=== PATIENT | male | born 1930 | race Hispanic/Latino ===

== ENCOUNTER 2017-02-08 13:26 | Inpatient (IN) | payer MEDICARE, MEDICAID ==
[2017-02-08] MEDS ORDERED: Sodium Chloride 0.9% 500 ML IV STA ×3 (13:41→15:34)
[2017-02-08] MEDS ORDERED: Albuterol-Ipratrop 3 mg / 0.5 (3 ml) UD INH STA (13:41)
[2017-02-08] MEDS ORDERED: Albuterol-Ipratrop 3 mg / 0.5 (3 ml) UD IH STA (13:41)
[2017-02-08] MEDS ORDERED: Albuterol-Ipratrop 3 mg / 0.5 (3 ml) UD ONE (13:47)
[2017-02-08 13:48] LABS: ABG ALLEN TEST YES; ARTERIAL BLOOD GAS HCO3 24.7 mmol/L (21-28); ARTERIAL BLOOD GAS PH 7.45 (7.35-7.45); ARTERIAL BLOOD GAS PO2 51 mm/Hg (80-100)
--- NOTE | 2017-02-08 13:50 | ED PDOC ---
HPI: SOB/CHF/COPD Time Seen by Provider: 02/08/17 13:41 Chief Complaint (Nursing): Respiratory Distress Chief Complaint (Provider): Dyspnea History Per: Patient History/Exam Limitations: no limitations Onset/Duration Of Symptoms: Days (Today) Current Symptoms Are (Timing): Still Present Additional Complaint(s): Pt. with dyspnea, cough, chills, chest pain. On going for days, getting worse. Pt. homemaker came and saw pt. uncomfortable so called ER. He did not want to come to the ER. Pt. with leg swelling and pain ongoing for weeks. Has stopped taking his meds for copd. Does not take any other meds. No numbness, tingles, weakness, headaches, weakness. EMS saw pt. and given 2 duoneb, 1 ativan IV, and solumedrol 125mg. Past Medical History Reviewed: Nursing Documentation, Vital Signs Vital Signs: Last Vital Signs Temp 102.6 F H 02/08/17 14:04 Pulse 119 H 02/08/17 15:30 Resp 26 H 02/08/17 15:30 BP 112/54 L 02/08/17 15:30 Pulse Ox 97 02/08/17 15:30 - Medical History PMH: COPD - Surgical History Surgical History: No Surg Hx - Family History Family History: States: Unknown Family Hx - Social History Current smoker - smoking cessation education provided: No Alcohol: None - Allergies Allergies/Adverse Reactions: Allergies Allergy/AdvReac Type Severity Reaction Status Date / Time Penicillins Allergy RASH Verified 02/08/17 13:28 Review of Systems ROS Statement: Except As Marked, All Systems Reviewed And Found Negative Constitutional: Positive for: Chills ENT: Positive for: Nose Congestion Cardiovascular: Positive for: Chest Pain Respiratory: Positive for: Cough, Shortness of Breath, Wheezing Musculoskeletal: Positive for: Leg Pain Physical Exam - Reviewed Nursing Documentation Reviewed: Yes Vital Signs Reviewed: Yes - Physical Exam Appears: Positive for: Uncomfortable Head Exam: Positive for: ATRAUMATIC Skin: Positive for: Normal Color, Warm, DRY Eye Exam: Positive for: EOMI, Normal appearance, PERRL ENT: Positive for: Nasal Congestion. Negative for: Pharyngeal Erythema, Tonsillar Exudate Neck: Positive for: Normal, Painless ROM, Supple Cardiovascular/Chest: Positive for: Chest Non Tender, Edema (b/l lower ), Tachycardia (mild) Respiratory: Positive for: Decreased Breath Sounds, Wheezing (b/l) Gastrointestinal/Abdominal: Positive for: Normal Exam, Bowel Sounds, Soft. Negative for: Tenderness Back: Positive for: Normal Inspection. Negative for: L CVA Tenderness, R CVA Tenderness Extremity: Positive for: Normal ROM, Pedal Edema (b/l with pitting mild; venous stasis b/l). Negative for: Tenderness Neurologic/Psych: Positive for: Alert, sole seamer II-XII, Oriented. Negative for: Motor/Sensory Deficits, Facial Droop - Laboratory Results Result Diagrams: 02/08/17 13:30 02/08/17 13:50 Interpretation Of Abn Labs: 12.9 wbc; 27 bun, 1.4 cr - ECG ECG: Positive for: Interpreted By Me, Viewed By Me ECG Rhythm: Positive for: Sinus Tachycardia, Right Bundle Branch Block O2 Sat by Pulse Oximetry: 86 Pulse Ox Interpretation: Abnormal Interpretation Of Abnormal: corrected with oxygen nasal - Radiology X-Ray: Interpreted by Me, Viewed By Me X-Ray Interpretation: Infiltrates (LLL infiltrate) - Progress ED Course And Treament: 1506: Stable. Will need antibiotics. Will tx and need admit. 1537: Stable. AAOx3. Feels better. Speaking full sentences. Breathing better. Spoke with Dr. Grant. Will admit and give further orders when pt. reaches floor. - Critical Care Total Time (In Min): 30 Documented Critical Care: Time excludes all time spent performint seperately billable procedures Disposition - Clinical Impression Clinical Impression: Pneumonia, COPD (chronic obstructive pulmonary disease), Sepsis - Patient ED Disposition Is Patient to be Admitted: Yes Counseled Patient/Family Regarding: Studies Performed, Diagnosis - Disposition Disposition Time: 15:39 Condition: FAIR - Pt Status Changed To: Hospital Disposition Of: Inpatient - Admit Certification Admit to Inpatient:: After my assessment, the patient will require hospitalization for at least two midnights. This is because of the severity of symptoms shown, intensity of services needed, and/or the medical risk in this patient being treated as an outpatient. - POA Present On Arrival: None Core Measure Indicators: Pneumonia
[2017-02-08 14:06] LABS: ALB/GLOB RATIO 0.9 (1.0-2.1); ALKALINE PHOSPHATASE 72 U/L (38-126); ALT/SGPT 22 U/L (21-72); AST/SGOT 45 U/L (17-59); BILIRUBIN,TOTAL 1.4 mg/dl (0.2-1.3); BLOOD UREA NITROGEN 27 mg/dl (9-20); CALCIUM 9.4 mg/dL (8.4-10.2); CARBON DIOXIDE 23 mmol/L (22-30); CHLORIDE 105 mmol/L (98-107); GFR AFRICAN-AMERICAN 58; GLUCOSE,RANDOM 93 mg/dL (75-110); MAGNESIUM 2.2 MG/DL (1.6-2.3); PHOSPHOROUS 3.7 mg/dl (2.5-4.5); SODIUM 144 mmol/l (132-148); TOTAL PROTEIN 8.4 G/DL (6.3-8.2)
[2017-02-08 14:10] LABS: POTASSIUM 5.8 MMOL/L (3.6-5.0)
[2017-02-08 14:17] LABS: PARTIAL THROMBOPLASTIN TIME 20.3 SECONDS (23.3-32.5)
[2017-02-08 14:21] LABS: RBC URINE 3 /hpf (0-3); URINE BACTERIA RARE (<OCC); URINE BILIRUBIN NEGATIVE (NEGATIVE); URINE BLOOD NEGATIVE (NEGATIVE); URINE COLOR YELLOW (YELLOW); URINE GLUCOSE (UA) NEG (Normal); URINE KETONE NEGATIVE (NEGATIVE); URINE LEUKOCYTE ESTERASE NEG Leu/uL (Negative); URINE PROTEIN NEGATIVE (NEGATIVE); URINE UROBILINOGEN 0.2-1.0 mg/dL (0.2-1.0); WBC URINE 12 /hpf (0-5)
[2017-02-08 14:28] LABS: BASO # 0.2 K/uL (0.0-0.2); BASO % 1.3 % (0.0-2.0); EOS # 0.3 K/uL (0.0-0.7); EOS % 2.4 % (0.0-4.0); LYMPH # 1.8 K/uL (1.0-4.3); LYMPH % 13.7 % (20.0-40.0); MEAN CELL VOLUME 93.4 fl (80.0-94.0); MEAN CORPUSCULAR HGB CONC 32.2 g/dL (33.0-37.0); MONO # 0.4 K/uL (0.0-0.8); MONO % 2.8 % (0.0-10.0); NEUT # 10.3 K/uL (1.8-7.0); NEUT % 79.8 % (50.0-75.0); RED CELL DISTRIBUTION WIDTH 14.2 % (11.5-14.5); WHITE BLOOD COUNT 12.9 K/uL (4.8-10.8)
[2017-02-08 14:32] LABS: BILIRUBIN,TOTAL 0.8 mg/dl (0.2-1.3); CALCIUM 9.4 mg/dL (8.4-10.2); POTASSIUM 4.9 MMOL/L (3.6-5.0); TOTAL PROTEIN 7.5 G/DL (6.3-8.2)
--- NOTE | 2017-02-08 14:35 | RAD ---
HISTORY: Sepsis Patient COMPARISON: No prior. FINDINGS: LUNGS: The right lung is clear. There is a left retrocardiac opacity. PLEURA: Suspect left pleural effusion. Question of small right pleural effusion, no pneumothorax apparent. CARDIOVASCULAR: There is moderate cardiomegaly. OSSEOUS STRUCTURES: No significant abnormalities. VISUALIZED UPPER ABDOMEN: Normal. OTHER FINDINGS: None. IMPRESSION: Suspect left lower lobe atelectasis/ pneumonia and small left pleural effusion. Question of small right pleural effusion.
[2017-02-08] MEDS ORDERED: Moxifloxacin IV 400mg/250ml NS 250 ML IVPB STA (15:04)
[2017-02-08 18:12] LABS: VENOUS BLOOD GAS BASE EXCESS -1.9 mmol/L (0.0-2.0); VENOUS BLOOD GAS PCO2 43 mmHg (40-60); VENOUS BLOOD PH 7.35 (7.32-7.43)
[2017-02-08 18:56] VITALS: BMI 29.8
[2017-02-08] MEDS: methylPREDNISolone 80 MG in Sodium Chloride 0.9% 50 ML IVPB SCH (22:23)
[2017-02-08] MEDS: Pantoprazole 40 mg EC Tab PO SCH (23:41)
[2017-02-09] MEDS: Albuterol-Ipratrop 3 mg / 0.5 (3 ml) UD INH SCH ×3 (01:18→13:30)
[2017-02-09] MEDS: methylPREDNISolone 80 MG in Sodium Chloride 0.9% 50 ML IVPB SCH ×4 (04:43→21:32)
--- NOTE | 2017-02-09 07:33 | CP.PCM.CON ---
History of Present Illness - History of Present Illness History of Present Illness: 86 y/o male with dyspnea, cough, chills, chest pain. On going for days, getting worse. Pt. with leg swelling and pain ongoing for weeks. Has stopped taking his meds for copd. Does not take any other meds. No numbness, tingles, weakness, headaches, weakness. 02/09 EKG: S Tach w/CRBBB Today's EKG: NSR CRBBB Troponin: neg Pt denies chest pain / palpitations Past Patient History - Past Medical History & Family History Past Medical History?: Yes - Past Social History Smoking Status: Former Smoker - PULMONARY Hx Respiratory Disorders: Yes (COPD) - MUSCULOSKELETAL/RHEUMATOLOGICAL Hx Falls: No - GASTROINTESTINAL Hx Gastroesophageal Reflux: Yes - PSYCHIATRIC Hx Substance Use: No Meds Allergies/Adverse Reactions: Allergies Allergy/AdvReac Type Severity Reaction Status Date / Time Penicillins Allergy RASH Verified 02/08/17 13:28 - Medications Medications: Current Medications Acetaminophen (Tylenol 325mg Tab) 650 mg PO Q6 PRN PRN Reason: Fever >100.4 F Acetaminophen (Tylenol 325mg Tab) 650 mg PO Q6 PRN PRN Reason: Pain, Mild (1-3) Last Admin: 02/09/17 01:53 Dose: 650 mg Albuterol/Ipratropium (Duoneb 3 Mg/0.5 Mg (3 Ml) Ud) 3 ml INH RQ6 [facility] Last Admin: 02/09/17 01:18 Dose: 3 ml Enoxaparin Sodium (Lovenox) 40 mg SC DAILY [facility] PRN Reason: Protocol Levofloxacin/Dextrose (Levaquin 750mg) 150 mls @ 100 mls/hr IVPB DAILY [facility] Methylprednisolone 80 mg/ (Sodium Chloride) 51.28 mls @ 100 mls/hr IVPB Q6 [facility] Last Admin: 02/09/17 04:43 Dose: 100 mls/hr Ondansetron HCl (Zofran Inj) 4 mg IVP Q6 PRN PRN Reason: Nausea/Vomiting Last Admin: 02/08/17 23:41 Dose: 4 mg Pantoprazole Sodium (Protonix Ec Tab) 40 mg PO DAILY [facility] Last Admin: 02/08/17 23:41 Dose: 40 mg Results - Vital Signs Recent Vital Signs: Last Vital Signs Temp 97.5 F L 02/09/17 05:00 Pulse 94 H 02/09/17 05:00 Resp 20 02/09/17 05:00 BP 94/52 L 02/09/17 05:00 Pulse Ox 98 02/09/17 05:00 - Labs Result Diagrams: 02/08/17 13:30 02/08/17 13:50 Labs: Laboratory Results - last 24 hr 02/08/17 02/08/17 18:10 21:08 pO2 47 VBG pH 7.35 VBG pCO2 43 VBG HCO3 23.1 VBG Total CO2 25.0 VBG O2 Sat (Calc) 88.4 H VBG Base Excess -1.9 L VBG Potassium 4.3 Sodium 136.0 Chloride 110.0 H Glucose 169 H Lactate 1.2 FiO2 21.0 POC Glucose (mg/dL) 286 H Venous Blood Potassium 4.3 Assessment & Plan (1) COPD (chronic obstructive pulmonary disease) Status: Acute (2) Pneumonia Status: Acute (3) Sepsis Status: Acute (4) Right bundle branch block Assessment and Plan: Cardiac brambila pt appears stable CRBBB on EKG Cardiac brambila may be discharged to f/u as out patient Status: Acute
[2017-02-09 08:17] LABS: THYROID STIMULATING HORMONE 0.56 mIU/ML (0.46-4.68)
[2017-02-09] MEDS: Enoxaparin 40 mg Syringe SC SCH (08:58)
[2017-02-09] MEDS: Pantoprazole 40 mg EC Tab PO SCH (08:58)
--- NOTE | 2017-02-09 10:26 | CARD ---
APPROVED REPORT EKG Measurement Heart [id number] <Conclusion> Sinus tachycardia Left axis deviation Pulmonary disease pattern Right bundle branch block Inferior infarct, age undetermined Abnormal ECG
--- NOTE | 2017-02-09 10:47 | CARD ---
APPROVED REPORT EKG Measurement Heart [id number] <Conclusion> Normal sinus rhythm Right bundle branch block Left anterior fascicular block Bifascicular block Abnormal ECG
--- NOTE | 2017-02-09 15:59 | HP ---
CHIEF COMPLAINT: Shortness of breath. HISTORY OF PRESENT ILLNESS: This is an 86-year-old male with a known case of chronic obstructive pul monary disease, who was having cough, sore throat, chills, shortness of breath for a few days, which did not get better. The patient's homemaker noted the patient is in respiratory distress very much a nd EMS was called and the patient was brought to Emergency Room and was admitted for further manageme nt. REVIEW OF SYSTEMS: Positive for fever, malaise, cough, shortness of breath, chest pain and generaliz ed weakness. Review of systems otherwise is negative for headache, dizziness, syncope, loss of consc iousness, nausea, vomiting, diarrhea, constipation, any new joint or extremity pain. Review of syste ms is also positive for leg swelling. Review of systems of all other organ systems is unremarkable. PAST MEDICAL HISTORY: Significant for COPD and arthritis. PAST SURGICAL HISTORY: Unremarkable. PERSONAL HISTORY: The patient is currently a nonsmoker, nondrinker, no substance abuse. MEDICATIONS: The patient is on multiple medications, which is as per reconciliation sheet, which was reviewed. ALLERGIES: THE PATIENT IS ALLERGIC TO PENICILLIN. FAMILY HISTORY: Noncontributory. PHYSICAL EXAMINATION: GENERAL: Well-built, well-nourished, overweight 86-year-old male in no acute distress. VITAL SIGNS: Temperature afebrile, pulse 88, respirations 18, blood pressure ____. HEENT: Pupils reacting to light. NECK: No JVD, no thyromegaly, no lymphadenopathy, no nystagmus. Normocephalic, atraumatic skull. HEART: S1, S2 normal, regular. No significant murmur, gallop or rub is heard. LUNGS: ____ expirations have bilateral rhonchi and wheezes. ABDOMEN: Soft, nontender, no organomegaly, no fluid. Bowel sounds are plus. EXTREMITIES: The patient has 1-2+ pitting edema and chronic skin changes consistent with peripheral vascular disease and COPD. No calf swelling, no tenderness, no acute ischemia. CENTRAL NERVOUS SYSTEM: The patient is alert, awake, oriented x 3. There is no sign of any acute gr oss focal motor or sensory neurological deficit. DIAGNOSTIC DATA: Available diagnostic data reviewed. Telemetry monitoring does not reveal significa nt arrhythmia. WBC 12.9, hemoglobin 13.2, hematocrit 41, platelets 241. PT 10.7, PTT is ____. The pH 7.45, pCO2 34, pO2 51. Sodium 144, potassium 4.9, chloride 105, bicarb 26, BUN 27, creatinine 1.4 . SMA-12 is unremarkable. Urinalysis is unremarkable. Flu test is negative. Chest x-ray is consis tent with left lower lobe pneumonia with effusion. EKG does not reveal any acute ST-T changes. Ther e is a right bundle branch block, old anterior infarct. ADMITTING IMPRESSION: Acute exacerbation of chronic obstructive pulmonary disease, coronary artery d isease, congestive heart failure, obesity. PLAN: As ordered. Case and plan discussed with patient. Dre Grant MD cc: [id number] TT: 02/09/2017 15:58:09 an
[2017-02-10] MEDS: Albuterol-Ipratrop 3 mg / 0.5 (3 ml) UD INH SCH ×2 (01:21→07:47)
[2017-02-10] MEDS: methylPREDNISolone 80 MG in Sodium Chloride 0.9% 50 ML IVPB SCH ×4 (03:26→21:19)
[2017-02-10 07:03] LABS: HEMATOCRIT 35.2 % (35.0-51.0); MEAN CORPUSCULAR HEMOGLOBIN 30.5 pg (27.0-31.0); MEAN CORPUSCULAR HGB CONC 32.8 g/dL (33.0-37.0); RED CELL DISTRIBUTION WIDTH 14.3 % (11.5-14.5); WHITE BLOOD COUNT 13.6 K/uL (4.8-10.8)
[2017-02-10 07:09] LABS: ALKALINE PHOSPHATASE 56 U/L (38-126); ALT/SGPT 31 U/L (21-72); AST/SGOT 24 U/L (17-59); BILIRUBIN,TOTAL < 0.1 mg/dl (0.2-1.3); BLOOD UREA NITROGEN 40 mg/dl (9-20); CALCIUM 8.2 mg/dL (8.4-10.2); CARBON DIOXIDE 22 mmol/L (22-30); CHLORIDE 112 mmol/L (98-107); GFR AFRICAN-AMERICAN 54; GLUCOSE,RANDOM 166 mg/dL (75-110); POTASSIUM 4.9 MMOL/L (3.6-5.0); SODIUM 147 mmol/l (132-148); TOTAL PROTEIN 6.4 G/DL (6.3-8.2)
[2017-02-10 07:24] LABS: ALB/GLOB RATIO 0.9 (1.0-2.1)
[2017-02-10] MEDS: Enoxaparin 40 mg Syringe SC SCH (09:14)
[2017-02-10] MEDS: Pantoprazole 40 mg EC Tab PO SCH (09:14)
--- NOTE | 2017-02-10 10:07 | PQF GENQUE ---
This form is a permanent part of the medical record 02/10/17 Dr. Grant, Please clarify the appropriate diagnoses for this patient AFTER WORKUP. ER MD has documented the following information with no mention of these diagnoses in your documentation. Please indicate in your next progress note and /or discharge summary your agreement with ER or provide clarification that these diagnoses are not a current condition. Diagnoses: PNEUMONIA and SEPSIS Documented by: DR. WILKES Location: ER Admitted with sob, sore throat, chills and leg swelling. TEMP max 103, HR max 135, R max 32. CXR: suspect LLL atelectasis/pneumonia. WBC 12.9 with a L shift , Lactate 1.4. Treated with Levaquin. Clarification of your documentation is requested to better reflect the severity of illness and intensity of treatment of your patient. PHYSICIAN'S RESPONSE Based on your medical judgment of the clinical indicators outlined above please clarify the following: [] Practitioner response [] If unable to determine, please check the box, sign and date. Present On Admission (POA) Indicator: [] Present at the time of admission [] Not present at the time of admission [] Clinically Undetermined In responding to this query, please exercise your independent professional judgment. The fact that a question is asked does not imply that any particular answer is desired or expected. Thank you for your clarification on this documentation. If you have any questions please call:[phone] * Thank you, Graciela Castillo RN CDMP [facility]
[2017-02-10] MEDS ORDERED: Sodium Chloride 3% for Inhalation 4 ML VIAL.NEB IH PRN (11:52)
--- NOTE | 2017-02-10 11:52 | CP.PCM.PN ---
<Kathe Ballesteros - Last Filed: 02/10/17 17:32> Subjective - Date & Time of Evaluation Date of Evaluation: 02/10/17 Time of Evaluation: 07:30 - Subjective Subjective: 86M seen and examined at bedside this morning with attending. Pt c/o of SOB, but denies chest pain, abdominal pain, and says he has good appetite. Otherwise patient complaint of b/l feet swelling at times at home. Objective - Vital Signs/Intake and Output Vital Signs (last 24 hours): Temp Pulse Resp BP Pulse Ox 36.7 C 91 H 18 105/54 L 93 L 02/10/17 08:10 02/10/17 08:10 02/10/17 08:10 02/10/17 08:10 02/10/17 08:10 - Medications Medications: Current Medications Acetaminophen (Tylenol 325mg Tab) 650 mg PO Q6 PRN PRN Reason: Fever >100.4 F Acetaminophen (Tylenol 325mg Tab) 650 mg PO Q6 PRN PRN Reason: Pain, Mild (1-3) Last Admin: 02/09/17 01:53 Dose: 650 mg Enoxaparin Sodium (Lovenox) 40 mg SC DAILY [facility] PRN Reason: Protocol Last Admin: 02/10/17 09:14 Dose: 40 mg Levofloxacin/Dextrose (Levaquin 750mg) 150 mls @ 100 mls/hr IVPB DAILY [facility] Last Admin: 02/10/17 09:14 Dose: 100 mls/hr Methylprednisolone 80 mg/ (Sodium Chloride) 51.28 mls @ 100 mls/hr IVPB Q6 [facility] Last Admin: 02/10/17 09:12 Dose: 100 mls/hr Levalbuterol HCl (Xopenex) 1.25 mg INH ONCE ONE Stop: 02/10/17 16:01 Ondansetron HCl (Zofran Inj) 4 mg IVP Q6 PRN PRN Reason: Nausea/Vomiting Last Admin: 02/08/17 23:41 Dose: 4 mg Pantoprazole Sodium (Protonix Ec Tab) 40 mg PO DAILY [facility] Last Admin: 02/10/17 09:14 Dose: 40 mg Tiotropium [place] (Spiriva) 18 mcg INH DAILY [facility] - Labs Labs: 02/10/17 05:15 02/10/17 05:15 PT 10.7 SECONDS (9.6-11.2) 02/08/17 13:50 INR 1.03 (0.92-1.08) 02/08/17 13:50 APTT 20.3 SECONDS (23.3-32.5) L 02/08/17 13:50 - Constitutional Appears: Non-toxic, No Acute Distress - Head Exam Head Exam: ATRAUMATIC, NORMAL INSPECTION - Eye Exam Eye Exam: EOMI, PERRL - ENT Exam ENT Exam: Mucous Membranes Moist, Normal Exam - Neck Exam Neck Exam: Full ROM, Normal Inspection - Respiratory Exam Respiratory Exam: Decreased Breath Sounds (L>R), Rhonchi, Wheezes, NORMAL BREATHING PATTERN - Cardiovascular Exam Cardiovascular Exam: Tachycardia (Exacerbated ), REGULAR RHYTHM. absent: JVD - GI/Abdominal Exam GI & Abdominal Exam: Soft, Hernia (reducible umbilical), Normal Bowel Sounds - Extremities Exam Extremities Exam: Normal Capillary Refill. absent: Normal Inspection (b/l hyperpigmentation, thickened c/w chronic venous stasis), Pedal Edema - Neurological Exam Neurological Exam: Alert, Awake - Psychiatric Exam Psychiatric exam: Anxious, Normal Mood - Skin Skin Exam: Normal Color, Warm Assessment and Plan - Assessment and Plan (Free Text) Assessment: 86M admitted for pneumonia (unknown but suspect bacterial) after failed outpatient treatment vs. recurrent as nephew reports his uncle was treated "2 months ago with antibiotics at home". In addition, patient met criteria for sepsis in the ED which has since resolved with antibiotics and anti-pyretics. Plan: 1. Pneumonia: recurrent vs. failed outpatient treatment - Pulmonary Consult (Dr Mcneal) appreciated - Oxygen 2LNC - Levaquin 750mg, IV, Daily - Sputum Culture: PEND - Promethazine 5ml, PO, Q6H 2. COPD Exacerbation - Pulmonary Consult (Dr Mcneal) appreciated - Antibiotics as above - Xopenex 1.25mg, INH, Q8H - Spiriva 18mcg, INH, Daily - Methylprednisone 80mg, IV, Q6H 3. DVT Prophylaxis - Lovenox 40mg, SC, Daily 4. GERD: chronic - Pantoprazole 40mg, PO, Daily 5. Sepsis on admission has resolved <Grant,Dre K - Last Filed: 02/20/17 18:17> Objective - Vital Signs/Intake and Output Vital Signs (last 24 hours): Temp Pulse Resp BP Pulse Ox 97.8 F 80 20 146/71 99 02/12/17 12:40 02/12/17 12:40 02/12/17 12:40 02/12/17 12:40 02/12/17 12:40 - Labs Labs: 02/12/17 05:15 02/12/17 05:15 PT 10.7 SECONDS (9.6-11.2) 02/08/17 13:50 INR 1.03 (0.92-1.08) 02/08/17 13:50 APTT 20.3 SECONDS (23.3-32.5) L 02/08/17 13:50 Assessment and Plan - Assessment and Plan (Free Text) Assessment: Patient was personally seen and examined by me in rounds with residents. Available labs and diagnostic data reviewed. Case, Patient's condition and management plan discussed with residents in rounds. Agree with resident's documentation. Plan: As ordered. Dre Grant MD
[2017-02-10] MEDS: Tiotropium 18 mcg Cap For Inhalation INH SCH (12:53)
[2017-02-10] MEDS ORDERED: Levalbuterol 1.25 MG/3 ML Inhal Soln UD INH PRN (13:58)
[2017-02-10] MEDS ORDERED: Promethazine DM 6.25 mg-15 mg/5 ml Syrup PO PRN (13:59)
--- NOTE | 2017-02-10 14:12 | CP.PCM.CON ---
History of Present Illness - History of Present Illness History of Present Illness: CC: Respiratory Distress. Pulmonary consult. 86 y/o M, found having difficulty breathing as per his home-maker on 02/08/17. She called EMS, upon arrival they administer Solumedrol 125 mg, Nebulizer Tx and Ativan 1 mg, Pt had some relief but after he continue with SOB and was brought to ER [facility] for evaluation and was admitted. 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 Worsening symptoms of fever 103, chills, CP, legs edema with moderate pain, intensity 6:10. Aggravated factor: Non in compliance with COPD medications. Pt denied: Dizziness, weakness, headache, numbness, syncope, n/v/d, abdominal pain, urinary symptoms, sick contact, recent travel. PMHx: COPD, PNA, E Reflux. CXR showed: Suspect LLL PNA. EKG 02/09 = NSR CRBBB Review of Systems - Constitutional Constitutional: Chills, Fever - EENT Eyes: Other (negative) Ears: Other (negative) Nose/Mouth/Throat: Other (negative) - Cardiovascular Cardiovascular: Chest Pain, Leg Edema - Respiratory Respiratory: Cough, Dyspnea, Chest Congestion, Other (Dyspnea at rest) - Gastrointestinal Gastrointestinal: Other (negative) - Genitourinary Genitourinary: Other (negative) - Musculoskeletal Musculoskeletal: Other (negative) - Integumentary Integumentary: Skin Ulcer (L/E), Swelling - Neurological Neurological: Other (negative) - Psychiatric Psychiatric: Other (negative) - Endocrine Endocrine: Other (negative) - Hematologic/Lymphatic Hematologic: Other (negative) Past Patient History - Past Medical History & Family History Past Medical History?: Yes - Past Social History Smoking Status: Former Smoker (heavy smoker) Home Situation {Lives}: Alone - CARDIAC Hx Cardiac Disorders: No - PULMONARY Hx Respiratory Disorders: Yes (COPD) - NEUROLOGICAL Hx Neurological Disorder: No - HEENT Hx HEENT Problems: No - RENAL Hx Chronic Kidney Disease: No - ENDOCRINE/METABOLIC Hx Endocrine Disorders: No - HEMATOLOGICAL/ONCOLOGICAL Hx Blood Disorders: No - INTEGUMENTARY Hx Dermatological Problems: No - MUSCULOSKELETAL/RHEUMATOLOGICAL Hx Falls: No - GASTROINTESTINAL Hx Gastrointestinal Disorders: Yes Hx Gastroesophageal Reflux: Yes - GENITOURINARY/GYNECOLOGICAL Hx Genitourinary Disorders: No - PSYCHIATRIC Hx Substance Use: No Meds Allergies/Adverse Reactions: Allergies Allergy/AdvReac Type Severity Reaction Status Date / Time guaifenesin [From Mucinex] Allergy RASH Verified 02/10/17 14:46 Penicillins Allergy RASH Verified 02/08/17 13:28 - Medications Medications: Current Medications Acetaminophen (Tylenol 325mg Tab) 650 mg PO Q6 PRN PRN Reason: Fever >100.4 F Acetaminophen (Tylenol 325mg Tab) 650 mg PO Q6 PRN PRN Reason: Pain, Mild (1-3) Last Admin: 02/09/17 01:53 Dose: 650 mg Enoxaparin Sodium (Lovenox) 40 mg SC DAILY [facility] PRN Reason: Protocol Last Admin: 02/10/17 09:14 Dose: 40 mg Levofloxacin/Dextrose (Levaquin 750mg) 150 mls @ 100 mls/hr IVPB DAILY [facility] Last Admin: 02/10/17 09:14 Dose: 100 mls/hr Methylprednisolone 80 mg/ (Sodium Chloride) 51.28 mls @ 100 mls/hr IVPB Q6 [facility] Last Admin: 02/10/17 09:12 Dose: 100 mls/hr Levalbuterol HCl (Xopenex) 1.25 mg INH ONCE ONE Stop: 02/10/17 16:01 Levalbuterol HCl (Xopenex) 1.25 mg INH RQ8 PRN PRN Reason: Shortness of Breath Pantoprazole Sodium (Protonix Ec Tab) 40 mg PO DAILY [facility] Last Admin: 02/10/17 09:14 Dose: 40 mg Promethazine HCl/Dextromethorphan (Phenergan Dm Syrup) 5 ml PO Q6 PRN PRN Reason: Cough Tiotropium [place] (Spiriva) 18 mcg INH DAILY [facility] Last Admin: 02/10/17 12:53 Dose: 18 mcg Physical Exam - Constitutional Appears: No Acute Distress - Head Exam Head Exam: NORMAL INSPECTION - Eye Exam Eye Exam: PERRL - ENT Exam ENT Exam: Normal Oropharynx - Neck Exam Neck exam: Positive for: Normal Inspection - Respiratory Exam Respiratory Exam: Decreased Breath Sounds (b/l), Rhonchi (scattered), Wheezes ( scattered) - Cardiovascular Exam Cardiovascular Exam: REGULAR RHYTHM - GI/Abdominal Exam GI & Abdominal Exam: Normal Bowel Sounds, Soft - Extremities Exam Additional comments: b/l L/E swelling, edema, venous stasis. - Back Exam Back exam: NORMAL INSPECTION - Neurological Exam Neurological exam: Alert, Oriented x3 Additional comments: No motor sensory deficit. - Psychiatric Exam Psychiatric exam: Normal Mood - Skin Skin Exam: Warm Results - Vital Signs Recent Vital Signs: Last Vital Signs Temp 97.5 F L 02/10/17 11:57 Pulse 97 H 02/10/17 11:57 Resp 18 02/10/17 11:57 BP 130/65 02/10/17 11:57 Pulse Ox 97 02/10/17 11:57 reviewed J.P. - Labs Result Diagrams: 02/11/17 05:15 02/11/17 05:20 Labs: Laboratory Results - last 24 hr 02/09/17 02/10/17 02/10/17 17:25 05:15 05:15 WBC 13.6 H RBC 3.78 L Hgb 11.5 L Hct 35.2 MCV 93.0 MCH 30.5 MCHC 32.8 L RDW 14.3 Plt Count 224 Sodium 147 Potassium 4.9 Chloride 112 H Carbon Dioxide 22 Anion Gap 18 BUN 40 H Creatinine 1.5 Est GFR ( Amer) 54 Est GFR (Non-Af Amer) 44 Random Glucose 166 H Hemoglobin A1c 6.3 Calcium 8.2 L Total Bilirubin < 0.1 L AST 24 ALT 31 Alkaline Phosphatase 56 Total Protein 6.4 Albumin 3.1 L Globulin 3.3 Albumin/Globulin Ratio 0.9 L reviewed J.P. - EKG Data EKG comments: reviewed J.P. - Imaging and Cardiology Chest x-ray Status: Report reviewed by me (Sarah) Assessment & Plan (1) COPD exacerbation Status: Acute Priority: High (2) Pneumonia Status: Acute (3) Sepsis Status: Acute (4) Right bundle branch block Status: Acute - Assessment and Plan (Free Text) Plan: Continue N/C 2 L/M, Levaquin, Solumedrol, Xopenex, f/u CT Chest. - Date & Time Date: 02/10/17 Time: 10:50
--- NOTE | 2017-02-10 15:14 | CT ---
PROCEDURE: CT Chest without contrast HISTORY: pneumonia COMPARISON: None. TECHNIQUE: Contiguous axial images were obtained through the chest without intravenous contrast enhancement. Sagittal and coronal reconstructions were performed. Radiation dose (DLP): 605.18 mGy-cm. This CT exam was performed using one or more of the following dose reduction techniques: Automated exposure control, adjustment of the mA and/or kV according to patient size, and/or use of iterative reconstruction technique. FINDINGS: LUNGS: There is airspace consolidation and infiltrate at the left lower lobe may represent pneumonia or less likely atelectasis. There are 2 adjacent small nodular opacity at the right middle lobe. Moderate emphysematous changes predominant in the upper lobes are noted. MEDIASTINUM: Unremarkable thoracic aorta. No aneurysm. The heart is normal in size. There is a trace pericardial effusion and or pericardial thickening seen. Main pulmonary artery unremarkable. No vascular congestion. No lymphadenopathy. PLEURA: Trace/small left pleural effusion is noted. Pleural thickening and/or trace pleural effusions seen at the right base. BONES: No fracture. No destructive lesion. UPPER ABDOMEN: Large hiatus hernia is again seen. There are cystic lesions seen at the kidneys. High attenuation lesions seen exophytic from the upper pole of the left kidney measures 2.1 centimeter may represent hemorrhagic cyst or mass lesion. No evidence of hydronephrosis. OTHER FINDINGS: None. IMPRESSION: Left lower lobe opacity may represent pneumonia or less likely atelectasis. Small left pleural effusion. Trace right pleural effusion. Large hiatus hernia. 2.1 centimeter high attenuation lesion exophytic from the upper pole of the left kidney may represent hemorrhagic cyst or neoplasm. Further assessment by ultrasound is suggested.
[2017-02-10] MEDS ORDERED: Levalbuterol 1.25 MG/3 ML Inhal Soln UD INH ONE (16:00)
[2017-02-10] MEDS: Levalbuterol 1.25 MG/3 ML Inhal Soln UD INH SCH ×2 (16:00→23:53)
[2017-02-11] MEDS: methylPREDNISolone 80 MG in Sodium Chloride 0.9% 50 ML IVPB SCH ×4 (04:33→21:56)
[2017-02-11 06:53] LABS: HEMATOCRIT 36.3 % (35.0-51.0); MEAN CELL VOLUME 93.3 fl (80.0-94.0); MEAN CORPUSCULAR HEMOGLOBIN 30.4 pg (27.0-31.0); MEAN CORPUSCULAR HGB CONC 32.6 g/dL (33.0-37.0); RED CELL DISTRIBUTION WIDTH 14.7 % (11.5-14.5); WHITE BLOOD COUNT 11.2 K/uL (4.8-10.8)
[2017-02-11 07:03] LABS: BLOOD UREA NITROGEN 41 mg/dl (9-20); CALCIUM 8.2 mg/dL (8.4-10.2); CARBON DIOXIDE 24 mmol/L (22-30); CHLORIDE 112 mmol/L (98-107); GFR AFRICAN-AMERICAN > 60; GLUCOSE,RANDOM 149 mg/dL (75-110); POTASSIUM 5.1 MMOL/L (3.6-5.0); SODIUM 146 mmol/l (132-148)
--- NOTE | 2017-02-11 07:33 | CP.PCM.PN ---
<Kathe Ballesteros - Last Filed: 02/11/17 11:45> Subjective - Date & Time of Evaluation Date of Evaluation: 02/11/17 Time of Evaluation: 07:33 - Subjective Subjective: 86M seen and examined at bedside with attending. Pt reports some improvement in breathing and cough and denies chest pain. Objective - Vital Signs/Intake and Output Vital Signs (last 24 hours): Temp Pulse Resp BP Pulse Ox 36.6 C 75 20 121/53 L 95 02/11/17 05:00 02/11/17 05:00 02/11/17 05:00 02/11/17 05:00 02/11/17 05:00 - Medications Medications: Current Medications Acetaminophen (Tylenol 325mg Tab) 650 mg PO Q6 PRN PRN Reason: Fever >100.4 F Acetaminophen (Tylenol 325mg Tab) 650 mg PO Q6 PRN PRN Reason: Pain, Mild (1-3) Last Admin: 02/09/17 01:53 Dose: 650 mg Enoxaparin Sodium (Lovenox) 40 mg SC DAILY [facility] PRN Reason: Protocol Last Admin: 02/10/17 09:14 Dose: 40 mg Levofloxacin/Dextrose (Levaquin 750mg) 150 mls @ 100 mls/hr IVPB DAILY [facility] Last Admin: 02/10/17 09:14 Dose: 100 mls/hr Methylprednisolone 80 mg/ (Sodium Chloride) 51.28 mls @ 100 mls/hr IVPB Q6 [facility] Last Admin: 02/11/17 04:33 Dose: 100 mls/hr Levalbuterol HCl (Xopenex) 1.25 mg INH RQ8 [facility] Last Admin: 02/10/17 23:53 Dose: 1.25 mg Pantoprazole Sodium (Protonix Ec Tab) 40 mg PO DAILY [facility] Last Admin: 02/10/17 09:14 Dose: 40 mg Promethazine HCl/Dextromethorphan (Phenergan Dm Syrup) 5 ml PO Q6 PRN PRN Reason: Cough Last Admin: 02/10/17 17:20 Dose: 5 ml Tiotropium [place] (Spiriva) 18 mcg INH DAILY [facility] Last Admin: 02/10/17 12:53 Dose: 18 mcg - Labs Labs: 02/11/17 05:15 02/10/17 05:15 PT 10.7 SECONDS (9.6-11.2) 02/08/17 13:50 INR 1.03 (0.92-1.08) 02/08/17 13:50 APTT 20.3 SECONDS (23.3-32.5) L 02/08/17 13:50 - Constitutional Appears: Non-toxic, No Acute Distress, Chronically Ill - Head Exam Head Exam: ATRAUMATIC, NORMAL INSPECTION - Eye Exam Eye Exam: EOMI, PERRL - ENT Exam ENT Exam: Mucous Membranes Moist, Normal Exam - Neck Exam Neck Exam: Full ROM, Normal Inspection - Respiratory Exam Respiratory Exam: Decreased Breath Sounds (L>R), Rhonchi (fewer than yesterday) , Wheezes (some improvement), NORMAL BREATHING PATTERN. absent: Accessory Muscle Use, Rales - Cardiovascular Exam Cardiovascular Exam: REGULAR RHYTHM. absent: JVD - GI/Abdominal Exam GI & Abdominal Exam: Soft, Hernia (reducible, umbilical), Normal Bowel Sounds. absent: Tenderness - Extremities Exam Extremities Exam: Normal Capillary Refill. absent: Pedal Edema Additional comments: b/l hyperpigmentation, thickened skin c/w chronic venous stasis - Neurological Exam Neurological Exam: Alert, Awake - Psychiatric Exam Psychiatric exam: Normal Affect, Normal Mood - Skin Skin Exam: Dry, Intact, Warm Assessment and Plan (1) Pneumonia Assessment & Plan: CT chest 02/10 reflects LLL infiltrate noted on CXR, sputum culture showing normal heide may not accurately reflect current imaging/clinical findings. - Pulmonary Consult (Dr Mcneal) appreciated - Oxygen 2LNC - Levaquin 750mg, IV, Daily - Sputum Culture: normal heide - Promethazine 5ml, PO, Q6H Status: Acute (2) COPD exacerbation Assessment & Plan: Patient with improvement this morning, possibly start decreasing steroids, but will await Pulmonary recommendations. TAchycardia has improved with Xopenex. - Pulmonary Consult (Dr Mcneal) appreciated - Antibiotics as above - Xopenex 1.25mg, INH, Q8H - Spiriva 18mcg, INH, Daily - Methylprednisone 80mg, IV, Q6H Status: Acute (3) DVT prophylaxis Assessment & Plan: Lovenox 40mg, SC, Daily Status: Acute (4) Left renal mass Assessment & Plan: Incidental noted on CT chest of LEFT upper pole renal exophytic lesion, high attenuation 2.1cm. - f/u Renal ultrasound pending - Urology Consult (Dr Pritchett) appreciated Status: Acute (5) GERD (gastroesophageal reflux disease) Assessment & Plan: Chronic, controlled. - Pantoprazole 40mg, PO, Daily Status: Chronic (6) Sepsis Assessment & Plan: Resolved at this time likely due to pneumonia given CXR showing infiltrate and UCx as well as BCx negative at this time. Status: Resolved <Dre Grant - Last Filed: 02/20/17 18:18> Objective - Vital Signs/Intake and Output Vital Signs (last 24 hours): Temp Pulse Resp BP Pulse Ox 97.8 F 80 20 146/71 99 02/12/17 12:40 02/12/17 12:40 02/12/17 12:40 02/12/17 12:40 02/12/17 12:40 - Labs Labs: 02/12/17 05:15 02/12/17 05:15 PT 10.7 SECONDS (9.6-11.2) 02/08/17 13:50 INR 1.03 (0.92-1.08) 02/08/17 13:50 APTT 20.3 SECONDS (23.3-32.5) L 02/08/17 13:50 Assessment and Plan - Assessment and Plan (Free Text) Assessment: Patient was personally seen and examined by me in rounds with residents. Available labs and diagnostic data reviewed. Case, Patient's condition and management plan discussed with residents in rounds. Agree with resident's documentation. Plan: As ordered. Dre Grant MD
[2017-02-11] MEDS: Levalbuterol 1.25 MG/3 ML Inhal Soln UD INH SCH ×3 (08:15→23:58)
[2017-02-11] MEDS: Enoxaparin 40 mg Syringe SC SCH (09:49)
[2017-02-11] MEDS: Pantoprazole 40 mg EC Tab PO SCH (09:49)
[2017-02-11] MEDS: Tiotropium 18 mcg Cap For Inhalation INH SCH (09:49)
--- NOTE | 2017-02-11 13:34 | CP.PCM.PN ---
Subjective - Date & Time of Evaluation Date of Evaluation: 02/11/17 Time of Evaluation: 10:40 - Subjective Subjective: F/U COPD Exacerbation. Cough improved, less chest congestion, less SOB or RIOS. Objective - Vital Signs/Intake and Output Vital Signs (last 24 hours): Temp Pulse Resp BP Pulse Ox 97.8 F 76 18 129/67 99 02/11/17 12:25 02/11/17 12:25 02/11/17 12:25 02/11/17 12:25 02/11/17 12:25 - Medications Medications: Current Medications Acetaminophen (Tylenol 325mg Tab) 650 mg PO Q6 PRN PRN Reason: Fever >100.4 F Acetaminophen (Tylenol 325mg Tab) 650 mg PO Q6 PRN PRN Reason: Pain, Mild (1-3) Last Admin: 02/09/17 01:53 Dose: 650 mg Enoxaparin Sodium (Lovenox) 40 mg SC DAILY ADAN PRN Reason: Protocol Last Admin: 02/11/17 09:49 Dose: 40 mg Levofloxacin/Dextrose (Levaquin 750mg) 150 mls @ 100 mls/hr IVPB DAILY [facility] Last Admin: 02/11/17 13:03 Dose: Not Given Methylprednisolone 80 mg/ (Sodium Chloride) 51.28 mls @ 100 mls/hr IVPB Q6 [facility] Last Admin: 02/11/17 09:49 Dose: 100 mls/hr Insulin Human Lispro (Humalog) 0 units SC ACHS [facility]AN PRN Reason: Protocol Levalbuterol HCl (Xopenex) 1.25 mg INH RQ8 [facility] Last Admin: 02/11/17 08:15 Dose: 1.25 mg Pantoprazole Sodium (Protonix Ec Tab) 40 mg PO DAILY [facility] Last Admin: 02/11/17 09:49 Dose: 40 mg Promethazine HCl/Dextromethorphan (Phenergan Dm Syrup) 5 ml PO Q6 PRN PRN Reason: Cough Last Admin: 02/10/17 17:20 Dose: 5 ml Sodium Chloride ([place] Nasal [place]) 2 sprays IMELDA Q4 PRN PRN Reason: Nasal congestion Tiotropium [place] (Spiriva) 18 mcg INH DAILY [facility] Last Admin: 02/11/17 09:49 Dose: 18 mcg - Labs Labs: 02/11/17 05:15 02/11/17 05:20 PT 10.7 SECONDS (9.6-11.2) 02/08/17 13:50 INR 1.03 (0.92-1.08) 02/08/17 13:50 APTT 20.3 SECONDS (23.3-32.5) L 02/08/17 13:50 - Constitutional Appears: No Acute Distress - Head Exam Head Exam: NORMAL INSPECTION - Eye Exam Eye Exam: PERRL - ENT Exam ENT Exam: Normal Oropharynx - Neck Exam Neck Exam: Normal Inspection - Respiratory Exam Respiratory Exam: Decreased Breath Sounds (b/l), Rhonchi (scattered) - Cardiovascular Exam Cardiovascular Exam: REGULAR RHYTHM - GI/Abdominal Exam GI & Abdominal Exam: Soft, Normal Bowel Sounds - Extremities Exam Additional comments: B/L L/E Swelling, edema, Venous Stasis. - Back Exam Back Exam: NORMAL INSPECTION - Neurological Exam Neurological Exam: Alert, Oriented x3. absent: Motor Sensory Deficit - Psychiatric Exam Psychiatric exam: Normal Mood - Skin Skin Exam: Warm Assessment and Plan (1) COPD exacerbation Status: Acute (2) Pneumonia Status: Acute (3) Sepsis Status: Resolved (4) Right bundle branch block Status: Chronic - Assessment and Plan (Free Text) Plan: Continue Levaquin, Solumedrol, Phenergan DM and rest of Tx.
[2017-02-11] MEDS: Nasal Spray(Ocean spray) NAS PRN ×2 (13:54→21:57)
--- NOTE | 2017-02-11 14:58 | US ---
PROCEDURE: Ultrasound of the Kidneys HISTORY: lesion on chest ct scan COMPARISON: 02/10/2017 CT scan thorax.. TECHNIQUE: Sonogram of the kidneys. FINDINGS: RIGHT KIDNEY: Measures: 5.7 x 11.1 cm. Normal in size, contour and echogenicity. No stone, solid mass lesion or hydronephrosis visualized. Incidental finding(s): Exophytic upper pole cyst 3.2 x 2 cm. Two additional smaller cysts measuring 9 and 11 mm in the lower LEFT KIDNEY: Measures: 3.3 x 10.2 cm. Normal in size, contour and echogenicity. No stone, solid mass lesion or hydronephrosis visualized. Multiple lower pole cysts (3) varying from 2 x 2.2 cm to 2.1 x 3.5 cm. Additional upper pole cyst 11 mm. OTHER FINDINGS: None. IMPRESSION: Multiple simple renal cysts, findings identified on recent CT scan.No significant or acute findings to account for/ related to the clinical presentation.
[2017-02-11] MEDS: Insulin Lispro (humaLOG) 100 Units/ml Inj SC SCH ×2 (17:43→21:44)
--- NOTE | 2017-02-11 23:40 | CON ---
DATE: 02/11/2017 Comprehensive urologic consultation TIME OF CONSULTATION: Roughly around 7:10 p.m. REASON FOR CONSULTATION: Left renal exophytic lesion seen in the upper pole of the left kidney measu ring 2.[address] BRIEF HISTORY: The patient is an 86-year-old male from [place], who was admitted to [facility] for history of emphysema and exacerbation of COPD with acute onset of shortne ss of breath requiring emergency admission. The patient had a chest CT done for evaluation of his nathalia ng pathology and on this chest CT, a large hiatal hernia was seen again and cystic lesions seen at th e kidneys. There was high attenuation lesions seen, exophytic, from the upper pole of the left kidne y, which measured 2.1 cm, which may represent a hemorrhagic cyst or a mass lesion. No evidence of hy dronephrosis. There was also a left lower lobe opacity, which may represent pneumonia, or less likel y atelectasis, and a small left pleural effusion. A followup renal ultrasound done the next day on 0 02/11/2017 showed multiple simple renal cysts, which findings identified on recent CT scan. There wer e no stones, solid mass, lesion, or hydronephrosis visualized and multiple lower pole cysts, at least 3, varying in size from 2.0 x 2.2 cm to 2.1 x 3.5 cm, and an additional upper pole cyst measuring 11 mm on the ultrasound. The right kidney showed normal size, contour, and echogenicity. No stone, so lid mass, lesion, or hydronephrosis were visualized. There was an exophytic upper pole cyst measurin g 3.2 x 2.0 cm and 2 additional small cysts measuring 9 mm and 11 mm. This patient gives a history o f bilateral renal cysts of more than 8 years. He currently voids with his usual normal stream. He d oes have a history of tobacco and alcohol use, which he stopped 3 years ago secondary to worsening of his emphysema. ALLERGIES: He has no known allergies to any medication. His only surgery that he has was a right inguinal hernia surgery. 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 PHYSICAL EXAMINATION TODAY: VITAL SIGNS: Showed a temperature of 97.9, pulse rate of 82, blood pressure 124/62, respiration rate 18, and O2 sat on room air is 97%. HEENT: Grossly within normal limits. NECK: Supple. Thyroid not palpable. ABDOMEN: Globus, soft. The patient is obese, not distended or tender. No CVA tenderness. No supra pubic tenderness. GENITALIA: The patient is noncircumcised with normal glans meatus without any rashes or lesions visu alized. Testes are down bilaterally. The left testis is small compared to the right. No inguinal h ernias or lymph nodes are palpated. RECTAL: Normal rectal tone without fluctuance or masses. Prostate is average size, smooth, symmetri babar, nontender without nodules or indurations with a palpable median sulcus. LABORATORY EVALUATION: On 02/11/2017 shows a CBC with a WBC count of 11.2, hemoglobin of 11.8 with he matocrit of 36.3 and a platelet count of 221,000. His chem profile shows a sodium of 146, potassium 5.1, chloride 112, CO2 24, BUN and creatinine of 41 and 1.3, respectively with a GFR of 52, indicatin g chronic kidney disease, stage III. Random glucose today was 290, which is elevated. His calcium w as 8.2. His total bilirubin on 02/10/2017 was less than 0.1. His liver profile showed an AST of 24 and an ALT of 31 with an alkaline phosphatase of 56. His urinalysis on 02/08/2017: The color was ye llow, clarity was clear, pH was 6.0, specific gravity 1.013; protein, glucose, ketones, nitrate, bili roy were all negative, and blood was negative too. Urobilinogen was 0.2-1.0. Leukocyte esterase w as negative. There were 3 RBCs, 12 WBCs per high-powered field with rare bacteria. Microbiology: U rine culture showed 10-50,000 colonies of multiple species, probably contamination. Blood culture sh owed no growth after 3 days. 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 Due to the patient's age of 86, at this time I would only follow the patient with renal ultrasounds regarding these cystic lesions, which the patient probably has had for more t tiwari 8 years. Because of the size of these lesions and the patient's age of 86, observation would be the recommended treatment for these lesions at this time. Oj Pritchett MD cc: [phone] TT: 02/11/2017 23:39:51 Confirmation # [id number] Dictation # [id number] tn
[2017-02-12] MEDS: methylPREDNISolone 80 MG in Sodium Chloride 0.9% 50 ML IVPB SCH (04:09)
[2017-02-12] MEDS: Insulin Lispro (humaLOG) 100 Units/ml Inj SC SCH ×2 (06:37→12:00)
[2017-02-12 07:04] LABS: HEMATOCRIT 37.3 % (35.0-51.0); MEAN CELL VOLUME 93.4 fl (80.0-94.0); MEAN CORPUSCULAR HEMOGLOBIN 30.2 pg (27.0-31.0); MEAN CORPUSCULAR HGB CONC 32.4 g/dL (33.0-37.0); RED CELL DISTRIBUTION WIDTH 14.3 % (11.5-14.5); WHITE BLOOD COUNT 7.8 K/uL (4.8-10.8)
[2017-02-12 07:17] LABS: BLOOD UREA NITROGEN 43 mg/dl (9-20); CALCIUM 7.9 mg/dL (8.4-10.2); CARBON DIOXIDE 23 mmol/L (22-30); CHLORIDE 108 mmol/L (98-107); GFR AFRICAN-AMERICAN > 60; GLUCOSE,RANDOM 149 mg/dL (75-110); POTASSIUM 4.4 MMOL/L (3.6-5.0); SODIUM 142 mmol/l (132-148)
[2017-02-12] MEDS: Levalbuterol 1.25 MG/3 ML Inhal Soln UD INH SCH (07:34)
--- NOTE | 2017-02-12 08:05 | CP.PCM.PN ---
Subjective - Date & Time of Evaluation Date of Evaluation: 02/12/17 Time of Evaluation: 07:10 - Subjective Subjective: 86M Objective - Vital Signs/Intake and Output Vital Signs (last 24 hours): Temp Pulse Resp BP Pulse Ox 36.3 C L 79 18 123/55 L 98 02/12/17 05:23 02/12/17 05:23 02/12/17 05:23 02/12/17 05:23 02/12/17 05:23 Intake and Output: 02/12/17 02/12/17 06:59 18:59 Intake Total 290 Balance 290 - Medications Medications: Current Medications Acetaminophen (Tylenol 325mg Tab) 650 mg PO Q6 PRN PRN Reason: Fever >100.4 F Acetaminophen (Tylenol 325mg Tab) 650 mg PO Q6 PRN PRN Reason: Pain, Mild (1-3) Last Admin: 02/09/17 01:53 Dose: 650 mg Enoxaparin Sodium (Lovenox) 40 mg SC DAILY [facility] PRN Reason: Protocol Last Admin: 02/11/17 09:49 Dose: 40 mg Levofloxacin/Dextrose (Levaquin 750mg) 150 mls @ 100 mls/hr IVPB DAILY [facility] Last Admin: 02/11/17 17:44 Dose: 100 mls/hr Methylprednisolone 80 mg/ (Sodium Chloride) 51.28 mls @ 100 mls/hr IVPB Q12H [facility] Insulin Human Lispro (Humalog) 0 units SC ACHS [facility] PRN Reason: Protocol Last Admin: 02/12/17 06:37 Dose: 2 units Levalbuterol HCl (Xopenex) 1.25 mg INH RQ8 [facility] Last Admin: 02/12/17 07:34 Dose: 1.25 mg Pantoprazole Sodium (Protonix Ec Tab) 40 mg PO DAILY [facility] Last Admin: 02/11/17 09:49 Dose: 40 mg Promethazine HCl/Dextromethorphan (Phenergan Dm Syrup) 5 ml PO Q6 PRN PRN Reason: Cough Last Admin: 02/10/17 17:20 Dose: 5 ml Sodium Chloride ([place] Nasal [place]) 2 sprays IMELDA Q4 PRN PRN Reason: Nasal congestion Last Admin: 02/11/17 21:57 Dose: 2 sprays Tiotropium [place] (Spiriva) 18 mcg INH DAILY [facility] Last Admin: 02/11/17 09:49 Dose: 18 mcg - Labs Labs: 02/12/17 05:15 02/12/17 05:15 PT 10.7 SECONDS (9.6-11.2) 02/08/17 13:50 INR 1.03 (0.92-1.08) 02/08/17 13:50 APTT 20.3 SECONDS (23.3-32.5) L 02/08/17 13:50 Assessment and Plan (1) Pneumonia Status: Acute (2) COPD exacerbation Status: Acute (3) DVT prophylaxis Status: Acute (4) Left renal mass Status: Acute (5) GERD (gastroesophageal reflux disease) Status: Chronic (6) Sepsis Status: Resolved
[2017-02-12 08:36] VITALS: RESP 20
[2017-02-12] MEDS: Enoxaparin 40 mg Syringe SC SCH (09:11)
[2017-02-12] MEDS: Pantoprazole 40 mg EC Tab PO SCH (09:11)
[2017-02-12] MEDS: Nasal Spray(Ocean spray) NAS PRN (09:11)
[2017-02-12] MEDS: Tiotropium 18 mcg Cap For Inhalation INH SCH (09:12)
--- NOTE | 2017-02-12 10:09 | CP.PCM.DIS ---
Provider - Provider Date of Admission: 02/08/17 15:41 Attending physician: Dre Grant MD Time Spent in preparation of Discharge (in minutes): 45 Diagnosis - Discharge Diagnosis (1) Pneumonia Status: Acute Comment: LLL infiltrate, unclear type as sputum culture not an accurate reflection current imaging/clinical findings. - Pulmonary Consult (Dr Mcneal) appreciated. - Oxygen 2LNC (uses at home. - Levaquin 750mg, IV, Daily. - Sputum Culture: normal heide. - Promethazine 5ml, PO, Q6H. - Repeat CXR 02/13 2 -view (2) COPD exacerbation Status: Acute Priority: High Comment: Patient with significant improvement tapering steroids, tachycardia has improved with Xopenex. - Pulmonary Consult (Dr Mcneal) appreciated. - Xopenex 1.25mg, INH, Q8H. - Spiriva 18mcg, INH, Daily. - Methylprednisone 80mg , IV, Q12H (3) DVT prophylaxis Status: Acute Comment: Lovenox 40mg, SC, Daily (4) Left renal mass Status: Acute Comment: Incidentally noted on CT chest, follow up with renal ultrasound showed cystic lesion evaluated by Urology consult, Dr Pritchett, who thought this is likely a chronic polycystic condition and no further investigation at this time , can be observed. - Urology Consult (Dr Pritchett) appreciated. - Nothing further at this time (5) GERD (gastroesophageal reflux disease) Status: Chronic Comment: Chronic, controlled. - Pantoprazole 40mg, PO, Daily (6) Sepsis Status: Resolved Comment: Resolved at this time likely due to pneumonia given CXR showing infiltrate and UCx as well as BCx negative at this time. (7) Swelling of both lower extremities Status: Chronic Comment: Initially, with picture thought to be possible CHF exacerbation, however this has been ruled out and it appears lower extremity swelling is intermittent and hyperpigmentation with skin thickening consistent with a chronic venous stasis picture. (8) Right bundle branch block Status: Chronic Comment: Initially evaluated by Dr Guajardo as tachycardia likely exacerbated by infectious etiology and albuterol. Patient was found to have chronic RBBB, and tachycardia has improved with antibiotics and Xoponex. Hospital Course - Lab Results Lab Results: Micro Results 02/10/17 18:44 Sputum Gram Stain - Final 02/10/17 18:44 Sputum Sputum Culture - Preliminary NORMAL ORAL HEIDE Most Recent Lab Values WBC 7.8 K/uL (4.8-10.8) 02/12/17 05:15 RBC 3.99 Mil/uL (4.40-5.90) L 02/12/17 05:15 Hgb 12.1 g/dL (12.0-18.0) 02/12/17 05:15 Hct 37.3 % (35.0-51.0) 02/12/17 05:15 MCV 93.4 fl (80.0-94.0) 02/12/17 05:15 MCH 30.2 pg (27.0-31.0) 02/12/17 05:15 MCHC 32.4 g/dL (33.0-37.0) L 02/12/17 05:15 RDW 14.3 % (11.5-14.5) 02/12/17 05:15 Plt Count 216 K/uL (130-400) 02/12/17 05:15 MPV 8.0 fl (7.2-11.7) 02/08/17 13:30 Neut % (Auto) 79.8 % (50.0-75.0) H 02/08/17 13:30 Lymph % (Auto) 13.7 % (20.0-40.0) L 02/08/17 13:30 Isabella % (Auto) 2.8 % (0.0-10.0) 02/08/17 13:30 Eos % (Auto) 2.4 % (0.0-4.0) 02/08/17 13:30 Baso % (Auto) 1.3 % (0.0-2.0) 02/08/17 13:30 Neut # 10.3 K/uL (1.8-7.0) H 02/08/17 13:30 Lymph # 1.8 K/uL (1.0-4.3) 02/08/17 13:30 Isabella # 0.4 K/uL (0.0-0.8) 02/08/17 13:30 Eos # 0.3 K/uL (0.0-0.7) 02/08/17 13:30 Baso # 0.2 K/uL (0.0-0.2) 02/08/17 13:30 PT 10.7 SECONDS (9.6-11.2) 02/08/17 13:50 INR 1.03 (0.92-1.08) 02/08/17 13:50 APTT 20.3 SECONDS (23.3-32.5) L 02/08/17 13:50 pCO2 34 mm/Hg (35-45) L 02/08/17 13:46 pO2 47 mm/Hg (30-55) 02/08/17 18:10 HCO3 24.7 mmol/L (21-28) 02/08/17 13:46 ABG pH 7.45 (7.35-7.45) 02/08/17 13:46 ABG Total CO2 24.6 mmol/L (22-28) 02/08/17 13:46 ABG O2 Saturation 92.7 % (95-98) L 02/08/17 13:46 ABG Base Excess 0.1 mmol/L (-2.0-3.0) 02/08/17 13:46 Judah Test Yes 02/08/17 13:46 ABG Potassium 5.0 mmol/L (3.6-5.2) 02/08/17 13:46 VBG pH 7.35 (7.32-7.43) 02/08/17 18:10 VBG pCO2 43 mmHg (40-60) 02/08/17 18:10 VBG HCO3 23.1 mmol/L 02/08/17 18:10 VBG Total CO2 25.0 mmol/L (22-28) 02/08/17 18:10 VBG O2 Sat (Calc) 88.4 % (40-65) H 02/08/17 18:10 VBG Base Excess -1.9 mmol/L (0.0-2.0) L 02/08/17 18:10 VBG Potassium 4.3 mmol/L (3.6-5.2) 02/08/17 18:10 A-a O2 Difference 56.0 mm/Hg 02/08/17 13:46 Sodium 136.0 mmol/L (132-148) 02/08/17 18:10 Chloride 110.0 mmol/L (98-107) H 02/08/17 18:10 Glucose 169 mg/dL (75-110) H 02/08/17 18:10 Lactate 1.2 mmol/L (0.7-2.1) 02/08/17 18:10 FiO2 21.0 % 02/08/17 18:10 Sodium 142 mmol/l (132-148) 02/12/17 05:15 Potassium 4.4 MMOL/L (3.6-5.0) 02/12/17 05:15 Chloride 108 mmol/L (98-107) H 02/12/17 05:15 Carbon Dioxide 23 mmol/L (22-30) 02/12/17 05:15 Anion Gap 15 (10-20) 02/12/17 05:15 BUN 43 mg/dl (9-20) H 02/12/17 05:15 Creatinine 1.0 mg/dL (0.8-1.5) 02/12/17 05:15 Est GFR ( Amer) > 60 02/12/17 05:15 Est GFR (Non-Af Amer) > 60 02/12/17 05:15 POC Glucose (mg/dL) 152 mg/dL (65-110) H 02/12/17 05:33 Random Glucose 149 mg/dL (75-110) H 02/12/17 05:15 Hemoglobin A1c 6.3 % (4.2-6.5) 02/09/17 17:25 Calcium 7.9 mg/dL (8.4-10.2) L 02/12/17 05:15 Phosphorus 3.7 mg/dl (2.5-4.5) 02/08/17 13:30 Magnesium 2.2 MG/DL (1.6-2.3) 02/08/17 13:30 Total Bilirubin < 0.1 mg/dl (0.2-1.3) L 02/10/17 05:15 AST 24 U/L (17-59) 02/10/17 05:15 ALT 31 U/L (21-72) 02/10/17 05:15 Alkaline Phosphatase 56 U/L (38-126) 02/10/17 05:15 Troponin I < 0.0120 ng/mL (0.00-0.120) 02/08/17 13:30 NT-Pro-B Natriuret Pep 136 pg/ml (0-900) 02/08/17 13:30 Total Protein 6.4 G/DL (6.3-8.2) 02/10/17 05:15 Albumin 3.1 g/dL (3.5-5.0) L 02/10/17 05:15 Globulin 3.3 gm/dL (2.2-3.9) 02/10/17 05:15 Albumin/Globulin Ratio 0.9 (1.0-2.1) L 02/10/17 05:15 Vitamin B12 357 pg/mL (239-931) 02/09/17 06:00 TSH 3rd Generation 0.56 mIU/ML (0.46-4.68) 02/09/17 06:00 Arterial Blood Potassium 5.0 mmol/L (3.6-5.2) 02/08/17 13:46 Venous Blood Potassium 4.3 mmol/L (3.6-5.2) 02/08/17 18:10 Urine Color Yellow (YELLOW) 02/08/17 14:09 Urine Clarity Clear (Clear) 02/08/17 14:09 Urine pH 6.0 (5.0-8.0) 02/08/17 14:09 Ur Specific [place] 1.013 (1.003-1.030) 02/08/17 14:09 Urine Protein Negative mg/dL (NEGATIVE) 02/08/17 14:09 Urine Glucose (UA) Neg mg/dL (Normal) 02/08/17 14:09 Urine Ketones Negative mg/dL (NEGATIVE) 02/08/17 14:09 Urine Blood Negative (NEGATIVE) 02/08/17 14:09 Urine Nitrate Negative (NEGATIVE) 02/08/17 14:09 Urine Bilirubin Negative (NEGATIVE) 02/08/17 14:09 Urine Urobilinogen 0.2-1.0 mg/dL (0.2-1.0) 02/08/17 14:09 Ur Leukocyte Esterase Neg Cata/uL (Negative) 02/08/17 14:09 Urine RBC (Auto) 3 /hpf (0-3) 02/08/17 14:09 Urine Microscopic WBC 12 /hpf (0-5) H 02/08/17 14:09 Ur Squamous Epith Cells < 1 /hpf (0-5) 02/08/17 14:09 Urine Bacteria Rare (<OCC) 02/08/17 14:09 Influenza Typ A,B (EIA) Negative for flu a/b (NEGATIVE) 02/08/17 13:30 - Hospital Course Hospital Course: Patient seen and examined at bedside this morning with attending. Although he denies chest pain or worsening of respiratory symptoms he has complaints of the discoloration in his legs and the swelling as well as no BM for 4 days. He is eating well and otherwise ambulating. Patient admitted with initial sepsis secondary to pneumonia and complicated with COPD exacerbation. He has continued to improve with antibiotics, steroids and on stable oxygen. Dr Mcneal (Pulmonary) is co-managing for COPD and pneumonia, Dr Guajardo (Cardiology) initially evaluated for tachycardia and patient found to have chronic RBB and has improved with switching to Xoponex from albuterol. 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 At this time patient is an excellent candidate for discharge to TCU for PT and continued antibiotics as well as tapering steroids. Discharge Exam - Head Exam Head Exam: ATRAUMATIC, NORMAL INSPECTION - Eye Exam Eye Exam: EOMI, PERRL - ENT Exam ENT Exam: Mucous Membranes Moist, Normal Exam - Neck Exam Neck exam: Full Rom, Normal Inspection - Respiratory Exam Respiratory Exam: Rhonchi (minimal), Wheezes (few, b/l, greatly improved), NORMAL BREATHING PATTERN. absent: Rales - Cardiovascular Exam Cardiovascular Exam: REGULAR RHYTHM. absent: JVD - GI/Abdominal Exam GI & Abdominal Exam: Normal Bowel Sounds, Soft. absent: Tenderness - Extremities Exam Extremities exam: normal capillary refill, pedal pulses present Additional comments: CHRONIC hyperpigmentation and skin thickening likely due to chronic venous stasis - Neurological Exam Neurological exam: Alert - Skin Skin Exam: Dry, Warm Discharge Plan - Follow Up Plan Condition: IMPROVED Disposition: REHAB FACILITY/REHAB UNIT Referrals: Dre Grant MD [Staff Provider] - Hardy Mcneal MD [Staff Provider] -
[2017-02-12 12:40] VITALS: BP 146/71; PULSE 80; TEMP 97.8; O2SAT 99
--- NOTE | 2017-02-12 12:55 | CP.PCM.PN ---
Subjective - Date & Time of Evaluation Date of Evaluation: 02/12/17 Time of Evaluation: 11:00 - Subjective Subjective: F/U COPD Exacerbation Cough improved, less chest congestion. Objective - Vital Signs/Intake and Output Vital Signs (last 24 hours): Temp Pulse Resp BP Pulse Ox 97.8 F 80 20 146/71 99 02/12/17 12:40 02/12/17 12:40 02/12/17 12:40 02/12/17 12:40 02/12/17 12:40 Intake and Output: 02/12/17 02/12/17 06:59 18:59 Intake Total 290 Balance 290 - Medications Medications: Current Medications Acetaminophen (Tylenol 325mg Tab) 650 mg PO Q6 PRN PRN Reason: Fever >100.4 F Acetaminophen (Tylenol 325mg Tab) 650 mg PO Q6 PRN PRN Reason: Pain, Mild (1-3) Last Admin: 02/09/17 01:53 Dose: 650 mg Enoxaparin Sodium (Lovenox) 40 mg SC DAILY ADAN PRN Reason: Protocol Last Admin: 02/12/17 09:11 Dose: 40 mg Levofloxacin/Dextrose (Levaquin 750mg) 150 mls @ 100 mls/hr IVPB DAILY ADAN Last Admin: 02/12/17 09:00 Dose: 100 mls/hr Methylprednisolone 80 mg/ (Sodium Chloride) 51.28 mls @ 100 mls/hr IVPB Q12H [facility] Insulin Human Lispro (Humalog) 0 units SC ACHS ADAN PRN Reason: Protocol Last Admin: 02/12/17 06:37 Dose: 2 units Lactic Acid (Lac-Hydrin 12% Cream (140 G)) 1 ea TOP BID ADAN Levalbuterol HCl (Xopenex) 1.25 mg INH RQ8 ADAN Last Admin: 02/12/17 07:34 Dose: 1.25 mg Pantoprazole Sodium (Protonix Ec Tab) 40 mg PO DAILY ADAN Last Admin: 02/12/17 09:11 Dose: 40 mg Promethazine HCl/Dextromethorphan (Phenergan Dm Syrup) 5 ml PO Q6 PRN PRN Reason: Cough Last Admin: 02/10/17 17:20 Dose: 5 ml Sodium Chloride ([place] Nasal [place]) 2 sprays IMELDA Q4 PRN PRN Reason: Nasal congestion Last Admin: 02/12/17 09:11 Dose: 2 sprays Tiotropium [place] (Spiriva) 18 mcg INH DAILY ADAN Last Admin: 02/12/17 09:12 Dose: 18 mcg - Labs Labs: 02/12/17 05:15 02/12/17 05:15 PT 10.7 SECONDS (9.6-11.2) 02/08/17 13:50 INR 1.03 (0.92-1.08) 02/08/17 13:50 APTT 20.3 SECONDS (23.3-32.5) L 02/08/17 13:50 - Constitutional Appears: No Acute Distress - Head Exam Head Exam: NORMAL INSPECTION - Eye Exam Eye Exam: PERRL - ENT Exam ENT Exam: Normal Oropharynx - Neck Exam Neck Exam: Normal Inspection - Respiratory Exam Respiratory Exam: Decreased Breath Sounds (b/l), Rhonchi (scattered) - Cardiovascular Exam Cardiovascular Exam: REGULAR RHYTHM - GI/Abdominal Exam GI & Abdominal Exam: Soft, Normal Bowel Sounds - Extremities Exam Additional comments: Edema L/E, Venous Stasis. - Back Exam Back Exam: NORMAL INSPECTION - Neurological Exam Neurological Exam: Alert, Oriented x3. absent: Motor Sensory Deficit - Psychiatric Exam Psychiatric exam: Normal Mood - Skin Skin Exam: Warm Assessment and Plan (1) COPD exacerbation Assessment & Plan: Improved. Status: Acute (2) Pneumonia Assessment & Plan: Improved Status: Acute (3) Sepsis Status: Resolved (4) Right bundle branch block Status: Chronic - Assessment and Plan (Free Text) Plan: Continue Levaquin, Xopenex, Spiriva, Phenergan DM. PNA improved, Pulmonary clear to be transferred to TCU.
[2017-02-12] MEDS ORDERED: methylPREDNISolone 80 MG in Sodium Chloride 0.9% 50 ML IVPB SCH (16:00)
[2017-02-12] MEDS ORDERED: Ammonium Lactate 12% Cream (140 g) TOP SCH (17:00)
== END 2017-02-12 14:45 | DRG 871 ==
LOC: H.ER 13:26 → MERGE 15:41 → H.ERHOLD 15:41 → H.TEL 18:19
PROVIDERS: ADMIT Internal Medicine; ATTEND Internal Medicine
DX: A41.9 Sepsis, unspecified organism (principal); J18.9 Pneumonia, unspecified organism; I50.9 Heart failure, unspecified; I45.10 Unspecified right bundle-branch block; J44.0 Chronic obstructive pulmonary disease with (acute) lower respiratory infection; Q61.3 Polycystic kidney, unspecified; J44.1 Chronic obstructive pulmonary disease with (acute) exacerbation; I25.10 Atherosclerotic heart disease of native coronary artery without angina pectoris; K21.9 Gastro-esophageal reflux disease without esophagitis; E66.3 Overweight; Z68.29 Body mass index [BMI] 29.0-29.9, adult; Z88.0 Allergy status to penicillin; I87.8 Other specified disorders of veins

== ENCOUNTER 2017-02-19 14:24 | Inpatient (IN) | payer MEDICARE, MEDICAID ==
[2017-02-19] MEDS ORDERED: MethylPREDNISolone 40 mg Vial ONE ×2 (14:33→18:35)
[2017-02-19] MEDS ORDERED: Albuterol-Ipratrop 3 mg / 0.5 (3 ml) UD INH STA ×4 (14:33→18:59)
[2017-02-19 14:44] LABS: ABG ALLEN TEST YES; ARTERIAL BLOOD GAS HCO3 28.1 mmol/L (21-28); ARTERIAL BLOOD GAS O2 CAPACITY 18.9 mL/dL (16-24); ARTERIAL BLOOD GAS O2 CONTENT 18.8 ML/dL (15-23); ARTERIAL BLOOD GAS PH 7.39 (7.35-7.45); ARTERIAL BLOOD GAS PO2 79 mm/Hg (80-100); ARTERIAL BLOOD HGB O2 SAT 94.2 % (95.0-98.0); CARBOXYHEMOGLOBIN 3.1 % (0.5-1.5); HHB 0.7 % (0.0-5.0)
--- NOTE | 2017-02-19 15:00 | ED PDOC ---
HPI: SOB/CHF/COPD Time Seen by Provider: 02/19/17 14:27 Chief Complaint (Nursing): Shortness Of Breath Chief Complaint (Provider): Shortness Of Breath History Per: Patient History/Exam Limitations: no limitations Onset/Duration Of Symptoms: Days Current Symptoms Are (Timing): Still Present Initiating Event: Upper Respiratory Illness Quality: Tightness Exacerbating Factor(s): Coughing Current Respiratory Medications: See Home Med List Severity: Moderate Recently: Hospitalized Additional Complaint(s): Patient is a 86 year old male with a history of asthma, COPD, arthritis, PVD, venous insufficiency, anxiety, arthritis and hiatal hernia, referred to ED from TCU for worsening SOB. Patient was admitted and being treated with steroids but no improvement seen. Patient reports continuous SOB but denies fever, chills or chest pain. Past Medical History Reviewed: Historical Data, Nursing Documentation, Vital Signs Vital Signs: Last Vital Signs Temp 97.7 F 02/22/17 16:42 Pulse 83 02/22/17 19:40 Resp 20 02/22/17 16:42 BP 144/65 02/22/17 16:45 Pulse Ox 100 02/22/17 16:42 - Medical History PMH: Anxiety, Arthritis, Asthma, COPD, Emphysema, Gastrointestinal Ulcer, HTN, Hypercholesterolemia, Kidney Stones, Peripheral Edema, Pneumonia, Chronic Kidney Disease - Surgical History Surgical History: No Surg Hx - Family History Family History: States: Unknown Family Hx - Living Arrangements Living Arrangements: With Family - Social History Current smoker - smoking cessation education provided: No Alcohol: None Drugs: Denies - Immunization History Hx Tetanus Toxoid Vaccination: No Hx Influenza Vaccination: Yes Hx Pneumococcal Vaccination: Yes - Home Medications Home Medications: Ambulatory Orders Medication Instructions Recorded ALPRAZolam [Xanax] 0.25 mg PO Q12H PRN 02/19/17 Acetaminophen [Tylenol 325mg tab] 650 mg PO Q6H PRN 02/19/17 Acetaminophen [Tylenol 325mg tab] 650 mg PO Q6H PRN 02/19/17 Acetylcysteine [Mucomyst 10% 4ML] 4 ml IH QID 02/19/17 Ammonium Lactate 12% [Lac-Hydrin 1 appl TOP BID 02/19/17 12% Cream (140 g)] Azithromycin [Zithromax] 500 mg PO DAILY 02/19/17 Fluconazole IV 100mg/50 ml NS 100 mg IVPB DAILY@1700 02/19/17 [Diflucan IV 100 mg/50 ml NS] Ipratropium 0.02% [Atrovent] 0.5 mg IH Q4H 02/19/17 Levalbuterol [Xopenex] 0.63 mg IH Q8H PRN 02/19/17 Pantoprazole Sodium [Protonix] 40 mg PO DAILY 02/19/17 Polyethylene Glycol/Polyvinyl 2 drop OU Q6H PRN 02/19/17 [Artificial Tears] Promethazine DM [Phenergan DM 5 ml PO Q6H PRN 02/19/17 Syrup] Sodium Chloride Nasal [place] [[place] 2 spray IMELDA Q4H PRN 02/19/17 Nasal [place]] Tiotropium [Spiriva] 18 mcg IH DAILY 02/19/17 diltiaZEM [Cardizem] 30 mg PO QID 02/19/17 methylPREDNISolone [Solu-MEDROL] 40 mg IV Q8H 02/19/17 - Allergies Allergies/Adverse Reactions: Allergies Allergy/AdvReac Type Severity Reaction Status Date / Time moxifloxacin HCl Allergy RASH Verified 10/03/16 15:22 [From Avelox] Penicillins Allergy RASH Verified 10/03/16 15:22 tomato Allergy RASH Verified 10/03/16 15:22 Review of Systems ROS Statement: Except As Marked, All Systems Reviewed And Found Negative Constitutional: Negative for: Fever, Chills Cardiovascular: Negative for: Chest Pain, Palpitations Respiratory: Positive for: Cough, Shortness of Breath Gastrointestinal: Negative for: Nausea, Vomiting, Abdominal Pain Musculoskeletal: Negative for: Neck Pain Skin: Negative for: Rash Physical Exam - Reviewed Nursing Documentation Reviewed: Yes Vital Signs Reviewed: Yes - Physical Exam Appears: Positive for: Non-toxic Skin: Positive for: Normal Color, Warm Eye Exam: Positive for: Normal appearance Neck: Positive for: Normal, Painless ROM Cardiovascular/Chest: Positive for: Regular Rate, Rhythm, Chest Non Tender. Negative for: Murmur Respiratory: Positive for: Accessory Muscle Use ((+) Abdominal breathing ), Wheezing (through out), Respiratory Distress (Tachypni, 96% on NC ) Gastrointestinal/Abdominal: Positive for: Normal Exam. Negative for: Tenderness Extremity: Positive for: Normal ROM, Other (Chronic venous statis bilaterally ) Neurologic/Psych: Positive for: Alert, Oriented - Laboratory Results Result Diagrams: 02/21/17 06:00 02/22/17 05:35 - Radiology X-Ray: Interpreted by Me, Viewed By Me X-Ray Interpretation: Infiltrates, COPD - Critical Care Total Time (In Min): 30 Medical Decision Making Medical Decision Making: Time: 1430 Initial impression: SOB rule out pneumonia vs copd Initial plan: -- ABG -- CMP -- CBC -- CXR -- Duoneb, Solumedrol -- Blood culture -- Influenza swab CXR on 01/01: HISTORY: SOB COMPARISON: Chest x-ray performed 10/03/16 TECHNIQUE: Chest, one view. FINDINGS: Examination limited by habitus. LUNGS: Bibasilar atelectasis. Please note that chest x-ray has limited sensitivity for the detection of pulmonary masses. PLEURA: Small left pleural effusion. No definite pneumothorax . CARDIOVASCULAR: Cardiomegaly. OSSEOUS STRUCTURES: Osseous demineralization. Degenerative changes of the spine and shoulders. VISUALIZED UPPER ABDOMEN: Unremarkable. OTHER FINDINGS: None. IMPRESSION: Bibasilar atelectasis. Small left pleural effusion. Cardiomegaly. Time: 1615 CXR results reviewed: HISTORY: short of breath COMPARISON: Comparison is made to the previous study 05/26/2016 FINDINGS: LUNGS: There is heterogeneous opacity at the mid right lung. PLEURA: Possible small right pleural effusion. CARDIOVASCULAR: The cardiac silhouette is enlarged. OSSEOUS STRUCTURES: No significant abnormalities. VISUALIZED UPPER ABDOMEN: Normal. OTHER FINDINGS: None. IMPRESSION: Heterogeneous opacity at the mid right lung. Correlate clinically for pneumonia. Follow-up exam is suggested. pt with multiple allergies so given azithromycin for pneumonia. also given streoids and nebulizer treatments for copd exacerbation. pt initial 7.[address] Gratn paged for admission Time: 1640 As per nephew, requesting patient be admited by Dr. Costello instead of Dr. Juanita Grant is alright with Dr. Costello admitting patient, pending call back from Dr. Costello at this time. dr costello agreeable. 19:10 Patient became more short of breath and required 2 more nebulizer treatments. pt increasingly tachypneic. o2 sat still 90s. but pt appears to be increasing work of breathing. Patient will be placed on BIPAP and Dr. Costello recalled and aware of clinical status update. abg repeated. c02 went up to 52. dx copd, pneumonia (on bipap) Scribe Attestation: Documented by Nita Ramos acting as a scribe for Hillary Delacruz MD. Scribe Attestation: All medical record entries made by the Scribe were at my direction and personally dictated by me. I have reviewed the chart and agree that the record accurately reflects my personal performance of the history, physical exam, medical decision making, and the department course for this patient. I have also personally directed, reviewed, and agree with the discharge instructions and disposition. Disposition - Clinical Impression Clinical Impression: Chronic obstructive lung disease, Pneumonia - Patient ED Disposition Is Patient to be Admitted: Yes Counseled Patient/Family Regarding: Studies Performed, Diagnosis - Disposition Disposition Time: 17:00 Condition: STABLE
[2017-02-19 15:18] LABS: BASO # 0.1 K/uL (0.0-0.2); BASO % 0.4 % (0.0-2.0); EOS % 0.1 % (0.0-4.0); HEMATOCRIT 41.9 % (35.0-51.0); LYMPH # 0.3 K/uL (1.0-4.3); LYMPH % 2.4 % (20.0-40.0); MEAN CELL VOLUME 93.7 fl (80.0-94.0); MEAN CORPUSCULAR HEMOGLOBIN 30.4 pg (27.0-31.0); MEAN CORPUSCULAR HGB CONC 32.4 g/dL (33.0-37.0); MONO # 0.5 K/uL (0.0-0.8); MONO % 3.7 % (0.0-10.0); NEUT # 13.3 K/uL (1.8-7.0); NEUT % 93.4 % (50.0-75.0); NRBC % 0.1 % (0.0-0.0); PLATELET COUNT 182 K/uL (130-400); RED CELL DISTRIBUTION WIDTH 14.9 % (11.5-14.5); WHITE BLOOD COUNT 14.2 K/uL (4.8-10.8)
[2017-02-19 15:23] LABS: CHLORIDE 104 mmol/L (98-107); POTASSIUM 5.4 MMOL/L (3.6-5.0); SODIUM 139 mmol/l (132-148)
[2017-02-19 15:25] LABS: BILIRUBIN,TOTAL 0.5 mg/dl (0.2-1.3); GFR AFRICAN-AMERICAN > 60
[2017-02-19 15:26] LABS: ALB/GLOB RATIO 1.1 (1.0-2.1); ALKALINE PHOSPHATASE 41 U/L (38-126); ALT/SGPT 85 U/L (21-72); AST/SGOT 27 U/L (17-59); BLOOD UREA NITROGEN 47 mg/dl (9-20); CALCIUM 8.3 mg/dL (8.4-10.2); CARBON DIOXIDE 24 mmol/L (22-30); GLUCOSE,RANDOM 96 mg/dL (75-110); TOTAL PROTEIN 6.2 G/DL (6.3-8.2)
--- NOTE | 2017-02-19 15:57 | RAD ---
HISTORY: short of breath COMPARISON: Comparison is made to the previous study 05/26/2016 FINDINGS: LUNGS: There is heterogeneous opacity at the mid right lung. PLEURA: Possible small right pleural effusion. CARDIOVASCULAR: The cardiac silhouette is enlarged. OSSEOUS STRUCTURES: No significant abnormalities. VISUALIZED UPPER ABDOMEN: Normal. OTHER FINDINGS: None. IMPRESSION: Heterogeneous opacity at the mid right lung. Correlate clinically for pneumonia. Follow-up exam is suggested.
[2017-02-19 15:58] LABS: NEUTROPHIL 94 % (42-75); TOTAL CELLS COUNTED 100
[2017-02-19] MEDS ORDERED: Azithromycin 500 MG in Sodium Chloride 0.9% 250 ML IVPB STA (16:17)
[2017-02-19] MEDS ORDERED: methylPREDNISolone 125 MG in Sodium Chloride 0.9% 50 ML IVPB ONE (18:47)
[2017-02-19 19:04] LABS: ABG ALLEN TEST YES; ARTERIAL BLOOD GAS HCO3 25.8 mmol/L (21-28); ARTERIAL BLOOD GAS MODE BiPAP; ARTERIAL BLOOD GAS O2 CAPACITY 21.2 mL/dL (16-24); ARTERIAL BLOOD GAS O2 CONTENT 21.2 ML/dL (15-23); ARTERIAL BLOOD GAS PH 7.34 (7.35-7.45); ARTERIAL BLOOD GAS PO2 429 mm/Hg (80-100); ARTERIAL BLOOD HGB O2 SAT 95.4 % (95.0-98.0); CARBOXYHEMOGLOBIN 1.9 % (0.5-1.5); HHB -0.1 % (0.0-5.0); METHEMOGLOBIN 2.8 % (0.0-3.0)
[2017-02-19] MEDS ORDERED: Artificial Tears Opht Soln OU PRN (21:21)
[2017-02-19] MEDS ORDERED: Nasal Spray(Ocean spray) NAS PRN (21:21)
[2017-02-19] MEDS ORDERED: MethylPREDNISolone 40 mg Vial IV SCH (21:30)
[2017-02-19] MEDS ORDERED: Levalbuterol 0.63 MG/3 ML Inhal Soln UD IH SCH (21:30)
[2017-02-19] MEDS ORDERED: Ipratropium 0.02% Inhal Soln (0.5 mg/2.5 ml) UD IH SCH (21:30)
[2017-02-20] MEDS: methylPREDNISolone 40 MG in Sodium Chloride 0.9% 50 ML IV SCH ×4 (00:10→23:00)
[2017-02-20] MEDS: Levalbuterol 0.63 MG/3 ML Inhal Soln UD IH SCH ×3 (00:33→15:45)
[2017-02-20] MEDS: Ipratropium 0.02% Inhal Soln (0.5 mg/2.5 ml) UD IH SCH ×6 (00:33→19:53)
[2017-02-20] MEDS ORDERED: Simethicone 80 mg Chewtab PO SCH (01:00)
[2017-02-20] MEDS: Budesonide 0.5 mg/2 ml Inhal Susp UD IH SCH ×2 (07:20→19:53)
[2017-02-20 07:26] LABS: BASO % 0.3 % (0.0-2.0); HEMATOCRIT 41.6 % (35.0-51.0); LYMPH # 0.2 K/uL (1.0-4.3); LYMPH % 1.9 % (20.0-40.0); MEAN CELL VOLUME 94.2 fl (80.0-94.0); MEAN CORPUSCULAR HEMOGLOBIN 29.6 pg (27.0-31.0); MEAN CORPUSCULAR HGB CONC 31.4 g/dL (33.0-37.0); MEAN PLATELET VOLUME 8.1 fl (7.2-11.7); MONO # 0.2 K/uL (0.0-0.8); MONO % 1.5 % (0.0-10.0); NEUT # 12.6 K/uL (1.8-7.0); NEUT % 96.3 % (50.0-75.0); NRBC % 0.2 % (0.0-0.0); PLATELET COUNT 174 K/uL (130-400); WHITE BLOOD COUNT 13.1 K/uL (4.8-10.8)
[2017-02-20 07:43] LABS: ALKALINE PHOSPHATASE 49 U/L (38-126); ALT/SGPT 79 U/L (21-72); AST/SGOT 23 U/L (17-59); BILIRUBIN,TOTAL 0.5 mg/dl (0.2-1.3); BLOOD UREA NITROGEN 50 mg/dl (9-20); CALCIUM 8.1 mg/dL (8.4-10.2); CARBON DIOXIDE 27 mmol/L (22-30); CHLORIDE 104 mmol/L (98-107); GFR AFRICAN-AMERICAN > 60; GLUCOSE,RANDOM 148 mg/dL (75-110); SODIUM 141 mmol/l (132-148); TOTAL PROTEIN 5.7 G/DL (6.3-8.2)
[2017-02-20 07:54] LABS: POTASSIUM 5.6 MMOL/L (3.6-5.0)
--- NOTE | 2017-02-20 08:10 | CP.PCM.CON ---
History of Present Illness - History of Present Illness History of Present Illness: PODIATRY CONSULT NOTE 86 y/o male patient seen on telemetry for venous stasis ulcer of right leg. Pt was seen prior day in TCU for same symptoms, re admitted concerning worsening respiratory symptoms. Patient denies any acute events overnight. He states that he has continued pain and tingling in both of his legs, but the intensity has decreased. Pain starts after a night of not wearing JERMAINE compressive dressings. Patient admits to recent shortness of breath and dyspnea following discharge. denies any n/v/f/c/cp. Past Patient History - Infectious Disease Hx of Infectious Diseases: None - Past Medical History & Family History Past Medical History?: Yes - Past Social History Smoking Status: Former Smoker - CARDIAC Hx Cardiac Disorders: Yes - PULMONARY Hx Respiratory Disorders: Yes - NEUROLOGICAL Hx Neurological Disorder: No - HEENT Hx HEENT Problems: Yes Hx Cataracts: Yes - RENAL Hx Chronic Kidney Disease: Yes - ENDOCRINE/METABOLIC Hx Endocrine Disorders: No - HEMATOLOGICAL/ONCOLOGICAL Hx Blood Disorders: No - INTEGUMENTARY Hx Dermatological Problems: Yes Hx Psoriasis: Yes - MUSCULOSKELETAL/RHEUMATOLOGICAL Hx Arthritis: Yes Hx Falls: No - GASTROINTESTINAL Hx Gastrointestinal Disorders: Yes Hx Liver Failure: Yes (LIVER CIRRHOSIS) Hx Ulcer: Yes - GENITOURINARY/GYNECOLOGICAL Hx Genitourinary Disorders: Yes Hx Prostate Problems: Yes (enlarged) - PSYCHIATRIC Hx Anxiety: Yes Hx Substance Use: No - SURGICAL HISTORY Hx Surgeries: Yes Hx Cataract Extraction: Yes Hx Herniorrhaphy: Yes (abdominal hernia repair 15 yrs ago) - ANESTHESIA Hx Anesthesia: Yes Hx Anesthesia Reactions: No Hx Malignant Hyperthermia: No Meds Allergies/Adverse Reactions: Allergies Allergy/AdvReac Type Severity Reaction Status Date / Time moxifloxacin HCl Allergy RASH Verified 10/03/16 15:22 [From Avelox] Penicillins Allergy RASH Verified 10/03/16 15:22 tomato Allergy RASH Verified 10/03/16 15:22 - Medications Medications: Current Medications Acetaminophen (Tylenol 325mg Tab) 650 mg PO Q6H PRN PRN Reason: Pain, Mild (1-3) Acetylcysteine (Mucomyst 10% 4ml) 4 ml IH RTID [facility] Alprazolam (Xanax) 0.25 mg PO Q12H PRN PRN Reason: Anxiety Stop: 02/26/17 21:22 Artificial Tears (Artificial Tears) 2 drop OU Q6H PRN PRN Reason: Dry eyes Azithromycin (Zithromax) 500 mg PO DAILY [facility] Budesonide (Pulmicort Respules) 0.5 mg IH RBID [facility] Last Admin: 02/20/17 07:20 Dose: 0.5 mg Diltiazem HCl (Cardizem) 30 mg PO QID [facility] Last Admin: 02/19/17 22:59 Dose: 30 mg Guaifenesin/Dextromethorphan (Mucinex-Dm 600-30 Mg) 1 tab PO BID [facility] Methylprednisolone 40 mg/ (Sodium Chloride) 50 mls @ 100 mls/hr IV Q8H [facility] Last Admin: 02/20/17 00:10 Dose: 100 mls/hr Ipratropium [place] (Atrovent) 0.5 mg IH RQ4 [facility] Last Admin: 02/20/17 07:20 Dose: 0.5 mg Lactic Acid (Lac-Hydrin 12% Cream (140 G)) 1 ea TOP BID [facility] Levalbuterol HCl (Xopenex) 0.63 mg IH RQ8 [facility] Last Admin: 02/20/17 07:20 Dose: 0.63 mg Pantoprazole Sodium (Protonix Ec Tab) 40 mg PO DAILY [facility] Promethazine HCl/Dextromethorphan (Phenergan Dm Syrup) 5 ml PO Q6H PRN PRN Reason: Cough Simethicone (Mylicon Chew Tab) 80 mg PO Q4 PRN PRN Reason: Flatulence Sodium Chloride ([place] Nasal [place]) 2 sprays IMELDA Q4H PRN PRN Reason: Nasal congestion Physical Exam - Constitutional Appears: Non-toxic, No Acute Distress - Extremities Exam Additional comments: Bilateral lower extremity exam: VASC- DP pulses 1/4 BL, PT pulses non-palpable due to edema, cap refill < 3 sec to digits x 5, 3+ pitting edema noted to distal 1/3 of shins and dorsum of feet bl DERM- superficial ulceration (randall grade 1) noted just distal to medial malleolus, no probe to bone, no drainage, no malodor, no signs infection, nor elver-wound maceration were noted. NEURO- gross pedal sensation is intact ORTHO- tenderness to palpation of ulceration, diffuse tenderness dorsum and plantar aspect both feet, tenderness to distal anterior legs bl, pedal muscle strength 5/5 in all directions - Neurological Exam Neurological exam: Alert, Oriented x3 - Psychiatric Exam Psychiatric exam: Normal Affect, Normal Mood Results - Vital Signs Recent Vital Signs: Last Vital Signs Temp 97.9 F 02/20/17 07:51 Pulse 91 H 02/20/17 07:51 Resp 20 02/20/17 07:51 BP 139/56 L 02/20/17 07:51 Pulse Ox 95 02/20/17 07:51 - Labs Result Diagrams: 02/20/17 06:00 02/20/17 06:00 Labs: Laboratory Results - last 24 hr 02/19/17 02/20/17 02/20/17 19:00 06:00 06:00 WBC 13.1 H RBC 4.42 Hgb 13.1 Hct 41.6 MCV 94.2 H MCH 29.6 MCHC 31.4 L RDW 15.0 H Plt Count 174 MPV 8.1 Neut % (Auto) 96.3 H Lymph % (Auto) 1.9 L [place] % (Auto) 1.5 Eos % (Auto) 0.0 Baso % (Auto) 0.3 Neut # 12.6 H Lymph # 0.2 L [place] # 0.2 Eos # 0.0 Baso # 0.0 pCO2 52 H pO2 429 H HCO3 25.8 ABG pH 7.34 L ABG Total CO2 29.7 H ABG O2 Saturation 100.1 H ABG O2 Content 21.2 ABG Base Excess 1.2 ABG Hemoglobin 15.0 ABG Carboxyhemoglobin 1.9 H POC ABG HHb (Measured) -0.1 L ABG Methemoglobin 2.8 ABG O2 Capacity 21.2 Judah Test Yes A-a O2 Difference 219.0 Hgb O2 Saturation 95.4 Vent Mode Bipap FiO2 100.0 Inspiratory BiPAP 12 Expiratory BiPAP 6 Sodium 141 Potassium 5.6 H Chloride 104 Carbon Dioxide 27 Anion Gap 16 BUN 50 H Creatinine 1.2 Est GFR ( Amer) > 60 Est GFR (Non-Af Amer) 57 Random Glucose 148 H Calcium 8.1 L Total Bilirubin 0.5 AST 23 ALT 79 H Alkaline Phosphatase 49 Total Protein 5.7 L Albumin 2.9 L Globulin 2.8 Albumin/Globulin Ratio 1.0 Assessment & Plan - Assessment and Plan (Free Text) Assessment: 86 y/o male with bilateral leg/foot pain and superficial right ankle ulceration , secondary to venous stasis disease. Plan: -Pt evaluated and treated. Chart, labs, & vitals reviewed. -Discussed w/ attending Dr. Garrido -Applied Lac-hydrin ordered for use to both feet and legs bilaterally. -Right medial malleolar ulceration dressed w betadine & DSD -Legs wrapped with JERMAINE compression, to be worn at all times to legs during day, may remove at night time -Patient to continue to elevate legs as much as possible to help with swelling. -Stable per podiatry. Will continue to follow while inhouse. - Date & Time Date: 02/20/17 Time: 08:00
[2017-02-20 08:53] LABS: GIANT PLATELETS PRESENT; LARGE PLATELETS PRESENT; NEUTROPHIL 97 % (42-75); TOTAL CELLS COUNTED 100
[2017-02-20] MEDS ORDERED: Acetylcysteine 10% 4 ML IH SCH (09:00)
[2017-02-20] MEDS ORDERED: Sodium Chloride 3% for Inhalation 4 ML VIAL.NEB IH PRN (09:27)
[2017-02-20] MEDS: Pantoprazole 40 mg EC Tab PO SCH (10:15)
[2017-02-20] MEDS: guaiFENesin-DM 600-30 mg ER Tab PO SCH ×2 (10:15→17:22)
[2017-02-20] MEDS: Ammonium Lactate 12% Cream (140 g) TOP SCH ×2 (10:15→17:22)
[2017-02-20] MEDS: Acetylcysteine 10% 4 ML IH SCH ×2 (11:05→19:52)
[2017-02-20] MEDS ORDERED: Sod Polystyrene Sulf 15 gm/60 ml Oral Susp PO ONE (13:31)
--- NOTE | 2017-02-20 17:05 | CP.PCM.HP ---
History of Present Illness - History of Present Illness History of Present Illness: CC: Increased respiratory distress. 86 y/o M, admitted to Telemetry [facility] due to increased SOB, RIOS associated to cough with productive scanty yellowish phlegms, chest cogestion , with no improvement with respiratory treatment , cough medication , atb. Worsening symptoms: Pain in L/E, Ulcer R ankle. Initially on 02/08/17 Pt was admitted to hospital with COPD Exacerbation, PNA, there after Pt improved and was transferred to TCU on 02/12/17 to continue the course of IV abx. On 02/19/17, Pt developed increased respiratory distress while at TCU and was transferred to ER for evaluation and was admitted to Telemetry floor for Tx and management. Pt denied: Fever, chills, n/v/d, abdominal pain, CP, sick contact. PMHx: COPD, PNA, E Reflux, O/A, Anxiety, BPH, CKD, GERD, chronic venous insufficiency Rr L L/E , Hx Liver Cirrhosis, Psoriasis, Hx Abdominal hernia repair 15 yrs ago. CXR 02/19/17 shows: Opacity Mid R lung, correlate clinically for PNA. Present on Admission - Present on Admission Any Indicators Present on Admission: No Review of Systems - Constitutional Constitutional: Other (negative) - EENT Eyes: Other (negative) Ears: Other (negative) Nose/Mouth/Throat: Other (negative) - Cardiovascular Cardiovascular: Rapid Heart Rate - Respiratory Respiratory: Cough, Dyspnea, Dyspnea on Exertion, Wheezing, Chest Congestion - Gastrointestinal Gastrointestinal: Heartburn - Genitourinary Genitourinary: Other (negative) - Musculoskeletal Musculoskeletal: Arthralgias - Integumentary Integumentary: Skin Ulcer (R ankle.) - Neurological Neurological: Other (negative) - Psychiatric Psychiatric: Anxiety - Endocrine Endocrine: Other (negative) - Hematologic/Lymphatic Hematologic: Other (negative) Past Patient History - Infectious Disease Hx of Infectious Diseases: None - Past Medical History & Family History Past Medical History?: Yes - Past Social History Smoking Status: Former Smoker Alcohol: None Drugs: Denies Home Situation {Lives}: Alone - CARDIAC Hx Cardiac Disorders: Yes - PULMONARY Hx Respiratory Disorders: Yes Hx Chronic Obstructive Pulmonary Disease (COPD): Yes Hx Pneumonia: Yes - NEUROLOGICAL Hx Neurological Disorder: No - HEENT Hx HEENT Problems: Yes Hx Cataracts: Yes - RENAL Hx Chronic Kidney Disease: Yes - ENDOCRINE/METABOLIC Hx Endocrine Disorders: No - HEMATOLOGICAL/ONCOLOGICAL Hx Blood Disorders: No - INTEGUMENTARY Hx Dermatological Problems: Yes Hx Psoriasis: Yes - MUSCULOSKELETAL/RHEUMATOLOGICAL Hx Musculoskeletal Disorders: Yes Hx Arthritis: Yes Hx Falls: No - GASTROINTESTINAL Hx Gastrointestinal Disorders: Yes Hx Gastroesophageal Reflux: Yes Hx Liver Failure: Yes (LIVER CIRRHOSIS) Hx Ulcer: Yes - GENITOURINARY/GYNECOLOGICAL Hx Genitourinary Disorders: Yes Hx Prostate Problems: Yes (enlarged) - PSYCHIATRIC Hx Psychophysiologic Disorder: Yes Hx Anxiety: Yes Hx Substance Use: No - SURGICAL HISTORY Hx Surgeries: Yes Hx Cataract Extraction: Yes Hx Herniorrhaphy: Yes (abdominal hernia repair 15 yrs ago) - ANESTHESIA Hx Anesthesia: Yes Hx Anesthesia Reactions: No Hx Malignant Hyperthermia: No Meds Allergies/Adverse Reactions: Allergies Allergy/AdvReac Type Severity Reaction Status Date / Time moxifloxacin HCl Allergy RASH Verified 10/03/16 15:22 [From Avelox] Penicillins Allergy RASH Verified 10/03/16 15:22 tomato Allergy RASH Verified 10/03/16 15:22 Physical Exam - Constitutional Appears: No Acute Distress - Head Exam Head Exam: NORMAL INSPECTION - Eye Exam Eye Exam: PERRL - ENT Exam ENT Exam: Normal Oropharynx - Neck Exam Neck exam: Positive for: Normal Inspection - Respiratory Exam Respiratory Exam: Decreased Breath Sounds (b/l), Rhonchi (scattered), Wheezes - Cardiovascular Exam Cardiovascular Exam: REGULAR RHYTHM - GI/Abdominal Exam GI & Abdominal Exam: Normal Bowel Sounds, Soft - Extremities Exam Additional comments: Superficial R medial malleolus ankle ulceration 2nd to venous stasis, wrapped with bandages. tenderness on palpation R L distal legs and feet , edema , chronic skin changes distal legs and feet - Back Exam Back exam: NORMAL INSPECTION - Neurological Exam Neurological exam: Alert, Oriented x3 Additional comments: no motor/sensory deficit - Psychiatric Exam Psychiatric exam: Anxious - Skin Skin Exam: Warm Results - Vital Signs Recent Vital Signs: Last Vital Signs Temp 97.4 F L 02/20/17 16:10 Pulse 84 02/20/17 16:10 Resp 20 02/20/17 16:10 BP 145/75 02/20/17 16:10 Pulse Ox 97 02/20/17 16:10 reviewed Sarah - Labs Result Diagrams: 02/21/17 06:00 05/06/17 06:00 Labs: Laboratory Results - last 24 hr 02/19/17 02/20/17 02/20/17 19:00 06:00 06:00 WBC 13.1 H RBC 4.42 Hgb 13.1 Hct 41.6 MCV 94.2 H MCH 29.6 MCHC 31.4 L RDW 15.0 H Plt Count 174 MPV 8.1 Neut % (Auto) 96.3 H Lymph % (Auto) 1.9 L [place] % (Auto) 1.5 Eos % (Auto) 0.0 Baso % (Auto) 0.3 Neut # 12.6 H Lymph # 0.2 L [place] # 0.2 Eos # 0.0 Baso # 0.0 Neutrophils % (Manual) 97 H Lymphocytes % (Manual) 2 L Monocytes % (Manual) 1 Platelet Estimate Normal Large Platelets Present Giant Platelets Present Anisocytosis (manual) Slight pCO2 52 H pO2 429 H HCO3 25.8 ABG pH 7.34 L ABG Total CO2 29.7 H ABG O2 Saturation 100.1 H ABG O2 Content 21.2 ABG Base Excess 1.2 ABG Hemoglobin 15.0 ABG Carboxyhemoglobin 1.9 H POC ABG HHb (Measured) -0.1 L ABG Methemoglobin 2.8 ABG O2 Capacity 21.2 Judah Test Yes A-a O2 Difference 219.0 Hgb O2 Saturation 95.4 Vent Mode Bipap FiO2 100.0 Inspiratory BiPAP 12 Expiratory BiPAP 6 Sodium 141 Potassium 5.6 H Chloride 104 Carbon Dioxide 27 Anion Gap 16 BUN 50 H Creatinine 1.2 Est GFR ( Amer) > 60 Est GFR (Non-Af Amer) 57 POC Glucose (mg/dL) Random Glucose 148 H Calcium 8.1 L Total Bilirubin 0.5 AST 23 ALT 79 H Alkaline Phosphatase 49 Total Protein 5.7 L Albumin 2.9 L Globulin 2.8 Albumin/Globulin Ratio 1.0 02/20/17 02/20/17 11:28 16:17 WBC RBC Hgb Hct MCV MCH MCHC RDW Plt Count MPV Neut % (Auto) Lymph % (Auto) [place] % (Auto) Eos % (Auto) Baso % (Auto) Neut # Lymph # [place] # Eos # Baso # Neutrophils % (Manual) Lymphocytes % (Manual) Monocytes % (Manual) Platelet Estimate Large Platelets Giant Platelets Anisocytosis (manual) pCO2 pO2 HCO3 ABG pH ABG Total CO2 ABG O2 Saturation ABG O2 Content ABG Base Excess ABG Hemoglobin ABG Carboxyhemoglobin POC ABG HHb (Measured) ABG Methemoglobin ABG O2 Capacity [place] Test A-a O2 Difference Hgb O2 Saturation Vent Mode FiO2 Inspiratory BiPAP Expiratory BiPAP Sodium Potassium Chloride Carbon Dioxide Anion Gap BUN Creatinine Est GFR ( Amer) Est GFR (Non-Af Amer) POC Glucose (mg/dL) 153 H 119 H Random Glucose Calcium Total Bilirubin AST ALT Alkaline Phosphatase Total Protein Albumin Globulin Albumin/Globulin Ratio reviewed [facility] - Imaging and Cardiology Chest x-ray Status: Report reviewed by me (from 02/19/17 J.P.) Assessment & Plan (1) COPD exacerbation Status: Acute Priority: High (2) Pneumonia Status: Acute Priority: High (3) Ulcer of right ankle Status: Acute (4) Venous insufficiency of lower extremity Status: Acute - Assessment and Plan (Free Text) Plan: Continue Zithromax, add Gentamycin , Pulmicort, Solumedrol, Xopenex, Mucinex DM and rest of Tx, F/U Blood and Sputum C-S, CT Chest, PT and OT eval, Podiatric consult appreciated. ID consult. - Date & Time Date: 02/20/17 Time: 11:00
[2017-02-21] MEDS: Ipratropium 0.02% Inhal Soln (0.5 mg/2.5 ml) UD IH SCH ×7 (00:19→23:40)
[2017-02-21] MEDS: Levalbuterol 0.63 MG/3 ML Inhal Soln UD IH SCH ×4 (00:19→23:40)
[2017-02-21] MEDS: Clindamycin 600 MG in Sodium Chloride 0.9% 100 ML IVPB SCH ×3 (01:04→16:18)
[2017-02-21] MEDS: Gentamicin 80mg/50ml NS 80 MG/50 ML BAG IVPB SCH ×3 (02:04→16:18)
--- NOTE | 2017-02-21 07:02 | CP.PCM.PN ---
Subjective - Date & Time of Evaluation Date of Evaluation: 02/21/17 Time of Evaluation: 06:59 - Subjective Subjective: 86 year old male was seen resting at bedside regarding right venous stasis ulcer. He denies any acute events overnight, but admits to some leg pain. He denies any n/v/f/c/sob/cp. Objective - Vital Signs/Intake and Output Vital Signs (last 24 hours): Temp Pulse Resp BP Pulse Ox 97.5 F L 85 18 121/69 97 02/21/17 06:19 02/21/17 06:19 02/21/17 06:19 02/21/17 06:19 02/21/17 06:19 - Medications Medications: Current Medications Acetaminophen (Tylenol 325mg Tab) 650 mg PO Q6H PRN PRN Reason: Pain, Mild (1-3) Acetylcysteine (Mucomyst 10% 4ml) 4 ml IH RTID [facility] Last Admin: 02/20/17 19:52 Dose: Not Given Alprazolam (Xanax) 0.25 mg PO Q12H PRN PRN Reason: Anxiety Stop: 02/26/17 21:22 Last Admin: 02/20/17 20:57 Dose: 0.25 mg Artificial Tears (Artificial Tears) 2 drop OU Q6H PRN PRN Reason: Dry eyes Azithromycin (Zithromax) 500 mg PO DAILY [facility] Last Admin: 02/20/17 10:16 Dose: 500 mg Budesonide (Pulmicort Respules) 0.5 mg IH RBID [facility] Last Admin: 02/20/17 19:53 Dose: 0.5 mg Diltiazem HCl (Cardizem) 30 mg PO QID [facility] Last Admin: 02/20/17 22:06 Dose: 30 mg Guaifenesin/Dextromethorphan (Mucinex-Dm 600-30 Mg) 1 tab PO BID [facility] Last Admin: 02/20/17 17:22 Dose: 1 tab Methylprednisolone 40 mg/ (Sodium Chloride) 50 mls @ 100 mls/hr IV Q8H [facility] Last Admin: 02/20/17 23:00 Dose: 100 mls/hr Gentamicin Sulfate/Sodium Chloride (Gentamicin 80mg/50ml Ns) 80 mg in 50 mls @ 50 mls/hr IVPB Q8 [facility] Last Admin: 02/21/17 02:04 Dose: 50 mls/hr Clindamycin Phosphate 600 mg/ (Sodium Chloride) 104 mls @ 104 mls/hr IVPB Q8 [facility] Last Admin: 02/21/17 01:04 Dose: 104 mls/hr Ipratropium [place] (Atrovent) 0.5 mg IH RQ4 [facility] Last Admin: 02/21/17 05:23 Dose: 0.5 mg Lactic Acid (Lac-Hydrin 12% Cream (140 G)) 1 ea TOP BID [facility] Last Admin: 02/20/17 17:22 Dose: 1 applic Levalbuterol HCl (Xopenex) 0.63 mg IH RQ8 [facility] Last Admin: 02/21/17 00:19 Dose: 0.63 mg Pantoprazole Sodium (Protonix Ec Tab) 40 mg PO DAILY [facility] Last Admin: 02/20/17 10:15 Dose: 40 mg Promethazine HCl/Dextromethorphan (Phenergan Dm Syrup) 5 ml PO Q6H PRN PRN Reason: Cough Simethicone (Mylicon Chew Tab) 80 mg PO Q4 PRN PRN Reason: Flatulence Sodium Chloride ([place] Nasal [place]) 2 sprays IMELDA Q4H PRN PRN Reason: Nasal congestion - Labs Labs: 02/20/17 06:00 02/20/17 06:00 - Constitutional Appears: Non-toxic, No Acute Distress - Extremities Exam Additional comments: Bilateral lower extremity focused exam: VASC- DP pulses 1/4 BL, PT pulses non-palpable due to edema, cap refill < 3 sec to digits x 5, 1+ pitting edema noted to distal 1/3 of shins and dorsum of feet bl DERM- superficial ulceration (randall grade 1) noted just distal to medial malleolus, no probe to bone, no drainage, no malodor, no signs infection, nor elver-wound maceration noted. NEURO- gross pedal sensation is intact ORTHO- tenderness to palpation of ulceration, diffuse tenderness dorsum and plantar aspect both feet, tenderness to distal anterior legs bl - Neurological Exam Neurological Exam: Alert, Awake, Oriented x3 - Psychiatric Exam Psychiatric exam: Normal Affect, Normal Mood Assessment and Plan - Assessment and Plan (Free Text) Assessment: 86 year old male with bilateral leg/foot pain and superficial right ankle ulceration, secondary to venous stasis disease. Plan: patient examined and evaluated discussed in detail with attending Dr. Garrido chart, labs, vitals reviewed;afebrile right medial ulceration dressed with xeroform, DSD lower extremities wraped with JERMAINE- to be worn during the day and removed at night patient to continue to elevate legs at all times while in bed patient is stable from a podiatry standpoint podiatry will continue to follow patient while in house
[2017-02-21] MEDS: methylPREDNISolone 40 MG in Sodium Chloride 0.9% 50 ML IV SCH ×3 (07:17→22:20)
[2017-02-21] MEDS: Acetylcysteine 10% 4 ML IH SCH ×4 (07:53→20:05)
[2017-02-21] MEDS: Budesonide 0.5 mg/2 ml Inhal Susp UD IH SCH ×2 (07:53→20:07)
[2017-02-21 07:59] LABS: BASO % 0.3 % (0.0-2.0); HEMATOCRIT 42.9 % (35.0-51.0); LYMPH # 0.2 K/uL (1.0-4.3); LYMPH % 1.6 % (20.0-40.0); MEAN CELL VOLUME 93.6 fl (80.0-94.0); MEAN CORPUSCULAR HEMOGLOBIN 29.7 pg (27.0-31.0); MEAN CORPUSCULAR HGB CONC 31.8 g/dL (33.0-37.0); MONO # 0.3 K/uL (0.0-0.8); MONO % 2.2 % (0.0-10.0); NEUT # 13.3 K/uL (1.8-7.0); NEUT % 95.9 % (50.0-75.0); NRBC % 0.1 % (0.0-0.0); PLATELET COUNT 157 K/uL (130-400); RED CELL DISTRIBUTION WIDTH 14.8 % (11.5-14.5); WHITE BLOOD COUNT 13.9 K/uL (4.8-10.8)
[2017-02-21 08:08] LABS: BLOOD UREA NITROGEN 51 mg/dl (9-20); CALCIUM 8.2 mg/dL (8.4-10.2); CARBON DIOXIDE 28 mmol/L (22-30); CHLORIDE 103 mmol/L (98-107); CHOLESTEROL 164 mg/dL (0-199); GFR AFRICAN-AMERICAN > 60; GLUCOSE,RANDOM 121 mg/dL (75-110); POTASSIUM 4.9 MMOL/L (3.6-5.0); SODIUM 139 mmol/l (132-148)
[2017-02-21 08:23] LABS: T4 4.81 ug/dl (5.5-11.0)
[2017-02-21 08:37] LABS: THYROID STIMULATING HORMONE 0.12 mIU/ML (0.46-4.68)
--- NOTE | 2017-02-21 09:29 | CARD ---
APPROVED REPORT EKG Measurement Heart [id number] <Conclusion> Sinus rhythm with premature atrial complexes Incomplete right bundle branch block Left anterior fascicular block Prolonged QT Abnormal ECG
[2017-02-21 10:00] LABS: LARGE PLATELETS PRESENT; NEUTROPHIL 94 % (42-75); TOTAL CELLS COUNTED 100
[2017-02-21] MEDS: Pantoprazole 40 mg EC Tab PO SCH (10:43)
[2017-02-21] MEDS: Ammonium Lactate 12% Cream (140 g) TOP SCH ×2 (11:53→16:21)
[2017-02-21] MEDS: guaiFENesin-DM 600-30 mg ER Tab PO SCH ×2 (11:54→16:21)
--- NOTE | 2017-02-21 17:57 | CP.PCM.PN ---
Subjective - Date & Time of Evaluation Date of Evaluation: 02/21/17 Time of Evaluation: 17:55 - Subjective Subjective: ID NOTE HAVE STARTED CLINDAMYCIN AWAIT CULTURE RESULTS Objective - Vital Signs/Intake and Output Vital Signs (last 24 hours): Temp Pulse Resp BP Pulse Ox 98.0 F 84 18 163/80 H 98 02/21/17 15:38 02/21/17 16:42 02/21/17 15:38 02/21/17 16:20 02/21/17 15:38 - Medications Medications: Current Medications Acetaminophen (Tylenol 325mg Tab) 650 mg PO Q6H PRN PRN Reason: Pain, Mild (1-3) Acetylcysteine (Mucomyst 10% 4ml) 4 ml IH RTID [facility] Last Admin: 02/21/17 16:16 Dose: 4 ml Alprazolam (Xanax) 0.25 mg PO Q12H PRN PRN Reason: Anxiety Stop: 02/26/17 21:22 Last Admin: 02/21/17 10:46 Dose: 0.25 mg Artificial Tears (Artificial Tears) 2 drop OU Q6H PRN PRN Reason: Dry eyes Azithromycin (Zithromax) 500 mg PO DAILY [facility] Last Admin: 02/21/17 10:43 Dose: 500 mg Budesonide (Pulmicort Respules) 0.5 mg IH RBID [facility] Last Admin: 02/21/17 07:53 Dose: 0.5 mg Diltiazem HCl (Cardizem) 30 mg PO QID [facility] Last Admin: 02/21/17 16:20 Dose: 30 mg Guaifenesin/Dextromethorphan (Mucinex-Dm 600-30 Mg) 1 tab PO BID [facility] Last Admin: 02/21/17 16:21 Dose: 1 tab Methylprednisolone 40 mg/ (Sodium Chloride) 50 mls @ 100 mls/hr IV Q8H [facility] Last Admin: 02/21/17 15:38 Dose: 100 mls/hr Gentamicin Sulfate/Sodium Chloride (Gentamicin 80mg/50ml Ns) 80 mg in 50 mls @ 50 mls/hr IVPB Q8 [facility] Last Admin: 02/21/17 16:18 Dose: 50 mls/hr Clindamycin Phosphate 600 mg/ (Sodium Chloride) 104 mls @ 104 mls/hr IVPB Q8 [facility] Last Admin: 02/21/17 16:18 Dose: 104 mls/hr Ipratropium [place] (Atrovent) 0.5 mg IH RQ4 [facility] Last Admin: 02/21/17 16:17 Dose: 0.5 mg Lactic Acid (Lac-Hydrin 12% Cream (140 G)) 1 ea TOP BID [facility] Last Admin: 02/21/17 16:21 Dose: 1 applic Levalbuterol HCl (Xopenex) 0.63 mg IH RQ8 [facility] Last Admin: 02/21/17 16:17 Dose: 0.63 mg Pantoprazole Sodium (Protonix Ec Tab) 40 mg PO DAILY [facility] Last Admin: 02/21/17 10:43 Dose: 40 mg Promethazine HCl/Dextromethorphan (Phenergan Dm Syrup) 5 ml PO Q6H PRN PRN Reason: Cough Simethicone (Mylicon Chew Tab) 80 mg PO Q4 PRN PRN Reason: Flatulence Sodium Chloride ([place] Nasal [place]) 2 sprays IMELDA Q4H PRN PRN Reason: Nasal congestion - Labs Labs: 02/21/17 06:00 02/21/17 06:00
--- NOTE | 2017-02-21 18:46 | CP.PCM.PN ---
Subjective - Date & Time of Evaluation Date of Evaluation: 02/21/17 Time of Evaluation: 17:00 - Subjective Subjective: F/U COPD Exacerbation/PNA. Pt awake, Ox3, c/o of cough, chest congestion, RIOS, also c/o of RLL pain. Objective - Vital Signs/Intake and Output Vital Signs (last 24 hours): Temp Pulse Resp BP Pulse Ox 98.0 F 84 18 163/80 H 98 02/21/17 15:38 02/21/17 16:42 02/21/17 15:38 02/21/17 16:20 02/21/17 15:38 Intake and Output: 02/21/17 02/21/17 06:59 18:59 Intake Total 350 Output Total 650 Balance -300 - Medications Medications: Current Medications Acetaminophen (Tylenol 325mg Tab) 650 mg PO Q6H PRN PRN Reason: Pain, Mild (1-3) Acetylcysteine (Mucomyst 10% 4ml) 4 ml IH RTID [facility] Last Admin: 02/21/17 16:16 Dose: 4 ml Alprazolam (Xanax) 0.25 mg PO Q12H PRN PRN Reason: Anxiety Stop: 02/26/17 21:22 Last Admin: 02/21/17 10:46 Dose: 0.25 mg Artificial Tears (Artificial Tears) 2 drop OU Q6H PRN PRN Reason: Dry eyes Azithromycin (Zithromax) 500 mg PO DAILY [facility] Last Admin: 02/21/17 10:43 Dose: 500 mg Budesonide (Pulmicort Respules) 0.5 mg IH RBID [facility] Last Admin: 02/21/17 07:53 Dose: 0.5 mg Diltiazem HCl (Cardizem) 30 mg PO QID [facility] Last Admin: 02/21/17 16:20 Dose: 30 mg Guaifenesin/Dextromethorphan (Mucinex-Dm 600-30 Mg) 1 tab PO BID [facility] Last Admin: 02/21/17 16:21 Dose: 1 tab Methylprednisolone 40 mg/ (Sodium Chloride) 50 mls @ 100 mls/hr IV Q8H [facility] Last Admin: 02/21/17 15:38 Dose: 100 mls/hr Gentamicin Sulfate/Sodium Chloride (Gentamicin 80mg/50ml Ns) 80 mg in 50 mls @ 50 mls/hr IVPB Q8 [facility] Last Admin: 02/21/17 16:18 Dose: 50 mls/hr Clindamycin Phosphate 600 mg/ (Sodium Chloride) 104 mls @ 104 mls/hr IVPB Q8 [facility] Last Admin: 02/21/17 16:18 Dose: 104 mls/hr Ipratropium [place] (Atrovent) 0.5 mg IH RQ4 [facility] Last Admin: 02/21/17 16:17 Dose: 0.5 mg Lactic Acid (Lac-Hydrin 12% Cream (140 G)) 1 ea TOP BID [facility] Last Admin: 02/21/17 16:21 Dose: 1 applic Levalbuterol HCl (Xopenex) 0.63 mg IH RQ8 [facility] Last Admin: 02/21/17 16:17 Dose: 0.63 mg Pantoprazole Sodium (Protonix Ec Tab) 40 mg PO DAILY [facility] Last Admin: 02/21/17 10:43 Dose: 40 mg Promethazine HCl/Dextromethorphan (Phenergan Dm Syrup) 5 ml PO Q6H PRN PRN Reason: Cough Simethicone (Mylicon Chew Tab) 80 mg PO Q4 PRN PRN Reason: Flatulence Sodium Chloride ([place]curry Nasal [place]) 2 sprays IMELDA Q4H PRN PRN Reason: Nasal congestion - Labs Labs: 02/21/17 06:00 02/21/17 06:00 - Constitutional Appears: No Acute Distress - Head Exam Head Exam: NORMAL INSPECTION - Eye Exam Eye Exam: PERRL - ENT Exam ENT Exam: Normal Oropharynx - Neck Exam Neck Exam: Normal Inspection - Respiratory Exam Respiratory Exam: Decreased Breath Sounds (b/l), Rhonchi (scattered), Wheezes - Cardiovascular Exam Cardiovascular Exam: REGULAR RHYTHM - GI/Abdominal Exam GI & Abdominal Exam: Soft, Normal Bowel Sounds - Extremities Exam Additional comments: Superficial R medial malleolus ankle ulceration 2nd to venous stasis, tenderness on palpation R-L distal legs and feet. Edema , chronic skin changes distal legs and feet. - Back Exam Back Exam: NORMAL INSPECTION - Neurological Exam Neurological Exam: Alert, Oriented x3. absent: Motor Sensory Deficit - Psychiatric Exam Psychiatric exam: Anxious - Skin Skin Exam: Abrasion (dry to R medial ankle.), Warm Assessment and Plan (1) COPD exacerbation Status: Acute (2) Pneumonia Status: Acute (3) Ulcer of right ankle Status: Acute (4) Venous insufficiency of lower extremity Status: Acute - Assessment and Plan (Free Text) Plan: Continue with Clinda, Pulmicort, Solumedrol, Xopenex, Mucinex, Cardizen and rest of Tx.F/U Blood C-S result.
[2017-02-22] MEDS: Clindamycin 600 MG in Sodium Chloride 0.9% 100 ML IVPB SCH ×3 (00:18→16:46)
[2017-02-22] MEDS: Ipratropium 0.02% Inhal Soln (0.5 mg/2.5 ml) UD IH SCH ×6 (03:53→23:46)
[2017-02-22] MEDS: methylPREDNISolone 40 MG in Sodium Chloride 0.9% 50 ML IV SCH ×3 (06:47→22:32)
[2017-02-22] MEDS: Budesonide 0.5 mg/2 ml Inhal Susp UD IH SCH ×2 (07:16→19:37)
[2017-02-22] MEDS: Levalbuterol 0.63 MG/3 ML Inhal Soln UD IH SCH ×3 (07:16→23:46)
[2017-02-22] MEDS: Acetylcysteine 10% 4 ML IH SCH ×4 (07:16→22:42)
[2017-02-22 07:22] LABS: ALKALINE PHOSPHATASE 48 U/L (38-126); ALT/SGPT 63 U/L (21-72); AST/SGOT 21 U/L (17-59); BILIRUBIN,TOTAL 0.4 mg/dl (0.2-1.3); BLOOD UREA NITROGEN 67 mg/dl (9-20); CALCIUM 8.1 mg/dL (8.4-10.2); CARBON DIOXIDE 28 mmol/L (22-30); CHLORIDE 103 mmol/L (98-107); GFR AFRICAN-AMERICAN > 60; GLUCOSE,RANDOM 152 mg/dL (75-110); POTASSIUM 5.7 MMOL/L (3.6-5.0); SODIUM 140 mmol/l (132-148); TOTAL PROTEIN 5.8 G/DL (6.3-8.2)
[2017-02-22] MEDS: Simethicone 80 mg Chewtab PO PRN (09:24)
[2017-02-22] MEDS: guaiFENesin-DM 600-30 mg ER Tab PO SCH ×2 (09:25→16:48)
[2017-02-22] MEDS: Pantoprazole 40 mg EC Tab PO SCH (09:26)
[2017-02-22] MEDS: Promethazine DM 6.25 mg-15 mg/5 ml Syrup PO PRN ×2 (09:27→16:49)
[2017-02-22] MEDS: Gentamicin 80mg/50ml NS 80 MG/50 ML BAG IVPB SCH ×2 (10:13)
[2017-02-22] MEDS ORDERED: AYR BABY SALINE NOSE DROP NAS PRN (10:45)
[2017-02-22] MEDS: Ammonium Lactate 12% Cream (140 g) TOP SCH ×2 (11:00→16:47)
[2017-02-22] MEDS ORDERED: Sodium Chloride 0.45% 500ml 1,000 ML IV SCH (11:15)
[2017-02-22] MEDS: Sodium Chloride 0.45% 1,000 ML IV SCH (11:32)
[2017-02-22] MEDS ORDERED: Sod Polystyrene Sulf 15 gm/60 ml Oral Susp PO ONE (11:50)
--- NOTE | 2017-02-22 16:07 | CP.PCM.PN ---
Subjective - Date & Time of Evaluation Date of Evaluation: 02/22/17 Time of Evaluation: 16:08 - Subjective Subjective: iID NOTE AFEBRILE TODAY WBC IS STILL 13 C MARKED LEFT SHIFT(ALONG C 3 BANDS) SOB BUN:67,CREATININE:1.3,GFR:52 HAVE DISCONTINUED GENTAMICIN,STARTED AZACTAM Objective - Vital Signs/Intake and Output Vital Signs (last 24 hours): Temp Pulse Resp BP Pulse Ox 97.7 F 90 20 144/65 100 02/22/17 15:36 02/22/17 15:36 02/22/17 15:36 02/22/17 15:36 02/22/17 15:36 - Medications Medications: Current Medications Acetaminophen (Tylenol 325mg Tab) 650 mg PO Q6H PRN PRN Reason: Pain, Mild (1-3) Last Admin: 02/22/17 09:44 Dose: 650 mg Acetylcysteine (Mucomyst 10% 4ml) 4 ml IH RTID [facility] Last Admin: 02/22/17 15:33 Dose: 4 ml Alprazolam (Xanax) 0.25 mg PO Q12H PRN PRN Reason: Anxiety Stop: 02/26/17 21:22 Last Admin: 02/21/17 10:46 Dose: 0.25 mg Artificial Tears (Artificial Tears) 2 drop OU Q6H PRN PRN Reason: Dry eyes Azithromycin (Zithromax) 500 mg PO DAILY [facility] Last Admin: 02/22/17 09:24 Dose: 500 mg Budesonide (Pulmicort Respules) 0.5 mg IH RBID [facility] Last Admin: 02/22/17 07:16 Dose: 0.5 mg Diltiazem HCl (Cardizem) 30 mg PO QID [facility] Last Admin: 02/22/17 13:30 Dose: 30 mg Guaifenesin/Dextromethorphan (Mucinex-Dm 600-30 Mg) 1 tab PO BID [facility] Last Admin: 02/22/17 09:25 Dose: 1 tab Methylprednisolone 40 mg/ (Sodium Chloride) 50 mls @ 100 mls/hr IV Q8H [facility] Last Admin: 02/22/17 15:45 Dose: 100 mls/hr Gentamicin Sulfate/Sodium Chloride (Gentamicin 80mg/50ml Ns) 80 mg in 50 mls @ 50 mls/hr IVPB Q8 [facility] Last Admin: 02/22/17 10:13 Dose: 50 mls/hr Clindamycin Phosphate 600 mg/ (Sodium Chloride) 104 mls @ 104 mls/hr IVPB Q8 [facility] Last Admin: 02/22/17 09:25 Dose: 104 mls/hr Sodium Chloride (Sodium Chloride 0.45%) 1,000 mls @ 80 mls/hr IV .[id number] [facility] Last Admin: 02/22/17 11:32 Dose: 80 mls/hr Ipratropium [place] (Atrovent) 0.5 mg IH RQ4 [facility] Last Admin: 02/22/17 15:33 Dose: 0.5 mg Lactic Acid (Lac-Hydrin 12% Cream (140 G)) 1 ea TOP BID [facility] Last Admin: 02/22/17 11:00 Dose: 1 applic Levalbuterol HCl (Xopenex) 0.63 mg IH RQ8 [facility] Last Admin: 02/22/17 15:33 Dose: 0.63 mg Pantoprazole Sodium (Protonix Ec Tab) 40 mg PO DAILY [facility] Last Admin: 02/22/17 09:26 Dose: 40 mg Promethazine HCl/Dextromethorphan (Phenergan Dm Syrup) 5 ml PO Q6H PRN PRN Reason: Cough Last Admin: 02/22/17 09:27 Dose: 5 ml Simethicone (Mylicon Chew Tab) 80 mg PO Q4 PRN PRN Reason: Flatulence Last Admin: 02/22/17 09:24 Dose: 80 mg Sodium Chloride ([place] Baby Saline 30 Ml) 2 drop IMELDA Q4H PRN PRN Reason: Nasal congestion - Labs Labs: 02/21/17 06:00 02/22/17 05:35
--- NOTE | 2017-02-22 16:33 | CP.PCM.PN ---
Subjective - Date & Time of Evaluation Date of Evaluation: 02/22/17 Time of Evaluation: 12:00 - Subjective Subjective: cough productive yelloswish sputum, chest congestion, anxious Objective - Vital Signs/Intake and Output Vital Signs (last 24 hours): Temp Pulse Resp BP Pulse Ox 97.7 F 90 20 144/65 100 02/22/17 15:36 02/22/17 15:36 02/22/17 15:36 02/22/17 15:36 02/22/17 15:36 - Medications Medications: Current Medications Acetaminophen (Tylenol 325mg Tab) 650 mg PO Q6H PRN PRN Reason: Pain, Mild (1-3) Last Admin: 02/22/17 09:44 Dose: 650 mg Acetylcysteine (Mucomyst 10% 4ml) 4 ml IH RTID [facility] Last Admin: 02/22/17 15:33 Dose: 4 ml Alprazolam (Xanax) 0.25 mg PO Q12H PRN PRN Reason: Anxiety Stop: 02/26/17 21:22 Last Admin: 02/21/17 10:46 Dose: 0.25 mg Artificial Tears (Artificial Tears) 2 drop OU Q6H PRN PRN Reason: Dry eyes Azithromycin (Zithromax) 500 mg PO DAILY [facility] Last Admin: 02/22/17 09:24 Dose: 500 mg Budesonide (Pulmicort Respules) 0.5 mg IH RBID [facility] Last Admin: 02/22/17 07:16 Dose: 0.5 mg Diltiazem HCl (Cardizem) 30 mg PO QID [facility] Last Admin: 02/22/17 13:30 Dose: 30 mg Guaifenesin/Dextromethorphan (Mucinex-Dm 600-30 Mg) 1 tab PO BID [facility] Last Admin: 02/22/17 09:25 Dose: 1 tab Methylprednisolone 40 mg/ (Sodium Chloride) 50 mls @ 100 mls/hr IV Q8H [facility] Last Admin: 02/22/17 15:45 Dose: 100 mls/hr Clindamycin Phosphate 600 mg/ (Sodium Chloride) 104 mls @ 104 mls/hr IVPB Q8 [facility] Last Admin: 02/22/17 09:25 Dose: 104 mls/hr Sodium Chloride (Sodium Chloride 0.45%) 1,000 mls @ 80 mls/hr IV .[id number] [facility] Last Admin: 02/22/17 11:32 Dose: 80 mls/hr Aztreonam 1 gm/ Sodium (Chloride) 100 mls @ 100 mls/hr IVPB Q12 [facility] Insulin Human Regular (Humulin R) 0 units SC ACHS [facility] PRN Reason: Protocol Ipratropium [place] (Atrovent) 0.5 mg IH RQ4 [facility] Last Admin: 02/22/17 15:33 Dose: 0.5 mg Lactic Acid (Lac-Hydrin 12% Cream (140 G)) 1 ea TOP BID [facility] Last Admin: 02/22/17 11:00 Dose: 1 applic Levalbuterol HCl (Xopenex) 0.63 mg IH RQ8 [facility] Last Admin: 02/22/17 15:33 Dose: 0.63 mg Pantoprazole Sodium (Protonix Ec Tab) 40 mg PO DAILY [facility] Last Admin: 02/22/17 09:26 Dose: 40 mg Promethazine HCl/Dextromethorphan (Phenergan Dm Syrup) 5 ml PO Q6H PRN PRN Reason: Cough Last Admin: 02/22/17 09:27 Dose: 5 ml Simethicone (Mylicon Chew Tab) 80 mg PO Q4 PRN PRN Reason: Flatulence Last Admin: 02/22/17 09:24 Dose: 80 mg Sodium Chloride ([place] Baby Saline 30 Ml) 2 drop IMELDA Q4H PRN PRN Reason: Nasal congestion - Labs Labs: 02/21/17 06:00 02/22/17 05:35 - Constitutional Appears: Chronically Ill - Head Exam Head Exam: NORMAL INSPECTION - Eye Exam Eye Exam: PERRL - ENT Exam ENT Exam: Normal Exam - Neck Exam Neck Exam: Normal Inspection - Respiratory Exam Respiratory Exam: Decreased Breath Sounds, Rhonchi, Wheezes (scattered) - Cardiovascular Exam Cardiovascular Exam: REGULAR RHYTHM - GI/Abdominal Exam GI & Abdominal Exam: Soft, Normal Bowel Sounds - Extremities Exam Extremities Exam: Pedal Edema Additional comments: Ulcer R medial malleolus , chronic legs skin changes - Back Exam Back Exam: NORMAL INSPECTION - Neurological Exam Neurological Exam: Alert, Oriented x3. absent: Motor Sensory Deficit - Psychiatric Exam Psychiatric exam: Anxious - Skin Skin Exam: Warm Assessment and Plan (1) COPD exacerbation Status: Acute (2) Pneumonia Status: Acute (3) Ulcer of right ankle Status: Acute (4) Venous insufficiency of lower extremity Status: Acute - Assessment and Plan (Free Text) Assessment: Anxiety Plan: Continue Aztreonam , Clinda , Solu Medrol and rest of Tx , ID consult appreciated , f/u Psych consult.
[2017-02-22] MEDS: Insulin Regular 100 units/ml SC SCH ×2 (16:46→22:27)
--- NOTE | 2017-02-22 18:14 | CP.PCM.CON ---
History of Present Illness - History of Present Illness History of Present Illness: This is a 86 yr old male with h/o no known psych history admitted for SOB due to COPD and psych consult requested for evaluation of anxiety.pt says that he is not nervous person and the shortness of breath and meds makes him anxious.pt is also prescribed prednisone for cOPD.pt denies any depression and says that he never had any treatment for psych illness in past. Review of Systems - Review of Systems All systems: reviewed and no additional remarkable complaints except Past Patient History - Infectious Disease Hx of Infectious Diseases: None - Past Medical History & Family History Past Medical History?: Yes - Past Social History Smoking Status: Former Smoker Alcohol: None Drugs: Denies Home Situation {Lives}: Alone - CARDIAC Hx Cardiac Disorders: Yes - PULMONARY Hx Respiratory Disorders: Yes Hx Chronic Obstructive Pulmonary Disease (COPD): Yes Hx Pneumonia: Yes - NEUROLOGICAL Hx Neurological Disorder: No - HEENT Hx HEENT Problems: Yes Hx Cataracts: Yes - RENAL Hx Chronic Kidney Disease: Yes - ENDOCRINE/METABOLIC Hx Endocrine Disorders: No - HEMATOLOGICAL/ONCOLOGICAL Hx Blood Disorders: No - INTEGUMENTARY Hx Dermatological Problems: Yes Hx Psoriasis: Yes - MUSCULOSKELETAL/RHEUMATOLOGICAL Hx Musculoskeletal Disorders: Yes Hx Arthritis: Yes Hx Falls: No - GASTROINTESTINAL Hx Gastrointestinal Disorders: Yes Hx Gastroesophageal Reflux: Yes Hx Liver Failure: Yes (LIVER CIRRHOSIS) Hx Ulcer: Yes - GENITOURINARY/GYNECOLOGICAL Hx Genitourinary Disorders: Yes Hx Prostate Problems: Yes (enlarged) - PSYCHIATRIC Hx Psychophysiologic Disorder: Yes Hx Anxiety: Yes Hx Substance Use: No - SURGICAL HISTORY Hx Surgeries: Yes Hx Cataract Extraction: Yes Hx Herniorrhaphy: Yes (abdominal hernia repair 15 yrs ago) - ANESTHESIA Hx Anesthesia: Yes Hx Anesthesia Reactions: No Hx Malignant Hyperthermia: No Meds Allergies/Adverse Reactions: Allergies Allergy/AdvReac Type Severity Reaction Status Date / Time moxifloxacin HCl Allergy RASH Verified 10/03/16 15:22 [From Avelox] Penicillins Allergy RASH Verified 10/03/16 15:22 tomato Allergy RASH Verified 10/03/16 15:22 - Medications Medications: Current Medications Acetaminophen (Tylenol 325mg Tab) 650 mg PO Q6H PRN PRN Reason: Pain, Mild (1-3) Last Admin: 02/22/17 09:44 Dose: 650 mg Acetylcysteine (Mucomyst 10% 4ml) 4 ml IH RTID [facility] Last Admin: 02/22/17 15:33 Dose: 4 ml Alprazolam (Xanax) 0.25 mg PO Q12H PRN PRN Reason: Anxiety Stop: 02/26/17 21:22 Last Admin: 02/21/17 10:46 Dose: 0.25 mg Artificial Tears (Artificial Tears) 2 drop OU Q6H PRN PRN Reason: Dry eyes Azithromycin (Zithromax) 500 mg PO DAILY [facility] Last Admin: 02/22/17 09:24 Dose: 500 mg Budesonide (Pulmicort Respules) 0.5 mg IH RBID [facility] Last Admin: 02/22/17 07:16 Dose: 0.5 mg Diltiazem HCl (Cardizem) 30 mg PO QID [facility] Last Admin: 02/22/17 16:45 Dose: 30 mg Guaifenesin/Dextromethorphan (Mucinex-Dm 600-30 Mg) 1 tab PO BID [facility] Last Admin: 02/22/17 16:48 Dose: 1 tab Methylprednisolone 40 mg/ (Sodium Chloride) 50 mls @ 100 mls/hr IV Q8H [facility] Last Admin: 02/22/17 15:45 Dose: 100 mls/hr Clindamycin Phosphate 600 mg/ (Sodium Chloride) 104 mls @ 104 mls/hr IVPB Q8 [facility] Last Admin: 02/22/17 16:46 Dose: 104 mls/hr Sodium Chloride (Sodium Chloride 0.45%) 1,000 mls @ 80 mls/hr IV .[id number] [facility] Last Admin: 02/22/17 11:32 Dose: 80 mls/hr Aztreonam 1 gm/ Sodium (Chloride) 100 mls @ 100 mls/hr IVPB Q12 [facility] Insulin Human Regular (Humulin R) 0 units SC ACHS [facility] PRN Reason: Protocol Last Admin: 02/22/17 16:46 Dose: Not Given Ipratropium [place] (Atrovent) 0.5 mg IH RQ4 [facility] Last Admin: 02/22/17 15:33 Dose: 0.5 mg Lactic Acid (Lac-Hydrin 12% Cream (140 G)) 1 ea TOP BID [facility] Last Admin: 02/22/17 16:47 Dose: 1 applic Levalbuterol HCl (Xopenex) 0.63 mg IH RQ8 [facility] Last Admin: 02/22/17 15:33 Dose: 0.63 mg Pantoprazole Sodium (Protonix Ec Tab) 40 mg PO DAILY [facility] Last Admin: 02/22/17 09:26 Dose: 40 mg Promethazine HCl/Dextromethorphan (Phenergan Dm Syrup) 5 ml PO Q6H PRN PRN Reason: Cough Last Admin: 02/22/17 16:49 Dose: 5 ml Simethicone (Mylicon Chew Tab) 80 mg PO Q4 PRN PRN Reason: Flatulence Last Admin: 02/22/17 09:24 Dose: 80 mg Sodium Chloride ([place] Baby Saline 30 Ml) 2 drop IMELDA Q4H PRN PRN Reason: Nasal congestion Physical Exam - Constitutional Appears: Well - Psychiatric Exam Psychiatric exam: Anxious, Normal Affect Additional comments: pt is alert orientedx2 with intact cognition but feels anxious due to short ness of breath and his meds for COPD.pt denies suicidal and homicidal ideation plan and intent.pt has fair cognition and fair insight and judgement.no psychosis Results - Vital Signs Recent Vital Signs: Last Vital Signs Temp 97.7 F 02/22/17 16:42 Pulse 90 02/22/17 16:45 Resp 20 02/22/17 16:42 BP 144/65 02/22/17 16:45 Pulse Ox 100 02/22/17 16:42 - Labs Result Diagrams: 02/23/17 06:20 02/23/17 06:20 Labs: Laboratory Results - last 24 hr 02/20/17 02/21/17 02/22/17 21:24 21:00 05:08 Sodium Potassium Chloride Carbon Dioxide Anion Gap BUN Creatinine Est GFR ( Amer) Est GFR (Non-Af Amer) POC Glucose (mg/dL) 218 H 170 H Random Glucose Calcium Total Bilirubin AST ALT Alkaline Phosphatase Total Protein Albumin Globulin Albumin/Globulin Ratio Mycoplasma pneumon IgG 1.00 H 02/22/17 02/22/17 02/22/17 05:35 10:55 15:59 Sodium 140 Potassium 5.7 H Chloride 103 Carbon Dioxide 28 Anion Gap 15 BUN 67 H Creatinine 1.3 Est GFR ( Amer) > 60 Est GFR (Non-Af Amer) 52 POC Glucose (mg/dL) 284 H 125 H Random Glucose 152 H Calcium 8.1 L Total Bilirubin 0.4 AST 21 ALT 63 Alkaline Phosphatase 48 Total Protein 5.8 L Albumin 2.9 L Globulin 2.9 Albumin/Globulin Ratio 1.0 Mycoplasma pneumon IgG Assessment & Plan - Assessment and Plan (Free Text) Assessment: A/P ; Adjustment disorder with anxiety Plan : will renew xanax 0.25 mg q12 hr prn for anxiety and if increase in anxiety ,increase it to q 8hr .Please review dose of prednisone as it may be causing increase in anxiety. no further psych intervention.
[2017-02-22] MEDS: Aztreonam 1 GM in Sodium Chloride 0.9% 100 ML IVPB SCH (20:49)
[2017-02-23] MEDS: Clindamycin 600 MG in Sodium Chloride 0.9% 100 ML IVPB SCH ×3 (00:01→17:01)
[2017-02-23] MEDS: Sodium Chloride 0.45% 1,000 ML IV SCH ×2 (02:00→20:20)
[2017-02-23] MEDS: Ipratropium 0.02% Inhal Soln (0.5 mg/2.5 ml) UD IH SCH ×5 (04:52→23:51)
[2017-02-23] MEDS: methylPREDNISolone 40 MG in Sodium Chloride 0.9% 50 ML IV SCH ×3 (06:28→23:08)
[2017-02-23] MEDS: Insulin Regular 100 units/ml SC SCH ×4 (06:33→22:12)
--- NOTE | 2017-02-23 06:44 | CP.PCM.PN ---
Subjective - Date & Time of Evaluation Date of Evaluation: 02/23/17 Time of Evaluation: 08:00 - Subjective Subjective: 86 year old male was seen resting at bedside regarding right venous stasis ulcer. He denies any acute events overnight, but admits to some leg pain. He denies any n/v/f/c/sob/cp. Objective - Vital Signs/Intake and Output Vital Signs (last 24 hours): Temp Pulse Resp BP Pulse Ox 97.2 F L 83 18 126/64 92 L 02/23/17 05:11 02/23/17 05:11 02/23/17 05:11 02/23/17 05:11 02/23/17 05:11 Intake and Output: 02/22/17 02/23/17 18:59 06:59 Intake Total 1520 Output Total 840 Balance 680 - Medications Medications: Current Medications Acetaminophen (Tylenol 325mg Tab) 650 mg PO Q6H PRN PRN Reason: Pain, Mild (1-3) Last Admin: 02/22/17 09:44 Dose: 650 mg Acetylcysteine (Mucomyst 10% 4ml) 4 ml IH RTID [facility] Last Admin: 02/22/17 22:42 Dose: Not Given Alprazolam (Xanax) 0.25 mg PO Q12H PRN PRN Reason: Anxiety Stop: 02/26/17 21:22 Last Admin: 02/21/17 10:46 Dose: 0.25 mg Artificial Tears (Artificial Tears) 2 drop OU Q6H PRN PRN Reason: Dry eyes Azithromycin (Zithromax) 500 mg PO DAILY [facility] Last Admin: 02/22/17 09:24 Dose: 500 mg Budesonide (Pulmicort Respules) 0.5 mg IH RBID [facility] Last Admin: 02/22/17 19:37 Dose: 0.5 mg Diltiazem HCl (Cardizem) 30 mg PO QID [facility] Last Admin: 02/22/17 21:26 Dose: 30 mg Guaifenesin/Dextromethorphan (Mucinex-Dm 600-30 Mg) 1 tab PO BID [facility] Last Admin: 02/22/17 16:48 Dose: 1 tab Methylprednisolone 40 mg/ (Sodium Chloride) 50 mls @ 100 mls/hr IV Q8H [facility] Last Admin: 02/23/17 06:28 Dose: 100 mls/hr Clindamycin Phosphate 600 mg/ (Sodium Chloride) 104 mls @ 104 mls/hr IVPB Q8 [facility] Last Admin: 02/23/17 00:01 Dose: 104 mls/hr Sodium Chloride (Sodium Chloride 0.45%) 1,000 mls @ 80 mls/hr IV .[id number] [facility] Last Admin: 02/23/17 02:00 Dose: 80 mls/hr Aztreonam 1 gm/ Sodium (Chloride) 100 mls @ 100 mls/hr IVPB Q12 [facility] Last Admin: 02/22/17 20:49 Dose: 100 mls/hr Insulin Human Regular (Humulin R) 0 units SC ACHS [facility] PRN Reason: Protocol Last Admin: 02/23/17 06:33 Dose: 1 u Ipratropium [place] (Atrovent) 0.5 mg IH RQ4 [facility] Last Admin: 02/23/17 04:52 Dose: 0.5 mg Lactic Acid (Lac-Hydrin 12% Cream (140 G)) 1 ea TOP BID [facility] Last Admin: 02/22/17 16:47 Dose: 1 applic Levalbuterol HCl (Xopenex) 0.63 mg IH RQ8 [facility] Last Admin: 02/22/17 23:46 Dose: 0.63 mg Pantoprazole Sodium (Protonix Ec Tab) 40 mg PO DAILY [facility] Last Admin: 02/22/17 09:26 Dose: 40 mg Promethazine HCl/Dextromethorphan (Phenergan Dm Syrup) 5 ml PO Q6H PRN PRN Reason: Cough Last Admin: 02/22/17 16:49 Dose: 5 ml Simethicone (Mylicon Chew Tab) 80 mg PO Q4 PRN PRN Reason: Flatulence Last Admin: 02/22/17 09:24 Dose: 80 mg Sodium Chloride ([place] Baby Saline 30 Ml) 2 drop IMELDA Q4H PRN PRN Reason: Nasal congestion - Labs Labs: 02/21/17 06:00 02/22/17 05:35 - Constitutional Appears: Well, Non-toxic, No Acute Distress - Extremities Exam Additional comments: Bilateral lower extremity focused exam: VASC- DP pulses 1/4 BL, PT pulses non-palpable due to edema, cap refill < 3 sec to digits x 5, 1+ pitting edema noted to distal 1/3 of shins and dorsum of feet bl DERM- superficial ulceration (randall grade 1) noted just distal to medial malleolus, no probe to bone, no drainage, no malodor, no signs infection, nor elver-wound maceration noted. NEURO- gross pedal sensation is intact ORTHO- tenderness to palpation of ulceration, diffuse tenderness dorsum and plantar aspect both feet, tenderness to distal anterior legs bl - Neurological Exam Neurological Exam: Alert, Awake, Oriented x3 - Psychiatric Exam Psychiatric exam: Normal Affect, Normal Mood Assessment and Plan - Assessment and Plan (Free Text) Assessment: 86 year old male with bilateral leg/foot pain and superficial right ankle ulceration, secondary to venous stasis disease. Plan: patient examined and evaluated discussed in detail with attending Dr. Garrido chart, labs, vitals reviewed;afebrile right medial ulceration dressed with xeroform, DSD lower extremities wraped with JERMAINE- to be worn during the day and removed at night patient to continue to elevate legs at all times while in bed patient is stable from a podiatry standpoint podiatry will continue to follow patient while in house
[2017-02-23 07:23] LABS: MEAN CELL VOLUME 93.7 fl (80.0-94.0); MEAN CORPUSCULAR HEMOGLOBIN 30.9 pg (27.0-31.0); WHITE BLOOD COUNT 8.9 K/uL (4.8-10.8)
[2017-02-23 07:38] LABS: ALB/GLOB RATIO 0.9 (1.0-2.1); ALKALINE PHOSPHATASE 47 U/L (38-126); ALT/SGPT 60 U/L (21-72); AST/SGOT 23 U/L (17-59); BILIRUBIN,TOTAL 0.4 mg/dl (0.2-1.3); BLOOD UREA NITROGEN 56 mg/dl (9-20); CALCIUM 7.9 mg/dL (8.4-10.2); CARBON DIOXIDE 30 mmol/L (22-30); CHLORIDE 104 mmol/L (98-107); GFR AFRICAN-AMERICAN > 60; GLUCOSE,RANDOM 132 mg/dL (75-110); POTASSIUM 5.2 MMOL/L (3.6-5.0); SODIUM 141 mmol/l (132-148); TOTAL PROTEIN 5.7 G/DL (6.3-8.2)
[2017-02-23] MEDS: Budesonide 0.5 mg/2 ml Inhal Susp UD IH SCH ×2 (08:07→20:30)
[2017-02-23] MEDS: Levalbuterol 0.63 MG/3 ML Inhal Soln UD IH SCH ×4 (08:08→23:50)
[2017-02-23] MEDS: Acetylcysteine 10% 4 ML IH SCH ×3 (08:10→20:30)
[2017-02-23] MEDS: guaiFENesin-DM 600-30 mg ER Tab PO SCH ×2 (09:44→16:46)
[2017-02-23] MEDS: Pantoprazole 40 mg EC Tab PO SCH (09:45)
[2017-02-23] MEDS: Aztreonam 1 GM in Sodium Chloride 0.9% 100 ML IVPB SCH ×2 (09:50→21:52)
[2017-02-23] MEDS: Ammonium Lactate 12% Cream (140 g) TOP SCH ×2 (09:54→16:46)
--- NOTE | 2017-02-23 12:20 | CT ---
CT chest without IV contrast Indication: PNA, COPD Exacerbation Technique: Contiguous axial images were obtained through the chest without intravenous contrast enhancement. Sagittal and coronal reconstructions were generated and reviewed. This CT exam was performed using 1 or more of the falling dose reduction techniques: Automated exposure control, adjustment of the MAA and/or kV according to patient size, and/or use of iterative reconstruction technique. Radiation dose (DLP): 683.69 MGy-cm. Comparison: Chest x-ray performed 02/19/17, noncontrast chest CT performed 05/14/16 Findings: Examination limited by patient motion/ respiratory artifact. Visualized portions of the inferior thyroid gland appear unremarkable. The noncontrast mediastinal and hilar vascular structures appear grossly unremarkable. The heart appears within normal limits of size. Coronary artery calcifications. Emphysematous changes. Right middle lobe consolidation, favored to represent pneumonia. No pleural effusion. No pneumothorax. Limited visualized noncontrast upper abdomen: Moderate to large hiatal hernia. Limited visualization of the noncontrast upper abdomen reveals multiple hepatic calcifications, likely granulomas. Bilateral partially imaged low-density renal lesions, likely cysts. Indeterminate 18 mm left upper pole hyperdense lesion, indeterminate. Osseous demineralization. Kyphosis. Multilevel degenerative changes. Confluent anterior osteophyte formation. Impression: Right middle lobe consolidation, favored to represent pneumonia. Emphysematous changes. 1.8 cm left upper pole hyperdense exophytic lesion ; this finding has previously been described as a complex cyst. Recommend followup as clinically appropriate. Bilateral renal cysts. Moderate to large hiatal hernia. Remainder of findings as above.
[2017-02-23] MEDS: Vitamins A & D Oint UD Foilpak TOP SCH (16:47)
--- NOTE | 2017-02-23 17:59 | CP.PCM.PN ---
Subjective - Date & Time of Evaluation Date of Evaluation: 02/23/17 Time of Evaluation: 12:05 - Subjective Subjective: F/U COPD Ex. PNA Cough productive,Chest congestion , on BIPAP 11/05 , off for meals Objective - Vital Signs/Intake and Output Vital Signs (last 24 hours): Temp Pulse Resp BP Pulse Ox 97.2 F L 78 20 131/80 96 02/23/17 15:32 02/23/17 16:44 02/23/17 15:32 02/23/17 16:44 02/23/17 15:32 - Medications Medications: Current Medications Acetaminophen (Tylenol 325mg Tab) 650 mg PO Q6H PRN PRN Reason: Pain, Mild (1-3) Last Admin: 02/22/17 09:44 Dose: 650 mg Acetylcysteine (Mucomyst 10% 4ml) 4 ml IH RTID [facility] Last Admin: 02/23/17 11:29 Dose: 4 ml Alprazolam (Xanax) 0.25 mg PO Q12H PRN PRN Reason: Anxiety Stop: 02/26/17 21:22 Last Admin: 02/23/17 09:46 Dose: 0.25 mg Artificial Tears (Artificial Tears) 2 drop OU Q6H PRN PRN Reason: Dry eyes Azithromycin (Zithromax) 500 mg PO DAILY [facility] Last Admin: 02/23/17 09:47 Dose: 500 mg Budesonide (Pulmicort Respules) 0.5 mg IH RBID [facility] Last Admin: 02/23/17 08:07 Dose: 0.5 mg Diltiazem HCl (Cardizem) 30 mg PO QID [facility] Last Admin: 02/23/17 16:44 Dose: 30 mg Guaifenesin/Dextromethorphan (Mucinex-Dm 600-30 Mg) 1 tab PO BID [facility] Last Admin: 02/23/17 16:46 Dose: 1 tab Methylprednisolone 40 mg/ (Sodium Chloride) 50 mls @ 100 mls/hr IV Q8H [facility] Last Admin: 02/23/17 16:43 Dose: 100 mls/hr Clindamycin Phosphate 600 mg/ (Sodium Chloride) 104 mls @ 104 mls/hr IVPB Q8 [facility] Last Admin: 02/23/17 17:01 Dose: 104 mls/hr Aztreonam 1 gm/ Sodium (Chloride) 100 mls @ 100 mls/hr IVPB Q12 [facility] Last Admin: 02/23/17 09:50 Dose: 100 mls/hr Insulin Human Regular (Humulin R) 0 units SC ACHS [facility] PRN Reason: Protocol Last Admin: 02/23/17 16:45 Dose: Not Given Ipratropium [place] (Atrovent) 0.5 mg IH RQ4 [facility] Last Admin: 02/23/17 16:03 Dose: 0.5 mg Lactic Acid (Lac-Hydrin 12% Cream (140 G)) 1 ea TOP BID [facility] Last Admin: 02/23/17 16:46 Dose: 1 applic Levalbuterol HCl (Xopenex) 0.63 mg IH RQ8 [facility] Last Admin: 02/23/17 16:03 Dose: 0.63 mg Pantoprazole Sodium (Protonix Ec Tab) 40 mg PO DAILY [facility] Last Admin: 02/23/17 09:45 Dose: 40 mg Promethazine HCl/Dextromethorphan (Phenergan Dm Syrup) 5 ml PO Q6H PRN PRN Reason: Cough Last Admin: 02/22/17 16:49 Dose: 5 ml Simethicone (Mylicon Chew Tab) 80 mg PO Q4 PRN PRN Reason: Flatulence Last Admin: 02/22/17 09:24 Dose: 80 mg Sodium Chloride ([place] Baby Saline 30 Ml) 2 drop IMELDA Q4H PRN PRN Reason: Nasal congestion Vitamin A (Vitamin A & D Oint Ud Foilpak) 1 ea TOP BID [facility] Last Admin: 02/23/17 16:47 Dose: 1 ea - Labs Labs: 02/23/17 06:20 02/23/17 06:20 - Constitutional Appears: No Acute Distress - Head Exam Head Exam: NORMAL INSPECTION - Eye Exam Eye Exam: PERRL - ENT Exam ENT Exam: Normal Oropharynx - Neck Exam Neck Exam: Normal Inspection - Respiratory Exam Respiratory Exam: Decreased Breath Sounds (b/l), Rhonchi (scattered), Wheezes - Cardiovascular Exam Cardiovascular Exam: REGULAR RHYTHM - GI/Abdominal Exam GI & Abdominal Exam: Soft, Normal Bowel Sounds - Extremities Exam Extremities Exam: Pedal Edema Additional comments: Superficial R medial malleolus ulceration 2nd to venous stasis wrapped with bandages, tenderness on palpation R-L distal legs and feet, edema and chronic skin changes distal legs and feet. - Back Exam Back Exam: NORMAL INSPECTION - Neurological Exam Neurological Exam: Alert, Oriented x3. absent: Motor Sensory Deficit - Psychiatric Exam Psychiatric exam: Anxious - Skin Skin Exam: Dry (to R medial ankle), Warm Assessment and Plan (1) COPD exacerbation Status: Acute (2) Pneumonia Status: Acute (3) Ulcer of right ankle Status: Acute (4) Venous insufficiency of lower extremity Status: Acute - Assessment and Plan (Free Text) Plan: Continue BIPAP , Aztreonam , Clinda , Solu Medrol and rest of treatment
[2017-02-23 23:07] LABS: TOTAL PSA 7.3 ng/mL (<=4.0)
[2017-02-24] MEDS: Clindamycin 600 MG in Sodium Chloride 0.9% 100 ML IVPB SCH ×3 (01:55→16:56)
[2017-02-24] MEDS: Ipratropium 0.02% Inhal Soln (0.5 mg/2.5 ml) UD IH SCH ×5 (05:11→20:30)
[2017-02-24] MEDS: Acetylcysteine 10% 4 ML IH SCH ×3 (07:43→20:29)
[2017-02-24] MEDS: Levalbuterol 0.63 MG/3 ML Inhal Soln UD IH SCH ×2 (07:43→16:13)
[2017-02-24] MEDS: Budesonide 0.5 mg/2 ml Inhal Susp UD IH SCH ×2 (07:43→20:29)
--- NOTE | 2017-02-24 08:42 | CP.PCM.PN ---
Subjective - Date & Time of Evaluation Date of Evaluation: 02/24/17 Time of Evaluation: 07:40 - Subjective Subjective: 86 year old male was seen resting at bedside regarding right venous stasis ulcer. He denies any acute events overnight, but admits to minor leg pain. He denies any n/v/f/c/cp. Currently experiencing mild shortness of breath, requesting reparatory therapist for Bi-pap ventilation, though stable and able to converse without difficulty Objective - Vital Signs/Intake and Output Vital Signs (last 24 hours): Temp Pulse Resp BP Pulse Ox 97.2 F L 82 18 149/69 98 02/24/17 04:26 02/24/17 08:26 02/24/17 04:26 02/24/17 04:26 02/24/17 04:26 - Medications Medications: Current Medications Acetaminophen (Tylenol 325mg Tab) 650 mg PO Q6H PRN PRN Reason: Pain, Mild (1-3) Last Admin: 02/22/17 09:44 Dose: 650 mg Acetylcysteine (Mucomyst 10% 4ml) 4 ml IH RTID [facility] [place] Last Admin: 02/24/17 07:43 Dose: 4 ml Alprazolam (Xanax) 0.25 mg PO Q12H PRN PRN Reason: Anxiety Stop: 02/26/17 21:22 Last Admin: 02/23/17 09:46 Dose: 0.25 mg Artificial Tears (Artificial Tears) 2 drop OU Q6H PRN PRN Reason: Dry eyes Azithromycin (Zithromax) 500 mg PO DAILY [facility] [place] Last Admin: 02/23/17 09:47 Dose: 500 mg Budesonide (Pulmicort Respules) 0.5 mg IH RBID [facility] [place] Last Admin: 02/24/17 07:43 Dose: 0.5 mg Diltiazem HCl (Cardizem) 30 mg PO QID [facility] [place] Last Admin: 02/23/17 23:04 Dose: Not Given Guaifenesin/Dextromethorphan (Mucinex-Dm 600-30 Mg) 1 tab PO BID [facility] [place] Last Admin: 02/23/17 16:46 Dose: 1 tab Methylprednisolone 40 mg/ (Sodium Chloride) 50 mls @ 100 mls/hr IV Q8H [facility] [place] Last Admin: 02/23/17 23:08 Dose: 100 mls/hr Clindamycin Phosphate 600 mg/ (Sodium Chloride) 104 mls @ 104 mls/hr IVPB Q8 [facility] Last Admin: 02/24/17 01:55 Dose: 104 mls/hr Aztreonam 1 gm/ Sodium (Chloride) 100 mls @ 100 mls/hr IVPB Q12 [facility] Last Admin: 02/23/17 21:52 Dose: 100 mls/hr Insulin Human Regular (Humulin R) 0 units SC ACHS [facility] PRN Reason: Protocol Last Admin: 02/23/17 22:12 Dose: Not Given Ipratropium [place] (Atrovent) 0.5 mg IH RQ4 [facility] Last Admin: 02/24/17 05:11 Dose: 0.5 mg Lactic Acid (Lac-Hydrin 12% Cream (140 G)) 1 ea TOP BID [facility] [place] Last Admin: 02/23/17 16:46 Dose: 1 applic Levalbuterol HCl (Xopenex) 0.63 mg IH RQ8 [facility] Last Admin: 02/24/17 07:43 Dose: 0.63 mg Pantoprazole Sodium (Protonix Ec Tab) 40 mg PO DAILY [facility] [place] Last Admin: 02/23/17 09:45 Dose: 40 mg Promethazine HCl/Dextromethorphan (Phenergan Dm Syrup) 5 ml PO Q6H PRN PRN Reason: Cough Last Admin: 02/22/17 16:49 Dose: 5 ml Simethicone (Mylicon Chew Tab) 80 mg PO Q4 PRN PRN Reason: Flatulence Last Admin: 02/22/17 09:24 Dose: 80 mg Sodium Chloride ([place] Baby Saline 30 Ml) 2 drop IMELDA Q4H PRN PRN Reason: Nasal congestion Vitamin A (Vitamin A & D Oint Ud Foilpak) 1 ea TOP BID [facility] Last Admin: 02/23/17 16:47 Dose: 1 ea - Labs Labs: 02/23/17 06:20 02/23/17 06:20 - Constitutional Appears: Well, Non-toxic - Extremities Exam Additional comments: Bilateral lower extremity focused exam: VASC- DP pulses 1/4 BL, PT pulses non-palpable due to edema, cap refill < 3 sec to digits x 5, 1+ pitting edema noted to distal 1/3 of shins and dorsum of feet bl DERM- superficial ulceration (randall grade 1) noted just distal to medial malleolus, no probe to bone, no drainage, no malodor, no signs infection, nor elver-wound maceration noted. NEURO- gross pedal sensation is intact ORTHO- tenderness to palpation of ulceration, diffuse tenderness dorsum and plantar aspect both feet, tenderness to distal anterior legs bl Assessment and Plan - Assessment and Plan (Free Text) Assessment: 86 year old male with bilateral leg/foot pain and superficial right ankle ulceration, secondary to venous stasis disease. Plan: patient treated and evaluated discussed in detail with attending Dr. Garrido chart, labs, vitals reviewed;afebrile right medial ulceration redressed with xeroform, DSD lower extremities wraped with JERMAINE- to be worn during the day and removed at night patient to continue to elevate legs at all times while in bed patient is stable from a podiatry standpoint podiatry will continue to follow patient while in house
[2017-02-24] MEDS: Insulin Regular 100 units/ml SC SCH ×4 (09:13→22:00)
[2017-02-24] MEDS: Ammonium Lactate 12% Cream (140 g) TOP SCH ×2 (09:15→16:57)
[2017-02-24] MEDS: guaiFENesin-DM 600-30 mg ER Tab PO SCH ×2 (09:15→16:58)
[2017-02-24] MEDS: Pantoprazole 40 mg EC Tab PO SCH (09:16)
[2017-02-24] MEDS: Promethazine DM 6.25 mg-15 mg/5 ml Syrup PO PRN ×2 (09:16→22:35)
[2017-02-24] MEDS: methylPREDNISolone 40 MG in Sodium Chloride 0.9% 50 ML IV SCH ×3 (09:16→22:33)
[2017-02-24] MEDS: Vitamins A & D Oint UD Foilpak TOP SCH ×2 (09:17→17:04)
[2017-02-24] MEDS: Aztreonam 1 GM in Sodium Chloride 0.9% 100 ML IVPB SCH ×2 (12:11→22:32)
[2017-02-24 13:26] VITALS: BMI 29.8
--- NOTE | 2017-02-24 14:33 | CP.PCM.PN ---
Subjective - Date & Time of Evaluation Date of Evaluation: 02/24/17 Time of Evaluation: 13:10 - Subjective Subjective: F/U COPD Exacerbation / PNA Cough productive, chest congestion , on BIPAP 11/05 Objective - Vital Signs/Intake and Output Vital Signs (last 24 hours): Temp Pulse Resp BP Pulse Ox 98.2 F 92 H 18 138/61 96 02/24/17 12:22 02/24/17 14:22 02/24/17 12:22 02/24/17 14:22 02/24/17 12:22 - Medications Medications: Current Medications Acetaminophen (Tylenol 325mg Tab) 650 mg PO Q6H PRN PRN Reason: Pain, Mild (1-3) Last Admin: 02/22/17 09:44 Dose: 650 mg Acetylcysteine (Mucomyst 10% 4ml) 4 ml IH RTID [facility] Last Admin: 02/24/17 13:30 Dose: 4 ml Alprazolam (Xanax) 0.25 mg PO Q12H PRN PRN Reason: Anxiety Stop: 02/26/17 21:22 Last Admin: 02/23/17 09:46 Dose: 0.25 mg Artificial Tears (Artificial Tears) 2 drop OU Q6H PRN PRN Reason: Dry eyes Azithromycin (Zithromax) 500 mg PO DAILY [facility] Last Admin: 02/24/17 09:27 Dose: 500 mg Budesonide (Pulmicort Respules) 0.5 mg IH RBID [facility] Last Admin: 02/24/17 07:43 Dose: 0.5 mg Diltiazem HCl (Cardizem) 30 mg PO QID [facility] Last Admin: 02/24/17 14:22 Dose: 30 mg Guaifenesin/Dextromethorphan (Mucinex-Dm 600-30 Mg) 1 tab PO BID [facility] Last Admin: 02/24/17 09:15 Dose: 1 tab Methylprednisolone 40 mg/ (Sodium Chloride) 50 mls @ 100 mls/hr IV Q8H [facility] Last Admin: 02/24/17 09:16 Dose: 100 mls/hr Clindamycin Phosphate 600 mg/ (Sodium Chloride) 104 mls @ 104 mls/hr IVPB Q8 [facility] Last Admin: 02/24/17 09:10 Dose: 104 mls/hr Aztreonam 1 gm/ Sodium (Chloride) 100 mls @ 100 mls/hr IVPB Q12 [facility] Last Admin: 02/24/17 12:11 Dose: 100 mls/hr Insulin Human Regular (Humulin R) 0 units SC ACHS ADAN PRN Reason: Protocol Last Admin: 02/24/17 12:12 Dose: 4 u Ipratropium [place] (Atrovent) 0.5 mg IH RQ4 [facility] Last Admin: 02/24/17 13:30 Dose: 0.5 mg Lactic Acid (Lac-Hydrin 12% Cream (140 G)) 1 ea TOP BID [facility] Last Admin: 02/24/17 09:15 Dose: 1 applic Levalbuterol HCl (Xopenex) 0.63 mg IH RQ8 [facility] Last Admin: 02/24/17 07:43 Dose: 0.63 mg Pantoprazole Sodium (Protonix Ec Tab) 40 mg PO DAILY [facility] Last Admin: 02/24/17 09:16 Dose: 40 mg Promethazine HCl/Dextromethorphan (Phenergan Dm Syrup) 5 ml PO Q6H PRN PRN Reason: Cough Last Admin: 02/24/17 09:16 Dose: 5 ml Simethicone (Mylicon Chew Tab) 80 mg PO Q4 PRN PRN Reason: Flatulence Last Admin: 02/22/17 09:24 Dose: 80 mg Sodium Chloride ([place] Baby Saline 30 Ml) 2 drop IMELDA Q4H PRN PRN Reason: Nasal congestion Vitamin A (Vitamin A & D Oint Ud Foilpak) 1 ea TOP BID [facility] Last Admin: 02/24/17 09:17 Dose: 1 ea - Labs Labs: 02/23/17 06:20 02/23/17 06:20 - Constitutional Appears: Chronically Ill - Head Exam Head Exam: NORMAL INSPECTION - Eye Exam Eye Exam: PERRL - Neck Exam Neck Exam: Normal Inspection - Respiratory Exam Respiratory Exam: Decreased Breath Sounds, Rhonchi, Wheezes - Cardiovascular Exam Cardiovascular Exam: REGULAR RHYTHM - GI/Abdominal Exam GI & Abdominal Exam: Soft, Normal Bowel Sounds - Extremities Exam Extremities Exam: Pedal Edema Additional comments: Superficial R medial malleolus ulceration 2nd to venous stasis, wrapped with bandages. Tenderness on palpation, Edema and chronic skin changes distal legs and feet. - Back Exam Back Exam: NORMAL INSPECTION - Neurological Exam Neurological Exam: Oriented x3. absent: Motor Sensory Deficit - Psychiatric Exam Psychiatric exam: Anxious - Skin Skin Exam: Warm Assessment and Plan (1) COPD exacerbation Status: Acute (2) Pneumonia Status: Acute (3) Ulcer of right ankle Status: Acute (4) Venous insufficiency of lower extremity Status: Acute - Assessment and Plan (Free Text) Plan: Continue Aztreonam , Clinda , Solu Medrol , Xopenex and rest of treatment
[2017-02-25] MEDS: Levalbuterol 0.63 MG/3 ML Inhal Soln UD IH SCH ×4 (00:33→23:19)
[2017-02-25] MEDS: Ipratropium 0.02% Inhal Soln (0.5 mg/2.5 ml) UD IH SCH ×7 (00:33→23:20)
[2017-02-25] MEDS: Clindamycin 600 MG in Sodium Chloride 0.9% 100 ML IVPB SCH ×3 (00:49→17:42)
[2017-02-25] MEDS: Insulin Regular 100 units/ml SC SCH ×4 (07:33→22:49)
[2017-02-25] MEDS: Acetylcysteine 10% 4 ML IH SCH ×4 (07:36→19:49)
[2017-02-25] MEDS: Budesonide 0.5 mg/2 ml Inhal Susp UD IH SCH ×2 (07:36→19:53)
[2017-02-25] MEDS: Pantoprazole 40 mg EC Tab PO SCH (08:56)
[2017-02-25] MEDS: Vitamins A & D Oint UD Foilpak TOP SCH (08:56)
[2017-02-25] MEDS: guaiFENesin-DM 600-30 mg ER Tab PO SCH ×2 (08:56→17:43)
[2017-02-25] MEDS: Ammonium Lactate 12% Cream (140 g) TOP SCH ×2 (08:57→17:43)
[2017-02-25] MEDS: Aztreonam 1 GM in Sodium Chloride 0.9% 100 ML IVPB SCH ×2 (08:59→22:30)
[2017-02-25] MEDS ORDERED: MethylPREDNISolone 40 mg Vial IV SCH (09:30)
[2017-02-25] MEDS: methylPREDNISolone 40 MG in Sodium Chloride 0.9% 50 ML IVPB SCH ×2 (11:54→17:46)
--- NOTE | 2017-02-25 14:18 | CP.PCM.PN ---
Subjective - Date & Time of Evaluation Date of Evaluation: 02/25/17 - Subjective Subjective: F/U COPD Exacerbation /PNA Pt continue with SOB, productive cough, less chest congestion. Objective - Vital Signs/Intake and Output Vital Signs (last 24 hours): Temp Pulse Resp BP Pulse Ox 97.3 F L 89 18 146/77 100 02/25/17 08:18 02/25/17 12:52 02/25/17 08:18 02/25/17 12:52 02/25/17 08:18 - Medications Medications: Current Medications Acetaminophen (Tylenol 325mg Tab) 650 mg PO Q6H PRN PRN Reason: Pain, Mild (1-3) Last Admin: 02/24/17 17:26 Dose: 650 mg Acetylcysteine (Mucomyst 10% 4ml) 4 ml IH RTID [facility] Last Admin: 02/25/17 07:36 Dose: 4 ml Alprazolam (Xanax) 0.25 mg PO Q12H PRN PRN Reason: Anxiety Stop: 02/26/17 21:22 Last Admin: 02/23/17 09:46 Dose: 0.25 mg Artificial Tears (Artificial Tears) 2 drop OU Q6H PRN PRN Reason: Dry eyes Budesonide (Pulmicort Respules) 0.5 mg IH RBID [facility] Last Admin: 02/25/17 07:36 Dose: 0.5 mg Diltiazem HCl (Cardizem) 30 mg PO QID [facility] Last Admin: 02/25/17 12:52 Dose: 30 mg Guaifenesin/Dextromethorphan (Mucinex-Dm 600-30 Mg) 1 tab PO BID [facility] Last Admin: 02/25/17 08:56 Dose: 1 tab Clindamycin Phosphate 600 mg/ (Sodium Chloride) 104 mls @ 104 mls/hr IVPB Q8 [facility] Last Admin: 02/25/17 08:57 Dose: 104 mls/hr Aztreonam 1 gm/ Sodium (Chloride) 100 mls @ 100 mls/hr IVPB Q12 [facility] Last Admin: 02/25/17 08:59 Dose: 100 mls/hr Methylprednisolone 40 mg/ (Sodium Chloride) 50 mls @ 100 mls/hr IVPB Q8H [facility] Last Admin: 02/25/17 11:54 Dose: 100 mls/hr Insulin Human Regular (Humulin R) 0 units SC ACHS [facility] PRN Reason: Protocol Last Admin: 02/25/17 11:49 Dose: 5 u Ipratropium [place] (Atrovent) 0.5 mg IH RQ4 [facility] Last Admin: 02/25/17 11:16 Dose: 0.5 mg Lactic Acid (Lac-Hydrin 12% Cream (140 G)) 1 ea TOP BID [facility] Last Admin: 02/25/17 08:57 Dose: 1 applic Levalbuterol HCl (Xopenex) 0.63 mg IH RQ8 [facility] Last Admin: 02/25/17 07:36 Dose: 0.63 mg Pantoprazole Sodium (Protonix Ec Tab) 40 mg PO DAILY [facility] Last Admin: 02/25/17 08:56 Dose: 40 mg Promethazine HCl/Dextromethorphan (Phenergan Dm Syrup) 5 ml PO Q6H PRN PRN Reason: Cough Last Admin: 02/24/17 22:35 Dose: 5 ml Simethicone (Mylicon Chew Tab) 80 mg PO Q4 PRN PRN Reason: Flatulence Last Admin: 02/22/17 09:24 Dose: 80 mg Sodium Chloride ([place] Baby Saline 30 Ml) 2 drop IMELDA Q4H PRN PRN Reason: Nasal congestion Vitamin A (Vitamin A & D Oint Ud Foilpak) 1 ea TOP BID [facility] Last Admin: 02/25/17 08:56 Dose: 1 ea - Labs Labs: 02/23/17 06:20 02/23/17 06:20 - Constitutional Appears: No Acute Distress - Head Exam Head Exam: NORMAL INSPECTION - Eye Exam Eye Exam: PERRL - ENT Exam ENT Exam: Normal Oropharynx - Neck Exam Neck Exam: Normal Inspection - Respiratory Exam Respiratory Exam: Decreased Breath Sounds (at bases), Rhonchi (scattered), Wheezes - Cardiovascular Exam Cardiovascular Exam: REGULAR RHYTHM - GI/Abdominal Exam GI & Abdominal Exam: Soft, Normal Bowel Sounds - Extremities Exam Additional comments: Superficial R medial malleolus ulceration 2nd to venous stasis wrapped with bandage. Tenderness on palpation R-L legs and feet with edema and skin changes. - Back Exam Back Exam: NORMAL INSPECTION - Neurological Exam Neurological Exam: Alert, Awake, Oriented x3. absent: Motor Sensory Deficit - Psychiatric Exam Psychiatric exam: Anxious - Skin Skin Exam: Warm Assessment and Plan (1) COPD exacerbation Status: Acute (2) Pneumonia Status: Acute (3) Ulcer of right ankle Status: Acute (4) Venous insufficiency of lower extremity Status: Acute - Assessment and Plan (Free Text) Plan: DC BIPAP, trial high flow O2, continue Aztreonam, Solumedrol, Xopenex, Pulmicort , Mucinex and rest of tx.
[2017-02-25] MEDS: Simethicone 80 mg Chewtab PO PRN ×2 (17:44→22:45)
[2017-02-25] MEDS: Promethazine DM 6.25 mg-15 mg/5 ml Syrup PO PRN (17:48)
[2017-02-26] MEDS: Clindamycin 600 MG in Sodium Chloride 0.9% 100 ML IVPB SCH ×3 (01:38→17:38)
[2017-02-26] MEDS: methylPREDNISolone 40 MG in Sodium Chloride 0.9% 50 ML IVPB SCH ×3 (01:43→18:39)
[2017-02-26] MEDS: Ipratropium 0.02% Inhal Soln (0.5 mg/2.5 ml) UD IH SCH ×6 (03:39→23:48)
--- NOTE | 2017-02-26 06:59 | CP.PCM.PN ---
Subjective - Date & Time of Evaluation Date of Evaluation: 02/26/17 Time of Evaluation: 07:10 - Subjective Subjective: 86 year old male was seen resting at bedside regarding right venous stasis ulcer. He denies any acute events overnight, no noted leg pain on waking this morning. He denies any n/v/f/c/cp. Objective - Vital Signs/Intake and Output Vital Signs (last 24 hours): Temp Pulse Resp BP Pulse Ox 98.2 F 84 18 123/68 99 02/26/17 05:00 02/26/17 05:00 02/26/17 05:00 02/26/17 05:00 02/26/17 05:00 Intake and Output: 02/25/17 02/26/17 18:59 06:59 Intake Total 680 Output Total 450 Balance 230 - Medications Medications: Current Medications Acetaminophen (Tylenol 325mg Tab) 650 mg PO Q6H PRN PRN Reason: Pain, Mild (1-3) Last Admin: 02/24/17 17:26 Dose: 650 mg Acetylcysteine (Mucomyst 10% 4ml) 4 ml IH RTID [facility] Last Admin: 02/25/17 19:49 Dose: 4 ml Alprazolam (Xanax) 0.25 mg PO Q12H PRN PRN Reason: Anxiety Stop: 02/26/17 21:22 Last Admin: 02/23/17 09:46 Dose: 0.25 mg Artificial Tears (Artificial Tears) 2 drop OU Q6H PRN PRN Reason: Dry eyes Budesonide (Pulmicort Respules) 0.5 mg IH RBID [facility] Last Admin: 02/25/17 19:53 Dose: 0.5 mg Diltiazem HCl (Cardizem) 30 mg PO QID [facility] Last Admin: 02/25/17 22:48 Dose: 30 mg Guaifenesin/Dextromethorphan (Mucinex-Dm 600-30 Mg) 1 tab PO BID [facility] Last Admin: 02/25/17 17:43 Dose: 1 tab Clindamycin Phosphate 600 mg/ (Sodium Chloride) 104 mls @ 104 mls/hr IVPB Q8 [facility] Last Admin: 02/26/17 01:38 Dose: 104 mls/hr Aztreonam 1 gm/ Sodium (Chloride) 100 mls @ 100 mls/hr IVPB Q12 [facility] Last Admin: 02/25/17 22:30 Dose: 100 mls/hr Methylprednisolone 40 mg/ (Sodium Chloride) 50 mls @ 100 mls/hr IVPB Q8H [facility] Last Admin: 02/26/17 01:43 Dose: 100 mls/hr Insulin Human Regular (Humulin R) 0 units SC ACHS [facility] PRN Reason: Protocol Last Admin: 02/25/17 22:49 Dose: Not Given Ipratropium [place] (Atrovent) 0.5 mg IH RQ4 [facility] Last Admin: 02/26/17 03:39 Dose: 0.5 mg Lactic Acid (Lac-Hydrin 12% Cream (140 G)) 1 ea TOP BID [facility] Last Admin: 02/25/17 17:43 Dose: 1 applic Levalbuterol HCl (Xopenex) 0.63 mg IH RQ8 [facility] Last Admin: 02/25/17 23:19 Dose: 0.63 mg Pantoprazole Sodium (Protonix Ec Tab) 40 mg PO DAILY [facility] Last Admin: 02/25/17 08:56 Dose: 40 mg Promethazine HCl/Dextromethorphan (Phenergan Dm Syrup) 5 ml PO Q6H PRN PRN Reason: Cough Last Admin: 02/25/17 17:48 Dose: 5 ml Simethicone (Mylicon Chew Tab) 80 mg PO Q4 PRN PRN Reason: Flatulence Last Admin: 02/25/17 22:45 Dose: 80 mg Sodium Chloride ([place] Baby Saline 30 Ml) 2 drop IMELDA Q4H PRN PRN Reason: Nasal congestion Vitamin A (Vitamin A & D Oint Ud Foilpak) 1 ea TOP BID [facility] Last Admin: 02/25/17 08:56 Dose: 1 ea - Labs Labs: 02/23/17 06:20 02/23/17 06:20 - Constitutional Appears: Non-toxic, No Acute Distress - Respiratory Exam Respiratory Exam: Decreased Breath Sounds. absent: Chest Wall Tenderness - Extremities Exam Additional comments: Bilateral lower extremity focused exam: VASC- DP pulses 1/4 BL, PT pulses non-palpable due to edema, cap refill < 3 sec to digits x 5, 1+ pitting edema noted to distal 1/3 of shins and dorsum of feet bl DERM- superficial ulceration (randall grade 1) noted just distal to medial malleolus measuring 2 x 0.2 cm. No probe to bone, no drainage, no malodor, no signs infection, nor elver-wound maceration noted. Wound base is fibro-granular mix. NEURO- gross pedal sensation is intact ORTHO- tenderness to palpation of ulceration, diffuse tenderness dorsum and plantar aspect both feet, tenderness to distal anterior legs bl - Neurological Exam Neurological Exam: Alert, Awake, Oriented x3 - Psychiatric Exam Psychiatric exam: Normal Affect, Normal Mood Assessment and Plan - Assessment and Plan (Free Text) Assessment: 86 year old male with bilateral leg/foot pain and superficial right ankle ulceration, secondary to venous stasis disease. Plan: patient treated and evaluated discussed in detail with attending Dr. Garrido chart, labs, vitals reviewed;afebrile right medial ulceration redressed with xeroform, DSD lower extremities wrapped with JERMAINE- to be worn during the day and removed at night patient to continue to elevate legs at all times while in bed patient is stable from a podiatry standpoint podiatry will continue to follow patient while in house
[2017-02-26] MEDS: Acetylcysteine 10% 4 ML IH SCH ×3 (07:44→19:46)
[2017-02-26] MEDS: Budesonide 0.5 mg/2 ml Inhal Susp UD IH SCH ×2 (07:45→19:46)
[2017-02-26] MEDS: Levalbuterol 0.63 MG/3 ML Inhal Soln UD IH SCH ×3 (07:53→23:48)
[2017-02-26] MEDS: Insulin Regular 100 units/ml SC SCH ×4 (08:55→23:27)
[2017-02-26] MEDS: Aztreonam 1 GM in Sodium Chloride 0.9% 100 ML IVPB SCH ×2 (09:47→20:34)
[2017-02-26] MEDS: Ammonium Lactate 12% Cream (140 g) TOP SCH ×2 (09:54→17:44)
[2017-02-26] MEDS: guaiFENesin-DM 600-30 mg ER Tab PO SCH ×2 (09:55→17:44)
[2017-02-26] MEDS: Pantoprazole 40 mg EC Tab PO SCH (09:55)
[2017-02-26] MEDS: Vitamins A & D Oint UD Foilpak TOP SCH ×2 (09:56→17:45)
[2017-02-26] MEDS: Promethazine DM 6.25 mg-15 mg/5 ml Syrup PO PRN (10:40)
[2017-02-26] MEDS: Simethicone 80 mg Chewtab PO PRN (10:42)
--- NOTE | 2017-02-26 17:09 | CP.PCM.PN ---
Subjective - Date & Time of Evaluation Date of Evaluation: 02/26/17 Time of Evaluation: 10:20 - Subjective Subjective: F/U COPD Exacrebation / PNA SOB , Chest congestion , Cough with improvement , tolerating well High flow O2 Objective - Vital Signs/Intake and Output Vital Signs (last 24 hours): Temp Pulse Resp BP Pulse Ox 97.7 F 89 19 151/77 H 96 02/26/17 15:39 02/26/17 15:39 02/26/17 15:59 02/26/17 15:39 02/26/17 15:39 Intake and Output: 02/26/17 02/26/17 06:59 18:59 Intake Total 680 Output Total 450 Balance 230 - Medications Medications: Current Medications Acetaminophen (Tylenol 325mg Tab) 650 mg PO Q6H PRN PRN Reason: Pain, Mild (1-3) Last Admin: 02/24/17 17:26 Dose: 650 mg Acetylcysteine (Mucomyst 10% 4ml) 4 ml IH RTID [facility] Last Admin: 02/26/17 11:39 Dose: 4 ml Alprazolam (Xanax) 0.25 mg PO Q12H PRN PRN Reason: Anxiety Stop: 02/26/17 21:22 Last Admin: 02/23/17 09:46 Dose: 0.25 mg Artificial Tears (Artificial Tears) 2 drop OU Q6H PRN PRN Reason: Dry eyes Budesonide (Pulmicort Respules) 0.5 mg IH RBID [facility] Last Admin: 02/26/17 07:45 Dose: 0.5 mg Diltiazem HCl (Cardizem) 30 mg PO QID [facility] Last Admin: 02/26/17 13:21 Dose: 30 mg Guaifenesin/Dextromethorphan (Mucinex-Dm 600-30 Mg) 1 tab PO BID [facility] Last Admin: 02/26/17 09:55 Dose: 1 tab Clindamycin Phosphate 600 mg/ (Sodium Chloride) 104 mls @ 104 mls/hr IVPB Q8 [facility] Last Admin: 02/26/17 11:30 Dose: 104 mls/hr Aztreonam 1 gm/ Sodium (Chloride) 100 mls @ 100 mls/hr IVPB Q12 [facility] Last Admin: 02/26/17 09:47 Dose: 100 mls/hr Methylprednisolone 40 mg/ (Sodium Chloride) 50 mls @ 100 mls/hr IVPB Q8H [facility] Last Admin: 02/26/17 10:41 Dose: 100 mls/hr Insulin Human Regular (Humulin R) 0 units SC ACHS [facility] PRN Reason: Protocol Last Admin: 02/26/17 13:22 Dose: 4 u Ipratropium [place] (Atrovent) 0.5 mg IH RQ4 [facility] Last Admin: 02/26/17 15:59 Dose: 0.5 mg Lactic Acid (Lac-Hydrin 12% Cream (140 G)) 1 ea TOP BID [facility] Last Admin: 02/26/17 09:54 Dose: 1 applic Levalbuterol HCl (Xopenex) 0.63 mg IH RQ8 [facility] Last Admin: 02/26/17 15:59 Dose: 0.63 mg Pantoprazole Sodium (Protonix Ec Tab) 40 mg PO DAILY [facility] Last Admin: 02/26/17 09:55 Dose: 40 mg Promethazine HCl/Dextromethorphan (Phenergan Dm Syrup) 5 ml PO Q6H PRN PRN Reason: Cough Last Admin: 02/26/17 10:40 Dose: 5 ml Simethicone (Mylicon Chew Tab) 80 mg PO Q4 PRN PRN Reason: Flatulence Last Admin: 02/26/17 10:42 Dose: 80 mg Sodium Chloride ([place] Baby Saline 30 Ml) 2 drop IMELDA Q4H PRN PRN Reason: Nasal congestion Vitamin A (Vitamin A & D Oint Ud Foilpak) 1 ea TOP BID [facility] Last Admin: 02/26/17 09:56 Dose: 1 ea - Labs Labs: 02/23/17 06:20 02/23/17 06:20 - Constitutional Appears: No Acute Distress - Head Exam Head Exam: NORMAL INSPECTION - Eye Exam Eye Exam: PERRL - ENT Exam ENT Exam: Normal Oropharynx - Neck Exam Neck Exam: Normal Inspection - Respiratory Exam Respiratory Exam: Decreased Breath Sounds (at bases), Rhonchi (scattered), Wheezes (scttered) - Cardiovascular Exam Cardiovascular Exam: REGULAR RHYTHM - GI/Abdominal Exam GI & Abdominal Exam: Soft, Normal Bowel Sounds - Extremities Exam Additional comments: Superficial R medial malleolus ulceration 2nd to venous stasis, tenderness on palpation R-L legs and feet with edema and skin changes. - Back Exam Back Exam: NORMAL INSPECTION - Neurological Exam Neurological Exam: Alert, Oriented x3. absent: Motor Sensory Deficit - Psychiatric Exam Psychiatric exam: Anxious - Skin Skin Exam: Warm Assessment and Plan (1) COPD exacerbation Status: Acute (2) Pneumonia Status: Acute (3) Ulcer of right ankle Status: Acute (4) Venous insufficiency of lower extremity Status: Acute - Assessment and Plan (Free Text) Plan: Continue Aztreonam , Clinda , Solu Medrol , Xopenex and rest of treatment
--- NOTE | 2017-02-26 18:32 | RAD ---
HISTORY: Pneumonia. COMPARISON: 02/19/2017. Improved aeration of the lungs. Pulmonary parenchymal findings right base accentuated by rotation. TECHNIQUE: Chest PA and lateral FINDINGS: LUNGS: No active pulmonary disease. PLEURA: No significant pleural effusion identified. No pneumothorax apparent. CARDIOVASCULAR: No radiographic findings to suggest acute or significant cardiovascular disease. OSSEOUS STRUCTURES: No significant abnormalities. VISUALIZED UPPER ABDOMEN: Normal. OTHER FINDINGS: None. IMPRESSION: Improving right lower lobe infiltrate compared to 02/19/2017.
[2017-02-27] MEDS: Clindamycin 600 MG in Sodium Chloride 0.9% 100 ML IVPB SCH ×3 (00:13→17:38)
[2017-02-27] MEDS: methylPREDNISolone 40 MG in Sodium Chloride 0.9% 50 ML IVPB SCH ×3 (01:21→17:38)
[2017-02-27] MEDS: Ipratropium 0.02% Inhal Soln (0.5 mg/2.5 ml) UD IH SCH ×4 (05:14→15:29)
[2017-02-27] MEDS: Insulin Regular 100 units/ml SC SCH ×3 (06:42→17:40)
[2017-02-27 06:43] LABS: HEMATOCRIT 42.2 % (35.0-51.0); MEAN CELL VOLUME 93.2 fl (80.0-94.0); MEAN CORPUSCULAR HEMOGLOBIN 30.8 pg (27.0-31.0); RED CELL DISTRIBUTION WIDTH 14.9 % (11.5-14.5); WHITE BLOOD COUNT 7.2 K/uL (4.8-10.8)
[2017-02-27 07:46] LABS: BLOOD UREA NITROGEN 45 mg/dl (9-20); CALCIUM 8.4 mg/dL (8.4-10.2); CARBON DIOXIDE 26 mmol/L (22-30); CHLORIDE 104 mmol/L (98-107); GFR AFRICAN-AMERICAN > 60; GLUCOSE,RANDOM 266 mg/dL (75-110); SODIUM 139 mmol/l (132-148)
[2017-02-27 07:49] LABS: POTASSIUM 5.6 MMOL/L (3.6-5.0)
[2017-02-27] MEDS: Acetylcysteine 10% 4 ML IH SCH ×2 (07:57→11:48)
[2017-02-27] MEDS: Budesonide 0.5 mg/2 ml Inhal Susp UD IH SCH (07:57)
[2017-02-27] MEDS: Levalbuterol 0.63 MG/3 ML Inhal Soln UD IH SCH ×2 (07:58→15:29)
[2017-02-27] MEDS ORDERED: Sod Polystyrene Sulf 15 gm/60 ml Oral Susp PO ONE (09:23)
[2017-02-27] MEDS: Aztreonam 1 GM in Sodium Chloride 0.9% 100 ML IVPB SCH (09:35)
[2017-02-27] MEDS: guaiFENesin-DM 600-30 mg ER Tab PO SCH ×2 (09:36→17:42)
[2017-02-27] MEDS: Pantoprazole 40 mg EC Tab PO SCH (09:36)
[2017-02-27] MEDS: Ammonium Lactate 12% Cream (140 g) TOP SCH ×2 (09:37→17:42)
[2017-02-27] MEDS: Vitamins A & D Oint UD Foilpak TOP SCH ×3 (09:38→17:43)
--- NOTE | 2017-02-27 14:49 | CP.PCM.PN ---
Subjective - Date & Time of Evaluation Date of Evaluation: 02/27/17 Time of Evaluation: 13:20 - Subjective Subjective: F/U COPD Exacerbation, Pt breathing better, less chest congestion, feel his legs are weak to walk, refusing PT. Objective - Vital Signs/Intake and Output Vital Signs (last 24 hours): Temp Pulse Resp BP Pulse Ox 98.2 F 110 H 18 145/76 99 02/27/17 11:56 02/27/17 11:56 02/27/17 11:56 02/27/17 11:56 02/27/17 11:56 Intake and Output: 02/27/17 02/27/17 06:59 18:59 Intake Total 1500 Balance 1500 - Medications Medications: Current Medications Acetaminophen (Tylenol 325mg Tab) 650 mg PO Q6H PRN PRN Reason: Pain, Mild (1-3) Last Admin: 02/24/17 17:26 Dose: 650 mg Acetylcysteine (Mucomyst 10% 4ml) 4 ml IH RTID [facility] Last Admin: 02/27/17 11:48 Dose: 4 ml Artificial Tears (Artificial Tears) 2 drop OU Q6H PRN PRN Reason: Dry eyes Budesonide (Pulmicort Respules) 0.5 mg IH RBID [facility] Last Admin: 02/27/17 07:57 Dose: 0.5 mg Diltiazem HCl (Cardizem) 30 mg PO QID [facility] Last Admin: 02/27/17 09:36 Dose: 30 mg Guaifenesin/Dextromethorphan (Mucinex-Dm 600-30 Mg) 1 tab PO BID [facility] Last Admin: 02/27/17 09:36 Dose: 1 tab Clindamycin Phosphate 600 mg/ (Sodium Chloride) 104 mls @ 104 mls/hr IVPB Q8 [facility] Last Admin: 02/27/17 09:34 Dose: 104 mls/hr Aztreonam 1 gm/ Sodium (Chloride) 100 mls @ 100 mls/hr IVPB Q12 [facility] Last Admin: 02/27/17 09:35 Dose: 100 mls/hr Methylprednisolone 40 mg/ (Sodium Chloride) 50 mls @ 100 mls/hr IVPB Q8H [facility] Last Admin: 02/27/17 09:33 Dose: 100 mls/hr Insulin Human Regular (Humulin R) 0 units SC ACHS [facility] PRN Reason: Protocol Last Admin: 02/27/17 12:21 Dose: 3 units Ipratropium [place] (Atrovent) 0.5 mg IH RQ4 [facility] Last Admin: 02/27/17 11:47 Dose: 0.5 mg Lactic Acid (Lac-Hydrin 12% Cream (140 G)) 1 ea TOP BID [facility] Last Admin: 02/27/17 09:37 Dose: 1 applic Levalbuterol HCl (Xopenex) 0.63 mg IH RQ8 [facility] Last Admin: 02/27/17 07:58 Dose: 0.63 mg Pantoprazole Sodium (Protonix Ec Tab) 40 mg PO DAILY [facility] Last Admin: 02/27/17 09:36 Dose: 40 mg Promethazine HCl/Dextromethorphan (Phenergan Dm Syrup) 5 ml PO Q6H PRN PRN Reason: Cough Last Admin: 02/26/17 10:40 Dose: 5 ml Simethicone (Mylicon Chew Tab) 80 mg PO Q4 PRN PRN Reason: Flatulence Last Admin: 02/26/17 10:42 Dose: 80 mg Sodium Chloride ([place] Baby Saline 30 Ml) 2 drop IMELDA Q4H PRN PRN Reason: Nasal congestion Vitamin A (Vitamin A & D Oint Ud Foilpak) 1 ea TOP BID [facility] Last Admin: 02/27/17 09:38 Dose: 1 ea - Labs Labs: 02/27/17 05:00 02/27/17 05:00 - Constitutional Appears: No Acute Distress - Head Exam Head Exam: NORMAL INSPECTION - Eye Exam Eye Exam: PERRL - ENT Exam ENT Exam: Normal Oropharynx - Neck Exam Neck Exam: Normal Inspection - Respiratory Exam Respiratory Exam: Decreased Breath Sounds (at bases), Rhonchi (scattered), Wheezes - Cardiovascular Exam Cardiovascular Exam: REGULAR RHYTHM - GI/Abdominal Exam GI & Abdominal Exam: Distended, Soft, Hernia (unbilical, reducible.), Normal Bowel Sounds - Extremities Exam Additional comments: Superficial R medial malleolus ulceration 2nd to venous stasis, tenderness on palpation R-L legs and feet with edema and skin changes. - Back Exam Back Exam: NORMAL INSPECTION - Neurological Exam Neurological Exam: Alert, Oriented x3. absent: Motor Sensory Deficit - Psychiatric Exam Psychiatric exam: Anxious - Skin Skin Exam: Warm Assessment and Plan (1) COPD exacerbation Status: Acute (2) Pneumonia Status: Acute (3) Ulcer of right ankle Status: Acute (4) Venous insufficiency of lower extremity Status: Acute - Assessment and Plan (Free Text) Plan: Pt on high flow O2, trial of NC 3 l/m, transfer to TCU.
[2017-02-27 15:45] VITALS: BP 144/65; PULSE 106; RESP 20; TEMP 97.9; O2SAT 97
== END 2017-02-27 18:44 | DRG 190 ==
LOC: H.ER 14:24 → H.ERHOLD 16:53 → H.TEL 20:15
PROVIDERS: ADMIT Internal Medicine Pulmonary Disease; ATTEND Internal Medicine Pulmonary Disease
PROC: 5A09557 Assistance with Respiratory Ventilation, Greater than 96 Consecutive Hours, Continuous Positive Airway Pressure (ICD-10-PCS; principal; 2017-02-19)
DX: J44.0 Chronic obstructive pulmonary disease with (acute) lower respiratory infection (principal); J18.9 Pneumonia, unspecified organism; J44.1 Chronic obstructive pulmonary disease with (acute) exacerbation; I73.9 Peripheral vascular disease, unspecified; I87.2 Venous insufficiency (chronic) (peripheral); E78.00 Pure hypercholesterolemia, unspecified; F43.22 Adjustment disorder with anxiety; I12.9 Hypertensive chronic kidney disease with stage 1 through stage 4 chronic kidney disease, or unspecified chronic kidney disease; N18.9 Chronic kidney disease, unspecified; J45.909 Unspecified asthma, uncomplicated; Z88.3 Allergy status to other anti-infective agents; Z88.0 Allergy status to penicillin; Z91.018 Allergy to other foods; Z87.891 Personal history of nicotine dependence; N40.0 Benign prostatic hyperplasia without lower urinary tract symptoms; K21.9 Gastro-esophageal reflux disease without esophagitis

== ENCOUNTER 2017-02-26 15:48 | Inpatient (IN) | payer OTHER, MEDICAID ==
[2017-02-27] MEDS ORDERED: Artificial Tears Opht Soln OU PRN (18:48)
[2017-02-27] MEDS ORDERED: Promethazine DM 6.25 mg-15 mg/5 ml Syrup PO PRN (18:48)
[2017-02-27] MEDS ORDERED: Levalbuterol 0.63 MG/3 ML Inhal Soln UD IH PRN (18:48)
[2017-02-27] MEDS ORDERED: methylPREDNISolone 30 MG in Sodium Chloride 0.9% 50 ML IVP ONE (19:45)
[2017-02-27] MEDS ORDERED: Clindamycin 600 MG in Sodium Chloride 0.9% 100 ML IVPB SCH (19:45)
[2017-02-27] MEDS ORDERED: Patient's Own Med (Aztreonam 1 Gm In Ns 100ml [Azactam 1 Gm] 1 GM) IV SCH (21:00)
[2017-02-27] MEDS: Acetylcysteine 10% 4 ML IH SCH (21:12)
[2017-02-27] MEDS: Aztreonam 1 GM in Sodium Chloride 0.9% 100 ML IVPB SCH (21:12)
[2017-02-27] MEDS: Ipratropium 0.02% Inhal Soln (0.5 mg/2.5 ml) UD IH SCH (21:12)
[2017-02-27] MEDS: Levalbuterol 0.63 MG/3 ML Inhal Soln UD IH SCH (21:12)
[2017-02-27] MEDS: Insulin Regular 100 units/ml SC SCH (21:56)
[2017-02-28] MEDS: Ipratropium 0.02% Inhal Soln (0.5 mg/2.5 ml) UD IH SCH ×7 (00:22→23:39)
[2017-02-28] MEDS: methylPREDNISolone 30 MG in Sodium Chloride 0.9% 50 ML IVPB SCH ×3 (00:51→16:19)
[2017-02-28] MEDS ORDERED: MethylPREDNISolone 40 mg Vial IV SCH (01:00)
[2017-02-28] MEDS ORDERED: CLINDAMYCIN 600 MG IV SCH (01:00)
[2017-02-28] MEDS: Clindamycin 600 MG in Sodium Chloride 0.9% 100 ML IVPB SCH ×3 (01:30→17:03)
[2017-02-28] MEDS: Levalbuterol 0.63 MG/3 ML Inhal Soln UD IH SCH ×5 (04:54→23:39)
[2017-02-28] MEDS: Insulin Regular 100 units/ml SC SCH ×4 (06:58→21:59)
[2017-02-28] MEDS: Simethicone 80 mg Chewtab PO PRN (08:49)
[2017-02-28] MEDS: Tiotropium 18 mcg Cap For Inhalation IH SCH (08:51)
[2017-02-28] MEDS: guaiFENesin-DM 600-30 mg ER Tab PO SCH ×2 (08:51→16:19)
[2017-02-28] MEDS: Pantoprazole 40 mg EC Tab PO SCH (08:51)
[2017-02-28] MEDS: Vitamin A/D oint 60G TP SCH ×2 (08:52→16:19)
[2017-02-28] MEDS: Ammonium Lactate 12% Cream (140 g) TOP SCH ×2 (08:58→16:20)
[2017-02-28] MEDS: Acetylcysteine 10% 4 ML IH SCH ×4 (09:00→19:53)
[2017-02-28] MEDS: Budesonide 0.25 mg/2 ml Inhal Susp UD INH SCH ×2 (09:00→19:54)
[2017-02-28] MEDS: Aztreonam 1 GM in Sodium Chloride 0.9% 100 ML IVPB SCH ×2 (09:53→21:57)
--- NOTE | 2017-02-28 12:25 | CP.PCM.CON ---
History of Present Illness - History of Present Illness History of Present Illness: 86 year old male was seen resting at bedside regarding right venous stasis ulcer. He denies any acute events overnight, no noted leg pain on waking this morning. He denies any n/v/f/c/cp. Past Patient History - Infectious Disease Hx of Infectious Diseases: None - Past Medical History & Family History Past Medical History?: Yes - Past Social History Smoking Status: Former Smoker - CARDIAC Hx Cardiac Disorders: No - PULMONARY Hx Respiratory Disorders: Yes Hx Asthma: Yes Hx Chronic Obstructive Pulmonary Disease (COPD): Yes Hx Pneumonia: Yes - NEUROLOGICAL Hx Neurological Disorder: No - HEENT Hx HEENT Problems: Yes Hx Cataracts: Yes Hx Glaucoma: Yes - RENAL Hx Chronic Kidney Disease: Yes Other/Comment: ckd - ENDOCRINE/METABOLIC Hx Endocrine Disorders: No - HEMATOLOGICAL/ONCOLOGICAL Hx Blood Disorders: Yes Hx AIDS: No Hx Cirrhosis: Yes Hx Human Immunodeficiency Virus (HIV): No - INTEGUMENTARY Hx Dermatological Problems: Yes Hx Psoriasis: Yes - MUSCULOSKELETAL/RHEUMATOLOGICAL Hx Falls: No - GASTROINTESTINAL Hx Gastrointestinal Disorders: Yes Hx Gastroesophageal Reflux: Yes Hx Liver Failure: Yes (LIVER CIRRHOSIS) Hx Ulcer: Yes - GENITOURINARY/GYNECOLOGICAL Hx Genitourinary Disorders: Yes Hx Prostate Problems: Yes (enlarged) - PSYCHIATRIC Hx Substance Use: No - SURGICAL HISTORY Hx Surgeries: Yes Hx Cataract Extraction: Yes Hx Herniorrhaphy: Yes (abdominal hernia repair 15 yrs ago) - ANESTHESIA Hx Anesthesia: Yes Hx Anesthesia Reactions: No Hx Malignant Hyperthermia: No Meds Allergies/Adverse Reactions: Allergies Allergy/AdvReac Type Severity Reaction Status Date / Time moxifloxacin HCl Allergy RASH Verified 10/03/16 15:22 [From Avelox] Penicillins Allergy RASH Verified 10/03/16 15:22 tomato Allergy RASH Verified 10/03/16 15:22 - Medications Medications: Current Medications Acetaminophen (Tylenol 325mg Tab) 650 mg PO Q6H PRN PRN Reason: Pain, Mild (1-3) Acetylcysteine (Mucomyst 10% 4ml) 4 ml IH QID [facility] Last Admin: 02/28/17 09:00 Dose: 4 ml Alprazolam (Xanax) 0.25 mg PO Q12H PRN PRN Reason: Anxiety Stop: 03/06/17 18:49 Artificial Tears (Artificial Tears) 2 drop OU Q6H PRN PRN Reason: Dry eyes Budesonide (Pulmicort Respules) 0.25 mg INH RBID [facility] Last Admin: 02/28/17 09:00 Dose: 0.25 mg Diltiazem HCl (Cardizem) 30 mg PO QID [facility] Last Admin: 02/28/17 08:50 Dose: 30 mg Guaifenesin/Dextromethorphan (Mucinex-Dm 600-30 Mg) 1 tab PO BID [facility] Last Admin: 02/28/17 08:51 Dose: 1 tab Methylprednisolone 30 mg/ (Sodium Chloride) 50 mls @ 100 mls/hr IVPB Q8 [facility] Last Admin: 02/28/17 09:14 Dose: 100 mls/hr Aztreonam 1 gm/ Sodium (Chloride) 100 mls @ 100 mls/hr IVPB Q12H [facility] Last Admin: 02/28/17 09:53 Dose: 100 mls/hr Clindamycin Phosphate 600 mg/ (Sodium Chloride) 104 mls @ 104 mls/hr IVPB Q8@ 0100,0900,1700 [facility] Last Admin: 02/28/17 08:57 Dose: 104 mls/hr Insulin Human Regular (Humulin R) 0 units SC ACHS [facility] PRN Reason: Protocol Last Admin: 02/28/17 11:58 Dose: 2 unit Ipratropium [place] (Atrovent) 0.5 mg IH Q4H [facility] Last Admin: 02/28/17 09:00 Dose: 0.5 mg Lactic Acid (Lac-Hydrin 12% Cream (140 G)) 1 ea TOP BID [facility] Last Admin: 02/28/17 08:58 Dose: 1 dose Levalbuterol HCl (Xopenex) 0.63 mg IH RQ8 [facility] Last Admin: 02/28/17 08:00 Dose: Not Given Pantoprazole Sodium (Protonix Ec Tab) 40 mg PO DAILY [facility] Last Admin: 02/28/17 08:51 Dose: 40 mg Promethazine HCl/Dextromethorphan (Phenergan Dm Syrup) 5 ml PO Q6H PRN PRN Reason: Cough Simethicone (Mylicon Chew Tab) 80 mg PO Q4 PRN PRN Reason: Flatulence Last Admin: 02/28/17 08:49 Dose: 80 mg Sodium Chloride ([place] Nasal [place]) 1 sprays IMELDA Q4H PRN PRN Reason: Nasal congestion Tiotropium [place] (Spiriva) 18 mcg IH DAILY [facility] Last Admin: 02/28/17 08:51 Dose: 18 mcg Vitamin A (Vitamin A&D) 1 applic TP BID [facility] Last Admin: 02/28/17 08:52 Dose: 1 applic Physical Exam - Constitutional Appears: Well, Non-toxic, No Acute Distress - Extremities Exam Additional comments: Bilateral lower extremity focused exam: VASC- DP pulses 1/4 BL, PT pulses 1/4. cap refill < 3 sec to digits x 5, No edema noted to feet or legs bilaterally. Dialated Tortuous medial calf region vein noted, absnet tenderness. DERM- Dry hyperkeratotic cap overlying prior ulcer bed noted just distal to medial malleolus measuring 2 x 0.2 cm. No probe to bone, no drainage, no malodor, no signs infection, nor elver-wound maceration noted. Wound base is epithelialized. mix. NEURO- gross pedal sensation is intact ORTHO- tenderness to palpation of ulceration, diffuse tenderness dorsum and plantar aspect both feet, tenderness to distal anterior legs bl. Decreased muscle tome on left leg compared to right. - Neurological Exam Neurological exam: Alert, Oriented x3 Results - Vital Signs Recent Vital Signs: Last Vital Signs Temp 97.8 F 02/28/17 08:12 Pulse 107 H 02/28/17 11:33 Resp 18 02/28/17 08:12 BP 115/63 02/28/17 08:50 Pulse Ox 98 02/28/17 11:33 - Labs Labs: Laboratory Results - last 24 hr 02/27/17 02/28/17 02/28/17 20:21 05:16 10:40 POC Glucose (mg/dL) 196 H 192 H 244 H Assessment & Plan - Assessment and Plan (Free Text) Assessment: 86 year old male with bilateral leg/foot pain and resolved right ankle ulceration, secondary to venous stasis disease. Plan: Patient treated and evaluated. Chart, labs, vitals reviewed;afebrile Discussed in detail with attending Dr. Garrido Right prior medial ulceration site dressed with DSD. Lower extremities bilaterally wrapped with JERMAINE- to be worn during the day and removed at night patient to continue to elevate legs at all times while in bed MRI of Lower extremities ordered. Patient is stable from a podiatry standpoint for discharge. Podiatry will continue to follow patient while in house - Date & Time Date: 02/28/17 Time: 09:00
--- NOTE | 2017-02-28 14:15 | CP.PCM.HP ---
History of Present Illness - History of Present Illness History of Present Illness: 86 y/o M admitted on 02/19/17 to [facility], due to respiratory distress and admitted for COPD Exacerbation and PNA. On 02/27/17 Pt condition improved and was stable to be transferred to TCU to complete abx and rest of Tx for COPD Exacerbation and PNA. Pt awake, productive cough, c/o of legs weakness, pain in R-L foot but ambulating today short distances with the help of Therapist. Present on Admission - Present on Admission Any Indicators Present on Admission: No Review of Systems - Constitutional Constitutional: Weakness - EENT Eyes: Other (negative) Ears: Other (negative) Nose/Mouth/Throat: Other (negative) - Cardiovascular Cardiovascular: Rapid Heart Rate - Respiratory Respiratory: Cough - Gastrointestinal Gastrointestinal: Heartburn - Genitourinary Genitourinary: Other (negative) - Musculoskeletal Musculoskeletal: Arthralgias - Integumentary Integumentary: Other (negative) - Neurological Neurological: Other (negative) - Psychiatric Psychiatric: Anxiety - Endocrine Endocrine: Other (negative) - Hematologic/Lymphatic Hematologic: Other (negative) Past Patient History - Infectious Disease Hx of Infectious Diseases: None - Past Medical History & Family History Past Medical History?: Yes Pertinent Family History: Unknown - Past Social History Smoking Status: Former Smoker Alcohol: None Drugs: Denies Home Situation {Lives}: Alone - CARDIAC Hx Cardiac Disorders: Yes Hx Hypertension: Yes - PULMONARY Hx Respiratory Disorders: Yes Hx Asthma: Yes Hx Chronic Obstructive Pulmonary Disease (COPD): Yes Hx Pneumonia: Yes - NEUROLOGICAL Hx Neurological Disorder: No - HEENT Hx HEENT Problems: Yes Hx Cataracts: Yes Hx Glaucoma: Yes - RENAL Hx Chronic Kidney Disease: Yes Other/Comment: ckd - ENDOCRINE/METABOLIC Hx Endocrine Disorders: Yes Hx Diabetes Mellitus Type 2: Yes - HEMATOLOGICAL/ONCOLOGICAL Hx Blood Disorders: Yes Hx AIDS: No Hx Cirrhosis: Yes Hx Human Immunodeficiency Virus (HIV): No - INTEGUMENTARY Hx Dermatological Problems: Yes Hx Psoriasis: Yes - MUSCULOSKELETAL/RHEUMATOLOGICAL Hx Falls: No - GASTROINTESTINAL Hx Gastrointestinal Disorders: Yes Hx Gastroesophageal Reflux: Yes Hx Liver Failure: Yes (LIVER CIRRHOSIS) Hx Ulcer: Yes - GENITOURINARY/GYNECOLOGICAL Hx Genitourinary Disorders: Yes Hx Prostate Problems: Yes (enlarged) - PSYCHIATRIC Hx Substance Use: No - SURGICAL HISTORY Hx Surgeries: Yes Hx Cataract Extraction: Yes Hx Herniorrhaphy: Yes (abdominal hernia repair 15 yrs ago) - ANESTHESIA Hx Anesthesia: Yes Hx Anesthesia Reactions: No Hx Malignant Hyperthermia: No Meds Allergies/Adverse Reactions: Allergies Allergy/AdvReac Type Severity Reaction Status Date / Time moxifloxacin HCl Allergy RASH Verified 10/03/16 15:22 [From Avelox] Penicillins Allergy RASH Verified 10/03/16 15:22 tomato Allergy RASH Verified 10/03/16 15:22 Physical Exam - Constitutional Appears: No Acute Distress - Eye Exam Eye Exam: PERRL - ENT Exam ENT Exam: Normal Oropharynx - Neck Exam Neck exam: Positive for: Normal Inspection - Respiratory Exam Respiratory Exam: Decreased Breath Sounds (b/l), Rhonchi (scattered) - Cardiovascular Exam Cardiovascular Exam: REGULAR RHYTHM - GI/Abdominal Exam GI & Abdominal Exam: Normal Bowel Sounds, Soft - Extremities Exam Additional comments: Superficial R medial malleolus ulceration resolved. Chronic venous stasis skin changes R-L legs. - Back Exam Back exam: NORMAL INSPECTION - Neurological Exam Neurological exam: Alert, Oriented x3 Additional comments: No motor sensory deficit - Psychiatric Exam Psychiatric exam: Anxious - Skin Skin Exam: Warm Results - Vital Signs Recent Vital Signs: Last Vital Signs Temp 97.8 F 02/28/17 08:12 Pulse 101 H 02/28/17 13:02 Resp 18 02/28/17 08:12 BP 136/66 02/28/17 13:02 Pulse Ox 98 02/28/17 11:33 reviewed J.P. - Labs Labs: Laboratory Results - last 24 hr 02/27/17 02/28/17 02/28/17 20:21 05:16 10:40 POC Glucose (mg/dL) 196 H 192 H 244 H reviewed J.P. Assessment & Plan (1) COPD exacerbation Status: Acute Priority: High (2) Pneumonia Status: Acute Priority: High (3) Ulcer of right ankle Status: Resolved (4) Venous insufficiency of both lower extremities Status: Chronic Priority: High (5) DMII (diabetes mellitus, type 2) Status: Acute Priority: High (6) Pain in joints of both feet Status: Acute Priority: High (7) Hx of essential hypertension Status: Chronic Priority: Medium - Assessment and Plan (Free Text) Plan: Continue Aztreonam, Clinda, Cardizem, Solumedrol, Pulmicort, Humalin R and rest of Tx, O2 NC 3 l/m, f/u ID consult, Podriatrist consult appreciated. - Date & Time Date: 02/28/17 Time: 12:30
[2017-03-01] MEDS: methylPREDNISolone 30 MG in Sodium Chloride 0.9% 50 ML IVPB SCH ×3 (01:03→20:07)
[2017-03-01] MEDS: Clindamycin 600 MG in Sodium Chloride 0.9% 100 ML IVPB SCH ×5 (01:41→21:22)
[2017-03-01] MEDS: Ipratropium 0.02% Inhal Soln (0.5 mg/2.5 ml) UD IH SCH ×5 (04:19→19:29)
[2017-03-01] MEDS: Insulin Regular 100 units/ml SC SCH ×4 (06:49→21:24)
[2017-03-01] MEDS: Acetylcysteine 10% 4 ML IH SCH ×4 (07:29→19:29)
[2017-03-01] MEDS: Levalbuterol 0.63 MG/3 ML Inhal Soln UD IH SCH ×2 (07:30→15:28)
[2017-03-01] MEDS: Budesonide 0.25 mg/2 ml Inhal Susp UD INH SCH ×2 (08:00→19:29)
[2017-03-01] MEDS: Tiotropium 18 mcg Cap For Inhalation IH SCH (09:32)
[2017-03-01] MEDS: guaiFENesin-DM 600-30 mg ER Tab PO SCH ×2 (09:32→16:59)
[2017-03-01] MEDS: Pantoprazole 40 mg EC Tab PO SCH (09:32)
[2017-03-01] MEDS: Vitamin A/D oint 60G TP SCH ×2 (09:33→16:57)
[2017-03-01] MEDS: Ammonium Lactate 12% Cream (140 g) TOP SCH ×2 (09:33→16:57)
[2017-03-01] MEDS: Aztreonam 1 GM in Sodium Chloride 0.9% 100 ML IVPB SCH ×2 (09:37→16:58)
[2017-03-01 12:23] LABS: BASO % 0.1 % (0.0-2.0); HEMATOCRIT 42.9 % (35.0-51.0); LYMPH # 0.1 K/uL (1.0-4.3); LYMPH % 1.8 % (20.0-40.0); MEAN CELL VOLUME 92.8 fl (80.0-94.0); MEAN CORPUSCULAR HEMOGLOBIN 30.2 pg (27.0-31.0); MEAN CORPUSCULAR HGB CONC 32.5 g/dL (33.0-37.0); MEAN PLATELET VOLUME 8.4 fl (7.2-11.7); MONO # 0.2 K/uL (0.0-0.8); MONO % 2.5 % (0.0-10.0); NEUT # 7.3 K/uL (1.8-7.0); NEUT % 95.6 % (50.0-75.0); PLATELET COUNT 116 K/uL (130-400); RED CELL DISTRIBUTION WIDTH 15.1 % (11.5-14.5); WHITE BLOOD COUNT 7.7 K/uL (4.8-10.8)
[2017-03-01 12:34] LABS: BLOOD UREA NITROGEN 57 mg/dl (9-20); CALCIUM 8.3 mg/dL (8.4-10.2); CARBON DIOXIDE 25 mmol/L (22-30); CHLORIDE 106 mmol/L (98-107); GFR AFRICAN-AMERICAN > 60; GLUCOSE,RANDOM 274 mg/dL (75-110); SODIUM 138 mmol/l (132-148)
[2017-03-01 12:37] LABS: POTASSIUM 5.5 MMOL/L (3.6-5.0)
[2017-03-01 13:10] LABS: NEUTROPHIL 97 % (42-75); TOTAL CELLS COUNTED 100
[2017-03-01] MEDS ORDERED: Sod Polystyrene Sulf 15 gm/60 ml Oral Susp PO ONE (13:50)
[2017-03-01] MEDS ORDERED: Aztreonam 2 GM in Sodium Chloride 0.9% 100 ML IVPB SCH (17:00)
--- NOTE | 2017-03-01 17:04 | CP.PCM.PN ---
Subjective - Date & Time of Evaluation Date of Evaluation: 03/01/17 Time of Evaluation: 13:30 - Subjective Subjective: F/U COPD Exacerbation, PNA Pt with occasional cough, no SOB with O2. Objective - Vital Signs/Intake and Output Vital Signs (last 24 hours): Temp Pulse Resp BP Pulse Ox 96.4 F L 100 H 20 144/71 95 03/01/17 16:29 03/01/17 16:57 03/01/17 16:29 03/01/17 16:57 03/01/17 16:29 - Medications Medications: Current Medications Acetaminophen (Tylenol 325mg Tab) 650 mg PO Q6H PRN PRN Reason: Pain, Mild (1-3) Acetylcysteine (Mucomyst 10% 4ml) 4 ml IH QID [facility] Last Admin: 03/01/17 15:29 Dose: 4 ml Alprazolam (Xanax) 0.25 mg PO Q12H PRN PRN Reason: Anxiety Stop: 03/06/17 18:49 Last Admin: 03/01/17 05:37 Dose: 0.25 mg Artificial Tears (Artificial Tears) 2 drop OU Q6H PRN PRN Reason: Dry eyes Budesonide (Pulmicort Respules) 0.25 mg INH RBID [facility] Last Admin: 03/01/17 08:00 Dose: 0.25 mg Diltiazem HCl (Cardizem) 30 mg PO QID [facility] Last Admin: 03/01/17 16:57 Dose: 30 mg Guaifenesin/Dextromethorphan (Mucinex-Dm 600-30 Mg) 1 tab PO BID [facility] Last Admin: 03/01/17 16:59 Dose: 1 tab Clindamycin Phosphate 600 mg/ (Sodium Chloride) 104 mls @ 104 mls/hr IVPB Q8@ 0500,1300,2100 [facility] Last Admin: 03/01/17 12:01 Dose: 104 mls/hr Aztreonam 1 gm/ Sodium (Chloride) 100 mls @ 100 mls/hr IVPB Q12@0500,1700 [facility] Last Admin: 03/01/17 16:58 Dose: Not Given Methylprednisolone 30 mg/ (Sodium Chloride) 50 mls @ 100 mls/hr IVPB Q12 [facility] Insulin Human Regular (Humulin R) 0 units SC ACHS [facility] PRN Reason: Protocol Last Admin: 03/01/17 16:59 Dose: 1 unit Ipratropium [place] (Atrovent) 0.5 mg IH Q4H [facility] Last Admin: 03/01/17 15:29 Dose: 0.5 mg Lactic Acid (Lac-Hydrin 12% Cream (140 G)) 1 ea TOP BID [facility] Last Admin: 03/01/17 16:57 Dose: 1 dose Levalbuterol HCl (Xopenex) 0.63 mg IH RQ8 [facility] Last Admin: 03/01/17 15:28 Dose: 0.63 mg Pantoprazole Sodium (Protonix Ec Tab) 40 mg PO DAILY [facility] Last Admin: 03/01/17 09:32 Dose: 40 mg Promethazine HCl/Dextromethorphan (Phenergan Dm Syrup) 5 ml PO Q6H PRN PRN Reason: Cough Simethicone (Mylicon Chew Tab) 80 mg PO Q4 PRN PRN Reason: Flatulence Last Admin: 02/28/17 08:49 Dose: 80 mg Sitagliptin Phosphate (Januvia) 50 mg PO DAILY [facility] Sodium Chloride ([place] Nasal [place]) 1 sprays IMELDA Q4H PRN PRN Reason: Nasal congestion Tiotropium [place] (Spiriva) 18 mcg IH DAILY [facility] Last Admin: 03/01/17 09:32 Dose: 18 mcg Vitamin A (Vitamin A&D) 1 applic TP BID [facility] Last Admin: 03/01/17 16:57 Dose: 1 applic - Labs Labs: 03/01/17 12:00 03/01/17 12:00 - Constitutional Appears: No Acute Distress - Head Exam Head Exam: NORMAL INSPECTION - Eye Exam Eye Exam: PERRL - ENT Exam ENT Exam: Normal Oropharynx - Neck Exam Neck Exam: Normal Inspection - Respiratory Exam Respiratory Exam: Decreased Breath Sounds (at bases), Rhonchi (scattered) - Cardiovascular Exam Cardiovascular Exam: REGULAR RHYTHM - GI/Abdominal Exam GI & Abdominal Exam: Soft, Normal Bowel Sounds - Extremities Exam Additional comments: Chronic Venous stasis, skin changes R-L legs. R medial malleolus ulcer healed. - Back Exam Back Exam: NORMAL INSPECTION - Neurological Exam Neurological Exam: Alert, Oriented x3. absent: Motor Sensory Deficit - Psychiatric Exam Psychiatric exam: Anxious - Skin Skin Exam: Warm Assessment and Plan (1) COPD exacerbation Status: Acute (2) Pneumonia Status: Acute (3) Ulcer of right ankle Status: Resolved (4) Venous insufficiency of both lower extremities Status: Chronic (5) DMII (diabetes mellitus, type 2) Status: Acute (6) Pain in joints of both feet Status: Acute (7) Hx of essential hypertension Status: Chronic - Assessment and Plan (Free Text) Plan: PT stated Pt refused therapy, discussed with Pt and he agree to cooperate with the therapy, BS control, continue Xopenex, Pulmicort, Solumedrol, Astronam, Clinda, Humalin R and rest of Tx. PT.OT.
--- NOTE | 2017-03-01 20:44 | PCM.RRTMUL ---
<Macarena Wiley - Last Filed: 03/01/17 20:53> ATMOSPHERIC TECHNICIAN Nurse Assessment - Situation ATMOSPHERIC TECHNICIAN Responder Arrival Time:: 20:15 ATMOSPHERIC TECHNICIAN Reason for Call: Chest Pain, Tachycardia ATMOSPHERIC TECHNICIAN Called By: RN - IV IV Inserted during ATMOSPHERIC TECHNICIAN?: No - Respiratory Oxygen Delivery Method:: Mask Received Nebulizer Treatments:: No Was the Patient Ventilated with Bag/Mask 100% O2?: No Secretions Suctioned?: Yes Was the Patient Intubated?: No Was the Patient Placed on a Ventilator?: No - Ventilator Settings Peak Flow:: 240 - Diagnostic Test Ordered EKG:: Yes (Unchanged from last EKG from ) Chest X-Ray:: Yes (no evidence of fluid overload, pneumonia and atelectasis) - Stat Labs Ordered ATMOSPHERIC TECHNICIAN Stat Labs Ordered:: CBC, BMP, TROPONIN, LACTIC ACID, ABG CPR started during ATMOSPHERIC TECHNICIAN?: No - Vital Signs Blood Pressure:: 128/65 Pulse Rate:: 128 Oxygen Saturation:: 97 - Time ATMOSPHERIC TECHNICIAN Ended Time ATMOSPHERIC TECHNICIAN Ended:: 20:50 - Vital Signs at end of ATMOSPHERIC TECHNICIAN Blood Pressure:: 128/68 Pulse Rate:: 111 O2 Sat by Pulse Oximetry:: 98 - Recommendations 5) ATMOSPHERIC TECHNICIAN Level of Care Recommendations: Remain in current setting Responder Note - Time ATMOSPHERIC TECHNICIAN was called Time ATMOSPHERIC TECHNICIAN was called:: 08:15 Discovered by:: RN - ATMOSPHERIC TECHNICIAN Team ATMOSPHERIC TECHNICIAN Leader:: Rocco Nunez Resident:: Macarena Wiley - Vital Signs at Initial Assessment Blood Pressure:: 128/65 Pulse Rate:: 117 - Acute Change in Patient Acute Change in Patient: (Select all that apply): Staff member or family is worried about patient - Chest Pain Chest Pain:(If answer is yes, complete next 2 questions): Yes Location:: RN said chest pain, pt was pointing to his abdomen - Seizure Seizure:: No New Onset:: No - Neurological Status Neurological Status (Select all that apply):: Alert, Responsive, Verbal - Respiratory ATMOSPHERIC TECHNICIAN Delivery Method:: Face Mask @% - Genitourinary ATMOSPHERIC TECHNICIAN Genitourinary: Parsons - Assessment of Findings ATMOSPHERIC TECHNICIAN Interventions: lasix 60mg given, O2 at 50%, 2mg morphine EKG: Unchanged from previous Labs: cbc, bmp, bnp, troponin, lactic acid Other: chest Xray Summary - Summary of Event Summary of Event: Pt's RN called ATMOSPHERIC TECHNICIAN for chest pain and pt being tachycardic, Pt was evaluated, at presentation pt sounds to be have a lot of secretions that is making breathing difficult, he reports having pain in his abdomen not chest, other than that no other complaints. Prior to ATMOSPHERIC TECHNICIAN being called, Pt has just completed a course of albuterol as pt is oxgyen dependent COPD on gets albuterol breathing treatment regularly. PE General: Obese male, laying in bed, breathing loudly Cardiac: S1S2, no murmur Respiratory: Crackles on lower lobes, no wheezing, Abdomen: Obese abdomen, +gas, +BS, some tenderness on palpation Extremity: no edema Outcomes - ATMOSPHERIC TECHNICIAN Outcomes ATMOSPHERIC TECHNICIAN Outcomes: 86 y/o with history of COPD and being treated for pneumonia ATMOSPHERIC TECHNICIAN due fast heart rate Heart rate most likely due to albuterol use, consider switching albuterol in the AM After suctioning, pt's breathing improved greatly, O2 stat improved as well Follow up cbc, bmp, bnp, trop Lasix 60mg given, parsons ordered given Morphine 2mg given for pain PT will remain in TCU, as pt status improved greatly <Rocco Nunez - Last Filed: 03/02/17 11:41> Outcomes - ATMOSPHERIC TECHNICIAN Outcomes ATMOSPHERIC TECHNICIAN Outcomes: I saw and examined this patient shoulder to shoulder with Dr Wiley. The assessment and plan represent my direct input. On arriving at bed side the patient was gurgling audibly and with inspiratory expiratory rales at the bases. The SpO2 was in the high 80s on 5Liter humidified Oxygen, A&P: Exacerbation of COPD and r/o volume overload. Lasix was given IV Immediately before CXR became available. The oropharynx was suctioned and Patient plaede on Ventimask at 505 O2. He was also given Morphine 2mg IV because of the lower abdominal pain that he was expressing. the Scheduled Solu Medrol was also given. EKG showed Sinus Tachycardia; The ABG showed Hypoxemia and the Chest X ray did not show signs of Pulmonary congestion. the patient improved and SpO2 increased to 97% on the Ventimask, Breathing and abdominal pain improved. The patient was not transferred out of TCU. The PMD was notified by the nurse Rocco Nunez MD Hospitalist Critical care time was 40minutes.
[2017-03-01 20:45] LABS: HEMATOCRIT 41.8 % (35.0-51.0); MEAN CELL VOLUME 93.3 fl (80.0-94.0); MEAN CORPUSCULAR HEMOGLOBIN 30.3 pg (27.0-31.0); MEAN CORPUSCULAR HGB CONC 32.5 g/dL (33.0-37.0); RED CELL DISTRIBUTION WIDTH 14.9 % (11.5-14.5)
[2017-03-01 20:50] LABS: ABG ALLEN TEST YES; ARTERIAL BLOOD GAS HCO3 25.2 mmol/L (21-28); ARTERIAL BLOOD GAS MODE CANNULA; ARTERIAL BLOOD GAS O2 CAPACITY 18.9 mL/dL (16-24); ARTERIAL BLOOD GAS O2 CONTENT 16.5 ML/dL (15-23); ARTERIAL BLOOD GAS PH 7.37 (7.35-7.45); ARTERIAL BLOOD GAS PO2 47 mm/Hg (80-100); ARTERIAL BLOOD HGB O2 SAT 84.1 % (95.0-98.0); CARBOXYHEMOGLOBIN 2.2 % (0.5-1.5); METHEMOGLOBIN 1.7 % (0.0-3.0)
[2017-03-01 20:53] LABS: BLOOD UREA NITROGEN 57 mg/dl (9-20); CALCIUM 8.2 mg/dL (8.4-10.2); CARBON DIOXIDE 25 mmol/L (22-30); CHLORIDE 108 mmol/L (98-107); GFR AFRICAN-AMERICAN > 60; GLUCOSE,RANDOM 252 mg/dL (75-110); SODIUM 141 mmol/l (132-148)
[2017-03-01 20:56] LABS: POTASSIUM 5.3 MMOL/L (3.6-5.0)
[2017-03-02] MEDS: Levalbuterol 0.63 MG/3 ML Inhal Soln UD IH SCH ×3 (00:27→16:07)
[2017-03-02] MEDS: Ipratropium 0.02% Inhal Soln (0.5 mg/2.5 ml) UD IH SCH ×6 (00:27→20:13)
[2017-03-02] MEDS: Aztreonam 1 GM in Sodium Chloride 0.9% 100 ML IVPB SCH ×2 (04:28→17:20)
[2017-03-02] MEDS: Clindamycin 600 MG in Sodium Chloride 0.9% 100 ML IVPB SCH ×3 (04:28→21:38)
[2017-03-02] MEDS: Insulin Regular 100 units/ml SC SCH ×4 (06:46→21:39)
[2017-03-02] MEDS: Acetylcysteine 10% 4 ML IH SCH ×5 (07:32→20:14)
[2017-03-02] MEDS: Budesonide 0.25 mg/2 ml Inhal Susp UD INH SCH ×3 (07:32→20:14)
--- NOTE | 2017-03-02 08:05 | RAD ---
HISTORY: ASSOCIATE ACCOUNT EXECUTIVE COMPARISON: 02/26/2017. Two-view chest. 02/23/2017 CT thorax FINDINGS: LUNGS: No significant interval change compared to the prior examination(s). PLEURA: Stable right pleural effusion. CARDIOVASCULAR: Cardiomegaly. No evidence of acute, significant cardiovascular disease. OSSEOUS STRUCTURES: No significant abnormalities. VISUALIZED UPPER ABDOMEN: Normal. OTHER FINDINGS: None. IMPRESSION: No significant interval change compared to the prior examination(s).
[2017-03-02] MEDS: Ammonium Lactate 12% Cream (140 g) TOP SCH ×2 (08:26→17:22)
[2017-03-02] MEDS: Vitamin A/D oint 60G TP SCH ×2 (08:26→17:21)
[2017-03-02] MEDS: guaiFENesin-DM 600-30 mg ER Tab PO SCH ×2 (08:26→17:21)
[2017-03-02] MEDS: methylPREDNISolone 30 MG in Sodium Chloride 0.9% 50 ML IVPB SCH ×2 (08:27→21:04)
[2017-03-02] MEDS: Pantoprazole 40 mg EC Tab PO SCH (08:27)
[2017-03-02] MEDS: Tiotropium 18 mcg Cap For Inhalation IH SCH (08:27)
[2017-03-02] MEDS: Nasal Spray(Ocean spray) NAS PRN (08:29)
--- NOTE | 2017-03-02 17:07 | CP.PCM.PN ---
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 Objective - Vital Signs/Intake and Output Vital Signs (last 24 hours): Temp Pulse Resp BP Pulse Ox 97.7 F 102 H 102 H 122/68 90 L 03/02/17 16:11 03/02/17 16:11 03/02/17 16:11 03/02/17 16:11 03/02/17 16:11 - Medications Medications: Current Medications Acetaminophen (Tylenol 325mg Tab) 650 mg PO Q6H PRN PRN Reason: Pain, Mild (1-3) Acetylcysteine (Mucomyst 10% 4ml) 4 ml IH QID [facility] Last Admin: 03/02/17 16:06 Dose: 4 ml Alprazolam (Xanax) 0.25 mg PO Q12H PRN PRN Reason: Anxiety Stop: 03/06/17 18:49 Last Admin: 03/01/17 05:37 Dose: 0.25 mg Artificial Tears (Artificial Tears) 2 drop OU Q6H PRN PRN Reason: Dry eyes Budesonide (Pulmicort Respules) 0.25 mg INH RBID [facility] Last Admin: 03/02/17 16:06 Dose: 0.25 mg Diltiazem HCl (Cardizem) 30 mg PO QID [facility] Last Admin: 03/02/17 13:54 Dose: 30 mg Guaifenesin/Dextromethorphan (Mucinex-Dm 600-30 Mg) 1 tab PO BID [facility] Last Admin: 03/02/17 08:26 Dose: 1 tab Clindamycin Phosphate 600 mg/ (Sodium Chloride) 104 mls @ 104 mls/hr IVPB Q8@ 0500,1300,2100 [facility] Last Admin: 03/02/17 13:53 Dose: 104 mls/hr Aztreonam 1 gm/ Sodium (Chloride) 100 mls @ 100 mls/hr IVPB Q12@0500,1700 [facility] Last Admin: 03/02/17 04:28 Dose: 100 mls/hr Methylprednisolone 30 mg/ (Sodium Chloride) 50 mls @ 100 mls/hr IVPB Q12 [facility] Last Admin: 03/02/17 08:27 Dose: 100 mls/hr Insulin Human Regular (Humulin R) 0 units SC ACHS [facility] PRN Reason: Protocol Last Admin: 03/02/17 12:01 Dose: Not Given Ipratropium Section (Atrovent) 0.5 mg IH Q4H [facility] Last Admin: 03/02/17 16:05 Dose: 0.5 mg Lactic Acid (Lac-Hydrin 12% Cream (140 G)) 1 ea TOP BID [facility] Last Admin: 03/02/17 08:26 Dose: 1 dose Levalbuterol HCl (Xopenex) 0.63 mg IH RQ8 [facility] Last Admin: 03/02/17 16:07 Dose: 0.63 mg Pantoprazole Sodium (Protonix Ec Tab) 40 mg PO DAILY [facility] Last Admin: 03/02/17 08:27 Dose: 40 mg Promethazine HCl/Dextromethorphan (Phenergan Dm Syrup) 5 ml PO Q6H PRN PRN Reason: Cough Simethicone (Mylicon Chew Tab) 80 mg PO Q4 PRN PRN Reason: Flatulence Last Admin: 02/28/17 08:49 Dose: 80 mg Sitagliptin Phosphate (Januvia) 50 mg PO DAILY [facility] Last Admin: 03/02/17 08:26 Dose: 50 mg Sodium Chloride ([place] Nasal [place]) 1 sprays IMELDA Q4H PRN PRN Reason: Nasal congestion Last Admin: 03/02/17 08:29 Dose: 1 spr Tiotropium [place] (Spiriva) 18 mcg IH DAILY [facility] Last Admin: 03/02/17 08:27 Dose: 18 mcg Vitamin A (Vitamin A&D) 1 applic TP BID [facility] Last Admin: 03/02/17 08:26 Dose: 1 applic - Labs Labs: 03/01/17 20:30 03/01/17 20:30 - Constitutional Appears: No Acute Distress - Head Exam Head Exam: NORMAL INSPECTION - Eye Exam Eye Exam: PERRL - ENT Exam ENT Exam: Normal Oropharynx - Neck Exam Neck Exam: Normal Inspection - Respiratory Exam Respiratory Exam: Decreased Breath Sounds (at bases), Rhonchi (scattered) - Cardiovascular Exam Cardiovascular Exam: REGULAR RHYTHM - GI/Abdominal Exam GI & Abdominal Exam: Soft, Normal Bowel Sounds - Extremities Exam Additional comments: Chronic venous stasis, chronic skin changes L/E, Ulcer R medial malleolus healed - Back Exam Back Exam: NORMAL INSPECTION - Neurological Exam Neurological Exam: Alert, Oriented x3. absent: Motor Sensory Deficit - Psychiatric Exam Psychiatric exam: Anxious - Skin Skin Exam: Warm Assessment and Plan (1) COPD exacerbation Status: Acute (2) Pneumonia Status: Acute (3) Ulcer of right ankle Status: Resolved (4) Venous insufficiency of both lower extremities Status: Chronic (5) DMII (diabetes mellitus, type 2) Status: Acute (6) Pain in joints of both feet Status: Acute (7) Hx of essential hypertension Status: Chronic - Assessment and Plan (Free Text) Plan: DC ventimax, NC 3 L/m, to have MRI of R ankle/foot today
--- NOTE | 2017-03-03 02:17 | CARD ---
APPROVED REPORT EKG Measurement Heart [id number] <Conclusion> Sinus tachycardia with premature supraventricular complexes Possible Left atrial enlargement Pulmonary disease pattern Right bundle branch block Left anterior fascicular block Bifascicular block Abnormal ECG
[2017-03-03] MEDS: Aztreonam 1 GM in Sodium Chloride 0.9% 100 ML IVPB SCH ×2 (04:45→17:05)
[2017-03-03] MEDS: Ipratropium 0.02% Inhal Soln (0.5 mg/2.5 ml) UD IH SCH ×7 (05:24→23:10)
[2017-03-03] MEDS: Clindamycin 600 MG in Sodium Chloride 0.9% 100 ML IVPB SCH ×3 (05:45→20:14)
[2017-03-03 07:04] LABS: BLOOD UREA NITROGEN 72 mg/dl (9-20); CALCIUM 8.2 mg/dL (8.4-10.2); CARBON DIOXIDE 29 mmol/L (22-30); CHLORIDE 100 mmol/L (98-107); GFR AFRICAN-AMERICAN > 60; GLUCOSE,RANDOM 187 mg/dL (75-110); POTASSIUM 5.3 MMOL/L (3.6-5.0); SODIUM 136 mmol/l (132-148)
[2017-03-03] MEDS: Insulin Regular 100 units/ml SC SCH ×4 (07:07→23:12)
[2017-03-03] MEDS: Acetylcysteine 10% 4 ML IH SCH ×5 (07:36→20:00)
[2017-03-03] MEDS: Levalbuterol 0.63 MG/3 ML Inhal Soln UD IH SCH ×4 (07:37→23:11)
[2017-03-03] MEDS: Budesonide 0.25 mg/2 ml Inhal Susp UD INH SCH ×3 (07:38→18:41)
[2017-03-03] MEDS: Pantoprazole 40 mg EC Tab PO SCH (08:47)
[2017-03-03] MEDS: guaiFENesin-DM 600-30 mg ER Tab PO SCH ×2 (08:47→17:07)
[2017-03-03] MEDS: Ammonium Lactate 12% Cream (140 g) TOP SCH ×2 (08:47→17:06)
[2017-03-03] MEDS: Tiotropium 18 mcg Cap For Inhalation IH SCH (08:48)
[2017-03-03] MEDS: Vitamin A/D oint 60G TP SCH ×2 (08:48→17:06)
[2017-03-03] MEDS: methylPREDNISolone 30 MG in Sodium Chloride 0.9% 50 ML IVPB SCH (08:48)
[2017-03-03] MEDS: Nasal Spray(Ocean spray) NAS PRN (08:48)
[2017-03-03] MEDS: Simethicone 80 mg Chewtab PO PRN (08:49)
--- NOTE | 2017-03-03 13:19 | CP.PCM.CON ---
<Malachi Gray - Last Filed: 03/03/17 13:14> History of Present Illness - History of Present Illness History of Present Illness: General Surgery Consult Note for Dr. Borden CC: Right Groin Pain X 7-8 years HPI: This is an 89M (per family at bedside reported age of 86 is incorrect) , poor historian, with a PMH of COPD, HTN, HLD, he is currently at [facility] due to a COPD exacerbation he complains of pain in the right groin radiating to the right thigh. He reports that he has had the pain since approximately 2-3 years after he had his inguinal hernia repaired on that side. Patient reports having regular bowel movements, last one being yesterday which was normal. He reports passing flatus regularly. He is tolerating diet. Denies fever or chills. PMH: as stated above, hiatal hernia PSH: right inguinal hernia repair, cataracts Allergies: moxifloxacin, PCNs, tomato Review of Systems - Review of Systems All systems: reviewed and no additional remarkable complaints except Past Patient History - Infectious Disease Hx of Infectious Diseases: None - Past Medical History & Family History Past Medical History?: Yes - Past Social History Smoking Status: Former Smoker Alcohol: None Drugs: Denies Home Situation {Lives}: Alone - CARDIAC Hx Cardiac Disorders: Yes Hx Hypertension: Yes - PULMONARY Hx Respiratory Disorders: Yes Hx Asthma: Yes Hx Chronic Obstructive Pulmonary Disease (COPD): Yes Hx Pneumonia: Yes - NEUROLOGICAL Hx Neurological Disorder: No - HEENT Hx HEENT Problems: Yes Hx Cataracts: Yes Hx Glaucoma: Yes - RENAL Hx Chronic Kidney Disease: Yes Other/Comment: ckd - ENDOCRINE/METABOLIC Hx Endocrine Disorders: Yes Hx Diabetes Mellitus Type 2: Yes - HEMATOLOGICAL/ONCOLOGICAL Hx Blood Disorders: Yes Hx AIDS: No Hx Cirrhosis: Yes Hx Human Immunodeficiency Virus (HIV): No - INTEGUMENTARY Hx Dermatological Problems: Yes Hx Psoriasis: Yes - MUSCULOSKELETAL/RHEUMATOLOGICAL Hx Falls: No - GASTROINTESTINAL Hx Gastrointestinal Disorders: Yes Hx Gastroesophageal Reflux: Yes Hx Liver Failure: Yes (LIVER CIRRHOSIS) Hx Ulcer: Yes - GENITOURINARY/GYNECOLOGICAL Hx Genitourinary Disorders: Yes Hx Prostate Problems: Yes (enlarged) - PSYCHIATRIC Hx Substance Use: No - SURGICAL HISTORY Hx Surgeries: Yes Hx Cataract Extraction: Yes Hx Herniorrhaphy: Yes (abdominal hernia repair 15 yrs ago) - ANESTHESIA Hx Anesthesia: Yes Hx Anesthesia Reactions: No Hx Malignant Hyperthermia: No Meds Allergies/Adverse Reactions: Allergies Allergy/AdvReac Type Severity Reaction Status Date / Time guaifenesin [From Mucinex] Allergy RASH Verified 02/12/17 14:54 levofloxacin [From Levaquin] Allergy ITCHING Verified 02/14/17 04:48 moxifloxacin HCl Allergy RASH Verified 10/03/16 15:22 [From Avelox] Penicillins Allergy RASH Verified 10/03/16 15:22 tomato Allergy RASH Verified 10/03/16 15:22 - Medications Medications: Current Medications Acetaminophen (Tylenol 325mg Tab) 650 mg PO Q6H PRN PRN Reason: Pain, Mild (1-3) Acetylcysteine (Mucomyst 10% 4ml) 4 ml IH RQID [facility] Last Admin: 03/03/17 11:43 Dose: 4 ml Alprazolam (Xanax) 0.25 mg PO Q12H PRN PRN Reason: Anxiety Stop: 03/06/17 18:49 Last Admin: 03/01/17 05:37 Dose: 0.25 mg Artificial Tears (Artificial Tears) 2 drop OU Q6H PRN PRN Reason: Dry eyes Budesonide (Pulmicort Respules) 0.25 mg INH RBID [facility] Last Admin: 03/03/17 07:38 Dose: 0.25 mg Diltiazem HCl (Cardizem) 30 mg PO QID [facility] Last Admin: 03/03/17 08:47 Dose: 30 mg Guaifenesin/Dextromethorphan (Mucinex-Dm 600-30 Mg) 1 tab PO BID [facility] Last Admin: 03/03/17 08:47 Dose: 1 tab Clindamycin Phosphate 600 mg/ (Sodium Chloride) 104 mls @ 104 mls/hr IVPB Q8@ 0500,1300,2100 [facility] Last Admin: 03/03/17 12:38 Dose: 104 mls/hr Aztreonam 1 gm/ Sodium (Chloride) 100 mls @ 100 mls/hr IVPB Q12@0500,1700 [facility] Last Admin: 03/03/17 04:45 Dose: 100 mls/hr Methylprednisolone 20 mg/ (Sodium Chloride) 50 mls @ 100 mls/hr IVPB Q12 [facility] Insulin Human Regular (Humulin R) 0 units SC ACHS [facility] PRN Reason: Protocol Last Admin: 03/03/17 11:25 Dose: 2 unit Ipratropium [place] (Atrovent) 0.5 mg IH Q4H [facility] Last Admin: 03/03/17 11:43 Dose: 0.5 mg Lactic Acid (Lac-Hydrin 12% Cream (140 G)) 1 ea TOP BID [facility] Last Admin: 03/03/17 08:47 Dose: 1 dose Levalbuterol HCl (Xopenex) 0.63 mg IH RQ8 [facility] Last Admin: 03/03/17 07:37 Dose: 0.63 mg Pantoprazole Sodium (Protonix Ec Tab) 40 mg PO DAILY [facility] Last Admin: 03/03/17 08:47 Dose: 40 mg Promethazine HCl/Dextromethorphan (Phenergan Dm Syrup) 5 ml PO Q6H PRN PRN Reason: Cough Simethicone (Mylicon Chew Tab) 80 mg PO Q4 PRN PRN Reason: Flatulence Last Admin: 03/03/17 08:49 Dose: 80 mg Sitagliptin Phosphate (Januvia) 50 mg PO DAILY [facility] Last Admin: 03/03/17 08:48 Dose: 50 mg Sodium Chloride ([place] Nasal [place]) 1 sprays IMELDA Q4H PRN PRN Reason: Nasal congestion Last Admin: 03/03/17 08:48 Dose: 1 spr Tiotropium [place] (Spiriva) 18 mcg IH DAILY [facility] Last Admin: 03/03/17 08:48 Dose: 18 mcg Vitamin A (Vitamin A&D) 1 applic TP BID [facility] Last Admin: 03/03/17 08:48 Dose: 1 applic Physical Exam - Constitutional Appears: Non-toxic, No Acute Distress - Head Exam Head Exam: ATRAUMATIC, NORMOCEPHALIC - Eye Exam Eye Exam: EOMI, Normal appearance - ENT Exam ENT Exam: Mucous Membranes Moist - Respiratory Exam Respiratory Exam: NORMAL BREATHING PATTERN - Cardiovascular Exam Cardiovascular Exam: REGULAR RHYTHM - GI/Abdominal Exam GI & Abdominal Exam: Hernia (Umbilical), Soft. absent: Distended, Firm, Guarding, Rigid - Neurological Exam Neurological exam: Alert, Oriented x3 - Psychiatric Exam Psychiatric exam: Normal Affect, Normal Mood - Skin Skin Exam: Dry, Intact Results - Vital Signs Recent Vital Signs: Last Vital Signs Temp 97.7 F 03/03/17 08:02 Pulse 88 03/03/17 08:47 Resp 20 03/03/17 08:02 BP 116/55 L 03/03/17 08:47 Pulse Ox 91 L 03/03/17 08:02 - Labs Result Diagrams: 03/01/17 20:30 03/03/17 06:28 Labs: Laboratory Results - last 24 hr 03/02/17 03/02/17 03/03/17 16:45 21:14 06:28 Sodium 136 Potassium 5.3 H Chloride 100 Carbon Dioxide 29 Anion Gap 12 BUN 72 H Creatinine 1.0 Est GFR ( Amer) > 60 Est GFR (Non-Af Amer) > 60 POC Glucose (mg/dL) 86 238 H Random Glucose 187 H Calcium 8.2 L 03/03/17 03/03/17 07:03 10:42 Sodium Potassium Chloride Carbon Dioxide Anion Gap BUN Creatinine Est GFR ( Amer) Est GFR (Non-Af Amer) POC Glucose (mg/dL) 158 H 218 H Random Glucose Calcium Assessment & Plan - Assessment and Plan (Free Text) Assessment: This is an 89M (per family at bedside reported age of 86 is incorrect) ,poor historian, with a PMH of COPD, HTN, HLD who is presenting with right inguinal pain. Abdominal binder per patient request, no inguinal hernia reoccurrence on palpation. No acute surgical intervention at this time Will discuss with Dr. Michi Gray PGY-1 <Rafy Mejía - Last Filed: 03/03/17 18:46> History of Present Illness - History of Present Illness History of Present Illness: Patient was seen and examined at the bedside. Agree with resident's note above Meds - Medications Medications: Current Medications Acetaminophen (Tylenol 325mg Tab) 650 mg PO Q6H PRN PRN Reason: Pain, Mild (1-3) Acetylcysteine (Mucomyst 10% 4ml) 4 ml IH RQID [facility] Last Admin: 03/03/17 18:39 Dose: 4 ml Alprazolam (Xanax) 0.25 mg PO Q12H PRN PRN Reason: Anxiety Stop: 03/06/17 18:49 Last Admin: 03/01/17 05:37 Dose: 0.25 mg Artificial Tears (Artificial Tears) 2 drop OU Q6H PRN PRN Reason: Dry eyes Budesonide (Pulmicort Respules) 0.25 mg INH RBID [facility] Last Admin: 03/03/17 18:41 Dose: 0.25 mg Diltiazem HCl (Cardizem) 30 mg PO QID [facility] Last Admin: 03/03/17 17:07 Dose: 30 mg Guaifenesin/Dextromethorphan (Mucinex-Dm 600-30 Mg) 1 tab PO BID [facility] Last Admin: 03/03/17 17:07 Dose: 1 tab Clindamycin Phosphate 600 mg/ (Sodium Chloride) 104 mls @ 104 mls/hr IVPB Q8@ 0500,1300,2100 [facility] Last Admin: 03/03/17 12:38 Dose: 104 mls/hr Aztreonam 1 gm/ Sodium (Chloride) 100 mls @ 100 mls/hr IVPB Q12@0500,1700 [facility] Last Admin: 03/03/17 17:05 Dose: 100 mls/hr Methylprednisolone 20 mg/ (Sodium Chloride) 50 mls @ 100 mls/hr IVPB Q12@0500, 1700 [facility] Insulin Human Regular (Humulin R) 0 units SC ACHS [facility] PRN Reason: Protocol Last Admin: 03/03/17 17:06 Dose: Not Given Ipratropium [place] (Atrovent) 0.5 mg IH Q4H [facility] Last Admin: 03/03/17 18:38 Dose: 0.5 mg Lactic Acid (Lac-Hydrin 12% Cream (140 G)) 1 ea TOP BID [facility] Last Admin: 03/03/17 17:06 Dose: 1 dose Levalbuterol HCl (Xopenex) 0.63 mg IH RQ8 [facility] Last Admin: 03/03/17 18:43 Dose: 0.63 mg Pantoprazole Sodium (Protonix Ec Tab) 40 mg PO DAILY [facility] Last Admin: 03/03/17 08:47 Dose: 40 mg Promethazine HCl/Dextromethorphan (Phenergan Dm Syrup) 5 ml PO Q6H PRN PRN Reason: Cough Simethicone (Mylicon Chew Tab) 80 mg PO Q4 PRN PRN Reason: Flatulence Last Admin: 03/03/17 08:49 Dose: 80 mg Sitagliptin Phosphate (Januvia) 50 mg PO DAILY [facility] Last Admin: 03/03/17 08:48 Dose: 50 mg Sodium Chloride ([place] Nasal [place]) 1 sprays IMELDA Q4H PRN PRN Reason: Nasal congestion Last Admin: 03/03/17 08:48 Dose: 1 spr Sodium Polystyrene Sulfonate (Kayexalate Oral Susp) 15 gm PO DAILY [facility] Tiotropium [place] (Spiriva) 18 mcg IH DAILY [facility] Last Admin: 03/03/17 08:48 Dose: 18 mcg Vitamin A (Vitamin A&D) 1 applic TP BID [facility] Last Admin: 03/03/17 17:06 Dose: 1 applic Results - Vital Signs Recent Vital Signs: Last Vital Signs Temp 98.2 F 03/03/17 16:59 Pulse 101 H 03/03/17 17:07 Resp 20 03/03/17 16:59 BP 114/71 03/03/17 17:07 Pulse Ox 91 L 03/03/17 16:59 - Labs Result Diagrams: 03/01/17 20:30 03/03/17 06:28 Labs: Laboratory Results - last 24 hr 03/02/17 03/03/17 03/03/17 21:14 06:28 07:03 Sodium 136 Potassium 5.3 H Chloride 100 Carbon Dioxide 29 Anion Gap 12 BUN 72 H Creatinine 1.0 Est GFR ( Amer) > 60 Est GFR (Non-Af Amer) > 60 POC Glucose (mg/dL) 238 H 158 H Random Glucose 187 H Calcium 8.2 L 03/03/17 03/03/17 10:42 16:25 Sodium Potassium Chloride Carbon Dioxide Anion Gap BUN Creatinine Est GFR ( Amer) Est GFR (Non-Af Amer) POC Glucose (mg/dL) 218 H 124 H Random Glucose Calcium Assessment & Plan - Assessment and Plan (Free Text) Plan: - No general surgery intervention at present time - Pain control - Recommend pain management consultation - Continue care as per primary team - Patient was d/w Dr. Mcneal - Surgery will sign off - Please re-consult as needed
--- NOTE | 2017-03-03 14:59 | CP.PCM.PN ---
Subjective - Date & Time of Evaluation Date of Evaluation: 03/03/17 Time of Evaluation: 11:50 - Subjective Subjective: F/U COPD Exacerbation, PNA Pt breathing better, minimal chest congestion, no cough, c/o or R inguinal pain in the surgical area. Objective - Vital Signs/Intake and Output Vital Signs (last 24 hours): Temp Pulse Resp BP Pulse Ox 97.7 F 93 H 20 114/73 91 L 03/03/17 08:02 03/03/17 14:10 03/03/17 08:02 03/03/17 14:10 03/03/17 08:02 - Medications Medications: Current Medications Acetaminophen (Tylenol 325mg Tab) 650 mg PO Q6H PRN PRN Reason: Pain, Mild (1-3) Acetylcysteine (Mucomyst 10% 4ml) 4 ml IH RQID [facility] Last Admin: 03/03/17 11:43 Dose: 4 ml Alprazolam (Xanax) 0.25 mg PO Q12H PRN PRN Reason: Anxiety Stop: 03/06/17 18:49 Last Admin: 03/01/17 05:37 Dose: 0.25 mg Artificial Tears (Artificial Tears) 2 drop OU Q6H PRN PRN Reason: Dry eyes Budesonide (Pulmicort Respules) 0.25 mg INH RBID [facility] Last Admin: 03/03/17 07:38 Dose: 0.25 mg Diltiazem HCl (Cardizem) 30 mg PO QID [facility] Last Admin: 03/03/17 14:10 Dose: 30 mg Guaifenesin/Dextromethorphan (Mucinex-Dm 600-30 Mg) 1 tab PO BID [facility] Last Admin: 03/03/17 08:47 Dose: 1 tab Clindamycin Phosphate 600 mg/ (Sodium Chloride) 104 mls @ 104 mls/hr IVPB Q8@ 0500,1300,2100 [facility] Last Admin: 03/03/17 12:38 Dose: 104 mls/hr Aztreonam 1 gm/ Sodium (Chloride) 100 mls @ 100 mls/hr IVPB Q12@0500,1700 [facility] Last Admin: 03/03/17 04:45 Dose: 100 mls/hr Methylprednisolone 20 mg/ (Sodium Chloride) 50 mls @ 100 mls/hr IVPB Q12 [facility] Insulin Human Regular (Humulin R) 0 units SC ACHS [facility] PRN Reason: Protocol Last Admin: 03/03/17 11:25 Dose: 2 unit Ipratropium [place] (Atrovent) 0.5 mg IH Q4H [facility] Last Admin: 03/03/17 11:43 Dose: 0.5 mg Lactic Acid (Lac-Hydrin 12% Cream (140 G)) 1 ea TOP BID [facility] Last Admin: 03/03/17 08:47 Dose: 1 dose Levalbuterol HCl (Xopenex) 0.63 mg IH RQ8 [facility] Last Admin: 03/03/17 07:37 Dose: 0.63 mg Pantoprazole Sodium (Protonix Ec Tab) 40 mg PO DAILY [facility] Last Admin: 03/03/17 08:47 Dose: 40 mg Promethazine HCl/Dextromethorphan (Phenergan Dm Syrup) 5 ml PO Q6H PRN PRN Reason: Cough Simethicone (Mylicon Chew Tab) 80 mg PO Q4 PRN PRN Reason: Flatulence Last Admin: 03/03/17 08:49 Dose: 80 mg Sitagliptin Phosphate (Januvia) 50 mg PO DAILY [facility] Last Admin: 03/03/17 08:48 Dose: 50 mg Sodium Chloride ([place] Nasal [place]) 1 sprays IMELDA Q4H PRN PRN Reason: Nasal congestion Last Admin: 03/03/17 08:48 Dose: 1 spr Tiotropium [place] (Spiriva) 18 mcg IH DAILY [facility] Last Admin: 03/03/17 08:48 Dose: 18 mcg Vitamin A (Vitamin A&D) 1 applic TP BID [facility] Last Admin: 03/03/17 08:48 Dose: 1 applic - Labs Labs: 03/01/17 20:30 03/03/17 06:28 - Constitutional Appears: No Acute Distress - Head Exam Head Exam: NORMAL INSPECTION - Eye Exam Eye Exam: PERRL - ENT Exam ENT Exam: Normal Oropharynx - Neck Exam Neck Exam: Normal Inspection - Respiratory Exam Respiratory Exam: Decreased Breath Sounds (at bases), Rhonchi (scattered) - Cardiovascular Exam Cardiovascular Exam: REGULAR RHYTHM - GI/Abdominal Exam GI & Abdominal Exam: Soft, Tenderness (R inguinal), Normal Bowel Sounds - Back Exam Back Exam: NORMAL INSPECTION Additional comments: Chronic venous stasis, chronic skin changes L/E. Ulcer R medial malleolus healed. - Neurological Exam Neurological Exam: Alert, Oriented x3. absent: Motor Sensory Deficit - Psychiatric Exam Psychiatric exam: Anxious - Skin Skin Exam: Warm Assessment and Plan (1) COPD exacerbation Status: Acute (2) Pneumonia Status: Acute (3) Ulcer of right ankle Status: Resolved (4) Venous insufficiency of both lower extremities Status: Chronic (5) DMII (diabetes mellitus, type 2) Status: Acute (6) Pain in joints of both feet Status: Acute (7) Hx of essential hypertension Status: Chronic - Assessment and Plan (Free Text) Plan: Continue Aztreonam, Humalin R, Solumedrol. Xopenex, Mucinex and rest of Tx. Surgical consult appreciated.
--- NOTE | 2017-03-03 15:59 | MRI ---
MRI right calf History: Infection. Evaluate for osteomyelitis. Comparison: None available. Technique: Multi-echo multiplanar sequences were performed through the right calf without the use of intravenous contrast. Findings: Prominent amount of fluid and edema seen at the juncture of the medial head of the gastrocnemius muscle and soleus muscle concerning for possible plantaris rupture. Additional considerations may include an underlying acute infectious or inflammatory collection. Clinical correlation. Reactive edema seen within the medial and lateral heads of the gastrocnemius muscle bellies which may represent underlying acute infectious and or inflammatory changes. Clinical correlation. Posterior to the mid tibia medially, there is a 2.9 x 2.4 centimeter focal area of signal abnormality demonstrating increased T1 signal which suppresses on fat saturated sequences seen at the medial aspect of the medial head of the gastrocnemius muscles and soleus muscles. Prominent vascular flow voids appear to traverse through this area into the subcutaneous soft tissues. This of uncertain clinical etiology and may represent a fat containing lesion such as a lipomatous lesion with prominent vascular flow voids versus focal fatty atrophy versus vascular lesion such as a hemangioma versus additional etiology. Clinical correlation. Additional focal area of signal abnormality seen within the lateral aspect of the soleus musculature best seen on series 8, image 34 measuring 1.7 x 2.9 centimeters demonstrating increased T1 signal which suppresses on fat saturated sequences. A few small vessels traverse through this lesion. Again this may represent a fat containing lesion such as a lipomatous lesion versus focal fatty atrophy versus vascular lesion such as a hemangioma versus additional etiology. Clinical correlation. Visualized osseous structures demonstrates no signal abnormality to suggest acute osteomyelitis. Impression: 1. No evidence of acute osteomyelitis. 2. Prominent amount of fluid and edema seen at the juncture of the medial head of the gastrocnemius muscle and soleus muscle concerning for possible plantaris rupture. Additional considerations may include an underlying acute infectious or inflammatory collection. Clinical correlation. 3. Reactive edema seen within the medial and lateral heads of the gastrocnemius muscle bellies which may represent underlying acute infectious and or inflammatory changes. Clinical correlation. 4. Posterior to the mid tibia medially, there is a 2.9 x 2.4 centimeter focal area of signal abnormality demonstrating increased T1 signal which suppresses on fat saturated sequences seen at the medial aspect of the medial head of the gastrocnemius muscles and soleus muscles. Prominent vascular flow voids appear to traverse through this area into the subcutaneous soft tissues. This of uncertain clinical etiology and may represent a fat containing lesion such as a lipomatous lesion with prominent vascular flow voids versus focal fatty atrophy versus vascular lesion such as a hemangioma versus additional etiology. Clinical correlation. 5. Additional focal area of signal abnormality seen within the lateral aspect of the soleus musculature best seen on series 8, image 34 measuring 1.7 x 2.9 centimeters demonstrating increased T1 signal which suppresses on fat saturated sequences. A few small vessels traverse through this lesion. Again this may represent a fat containing lesion such as a lipomatous lesion versus focal fatty atrophy versus vascular lesion such as a hemangioma versus additional etiology. Clinical correlation. These findings were preliminarily reported at 8:15 p.m. on 03/02/[address] Fadia Murdock from [facility].
--- NOTE | 2017-03-03 18:54 | CP.PCM.PN ---
Subjective - Date & Time of Evaluation Date of Evaluation: 03/03/17 Time of Evaluation: 19:00 - Subjective Subjective: ID NOTE MRIs reviewed patient c multiple allergies will discontinue azactam start gentamicn Objective - Vital Signs/Intake and Output Vital Signs (last 24 hours): Temp Pulse Resp BP Pulse Ox 98.2 F 101 H 20 114/71 91 L 03/03/17 16:59 03/03/17 17:07 03/03/17 16:59 03/03/17 17:07 03/03/17 16:59 - Medications Medications: Current Medications Acetaminophen (Tylenol 325mg Tab) 650 mg PO Q6H PRN PRN Reason: Pain, Mild (1-3) Acetylcysteine (Mucomyst 10% 4ml) 4 ml IH RQID [facility] Last Admin: 03/03/17 18:39 Dose: 4 ml Alprazolam (Xanax) 0.25 mg PO Q12H PRN PRN Reason: Anxiety Stop: 03/06/17 18:49 Last Admin: 03/01/17 05:37 Dose: 0.25 mg Artificial Tears (Artificial Tears) 2 drop OU Q6H PRN PRN Reason: Dry eyes Budesonide (Pulmicort Respules) 0.25 mg INH RBID [facility] Last Admin: 03/03/17 18:41 Dose: 0.25 mg Diltiazem HCl (Cardizem) 30 mg PO QID [facility] Last Admin: 03/03/17 17:07 Dose: 30 mg Guaifenesin/Dextromethorphan (Mucinex-Dm 600-30 Mg) 1 tab PO BID [facility] Last Admin: 03/03/17 17:07 Dose: 1 tab Clindamycin Phosphate 600 mg/ (Sodium Chloride) 104 mls @ 104 mls/hr IVPB Q8@ 0500,1300,2100 [facility] Last Admin: 03/03/17 12:38 Dose: 104 mls/hr Methylprednisolone 20 mg/ (Sodium Chloride) 50 mls @ 100 mls/hr IVPB Q12@0500, 1700 [facility] Gentamicin Sulfate/Sodium Chloride (Gentamicin 60mg/50ml Ns) 60 mg in 50 mls @ 50 mls/hr IVPB Q12 [facility] Insulin Human Regular (Humulin R) 0 units SC ACHS [facility] PRN Reason: Protocol Last Admin: 05/16/17 17:06 Dose: Not Given Ipratropium [place] (Atrovent) 0.5 mg IH Q4H [facility] Last Admin: 03/03/17 18:38 Dose: 0.5 mg Lactic Acid (Lac-Hydrin 12% Cream (140 G)) 1 ea TOP BID [facility] Last Admin: 03/03/17 17:06 Dose: 1 dose Levalbuterol HCl (Xopenex) 0.63 mg IH RQ8 [facility] Last Admin: 03/03/17 18:43 Dose: 0.63 mg Pantoprazole Sodium (Protonix Ec Tab) 40 mg PO DAILY [facility] Last Admin: 03/03/17 08:47 Dose: 40 mg Promethazine HCl/Dextromethorphan (Phenergan Dm Syrup) 5 ml PO Q6H PRN PRN Reason: Cough Simethicone (Mylicon Chew Tab) 80 mg PO Q4 PRN PRN Reason: Flatulence Last Admin: 03/03/17 08:49 Dose: 80 mg Sitagliptin Phosphate (Januvia) 50 mg PO DAILY [facility] Last Admin: 03/03/17 08:48 Dose: 50 mg Sodium Chloride ([place] Nasal [place]) 1 sprays IMELDA Q4H PRN PRN Reason: Nasal congestion Last Admin: 03/03/17 08:48 Dose: 1 spr Sodium Polystyrene Sulfonate (Kayexalate Oral Susp) 15 gm PO DAILY [facility] Tiotropium [place] (Spiriva) 18 mcg IH DAILY [facility] Last Admin: 03/03/17 08:48 Dose: 18 mcg Vitamin A (Vitamin A&D) 1 applic TP BID [facility] Last Admin: 03/03/17 17:06 Dose: 1 applic - Labs Labs: 03/01/17 20:30 03/03/17 06:28
[2017-03-03] MEDS: methylPREDNISolone 20 MG in Sodium Chloride 0.9% 50 ML IVPB SCH (23:14)
[2017-03-03] MEDS: Gentamicin 60mg/50ml NS 60 MG/50 ML BAG IVPB SCH (23:17)
[2017-03-04] MEDS: Ipratropium 0.02% Inhal Soln (0.5 mg/2.5 ml) UD IH SCH ×6 (04:44→23:58)
[2017-03-04] MEDS: Budesonide 0.25 mg/2 ml Inhal Susp UD INH SCH ×2 (07:27→20:03)
[2017-03-04] MEDS: Levalbuterol 0.63 MG/3 ML Inhal Soln UD IH SCH ×3 (07:27→23:58)
[2017-03-04] MEDS: Acetylcysteine 10% 4 ML IH SCH ×3 (07:28→20:03)
[2017-03-04] MEDS: Clindamycin 600 MG in Sodium Chloride 0.9% 100 ML IVPB SCH ×3 (07:34→21:44)
[2017-03-04] MEDS: Insulin Regular 100 units/ml SC SCH ×4 (07:42→21:48)
[2017-03-04] MEDS: Sod Polystyrene Sulf 15 gm/60 ml Oral Susp PO SCH (08:39)
[2017-03-04] MEDS: guaiFENesin-DM 600-30 mg ER Tab PO SCH ×2 (08:39→17:00)
[2017-03-04] MEDS: Gentamicin 60mg/50ml NS 60 MG/50 ML BAG IVPB SCH ×2 (08:39→21:47)
[2017-03-04] MEDS: Pantoprazole 40 mg EC Tab PO SCH (08:40)
[2017-03-04] MEDS: Ammonium Lactate 12% Cream (140 g) TOP SCH ×2 (09:40→17:00)
[2017-03-04] MEDS: Tiotropium 18 mcg Cap For Inhalation IH SCH (09:41)
[2017-03-04] MEDS: Vitamin A/D oint 60G TP SCH ×2 (09:42→17:01)
--- NOTE | 2017-03-04 10:53 | MRI ---
PROCEDURE: MRI Right Ankle HISTORY: Pain. COMPARISON: None available. TECHNIQUE: Multiecho multiplanar sequences were performed through the right ankle without the use of intravenous contrast. FINDINGS: ANTERIOR EXTENSOR TENDONS: Normal. MEDIAL FLEXOR TENDONS: Normal. PERONEAL TENDONS: Normal. ANTERIOR INFERIOR TIBIOFIBULAR (SYNDESMOSIS): Normal. POSTERIOR INFERIOR TIBIOFIBULAR (SYNDESMOSIS): Normal. ANTERIOR TALOFIBULAR LIGAMENT: Normal. POSTERIOR TALOFIBULAR LIGAMENT: Normal. PLANTAR FASCIA: Normal. SINUS TARSI: Normal. ACHILLES TENDON: Normal. DELTOID LIGAMENT COMPLEX - DEEP: Normal. CALCANEOFIBULAR LIGAMENT: Normal. SPRING (PLANTAR CALCANEO-NAVICULAR) LIGAMENT: Normal. BONES: Normal marrow signal. CARTILAGE: Preserved. JOINT FLUID: Normal. MUSCLES: Normal. OTHER FINDINGS: None . IMPRESSION: No evidence of osteomyelitis.
--- NOTE | 2017-03-04 10:59 | MRI ---
PROCEDURE: MRI Right Foot HISTORY: Pain. COMPARISON: None available. TECHNIQUE: Multiecho multiplanar sequences were performed through the right foot without the use of intravenous contrast. FINDINGS: BONES: No fracture. Normal marrow signal. MUSCLES: Normal. SOFT TISSUES: Normal. LISFRANC LIGAMENT: Normal. PLANTAR PLATE: Normal. EXTENSOR TENDONS: Normal. FLEXOR TENDONS: Normal. OTHER FINDINGS: None. IMPRESSION: No evidence of osteomyelitis.
--- NOTE | 2017-03-04 16:53 | CP.PCM.PN ---
Subjective - Date & Time of Evaluation Date of Evaluation: 03/04/17 Time of Evaluation: 12:20 - Subjective Subjective: F/U COPD Exacerbation, PNA Occasional cough, no SOB with O2, R inguinal pain improved, cooperating with PT. Objective - Vital Signs/Intake and Output Vital Signs (last 24 hours): Temp Pulse Resp BP Pulse Ox 98.2 F 93 H 20 125/57 L 90 L 03/04/17 16:00 03/04/17 16:00 03/04/17 16:00 03/04/17 16:00 03/04/17 16:00 - Medications Medications: Current Medications Acetaminophen (Tylenol 325mg Tab) 650 mg PO Q6H PRN PRN Reason: Pain, Mild (1-3) Acetylcysteine (Mucomyst 10% 4ml) 4 ml IH RQID [facility] Last Admin: 03/04/17 15:40 Dose: 4 ml Artificial Tears (Artificial Tears) 2 drop OU Q6H PRN PRN Reason: Dry eyes Budesonide (Pulmicort Respules) 0.25 mg INH RBID [facility] Last Admin: 03/04/17 07:27 Dose: 0.25 mg Diltiazem HCl (Cardizem) 30 mg PO QID [facility] Last Admin: 03/04/17 12:57 Dose: 30 mg Guaifenesin/Dextromethorphan (Mucinex-Dm 600-30 Mg) 1 tab PO BID [facility] Last Admin: 03/04/17 08:39 Dose: 1 tab Clindamycin Phosphate 600 mg/ (Sodium Chloride) 104 mls @ 104 mls/hr IVPB Q8@ 0500,1300,2100 [facility] Last Admin: 03/04/17 12:57 Dose: 104 mls/hr Methylprednisolone 20 mg/ (Sodium Chloride) 50 mls @ 100 mls/hr IVPB Q12@0500, 1700 [facility] Last Admin: 03/03/17 23:14 Dose: 100 mls/hr Gentamicin Sulfate/Sodium Chloride (Gentamicin 60mg/50ml Ns) 60 mg in 50 mls @ 50 mls/hr IVPB Q12 [facility] Last Admin: 03/04/17 08:39 Dose: 50 mls/hr Insulin Human Regular (Humulin R) 0 units SC ACHS [facility] PRN Reason: Protocol Last Admin: 03/04/17 12:08 Dose: Not Given Ipratropium [place] (Atrovent) 0.5 mg IH Q4H [facility] Last Admin: 03/04/17 15:39 Dose: 0.5 mg Lactic Acid (Lac-Hydrin 12% Cream (140 G)) 1 ea TOP BID [facility] Last Admin: 03/04/17 09:40 Dose: 1 dose Levalbuterol HCl (Xopenex) 0.63 mg IH RQ8 [facility] Last Admin: 03/04/17 15:41 Dose: 0.63 mg Pantoprazole Sodium (Protonix Ec Tab) 40 mg PO DAILY [facility] Last Admin: 03/04/17 08:40 Dose: 40 mg Promethazine HCl/Dextromethorphan (Phenergan Dm Syrup) 5 ml PO Q6H PRN PRN Reason: Cough Simethicone (Mylicon Chew Tab) 80 mg PO Q4 PRN PRN Reason: Flatulence Last Admin: 03/03/17 08:49 Dose: 80 mg Sitagliptin Phosphate (Januvia) 50 mg PO DAILY [facility] Last Admin: 03/04/17 08:39 Dose: 50 mg Sodium Chloride ([place] Nasal [place]) 1 sprays IMELDA Q4H PRN PRN Reason: Nasal congestion Last Admin: 03/03/17 08:48 Dose: 1 spr Sodium Polystyrene Sulfonate (Kayexalate Oral Susp) 15 gm PO DAILY [facility] Last Admin: 03/04/17 08:39 Dose: 15 gm Tiotropium [place] (Spiriva) 18 mcg IH DAILY [facility] Last Admin: 03/04/17 09:41 Dose: 18 mcg Vitamin A (Vitamin A&D) 1 applic TP BID [facility] Last Admin: 03/04/17 09:42 Dose: 1 applic - Labs Labs: 03/01/17 20:30 03/03/17 06:28 - Constitutional Appears: No Acute Distress - Head Exam Head Exam: NORMAL INSPECTION - Eye Exam Eye Exam: PERRL - ENT Exam ENT Exam: Normal Oropharynx - Neck Exam Neck Exam: Normal Inspection - Respiratory Exam Respiratory Exam: Decreased Breath Sounds (at bases), Rhonchi (scattered) - Cardiovascular Exam Cardiovascular Exam: REGULAR RHYTHM - GI/Abdominal Exam GI & Abdominal Exam: Soft, Tenderness (mild R inguinal), Normal Bowel Sounds - Extremities Exam Additional comments: Chronic venous stasis, chronic skin changes L/E, Ulcer R medial malleolus healed. - Back Exam Back Exam: NORMAL INSPECTION - Neurological Exam Neurological Exam: Alert, Oriented x3. absent: Motor Sensory Deficit - Psychiatric Exam Psychiatric exam: Anxious - Skin Skin Exam: Warm Assessment and Plan (1) COPD exacerbation Status: Acute (2) Pneumonia Status: Acute (3) Ulcer of right ankle Status: Resolved (4) Venous insufficiency of both lower extremities Status: Chronic (5) DMII (diabetes mellitus, type 2) Status: Acute (6) Pain in joints of both feet Status: Acute (7) Hx of essential hypertension Status: Chronic - Assessment and Plan (Free Text) Plan: Continue Solumedrol. Xopenex, Pulmicort and rest of Tx. continue PT,OT
[2017-03-04] MEDS: methylPREDNISolone 20 MG in Sodium Chloride 0.9% 50 ML IVPB SCH (17:01)
[2017-03-04] MEDS: guaiFENesin DM 200 mg-20 mg/10 ml UD PO SCH (22:46)
[2017-03-05 07:28] LABS: ALB/GLOB RATIO 1.1 (1.0-2.1); ALKALINE PHOSPHATASE 56 U/L (38-126); ALT/SGPT 73 U/L (21-72); AST/SGOT 30 U/L (17-59); BILIRUBIN,TOTAL 0.4 mg/dl (0.2-1.3); BLOOD UREA NITROGEN 58 mg/dl (9-20); CALCIUM 8.4 mg/dL (8.4-10.2); CARBON DIOXIDE 26 mmol/L (22-30); CHLORIDE 104 mmol/L (98-107); GFR AFRICAN-AMERICAN > 60; GLUCOSE,RANDOM 211 mg/dL (75-110); POTASSIUM 4.9 MMOL/L (3.6-5.0); SODIUM 138 mmol/l (132-148); TOTAL PROTEIN 5.7 G/DL (6.3-8.2)
[2017-03-05] MEDS ORDERED: Budesonide 0.25 mg/2 ml Inhal Susp UD ONE (09:00)
[2017-03-05] MEDS ORDERED: Promethazine 6.25 MG/5 ML CUP ONE (09:00)
[2017-03-05] MEDS ORDERED: Simethicone 80 mg Chewtab ONE (09:00)
[2017-03-05] MEDS ORDERED: Sod Polystyrene Sulf 15 gm/60 ml Oral Susp ONE (09:00)
[2017-03-05] MEDS ORDERED: Levalbuterol 0.63 MG/3 ML Inhal Soln UD ONE (09:00)
[2017-03-05] MEDS ORDERED: Ipratropium 0.02% Inhal Soln (0.5 mg/2.5 ml) UD IH ONE (09:00)
[2017-03-05] MEDS ORDERED: Gentamicin IV 60mg/50ml NS(PREMIX) IVPB ONE (09:00)
[2017-03-05] MEDS ORDERED: Insulin Regular 100 units/ml ONE (09:00)
[2017-03-05] MEDS ORDERED: Pantoprazole 40 mg EC Tab PO ONE (09:00)
[2017-03-05] MEDS ORDERED: MethylPREDNISolone 40 mg Vial ONE (09:00)
[2017-03-05] MEDS ORDERED: Acetylcysteine 10% 4 ML IH ONE (09:00)
[2017-03-05] MEDS ORDERED: Tiotropium 18 mcg Cap For Inhalation ONE (09:00)
[2017-03-05 19:47] LABS: HEMATOCRIT 41.3 % (35.0-51.0); MEAN CELL VOLUME 93.1 fl (80.0-94.0); MEAN CORPUSCULAR HEMOGLOBIN 29.9 pg (27.0-31.0); MEAN CORPUSCULAR HGB CONC 32.1 g/dL (33.0-37.0); RED CELL DISTRIBUTION WIDTH 15.1 % (11.5-14.5); WHITE BLOOD COUNT 5.7 K/uL (4.8-10.8)
[2017-03-05] MEDS: Ipratropium 0.02% Inhal Soln (0.5 mg/2.5 ml) UD IH SCH (20:05)
[2017-03-05] MEDS: Acetylcysteine 10% 4 ML IH SCH (20:05)
[2017-03-05] MEDS: Budesonide 0.25 mg/2 ml Inhal Susp UD INH SCH (20:05)
--- NOTE | 2017-03-05 20:12 | CP.PCM.PN ---
Subjective - Date & Time of Evaluation Date of Evaluation: 03/05/17 Time of Evaluation: 12:30 - Subjective Subjective: F/U COPD Exacerbation, PNA Pt coopening with therapy, cough with productive scanty yellowish phlegms. Objective - Vital Signs/Intake and Output Vital Signs (last 24 hours): Temp Pulse Resp BP Pulse Ox 97.5 F L 102 H 20 121/57 L 90 L 03/04/17 19:56 03/04/17 21:50 03/04/17 19:56 03/04/17 19:56 03/04/17 19:56 - Medications Medications: Current Medications Acetaminophen (Tylenol 325mg Tab) 650 mg PO Q6H PRN PRN Reason: Pain, Mild (1-3) Acetylcysteine (Mucomyst 10% 4ml) 4 ml IH RQID [facility] Last Admin: 03/04/17 20:03 Dose: 4 ml Artificial Tears (Artificial Tears) 2 drop OU Q6H PRN PRN Reason: Dry eyes Budesonide (Pulmicort Respules) 0.25 mg INH RBID [facility] Last Admin: 03/04/17 20:03 Dose: 0.25 mg Diltiazem HCl (Cardizem) 30 mg PO QID [facility] Last Admin: 03/04/17 21:50 Dose: 30 mg Guaifenesin/Dextromethorphan (Robitussin Dm) 10 ml PO QID [facility] Last Admin: 03/04/17 22:46 Dose: 10 ml Clindamycin Phosphate 600 mg/ (Sodium Chloride) 104 mls @ 104 mls/hr IVPB Q8@ 0500,1300,2100 [facility] Last Admin: 03/04/17 21:44 Dose: 104 mls/hr Methylprednisolone 20 mg/ (Sodium Chloride) 50 mls @ 100 mls/hr IVPB Q12@0500, 1700 [facility] Last Admin: 03/04/17 17:01 Dose: 100 mls/hr Gentamicin Sulfate/Sodium Chloride (Gentamicin 60mg/50ml Ns) 60 mg in 50 mls @ 50 mls/hr IVPB Q12 [facility] Last Admin: 03/04/17 21:47 Dose: 50 mls/hr Insulin Human Regular (Humulin R) 0 units SC ACHS [facility] PRN Reason: Protocol Last Admin: 03/04/17 21:48 Dose: Not Given Ipratropium [place] (Atrovent) 0.5 mg IH Q4H [facility] Last Admin: 03/04/17 23:58 Dose: 0.5 mg Lactic Acid (Lac-Hydrin 12% Cream (140 G)) 1 ea TOP BID [facility] Last Admin: 03/04/17 17:00 Dose: 1 dose Levalbuterol HCl (Xopenex) 0.63 mg IH RQ8 [facility] Last Admin: 03/04/17 23:58 Dose: 0.63 mg Pantoprazole Sodium (Protonix Ec Tab) 40 mg PO DAILY [facility] Last Admin: 03/04/17 08:40 Dose: 40 mg Promethazine HCl/Dextromethorphan (Phenergan Dm Syrup) 5 ml PO Q6H PRN PRN Reason: Cough Simethicone (Mylicon Chew Tab) 80 mg PO Q4 PRN PRN Reason: Flatulence Last Admin: 03/03/17 08:49 Dose: 80 mg Sitagliptin Phosphate (Januvia) 50 mg PO DAILY [facility] Last Admin: 03/04/17 08:39 Dose: 50 mg Sodium Chloride ([place] Nasal [place]) 1 sprays IMELDA Q4H PRN PRN Reason: Nasal congestion Last Admin: 03/03/17 08:48 Dose: 1 spr Sodium Polystyrene Sulfonate (Kayexalate Oral Susp) 15 gm PO DAILY [facility] Last Admin: 03/04/17 08:39 Dose: 15 gm Tiotropium [place] (Spiriva) 18 mcg IH DAILY [facility] Last Admin: 03/04/17 09:41 Dose: 18 mcg Vitamin A (Vitamin A&D) 1 applic TP BID [facility] Last Admin: 03/04/17 17:01 Dose: 1 applic - Labs Labs: 03/01/17 20:30 03/03/17 06:28 - Constitutional Appears: No Acute Distress - Head Exam Head Exam: NORMAL INSPECTION - Eye Exam Eye Exam: PERRL - ENT Exam ENT Exam: Normal Oropharynx - Neck Exam Neck Exam: Normal Inspection - Respiratory Exam Respiratory Exam: Decreased Breath Sounds (at bases), Rhonchi (scattered) - Cardiovascular Exam Cardiovascular Exam: REGULAR RHYTHM - GI/Abdominal Exam GI & Abdominal Exam: Soft, Normal Bowel Sounds - Extremities Exam Additional comments: Chronic venous stasis, skin changes R-L legs - Back Exam Back Exam: NORMAL INSPECTION - Neurological Exam Neurological Exam: Alert, Oriented x3. absent: Motor Sensory Deficit - Psychiatric Exam Psychiatric exam: Anxious - Skin Skin Exam: Warm Assessment and Plan (1) COPD exacerbation Status: Acute (2) Pneumonia Status: Acute (3) Ulcer of right ankle Status: Resolved (4) Venous insufficiency of both lower extremities Status: Chronic (5) DMII (diabetes mellitus, type 2) Status: Acute (6) Pain in joints of both feet Status: Acute (7) Hx of essential hypertension Status: Chronic - Assessment and Plan (Free Text) Plan: Continue Solumedrol, Xopenex, Robitussin M, [place], Gentamycin and rest of Tx.
[2017-03-05] MEDS: Clindamycin 600 MG in Sodium Chloride 0.9% 100 ML IVPB SCH (21:25)
[2017-03-05] MEDS: Gentamicin 60mg/50ml NS 60 MG/50 ML BAG IVPB SCH (21:26)
[2017-03-05] MEDS: guaiFENesin DM 200 mg-20 mg/10 ml UD PO SCH (21:27)
[2017-03-05] MEDS: Insulin Regular 100 units/ml SC SCH (21:32)
[2017-03-05] MEDS: Levalbuterol 0.63 MG/3 ML Inhal Soln UD IH SCH (23:56)
[2017-03-06] MEDS: Ipratropium 0.02% Inhal Soln (0.5 mg/2.5 ml) UD IH SCH ×6 (03:37→23:34)
[2017-03-06] MEDS: Clindamycin 600 MG in Sodium Chloride 0.9% 100 ML IVPB SCH ×3 (04:07→20:55)
[2017-03-06] MEDS: methylPREDNISolone 20 MG in Sodium Chloride 0.9% 50 ML IVPB SCH (04:08)
[2017-03-06] MEDS: Insulin Regular 100 units/ml SC SCH ×3 (06:30→17:07)
[2017-03-06] MEDS: Levalbuterol 0.63 MG/3 ML Inhal Soln UD IH SCH ×3 (07:32→23:35)
[2017-03-06] MEDS: Acetylcysteine 10% 4 ML IH SCH ×4 (07:33→21:31)
[2017-03-06] MEDS: Budesonide 0.25 mg/2 ml Inhal Susp UD INH SCH ×2 (07:33→21:35)
[2017-03-06 07:51] LABS: HEMATOCRIT 39.7 % (35.0-51.0); MEAN CELL VOLUME 92.2 fl (80.0-94.0); MEAN CORPUSCULAR HEMOGLOBIN 30.3 pg (27.0-31.0); MEAN CORPUSCULAR HGB CONC 32.9 g/dL (33.0-37.0); RED CELL DISTRIBUTION WIDTH 14.9 % (11.5-14.5); WHITE BLOOD COUNT 5.9 K/uL (4.8-10.8)
[2017-03-06 08:03] LABS: ALKALINE PHOSPHATASE 56 U/L (38-126); ALT/SGPT 66 U/L (21-72); AST/SGOT 25 U/L (17-59); BILIRUBIN,TOTAL 0.3 mg/dl (0.2-1.3); BLOOD UREA NITROGEN 51 mg/dl (9-20); CARBON DIOXIDE 27 mmol/L (22-30); CHLORIDE 104 mmol/L (98-107); GFR AFRICAN-AMERICAN > 60; GLUCOSE,RANDOM 166 mg/dL (75-110); POTASSIUM 4.9 MMOL/L (3.6-5.0); SODIUM 140 mmol/l (132-148); TOTAL PROTEIN 5.6 G/DL (6.3-8.2)
[2017-03-06 08:04] LABS: ALB/GLOB RATIO 1.2 (1.0-2.1)
[2017-03-06] MEDS: Tiotropium 18 mcg Cap For Inhalation IH SCH (08:57)
[2017-03-06] MEDS: Ammonium Lactate 12% Cream (140 g) TOP SCH ×2 (08:58→17:04)
[2017-03-06] MEDS: Gentamicin 60mg/50ml NS 60 MG/50 ML BAG IVPB SCH ×2 (08:58→17:03)
[2017-03-06] MEDS: Sod Polystyrene Sulf 15 gm/60 ml Oral Susp PO SCH (08:58)
[2017-03-06] MEDS: guaiFENesin DM 200 mg-20 mg/10 ml UD PO SCH ×4 (08:59→20:59)
[2017-03-06] MEDS: Vitamin A/D oint 60G TP SCH ×2 (08:59→17:04)
[2017-03-06] MEDS: Pantoprazole 40 mg EC Tab PO SCH (08:59)
[2017-03-06] MEDS: Simethicone 80 mg Chewtab PO PRN (09:02)
--- NOTE | 2017-03-06 12:35 | CP.PCM.CON ---
History of Present Illness - History of Present Illness History of Present Illness: Psychiatry consult note called for evaluation of anxiety CC: "I'm okay" HPI: 86 yo male, poor historian, denies psychiatric history, a PMH of COPD, HTN , HLD, he is currently at [facility] due to a COPD exacerbation. He denies all psychiatric symptoms to the selling underwriter. Denies depression/anxiety/ staci/delusions / paranoia/ hallucinations/ obsessions/compulsion. PPHx: Denies h/o psychiatric hospitalization or treatment PMH: COPD, HTN, HLD, hiatal hernia PSH: right inguinal hernia repair, cataracts Allergies: moxifloxacin, PCNs, tomato, levofloxacin, guaifenesin SHx: Has two children, , +dogs. MSE: A + O x 3, calm, cooperative, speaks vincentian, speech labored due to difficulty breathing, mood "Okay", affect- full range, no delusios, thought process- linear/ coherent, no paranoia/delusions. no hallucinations. I/J fair. Impression: 86 yo male denies all acute psychiatric complaints to the selling underwriter. Recommendations: -No acute psychiatric admission or medications indicated Past Patient History - Infectious Disease Hx of Infectious Diseases: None - Past Medical History & Family History Past Medical History?: Yes - Past Social History Smoking Status: Former Smoker Alcohol: None Drugs: Denies Home Situation {Lives}: Alone - CARDIAC Hx Cardiac Disorders: Yes Hx Hypertension: Yes - PULMONARY Hx Respiratory Disorders: Yes Hx Asthma: Yes Hx Chronic Obstructive Pulmonary Disease (COPD): Yes Hx Pneumonia: Yes - NEUROLOGICAL Hx Neurological Disorder: No - HEENT Hx HEENT Problems: Yes Hx Cataracts: Yes Hx Glaucoma: Yes - RENAL Hx Chronic Kidney Disease: Yes Other/Comment: ckd - ENDOCRINE/METABOLIC Hx Endocrine Disorders: Yes Hx Diabetes Mellitus Type 2: Yes - HEMATOLOGICAL/ONCOLOGICAL Hx Blood Disorders: Yes Hx AIDS: No Hx Cirrhosis: Yes Hx Human Immunodeficiency Virus (HIV): No - INTEGUMENTARY Hx Dermatological Problems: Yes Hx Psoriasis: Yes - MUSCULOSKELETAL/RHEUMATOLOGICAL Hx Falls: No - GASTROINTESTINAL Hx Gastrointestinal Disorders: Yes Hx Gastroesophageal Reflux: Yes Hx Liver Failure: Yes (LIVER CIRRHOSIS) Hx Ulcer: Yes - GENITOURINARY/GYNECOLOGICAL Hx Genitourinary Disorders: Yes Hx Prostate Problems: Yes (enlarged) - PSYCHIATRIC Hx Substance Use: No - SURGICAL HISTORY Hx Surgeries: Yes Hx Cataract Extraction: Yes Hx Herniorrhaphy: Yes (abdominal hernia repair 15 yrs ago) - ANESTHESIA Hx Anesthesia: Yes Hx Anesthesia Reactions: No Hx Malignant Hyperthermia: No Meds Allergies/Adverse Reactions: Allergies Allergy/AdvReac Type Severity Reaction Status Date / Time guaifenesin [From Mucinex] Allergy RASH Verified 02/12/17 14:54 levofloxacin [From Levaquin] Allergy ITCHING Verified 02/14/17 04:48 moxifloxacin HCl Allergy RASH Verified 10/03/16 15:22 [From Avelox] Penicillins Allergy RASH Verified 10/03/16 15:22 tomato Allergy RASH Verified 10/03/16 15:22 - Medications Medications: Current Medications Acetaminophen (Tylenol 325mg Tab) 650 mg PO Q6H PRN PRN Reason: Pain, Mild (1-3) Acetylcysteine (Mucomyst 10% 4ml) 4 ml IH RQID [facility] Last Admin: 03/06/17 12:00 Dose: 4 ml Artificial Tears (Artificial Tears) 2 drop OU Q6H PRN PRN Reason: Dry eyes Budesonide (Pulmicort Respules) 0.25 mg INH RBID [facility] Last Admin: 03/06/17 07:33 Dose: 0.25 mg Diltiazem HCl (Cardizem) 30 mg PO QID [facility] Last Admin: 03/06/17 08:57 Dose: 30 mg Guaifenesin/Dextromethorphan (Robitussin Dm) 10 ml PO QID [facility] Last Admin: 03/06/17 08:59 Dose: 10 ml Clindamycin Phosphate 600 mg/ (Sodium Chloride) 104 mls @ 104 mls/hr IVPB Q8@ 0500,1300,2100 [facility] Last Admin: 03/06/17 04:07 Dose: 104 mls/hr Methylprednisolone 20 mg/ (Sodium Chloride) 50 mls @ 100 mls/hr IVPB Q12@0500, 1700 [facility] Last Admin: 03/06/17 04:08 Dose: 100 mls/hr Gentamicin Sulfate/Sodium Chloride (Gentamicin 60mg/50ml Ns) 60 mg in 50 mls @ 50 mls/hr IVPB Q12@0500,1700 [facility] Insulin Human Regular (Humulin R) 0 units SC ACHS [facility] PRN Reason: Protocol Last Admin: 03/06/17 12:09 Dose: 1 unit Ipratropium [place] (Atrovent) 0.5 mg IH Q4H [facility] Last Admin: 03/06/17 12:00 Dose: 0.5 mg Lactic Acid (Lac-Hydrin 12% Cream (140 G)) 1 ea TOP BID [facility] Last Admin: 03/06/17 08:58 Dose: 1 dose Levalbuterol HCl (Xopenex) 0.63 mg IH RQ8 [facility] Last Admin: 03/06/17 07:32 Dose: 0.63 mg Pantoprazole Sodium (Protonix Ec Tab) 40 mg PO DAILY [facility] Last Admin: 03/06/17 08:59 Dose: 40 mg Promethazine HCl/Dextromethorphan (Phenergan Dm Syrup) 5 ml PO Q6H PRN PRN Reason: Cough Simethicone (Mylicon Chew Tab) 80 mg PO Q4 PRN PRN Reason: Flatulence Last Admin: 03/06/17 09:02 Dose: 80 mg Sitagliptin Phosphate (Januvia) 50 mg PO DAILY [facility] Last Admin: 03/06/17 08:58 Dose: 50 mg Sodium Chloride ([place] Nasal [place]) 1 sprays IMELDA Q4H PRN PRN Reason: Nasal congestion Last Admin: 03/03/17 08:48 Dose: 1 spr Sodium Polystyrene Sulfonate (Kayexalate Oral Susp) 15 gm PO DAILY [facility] Last Admin: 03/06/17 08:58 Dose: 15 gm Tiotropium [place] (Spiriva) 18 mcg IH DAILY [facility] Last Admin: 03/06/17 08:57 Dose: 18 mcg Vitamin A (Vitamin A&D) 1 applic TP BID [facility] Last Admin: 03/06/17 08:59 Dose: 1 applic Results - Vital Signs Recent Vital Signs: Last Vital Signs Temp 98.1 F 03/06/17 08:06 Pulse 85 03/06/17 08:57 Resp 20 03/06/17 08:06 BP 120/69 03/06/17 08:57 Pulse Ox 98 03/06/17 08:06 - Labs Result Diagrams: 03/06/17 07:36 03/06/17 07:36 Labs: Laboratory Results - last 24 hr 03/05/17 03/05/17 03/05/17 04:00 04:00 10:38 WBC 5.7 RBC 4.44 Hgb 13.3 Hct 41.3 MCV 93.1 MCH 29.9 MCHC 32.1 L RDW 15.1 H Plt Count 123 L Sodium 138 Potassium 4.9 Chloride 104 Carbon Dioxide 26 Anion Gap 13 BUN 58 H Creatinine 0.9 Est GFR ( Amer) > 60 Est GFR (Non-Af Amer) > 60 POC Glucose (mg/dL) 183 H Random Glucose 211 H Calcium 8.4 Total Bilirubin 0.4 AST 30 ALT 73 H D Alkaline Phosphatase 56 Total Protein 5.7 L Albumin 3.0 L Globulin 2.7 Albumin/Globulin Ratio 1.1 03/05/17 03/05/17 03/06/17 16:23 21:05 07:36 WBC 5.9 RBC 4.31 L Hgb 13.1 Hct 39.7 MCV 92.2 MCH 30.3 MCHC 32.9 L RDW 14.9 H Plt Count 132 Sodium Potassium Chloride Carbon Dioxide Anion Gap BUN Creatinine Est GFR ( Amer) Est GFR (Non-Af Amer) POC Glucose (mg/dL) 194 H 205 H Random Glucose Calcium Total Bilirubin AST ALT Alkaline Phosphatase Total Protein Albumin Globulin Albumin/Globulin Ratio 03/06/17 03/06/17 07:36 10:56 WBC RBC Hgb Hct MCV MCH MCHC RDW Plt Count Sodium 140 Potassium 4.9 Chloride 104 Carbon Dioxide 27 Anion Gap 13 BUN 51 H Creatinine 0.8 Est GFR ( Amer) > 60 Est GFR (Non-Af Amer) > 60 POC Glucose (mg/dL) 162 H Random Glucose 166 H Calcium 9.0 Total Bilirubin 0.3 AST 25 ALT 66 Alkaline Phosphatase 56 Total Protein 5.6 L Albumin 3.0 L Globulin 2.6 Albumin/Globulin Ratio 1.2
[2017-03-06] MEDS ORDERED: MethylPREDNISolone 40 mg Vial ONE (13:47)
[2017-03-06] MEDS ORDERED: Albuterol-Ipratrop 3 mg / 0.5 (3 ml) UD ONE (13:50)
[2017-03-06] MEDS ORDERED: Albuterol-Ipratrop 3 mg / 0.5 (3 ml) UD INH STA (13:56)
[2017-03-06 14:01] LABS: ABG ALLEN TEST YES; ARTERIAL BLOOD FLOW 3; ARTERIAL BLOOD GAS HCO3 28.1 mmol/L (21-28); ARTERIAL BLOOD GAS MODE NC; ARTERIAL BLOOD GAS O2 CAPACITY 19.6 mL/dL (16-24); ARTERIAL BLOOD GAS O2 CONTENT 17.7 ML/dL (15-23); ARTERIAL BLOOD GAS PH 7.44 (7.35-7.45); ARTERIAL BLOOD GAS PO2 49 mm/Hg (80-100); ARTERIAL BLOOD HGB O2 SAT 86.9 % (95.0-98.0); CARBOXYHEMOGLOBIN 2.2 % (0.5-1.5); HHB 9.2 % (0.0-5.0); METHEMOGLOBIN 1.8 % (0.0-3.0)
[2017-03-06] MEDS ORDERED: Ipratropium 0.02% Inhal Soln (0.5 mg/2.5 ml) UD IH ONE (14:10)
[2017-03-06] MEDS ORDERED: methylPREDNISolone 40 MG in Sodium Chloride 0.9% 50 ML IVPB ONE (14:24)
--- NOTE | 2017-03-06 14:28 | CP.PCM.PN ---
Subjective - Date & Time of Evaluation Date of Evaluation: 03/06/17 Time of Evaluation: 12:10 - Subjective Subjective: F/U COPD Exacerbation, PNA. Pt with no SOB, Objective - Vital Signs/Intake and Output Vital Signs (last 24 hours): Temp Pulse Resp BP Pulse Ox 98.1 F 110 H 20 129/71 98 03/06/17 08:06 03/06/17 13:08 03/06/17 08:06 03/06/17 13:08 03/06/17 08:06 - Medications Medications: Current Medications Acetaminophen (Tylenol 325mg Tab) 650 mg PO Q6H PRN PRN Reason: Pain, Mild (1-3) Acetylcysteine (Mucomyst 10% 4ml) 4 ml IH RQID [facility] Last Admin: 03/06/17 12:00 Dose: 4 ml Artificial Tears (Artificial Tears) 2 drop OU Q6H PRN PRN Reason: Dry eyes Budesonide (Pulmicort Respules) 0.25 mg INH RBID [facility] Last Admin: 03/06/17 07:33 Dose: 0.25 mg Diltiazem HCl (Cardizem) 30 mg PO QID [facility] Last Admin: 03/06/17 13:08 Dose: 30 mg Guaifenesin/Dextromethorphan (Robitussin Dm) 10 ml PO QID [facility] Last Admin: 03/06/17 13:08 Dose: 10 ml Clindamycin Phosphate 600 mg/ (Sodium Chloride) 104 mls @ 104 mls/hr IVPB Q8@ 0500,1300,2100 [facility] Last Admin: 03/06/17 13:08 Dose: 104 mls/hr Gentamicin Sulfate/Sodium Chloride (Gentamicin 60mg/50ml Ns) 60 mg in 50 mls @ 50 mls/hr IVPB Q12@0500,1700 [facility] Methylprednisolone 20 mg/ (Sodium Chloride) 50 mls @ 100 mls/hr IVPB DAILY [facility] Methylprednisolone 20 mg/ (Sodium Chloride) 50 mls @ 100 mls/hr IVPB ONCE ONE Stop: 03/07/17 14:25 Methylprednisolone 40 mg/ (Sodium Chloride) 50 mls @ 100 mls/hr IVPB ONCE ONE Stop: 03/06/17 14:53 Insulin Human Regular (Humulin R) 0 units SC ACHS [facility] PRN Reason: Protocol Last Admin: 03/06/17 12:09 Dose: 1 unit Ipratropium [place] (Atrovent) 0.5 mg IH Q4H [facility] Last Admin: 03/06/17 12:00 Dose: 0.5 mg Lactic Acid (Lac-Hydrin 12% Cream (140 G)) 1 ea TOP BID [facility] Last Admin: 03/06/17 08:58 Dose: 1 dose Levalbuterol HCl (Xopenex) 0.63 mg IH RQ8 [facility] Last Admin: 03/06/17 07:32 Dose: 0.63 mg Pantoprazole Sodium (Protonix Ec Tab) 40 mg PO DAILY [facility] Last Admin: 03/06/17 08:59 Dose: 40 mg Promethazine HCl/Dextromethorphan (Phenergan Dm Syrup) 5 ml PO Q6H PRN PRN Reason: Cough Simethicone (Mylicon Chew Tab) 80 mg PO Q4 PRN PRN Reason: Flatulence Last Admin: 03/06/17 09:02 Dose: 80 mg Sitagliptin Phosphate (Januvia) 50 mg PO DAILY [facility] Last Admin: 03/06/17 08:58 Dose: 50 mg Sodium Chloride ([place] Nasal [place]) 1 sprays IMELDA Q4H PRN PRN Reason: Nasal congestion Last Admin: 03/03/17 08:48 Dose: 1 spr Sodium Polystyrene Sulfonate (Kayexalate Oral Susp) 15 gm PO DAILY [facility] Last Admin: 03/06/17 08:58 Dose: 15 gm Tiotropium [place] (Spiriva) 18 mcg IH DAILY [facility] Last Admin: 03/06/17 08:57 Dose: 18 mcg Vitamin A (Vitamin A&D) 1 applic TP BID [facility] Last Admin: 03/06/17 08:59 Dose: 1 applic - Labs Labs: 03/06/17 07:36 03/06/17 07:36 - Constitutional Appears: No Acute Distress - Head Exam Head Exam: NORMAL INSPECTION - Eye Exam Eye Exam: PERRL - ENT Exam ENT Exam: Normal Oropharynx - Neck Exam Neck Exam: Normal Inspection - Respiratory Exam Respiratory Exam: Decreased Breath Sounds (at bases), Rhonchi (scattered) - Cardiovascular Exam Cardiovascular Exam: REGULAR RHYTHM - GI/Abdominal Exam GI & Abdominal Exam: Soft, Normal Bowel Sounds - Extremities Exam Additional comments: Chronic venous stasis, skin changes R-L legs - Back Exam Back Exam: NORMAL INSPECTION - Neurological Exam Neurological Exam: Alert, Oriented x3. absent: Motor Sensory Deficit - Psychiatric Exam Psychiatric exam: Anxious - Skin Skin Exam: Warm Assessment and Plan (1) COPD exacerbation Status: Acute (2) Pneumonia Status: Acute (3) Ulcer of right ankle Status: Resolved (4) Venous insufficiency of both lower extremities Status: Chronic (5) DMII (diabetes mellitus, type 2) Status: Acute (6) Pain in joints of both feet Status: Acute (7) Hx of essential hypertension Status: Chronic - Assessment and Plan (Free Text) Plan: Pt was seen by Psychiatric consult and recommended no psychiatric admission or medication indicated. [place] steroids, continue Xopenex, Pulmicort, Spiriva, Clindamycin, and rest of Tx. Psychiatric consult appreciated
--- NOTE | 2017-03-06 14:28 | RAD ---
HISTORY: sob COMPARISON: Comparison made with prior study 03/01/[address] scan chest dated 02/23/2017 theNo prior. FINDINGS: LUNGS: Emphysematous changes upper lobe predominance. Patchy opacity could represent atelectasis and or infiltrate right middle lobe with vague patchy opacities in the right lung base and some minor atelectasis left lingular region. PLEURA: No significant pleural effusion identified, no pneumothorax apparent. CARDIOVASCULAR: Normal. OSSEOUS STRUCTURES: No significant abnormalities. VISUALIZED UPPER ABDOMEN: Normal. OTHER FINDINGS: None. IMPRESSION: Emphysematous changes upper lobe predominance. Patchy opacity could represent atelectasis and or infiltrate right middle lobe with vague patchy opacities in the right lung base and some minor atelectasis left lingular region.
--- NOTE | 2017-03-06 17:11 | PCM.RRTMUL ---
GENERAL ACTIVITIES THERAPIST Nurse Assessment - Situation GENERAL ACTIVITIES THERAPIST Responder Arrival Time:: 13:49 Location:: [facility] Room Number:: 707-1 GENERAL ACTIVITIES THERAPIST Reason for Call: Respiratory Distress, O2 Saturation below 90% GENERAL ACTIVITIES THERAPIST Called By: RN - IV IV Inserted during GENERAL ACTIVITIES THERAPIST?: No New IV Insertion Tolerance:: Excellent - Respiratory Oxygen Delivery Method:: High-Flow Received Nebulizer Treatments:: Yes Was the Patient Ventilated with Bag/Mask 100% O2?: No Secretions Suctioned?: No Was the Patient Intubated?: No Was the Patient Placed on a Ventilator?: No - Ventilator Settings FIO2 (% Oxygen):: 40 - Medication Medications Administered During GENERAL ACTIVITIES THERAPIST :: Duoneb f/b Atrovent; Solumedrol 20 IV the additional 40IV - Diagnostic Test Ordered EKG:: Yes Chest X-Ray:: Yes CT Scan:: No - Stat Labs Ordered GENERAL ACTIVITIES THERAPIST Stat Labs Ordered:: ABG CPR started during GENERAL ACTIVITIES THERAPIST?: No - Vital Signs Blood Pressure:: 124/84 Pulse Rate:: 110 Respiratory Rate:: 16 - Time GENERAL ACTIVITIES THERAPIST Ended Time GENERAL ACTIVITIES THERAPIST Ended:: 14:29 - Vital Signs at end of GENERAL ACTIVITIES THERAPIST Blood Pressure:: 122/56 Pulse Rate:: 118 Respiratory Rate:: 29 O2 Sat by Pulse Oximetry:: 92 - Recommendations 5) GENERAL ACTIVITIES THERAPIST Level of Care Recommendations: Remain in current setting Responder Note - GENERAL ACTIVITIES THERAPIST Team GENERAL ACTIVITIES THERAPIST Leader:: Michael Carrasco Resident:: Devaughn Vicente - Vital Signs at Initial Assessment Blood Pressure:: 124/84 Pulse Rate:: 110 Respiratory Rate:: 26 O2 Sat by Pulse Oximetry:: 87 - Acute Change in Patient Acute Change in Patient: (Select all that apply): Acute change in SpO2 less than 90% - Neurological Status Neurological Status (Select all that apply):: Alert, Oriented - Respiratory GENERAL ACTIVITIES THERAPIST Delivery Method:: High-Flow @% (40) Oxygen Flow Rate:: 40 - Assessment of Findings GENERAL ACTIVITIES THERAPIST Interventions: ABG, CKR, EKG, Accucheck, Duoneb x1, Atrovent x1, Solumedrol IV, HIgh flow Summary - Summary of Event Summary of Event: 86 y/o M with PMHx of COPD, admitted for COPD exacerbation and Pneumonia is called GENERAL ACTIVITIES THERAPIST because of SOB and low O2sat. Patient evaluated with Dr Carrasco( Hospitalist), noticed to be in moderate resp distress c/o of difficulty breathing, no acrocyanosis, CP, palpitations, abd pain, nausea or vomiting. Initial VS: BP 124/84, HR 110, O2sat 87 on O2 3L NC PE: Bibasilar crackles, impaired air entrance, no wheezes. RRR, S1S2, Alert, oriented, awake Skin: NO cyanosis Outcomes - GENERAL ACTIVITIES THERAPIST Outcomes GENERAL ACTIVITIES THERAPIST Outcomes: A&P -Acute resp distress most likely COPD exacerbation + Pneumonia VS as above Accucheck: 123 ABG stat EKG, CXR stat Duoneb 1 dose stat Solumedrol 20mg IV once O2 4L/min ABG: PO2 49, PCO2 43, Ph 7.44 CXR: Read by me: No significant interval change from 03/01/17 EKG: Read by me: RBBB, no acute ischemic changes, no significant changes compared to previous. Atrovent 1 dose stat given(Held Duoneb due to HR 120s) Decided to start High flow O2 at 40%, 20L(patient unable to tolerate masks according to nurse) Spoked with Dr Mcneal on the phone: Agreed with plan and recommended another 40mg IV solumedrol and is ordered and given to patient Patient started improving after High flow oxygen treatment, O2sat improved to 92 and patient was breathing with no difficulty Last VS: BP: 122/56 HR: 118 O2sat 92 End of GENERAL ACTIVITIES THERAPIST
--- NOTE | 2017-03-06 21:55 | CARD ---
APPROVED REPORT EKG Measurement Heart [id number] <Conclusion> Sinus tachycardia with premature atrial complexes Left axis deviation Right bundle branch block Abnormal ECG
[2017-03-07] MEDS ORDERED: Oxycodone/Acetaminophen 5/325 mg Tab PO ONE (02:37)
[2017-03-07] MEDS: Ipratropium 0.02% Inhal Soln (0.5 mg/2.5 ml) UD IH SCH ×3 (03:38→11:41)
[2017-03-07] MEDS: Clindamycin 600 MG in Sodium Chloride 0.9% 100 ML IVPB SCH ×2 (04:18→12:32)
[2017-03-07] MEDS: Gentamicin 60mg/50ml NS 60 MG/50 ML BAG IVPB SCH (04:20)
[2017-03-07] MEDS: Insulin Regular 100 units/ml SC SCH ×3 (06:40→12:29)
[2017-03-07] MEDS: Acetylcysteine 10% 4 ML IH SCH ×2 (07:35→11:40)
[2017-03-07] MEDS: Budesonide 0.25 mg/2 ml Inhal Susp UD INH SCH (07:35)
[2017-03-07] MEDS: Levalbuterol 0.63 MG/3 ML Inhal Soln UD IH SCH (07:36)
[2017-03-07] MEDS ORDERED: methylPREDNISolone 20 MG in Sodium Chloride 0.9% 50 ML IVPB SCH (09:00)
[2017-03-07 09:23] VITALS: O2SAT 97
[2017-03-07] MEDS: Pantoprazole 40 mg EC Tab PO SCH (09:34)
[2017-03-07] MEDS: Tiotropium 18 mcg Cap For Inhalation IH SCH (09:34)
[2017-03-07] MEDS: guaiFENesin DM 200 mg-20 mg/10 ml UD PO SCH ×2 (09:35→12:29)
[2017-03-07] MEDS: Ammonium Lactate 12% Cream (140 g) TOP SCH (09:37)
[2017-03-07] MEDS: Vitamin A/D oint 60G TP SCH (09:39)
[2017-03-07] MEDS: Sod Polystyrene Sulf 15 gm/60 ml Oral Susp PO SCH ×2 (09:41→09:46)
[2017-03-07 11:44] VITALS: RESP 18
[2017-03-07 12:27] VITALS: TEMP 100.8
[2017-03-07 12:29] VITALS: BP 127/83; PULSE 120
[2017-03-07] MEDS ORDERED: methylPREDNISolone 20 MG in Sodium Chloride 0.9% 50 ML IVPB ONE (13:56)
[2017-03-07 14:32] LABS: ABG ALLEN TEST YES; ARTERIAL BLOOD GAS HCO3 27.6 mmol/L (21-28); ARTERIAL BLOOD GAS O2 CAPACITY 20.1 mL/dL (16-24); ARTERIAL BLOOD GAS O2 CONTENT 18.2 ML/dL (15-23); ARTERIAL BLOOD GAS PH 7.44 (7.35-7.45); ARTERIAL BLOOD GAS PO2 50 mm/Hg (80-100); CARBOXYHEMOGLOBIN 2.3 % (0.5-1.5); HHB 9.1 % (0.0-5.0); METHEMOGLOBIN 1.6 % (0.0-3.0)
--- NOTE | 2017-03-07 15:05 | CP.PCM.PN ---
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 Objective - Vital Signs/Intake and Output Vital Signs (last 24 hours): Temp Pulse Resp BP Pulse Ox 100.8 F H 120 H 18 127/83 97 03/07/17 12:26 03/07/17 12:24 03/07/17 11:41 03/07/17 12:24 03/07/17 09:18 - Medications Medications: Current Medications Acetaminophen (Tylenol 325mg Tab) 650 mg PO Q6H PRN PRN Reason: Pain, Mild (1-3) Last Admin: 03/07/17 12:19 Dose: 650 mg Acetylcysteine (Mucomyst 10% 4ml) 4 ml IH RQID [facility] Last Admin: 03/07/17 11:40 Dose: 4 ml Alprazolam (Xanax) 0.25 mg PO Q12 PRN PRN Reason: Anxiety Stop: 03/13/17 14:57 Artificial Tears (Artificial Tears) 2 drop OU Q6H PRN PRN Reason: Dry eyes Diltiazem HCl (Cardizem) 30 mg PO QID [facility] Last Admin: 03/07/17 12:24 Dose: 30 mg Guaifenesin/Dextromethorphan (Robitussin Dm) 10 ml PO QID [facility] Last Admin: 03/07/17 12:29 Dose: 10 ml Clindamycin Phosphate 600 mg/ (Sodium Chloride) 104 mls @ 104 mls/hr IVPB Q8@ 0500,1300,2100 [facility] Last Admin: 03/07/17 12:32 Dose: 104 mls/hr Gentamicin Sulfate/Sodium Chloride (Gentamicin 60mg/50ml Ns) 60 mg in 50 mls @ 50 mls/hr IVPB Q12@0500,1700 [facility] Last Admin: 03/07/17 04:20 Dose: 50 mls/hr Methylprednisolone 20 mg/ (Sodium Chloride) 50 mls @ 100 mls/hr IVPB DAILY [facility] Last Admin: 03/07/17 09:40 Dose: 100 mls/hr Insulin Human Regular (Humulin R) 0 units SC ACHS [facility] PRN Reason: Protocol Last Admin: 03/07/17 12:29 Dose: Not Given Ipratropium [place] (Atrovent) 0.5 mg IH Q4H [facility] Last Admin: 03/07/17 11:41 Dose: 0.5 mg Lactic Acid (Lac-Hydrin 12% Cream (140 G)) 1 ea TOP BID [facility] Last Admin: 03/07/17 09:37 Dose: 1 dose Levalbuterol HCl (Xopenex) 0.63 mg IH RQ8 [facility] Last Admin: 03/07/17 07:36 Dose: 0.63 mg Pantoprazole Sodium (Protonix Ec Tab) 40 mg PO DAILY [facility] Last Admin: 03/07/17 09:34 Dose: 40 mg Promethazine HCl/Dextromethorphan (Phenergan Dm Syrup) 5 ml PO Q6H PRN PRN Reason: Cough Simethicone (Mylicon Chew Tab) 80 mg PO Q4 PRN PRN Reason: Flatulence Last Admin: 03/06/17 09:02 Dose: 80 mg Sitagliptin Phosphate (Januvia) 50 mg PO DAILY [facility] Last Admin: 03/07/17 09:34 Dose: 50 mg Sodium Chloride ([place] Nasal [place]) 1 sprays IMELDA Q4H PRN PRN Reason: Nasal congestion Last Admin: 03/03/17 08:48 Dose: 1 spr Sodium Polystyrene Sulfonate (Kayexalate Oral Susp) 15 gm PO DAILY [facility] Last Admin: 03/07/17 09:46 Dose: 15 gm Tiotropium [place] (Spiriva) 18 mcg IH DAILY [facility] Last Admin: 03/07/17 09:34 Dose: 18 mcg Vitamin A (Vitamin A&D) 1 applic TP BID [facility] Last Admin: 03/07/17 09:39 Dose: 1 applic - Labs Labs: 03/06/17 07:36 03/06/17 07:36 - Constitutional Appears: No Acute Distress - Head Exam Head Exam: NORMAL INSPECTION - Eye Exam Eye Exam: PERRL - ENT Exam ENT Exam: Normal Oropharynx - Neck Exam Neck Exam: Normal Inspection - Respiratory Exam Respiratory Exam: Decreased Breath Sounds (at bases), Rhonchi (scattered) - Cardiovascular Exam Cardiovascular Exam: REGULAR RHYTHM - GI/Abdominal Exam GI & Abdominal Exam: Soft, Normal Bowel Sounds Additional comments: Minimal tenderness R inguinal area - Extremities Exam Additional comments: Chronic venous stasis, skin changes R-L legs - Back Exam Back Exam: NORMAL INSPECTION - Neurological Exam Neurological Exam: Alert, Oriented x3. absent: Motor Sensory Deficit - Psychiatric Exam Psychiatric exam: Anxious - Skin Skin Exam: Warm Assessment and Plan (1) COPD exacerbation Status: Acute (2) Pneumonia Status: Acute (3) Ulcer of right ankle Status: Resolved (4) Venous insufficiency of both lower extremities Status: Chronic (5) DMII (diabetes mellitus, type 2) Status: Acute (6) Pain in joints of both feet Status: Acute (7) Hx of essential hypertension Status: Chronic - Assessment and Plan (Free Text) Plan: Pt had a Trial of NC 4 L/m in order to have Physical therapy but when he moved out of bed to chair he get desaturated to 86-87 %, Pt was placed again in high flow O2, cancel PT today. Continue Solumedrol, Pulmicort, Xopenex, Clindamycin, Gentamicin and rest of Tx.
== END 2017-03-07 15:30 | disposition short-term general hospital (02) | DRG 190 ==
LOC: H.TCU 02-27 18:45
PROVIDERS: ADMIT Internal Medicine Pulmonary Disease; ATTEND Internal Medicine Pulmonary Disease
PROC: F07L0FZ Range of Motion and Joint Mobility Treatment of Musculoskeletal System - Lower Back / Lower Extremity using Assistive, Adaptive, Supportive or Protective Equipment (ICD-10-PCS; principal; 2017-02-27)
PROC: F07L6ZZ Therapeutic Exercise Treatment of Musculoskeletal System - Lower Back / Lower Extremity (ICD-10-PCS; 2017-02-27)
PROC: F08Z4ZZ Home Management Treatment (ICD-10-PCS; 2017-02-27)
PROC: F07Z9FZ Gait Training/Functional Ambulation Treatment using Assistive, Adaptive, Supportive or Protective Equipment (ICD-10-PCS; 2017-02-27)
PROC: 5A0955Z Assistance with Respiratory Ventilation, Greater than 96 Consecutive Hours (ICD-10-PCS; 2017-02-27)
DX: J44.1 Chronic obstructive pulmonary disease with (acute) exacerbation (principal); J18.9 Pneumonia, unspecified organism; R06.00 Dyspnea, unspecified; I87.2 Venous insufficiency (chronic) (peripheral); J44.0 Chronic obstructive pulmonary disease with (acute) lower respiratory infection; Z88.6 Allergy status to analgesic agent; Z88.0 Allergy status to penicillin; Z91.018 Allergy to other foods; Z87.891 Personal history of nicotine dependence; M79.672 Pain in left foot; M79.671 Pain in right foot; R10.31 Right lower quadrant pain; E78.5 Hyperlipidemia, unspecified; J45.909 Unspecified asthma, uncomplicated; N18.9 Chronic kidney disease, unspecified; I12.9 Hypertensive chronic kidney disease with stage 1 through stage 4 chronic kidney disease, or unspecified chronic kidney disease

== ENCOUNTER 2017-03-07 15:30 | Inpatient (IN) | payer MEDICARE, MEDICAID ==
[2017-03-07 15:31] VITALS: BMI 29.8
[2017-03-07 16:24] LABS: BASO % 0.3 % (0.0-2.0); HEMATOCRIT 44.2 % (35.0-51.0); LYMPH # 0.3 K/uL (1.0-4.3); LYMPH % 4.4 % (20.0-40.0); MEAN CORPUSCULAR HEMOGLOBIN 30.1 pg (27.0-31.0); MEAN CORPUSCULAR HGB CONC 32.8 g/dL (33.0-37.0); MEAN PLATELET VOLUME 8.6 fl (7.2-11.7); MONO # 0.1 K/uL (0.0-0.8); MONO % 2.3 % (0.0-10.0); NRBC % 0.1 % (0.0-0.0); PLATELET COUNT 143 K/uL (130-400); RED CELL DISTRIBUTION WIDTH 14.6 % (11.5-14.5); WHITE BLOOD COUNT 6.4 K/uL (4.8-10.8)
[2017-03-07 16:31] LABS: BLOOD UREA NITROGEN 49 mg/dl (9-20); CALCIUM 8.9 mg/dL (8.4-10.2); CARBON DIOXIDE 26 mmol/L (22-30); CHLORIDE 104 mmol/L (98-107); GFR AFRICAN-AMERICAN > 60; GLUCOSE,RANDOM 121 mg/dL (75-110); POTASSIUM 4.8 MMOL/L (3.6-5.0); SODIUM 138 mmol/l (132-148)
[2017-03-07] MEDS ORDERED: Albuterol-Ipratrop 3 mg / 0.5 (3 ml) UD INH STA ×3 (16:53→16:55)
--- NOTE | 2017-03-07 17:21 | RAD ---
HISTORY: dyspnea COMPARISON: Chest x-ray performed 03/06/17 TECHNIQUE: Chest, one view. FINDINGS: Examination limited by habitus and patient obliquity. LUNGS: Small right pleural effusion and associated atelectasis or infiltrate at the lung base. Mild pulmonary venous congestion. No definite pneumothorax. Biapical pleural thickening. Please note that chest x-ray has limited sensitivity for the detection of pulmonary masses. CARDIOVASCULAR: Cardiomegaly. OSSEOUS STRUCTURES: Degenerative changes. Osseous demineralization. VISUALIZED UPPER ABDOMEN: Unremarkable. OTHER FINDINGS: None. IMPRESSION: Small right pleural effusion and associated atelectasis or infiltrate at the lung base. Mild pulmonary venous congestion. Biapical pleural thickening.
--- NOTE | 2017-03-07 17:27 | ED PDOC ---
HPI: SOB/CHF/COPD Time Seen by Provider: 03/07/17 15:36 Chief Complaint (Nursing): Respiratory Distress History Per: Patient, Family, Other (per PMD patient was have low saturations despite high flow NC O2. Patient with labored breathing in the ER. Reportedly his SpO2 were in the high 80's yesterday. Patient is not a good historian.) Current Symptoms Are (Timing): Still Present Past Medical History Reviewed: Historical Data, Nursing Documentation, Vital Signs Vital Signs: Last Vital Signs Temp 99.1 F 03/07/17 15:35 Pulse 109 H 03/07/17 17:47 Resp 27 H 03/07/17 17:47 BP 127/92 H 03/07/17 17:47 Pulse Ox 92 L 03/07/17 17:47 - Medical History PMH: Anxiety, Arthritis, Asthma, COPD, Emphysema, Gastrointestinal Ulcer, HTN, Hypercholesterolemia, Kidney Stones, Peripheral Edema, Pneumonia Denies: HIV, Chronic Kidney Disease - Family History Family History: States: Unknown Family Hx - Living Arrangements Living Arrangements: With Family (patient was transferred to the ED from TCU.) - Social History Current smoker - smoking cessation education provided: No Ex-Smoker (has not smoked in the last 12 months): Yes Alcohol: Occasional - Immunization History Hx Tetanus Toxoid Vaccination: No Hx Influenza Vaccination: Yes Hx Pneumococcal Vaccination: Yes - Home Medications Home Medications: Ambulatory Orders Medication Instructions Recorded Acetaminophen [Tylenol 325mg tab] 650 mg PO Q6 PRN tab 02/12/17 Acetaminophen [Tylenol 325mg tab] 650 mg PO Q6 PRN tab 02/12/17 Albuterol 0.042% [Albuterol 0.042% 3 ml IH Q8 #30 myrna 02/12/17 Inhal Myrna (1.25mg/3ml) UD] Ammonium Lactate 12% [Lac-Hydrin 1 ea TOP BID 02/12/17 12% Cream (140 g)] Enoxaparin [Lovenox] 40 mg SC DAILY syr 02/12/17 Levalbuterol [Xopenex] 1.25 mg INH RQ8 02/12/17 Pantoprazole [Protonix EC Tab] 40 mg PO DAILY ect 02/12/17 Sodium Chloride Nasal [place] [Tobin 2 sprays IMELDA Q4 PRN bottle 02/12/17 Nasal [place]] Tiotropium [Spiriva] 18 mcg INH DAILY cap 02/12/17 methylPREDNISolone [Solu-Medrol] 80 mg IV Q12 #30 ml 02/12/17 ALPRAZolam [Xanax] 0.25 mg PO Q12H PRN 02/19/17 Acetaminophen [Tylenol 325mg tab] 650 mg PO Q6H PRN 02/19/17 Acetylcysteine [Mucomyst 10% 4ML] 4 ml IH QID 02/19/17 Ammonium Lactate 12% [Lac-Hydrin 1 appl TOP BID 02/19/17 12% Cream (140 g)] Ipratropium 0.02% [Atrovent] 0.5 mg IH Q4H 02/19/17 Levalbuterol [Xopenex] 0.63 mg IH Q8H PRN 02/19/17 Pantoprazole Sodium [Protonix] 40 mg PO DAILY 02/19/17 Polyethylene Glycol/Polyvinyl 2 drop OU Q6H PRN 02/19/17 [Artificial Tears] Promethazine DM [Phenergan DM 5 ml PO Q6H PRN 02/19/17 Syrup] Sodium Chloride Nasal [place] [Tobin 2 spray IMELDA Q4H PRN 02/19/17 Nasal [place]] Tiotropium [Spiriva] 18 mcg IH DAILY 02/19/17 diltiaZEM [Cardizem] 30 mg PO QID 02/19/17 Aztreonam 1 Gm in NS 100mL 1 gm IV Q12 #16 ml 02/27/17 [Azactam 1 gm] Clindamycin [Cleocin 900 MG/100 NS 600 mg IV Q8 #18 bag 02/27/17 ADDVANTAGE] Insulin Human Regular [HumuLIN R] 0 units SC ACHS ml 02/27/17 guaiFENesin/Dextromethorphan 1 tab PO BID tab 02/27/17 [Mucinex-DM 600-30 mg] methylPREDNISolone [Solu-Medrol] 30 mg IV Q8 #20 vial 02/27/17 - Allergies Allergies/Adverse Reactions: Allergies Allergy/AdvReac Type Severity Reaction Status Date / Time guaifenesin [From Mucinex] Allergy RASH Verified 02/12/17 14:54 levofloxacin [From Levaquin] Allergy ITCHING Verified 02/14/17 04:48 moxifloxacin HCl Allergy RASH Verified 10/03/16 15:22 [From Avelox] Penicillins Allergy RASH Verified 10/03/16 15:22 tomato Allergy RASH Verified 10/03/16 15:22 Review of Systems ROS Statement: Except As Marked, All Systems Reviewed And Found Negative Constitutional: Negative for: Fever, Chills Respiratory: Positive for: Cough, Shortness of Breath Gastrointestinal: Negative for: Nausea, Vomiting Genitourinary Male: Negative for: Dysuria Physical Exam - Reviewed Nursing Documentation Reviewed: Yes Vital Signs Reviewed: Yes - Physical Exam Appears: Positive for: Well, Non-toxic, No Acute Distress Head Exam: Positive for: ATRAUMATIC, NORMAL INSPECTION, NORMOCEPHALIC Skin: Positive for: Normal Color, Warm, DRY Eye Exam: Positive for: Normal appearance ENT: Positive for: Normal ENT Inspection Neck: Positive for: Normal Cardiovascular/Chest: Positive for: Regular Rate, Rhythm Respiratory: Positive for: Decreased Breath Sounds, Accessory Muscle Use Gastrointestinal/Abdominal: Positive for: Normal Exam, Bowel Sounds, Soft Back: Positive for: Normal Inspection Extremity: Positive for: Normal ROM Neurologic/Psych: Positive for: Alert, Oriented - Laboratory Results Result Diagrams: 03/07/17 16:15 03/07/17 16:15 - ECG O2 Sat by Pulse Oximetry: 91 Medical Decision Making Medical Decision Makin.37p - progress and imaging studies reviewed with PMD. Will admit to telemetry due to low SpO2 and presence of new infiltrate. ED OBSERVATION Date of observation admission: 03/07/17 Time of observation admission: 17:43 - Observation admission statement Patient is being placed in observation because:: needing additional testing as per PMD request. Disposition - Clinical Impression Clinical Impression: Moderate COPD (chronic obstructive pulmonary disease), Pneumonia - Patient ED Disposition Is Patient to be Admitted: Yes Doctor Will See Patient In The: Hospital - Disposition Disposition: Transfer of Care Disposition Time: 18:15 Condition: GUARDED - Pt Status Changed To: Hospital Disposition Of: Inpatient - Admit Certification Admit to Inpatient:: After my assessment, the patient will require hospitalization for at least two midnights. This is because of the severity of symptoms shown, intensity of services needed, and/or the medical risk in this patient being treated as an outpatient. - POA Present On Arrival: None
[2017-03-07 18:00] LABS: NEUTROPHIL 94 % (42-75); REACTIVE LYMPHOCYTES 1 % (0-0); TOTAL CELLS COUNTED 100
--- NOTE | 2017-03-07 18:18 | CT ---
EXAM: CT Chest Without Intravenous Contrast CLINICAL HISTORY: 86 years old, male; Signs and symptoms; Shortness of breath; Patient HX: SOB copd. Smoker emphysema; Additional info: Worsening oxygen. Prior exam sent. Also today cxr TECHNIQUE: Axial computed tomography images of the chest without intravenous contrast. This CT exam was performed using one or more of the following dose reduction techniques: automated exposure control, adjustment of the mA and/or kV according to patient size, and/or use of iterative reconstruction technique. Coronal and sagittal reformatted images were created and reviewed. EXAM DATE/TIME: 03/07/2017 5:11 PM COMPARISON: CT - CHEST W/O CONTRAST 02/23/2017 9:17:24 AM FINDINGS: Artifacts: Motion artifact degrades image quality. Lungs and pleural spaces: Trachea and main bronchi are patent. Patient motion limits evaluation of paraseptal emphysematous changes. The lungs are hyperinflated . Apical scarring is unchanged. There is increased conspicuity of nodular opacity seen at the left apex on the prior study. There is continued airspace disease in the right middle lobe with air bronchograms. There is now segmental airspace disease in the right lower lobe with air bronchograms. There is no lobar or segmental consolidation on the left. There are atelectatic changes at the left base There are no effusions Heart and vasculature: Heart size is normal. There are coronary calcifications. There is trace fluid in pericardial recesses.Aorta and main pulmonary artery are normal in caliber.There are vascular calcifications. Mediastinum: There are shotty mediastinal nodes, unchanged. Deonna are not optimally evaluated without contrast material. There is a moderately large hiatal hernia. Esophagus is unremarkable. Thyroid: Thyroid is not optimally demonstrated. Gland appears mildly heterogeneous with possible small nodules Bones/joints: Bony structures are osteopenic.There are degenerative changes in the osseus structures. There are bridging syndesmophytes and osteophytes throughout the thoracic spine. Soft tissues: unremarkable Upper abdomen: There are no acute abnormalities in the visualized portion of the abdomen. There are right renal cysts. There are hyperdense left renal lesions possibly hyperdense cysts. IMPRESSION: Emphysema; continued right middle lobe airspace disease/pneumonia with interval development of segmental right lower lobe infiltrate/pneumonia;
--- NOTE | 2017-03-08 00:17 | CARD ---
APPROVED REPORT EKG Measurement Heart [id number] <Conclusion> Normal sinus rhythm Normal ECG
[2017-03-08] MEDS ORDERED: DEXTRAN OU PRN (00:31)
[2017-03-08] MEDS ORDERED: HYPROMELLOSE OU PRN (00:31)
[2017-03-08] MEDS: Levalbuterol 0.63 MG/3 ML Inhal Soln UD IH SCH ×3 (00:53→15:40)
[2017-03-08] MEDS ORDERED: Artificial Tears Opht Soln OU PRN (00:56)
[2017-03-08] MEDS ORDERED: Clindamycin 150 mg/mL Inj IVPB SCH (01:00)
[2017-03-08] MEDS ORDERED: Nasal Spray(Ocean spray) NAS SCH (01:00)
[2017-03-08] MEDS ORDERED: Simethicone 80 mg Chewtab PO SCH (01:00)
[2017-03-08] MEDS: Clindamycin 600 MG in Sodium Chloride 0.9% 100 ML IVPB SCH ×3 (02:03→17:09)
[2017-03-08] MEDS ORDERED: Nasal Spray(Ocean spray) NAS PRN (03:45)
[2017-03-08] MEDS ORDERED: Promethazine DM 6.25 mg-15 mg/5 ml Syrup PO SCH (04:00)
[2017-03-08] MEDS ORDERED: Simethicone 80 mg Chewtab PO PRN (05:37)
[2017-03-08] MEDS ORDERED: Promethazine DM 6.25 mg-15 mg/5 ml Syrup PO PRN (06:28)
[2017-03-08] MEDS: Insulin Regular 100 units/ml SC SCH ×4 (07:13→22:20)
[2017-03-08] MEDS: Acetylcysteine 10% 4 ML IH SCH ×5 (08:01→23:49)
[2017-03-08] MEDS: Budesonide 0.25 mg/2 ml Inhal Susp UD INH SCH ×2 (08:01→19:10)
[2017-03-08 08:58] LABS: BASO % 0.3 % (0.0-2.0); EOS % 0.5 % (0.0-4.0); HEMATOCRIT 44.8 % (35.0-51.0); LYMPH # 0.6 K/uL (1.0-4.3); LYMPH % 10.3 % (20.0-40.0); MEAN CELL VOLUME 91.4 fl (80.0-94.0); MEAN CORPUSCULAR HEMOGLOBIN 30.1 pg (27.0-31.0); MEAN CORPUSCULAR HGB CONC 32.9 g/dL (33.0-37.0); MEAN PLATELET VOLUME 8.9 fl (7.2-11.7); MONO # 0.1 K/uL (0.0-0.8); MONO % 2.5 % (0.0-10.0); NEUT # 4.9 K/uL (1.8-7.0); NEUT % 86.4 % (50.0-75.0); RED CELL DISTRIBUTION WIDTH 14.9 % (11.5-14.5); WHITE BLOOD COUNT 5.6 K/uL (4.8-10.8)
[2017-03-08] MEDS ORDERED: APPL TOP SCH (09:00)
[2017-03-08] MEDS ORDERED: VITAMINS A AND D TOP SCH (09:00)
[2017-03-08] MEDS ORDERED: guaiFENesin DM 200 mg-20 mg/10 ml UD PO SCH (09:00)
[2017-03-08] MEDS ORDERED: Oxycodone/Acetaminophen 5/325 mg Tab PO SCH (09:00)
[2017-03-08] MEDS ORDERED: MethylPREDNISolone 40 mg Vial IVPB SCH (09:00)
[2017-03-08] MEDS ORDERED: Gentamicin IV 60mg/50ml NS(PREMIX) IVPB SCH (09:00)
[2017-03-08] MEDS ORDERED: Gentamicin 60mg/50ml NS 60 MG/50 ML BAG IVPB SCH (09:00)
[2017-03-08] MEDS ORDERED: Chlorhexidine Gluconate 1 APPL/PKT TP ONE (09:01)
[2017-03-08 09:13] LABS: ALB/GLOB RATIO 1.1 (1.0-2.1); ALKALINE PHOSPHATASE 70 U/L (38-126); ALT/SGPT 58 U/L (21-72); AST/SGOT 33 U/L (17-59); BILIRUBIN,TOTAL 0.5 mg/dl (0.2-1.3); BLOOD UREA NITROGEN 48 mg/dl (9-20); CALCIUM 9.3 mg/dL (8.4-10.2); CARBON DIOXIDE 28 mmol/L (22-30); CHLORIDE 104 mmol/L (98-107); GFR AFRICAN-AMERICAN > 60; GLUCOSE,RANDOM 109 mg/dL (75-110); POTASSIUM 4.5 MMOL/L (3.6-5.0); SODIUM 140 mmol/l (132-148); TOTAL PROTEIN 6.5 G/DL (6.3-8.2)
[2017-03-08] MEDS: Pantoprazole 40 mg EC Tab PO SCH (10:29)
[2017-03-08] MEDS: Sod Polystyrene Sulf 15 gm/60 ml Oral Susp PO SCH ×2 (10:29→10:43)
[2017-03-08] MEDS: Tiotropium 18 mcg Cap For Inhalation IH SCH (10:30)
[2017-03-08] MEDS: Ammonium Lactate 12% Cream (140 g) TOP SCH ×2 (13:12→18:26)
[2017-03-08] MEDS: Vitamin A/D oint 60G TP SCH ×2 (13:12→18:25)
[2017-03-08] MEDS: methylPREDNISolone 20 MG in Sodium Chloride 0.9% 50 ML IVPB SCH (13:13)
[2017-03-08] MEDS ORDERED: Alum-Mag Hydrox-Simethicone Susp (30 mL) PO PRN (15:40)
--- NOTE | 2017-03-08 15:57 | CP.PCM.PN ---
Subjective - Date & Time of Evaluation Date of Evaluation: 03/08/17 Time of Evaluation: 15:42 - Subjective Subjective: I D NOTE PATIENT HAS BEEN TRANSFERRED TO PNEUMONIA HAS NOT RESOLVED HAVE DISCONTINUED GENTAMICIN IN VIEW OF ALL HIS ALLERGIES ,WILL START TYGACIL IN ADJUSTED DOSE AND FOLLOW LFTS ALONG C RENAL FUNCTIONS Objective - Vital Signs/Intake and Output Vital Signs (last 24 hours): Temp Pulse Resp BP Pulse Ox 97.9 F 120 H 18 120/59 L 97 03/08/17 12:04 03/08/17 13:15 03/08/17 12:36 03/08/17 13:15 03/08/17 12:04 - Medications Medications: Current Medications Acetaminophen (Tylenol 325mg Tab) 650 mg PO Q6 PRN PRN Reason: Pain, Mild (1-3) Last Admin: 03/08/17 05:19 Dose: 650 mg Acetaminophen (Tylenol 325mg Tab) 650 mg PO Q6 PRN PRN Reason: Fever >100.4 F Acetylcysteine (Mucomyst 10% 4ml) 4 ml IH RQID [facility] Last Admin: 03/08/17 15:40 Dose: 4 ml Al Hydrox/Mg Hydrox/Simethicone (Maalox Plus 30 Ml) 30 ml PO Q4 PRN PRN Reason: Indigestion / Heartburn Alprazolam (Xanax) 0.25 mg PO Q12 PRN PRN Reason: Anxiety Stop: 03/15/17 00:32 Last Admin: 03/08/17 03:20 Dose: 0.25 mg Budesonide (Pulmicort Respules) 0.25 mg INH BID [facility] Last Admin: 03/08/17 08:01 Dose: 0.25 mg Diltiazem HCl (Cardizem) 30 mg PO QID [facility] Last Admin: 03/08/17 13:15 Dose: 30 mg Guaifenesin/Dextromethorphan (Robitussin Dm) 10 ml PO QID [facility] Clindamycin Phosphate 600 mg/ (Sodium Chloride) 104 mls @ 104 mls/hr IVPB Q8H [facility] Last Admin: 03/08/17 10:37 Dose: 104 mls/hr Methylprednisolone 20 mg/ (Sodium Chloride) 50 mls @ 100 mls/hr IVPB DAILY [facility] Last Admin: 03/08/17 13:13 Dose: 100 mls/hr Tigecycline 100 mg/ Sodium (Chloride) 100 mls @ 100 mls/hr IVPB ONCE ONE Stop: 03/08/17 16:29 Tigecycline 25 mg/ Sodium (Chloride) 100 mls @ 100 mls/hr IVPB Q12 [facility] Insulin Human Regular (Humulin R) 0 units SC ACHS ADAN PRN Reason: Protocol Last Admin: 03/08/17 13:10 Dose: Not Given Lactic Acid (Lac-Hydrin 12% Cream (140 G)) 1 ea TOP BID [facility] Last Admin: 03/08/17 13:12 Dose: Not Given Lactulose (Enulose) 20 gm PO DAILY PRN PRN Reason: Constipation Last Admin: 03/08/17 07:07 Dose: 20 gm Levalbuterol HCl (Xopenex) 0.63 mg IH RQ8 [facility] Last Admin: 03/08/17 15:40 Dose: 0.63 mg Oxycodone/Acetaminophen (Percocet 5/325 Mg Tab) 1 tab PO DAILY [facility] Stop: 03/11/17 09:01 Pantoprazole Sodium (Protonix Ec Tab) 40 mg PO DAILY [facility] Last Admin: 03/08/17 10:29 Dose: 40 mg Promethazine HCl/Dextromethorphan (Phenergan Dm Syrup) 5 ml PO Q6 PRN PRN Reason: Cough Simethicone (Mylicon Chew Tab) 80 mg PO Q4 PRN PRN Reason: Flatulence Sitagliptin Phosphate (Januvia) 50 mg PO DAILY [facility] Last Admin: 03/08/17 10:30 Dose: Not Given Sodium Chloride ([place] Nasal [place]) 1 sprays IMELDA Q4 PRN PRN Reason: Nasal Congestion Sodium Polystyrene Sulfonate (Kayexalate Oral Susp) 15 gm PO DAILY [facility] Last Admin: 03/08/17 10:43 Dose: Not Given Tiotropium [place] (Spiriva) 18 mcg IH DAILY [facility] Last Admin: 03/08/17 10:30 Dose: 18 mcg Vitamin A (Vitamin A&D) 1 applic TP BID [facility] Last Admin: 03/08/17 13:12 Dose: Not Given - Labs Labs: 03/08/17 07:30 03/08/17 07:30
--- NOTE | 2017-03-08 16:07 | CP.PCM.HP ---
History of Present Illness - History of Present Illness History of Present Illness: 86 y/o M, brought to ER [facility] from TCU unit to be evaluated for respiratory distress on 03/07/17, with no relief. Pt was in TCU [facility] on N/C and developed low pulse Oxymeter, eventually was placed in high flow O2, there after pO2 showed Hypoxemia and Pt was sent to ER, after evaluation was admitted to Telemetry and now is in high flow O2 with no SOB, minimal chest congestion, also c/o of epigastric pain on and off. CT Chest 03/07/17 showed: Previous infiltrate RML and a new developed infiltrate RLL. Pt was been Tx with Gentamicin, Clindamycin, he has multiple abx allergies. Present on Admission - Present on Admission Any Indicators Present on Admission: No Review of Systems - Constitutional Constitutional: Weakness - EENT Eyes: Other (negative) Ears: Other (negative) Nose/Mouth/Throat: Other (negative) - Cardiovascular Cardiovascular: Rapid Heart Rate - Respiratory Respiratory: Cough, Dyspnea, Dyspnea on Exertion, Chest Congestion - Gastrointestinal Gastrointestinal: Heartburn - Genitourinary Genitourinary: Other (negative) - Musculoskeletal Musculoskeletal: Arthralgias - Neurological Neurological: Other (negative) - Psychiatric Psychiatric: Anxiety - Endocrine Endocrine: Other (negative) - Hematologic/Lymphatic Hematologic: Other (negative) Past Patient History - Infectious Disease Hx of Infectious Diseases: None - Past Medical History & Family History Past Medical History?: Yes Pertinent Family History: Unknown - Past Social History Smoking Status: Former Smoker Alcohol: None Drugs: Denies Home Situation {Lives}: Alone - CARDIAC Hx Cardiac Disorders: Yes Hx Hypercholesterolemia: Yes Hx Hypertension: Yes Hx Peripheral Edema: Yes - PULMONARY Hx Respiratory Disorders: Yes Hx Asthma: Yes Hx Chronic Obstructive Pulmonary Disease (COPD): Yes Hx Emphysema: Yes Hx Pneumonia: Yes - NEUROLOGICAL Hx Neurological Disorder: No - HEENT Hx HEENT Problems: Yes Hx Cataracts: Yes Hx Glaucoma: Yes - RENAL Hx Chronic Kidney Disease: No Hx Kidney Stones: Yes - ENDOCRINE/METABOLIC Hx Endocrine Disorders: Yes Hx Diabetes Mellitus Type 2: Yes Other/Comment: liver cirrhosis - HEMATOLOGICAL/ONCOLOGICAL Hx Blood Disorders: Yes Hx AIDS: No Hx Cirrhosis: Yes Hx Human Immunodeficiency Virus (HIV): No - INTEGUMENTARY Hx Dermatological Problems: Yes Hx Psoriasis: Yes - MUSCULOSKELETAL/RHEUMATOLOGICAL Hx Arthritis: Yes Hx Falls: Yes - GASTROINTESTINAL Hx Gastrointestinal Disorders: Yes Hx Gastroesophageal Reflux: Yes Hx Liver Failure: Yes (LIVER CIRRHOSIS) Hx Ulcer: Yes - GENITOURINARY/GYNECOLOGICAL Hx Genitourinary Disorders: No - PSYCHIATRIC Hx Psychophysiologic Disorder: Yes Hx Anxiety: Yes Hx Substance Use: No - SURGICAL HISTORY Hx Surgeries: Yes Hx Cataract Extraction: Yes Hx Herniorrhaphy: Yes (abdominal hernia repair 15 yrs ago) - ANESTHESIA Hx Anesthesia: Yes Hx Anesthesia Reactions: No Hx Malignant Hyperthermia: No Has any member of the family had a problem w/ anesthesia?: No Meds Allergies/Adverse Reactions: Allergies Allergy/AdvReac Type Severity Reaction Status Date / Time guaifenesin [From Mucinex] Allergy RASH Verified 02/12/17 14:54 levofloxacin [From Levaquin] Allergy ITCHING Verified 02/14/17 04:48 moxifloxacin HCl Allergy RASH Verified 10/03/16 15:22 [From Avelox] Penicillins Allergy RASH Verified 10/03/16 15:22 tomato Allergy RASH Verified 10/03/16 15:22 Physical Exam - Constitutional Appears: No Acute Distress - Head Exam Head Exam: NORMAL INSPECTION - Eye Exam Eye Exam: PERRL - ENT Exam ENT Exam: Normal Oropharynx - Neck Exam Neck exam: Positive for: Normal Inspection - Respiratory Exam Respiratory Exam: Decreased Breath Sounds (b/l), Rhonchi (scattered) - Cardiovascular Exam Cardiovascular Exam: REGULAR RHYTHM - GI/Abdominal Exam GI & Abdominal Exam: Normal Bowel Sounds, Soft, Tenderness (epigastric area) - Extremities Exam Additional comments: Chronic venous stasis skin changes R-L legs - Back Exam Back exam: NORMAL INSPECTION - Neurological Exam Neurological exam: Alert, Oriented x3 Additional comments: No motor sensory deficit. - Psychiatric Exam Psychiatric exam: Anxious - Skin Skin Exam: Warm Results - Vital Signs Recent Vital Signs: Last Vital Signs Temp 98.3 F 03/08/17 15:48 Pulse 102 H 03/08/17 15:48 Resp 20 03/08/17 15:49 BP 118/68 03/08/17 15:48 Pulse Ox 90 L 03/08/17 15:48 reviewed Sarah - Labs Result Diagrams: 03/09/17 05:30 03/09/17 07:30 Labs: Laboratory Results - last 24 hr 03/08/17 03/08/17 07:30 07:30 WBC 5.6 RBC 4.90 Hgb 14.8 Hct 44.8 MCV 91.4 MCH 30.1 MCHC 32.9 L RDW 14.9 H Plt Count 163 MPV 8.9 Neut % (Auto) 86.4 H Lymph % (Auto) 10.3 L [place] % (Auto) 2.5 Eos % (Auto) 0.5 Baso % (Auto) 0.3 Neut # 4.9 Lymph # 0.6 L [place] # 0.1 Eos # 0.0 Baso # 0.0 Sodium 140 Potassium 4.5 Chloride 104 Carbon Dioxide 28 Anion Gap 13 BUN 48 H Creatinine 1.1 Est GFR ( Amer) > 60 Est GFR (Non-Af Amer) > 60 Random Glucose 109 Calcium 9.3 Total Bilirubin 0.5 AST 33 ALT 58 Alkaline Phosphatase 70 Total Protein 6.5 Albumin 3.4 L Globulin 3.1 Albumin/Globulin Ratio 1.1 reviewed J.P. - EKG Data EKG comments: reviewed J.P. - Imaging and Cardiology CT scan - chest Status: Report reviewed by me (J.P.) Chest x-ray Status: Report reviewed by me (J.P.) Assessment & Plan (1) Respiratory failure Status: Acute Priority: High (2) Unresolved pneumonia Status: Acute Priority: High Comment: RML PNA and new RLL infiltrate. (3) COPD exacerbation Status: Acute Priority: High (4) Right inguinal pain Status: Acute (5) DMII (diabetes mellitus, type 2) Status: Chronic Priority: Medium (6) HTN (hypertension) Status: Chronic Priority: Medium (7) Venous insufficiency of both lower extremities Status: Chronic Priority: High - Assessment and Plan (Free Text) Plan: Continue Clindamycin, Tygecycline, Pulmicort, Solumedrol, Percocet and rest of Tx. ID consult appreciated. - Date & Time Date: 03/08/17 Time: 13:00
[2017-03-08] MEDS: SODIUM CHLORIDE 0.9% IVPB SCH (22:24)
[2017-03-08] MEDS: TIGECYCLINE IVPB SCH (22:24)
[2017-03-08] MEDS ORDERED: Albuterol-Ipratrop 3 mg / 0.5 (3 ml) UD INH PRN (23:12)
[2017-03-08] MEDS ORDERED: Albuterol 0.042% Inhal Sol (1.25 mg/3 mL) UD INH PRN (23:12)
[2017-03-08] MEDS: Albuterol 0.042% Inhal Sol (1.25 mg/3 mL) UD INH SCH (23:49)
[2017-03-08] MEDS: Ipratropium 0.02% Inhal Soln (0.5 mg/2.5 ml) UD IH SCH (23:49)
[2017-03-09] MEDS ORDERED: Albuterol-Ipratrop 3 mg / 0.5 (3 ml) UD INH SCH
[2017-03-09] MEDS: Clindamycin 600 MG in Sodium Chloride 0.9% 100 ML IVPB SCH ×3 (00:07→16:37)
--- NOTE | 2017-03-09 00:56 | PCM.RRTMUL ---
<Tony Odonnell - Last Filed: 03/09/17 01:04> SUSTAINABLE COMMUNITIES DESIGNER Nurse Assessment - Vital Signs Blood Pressure:: 113/65 Pulse Rate:: 100 Respiratory Rate:: 20 Temperature:: 98.7 F Responder Note - Time SUSTAINABLE COMMUNITIES DESIGNER was called Time SUSTAINABLE COMMUNITIES DESIGNER was called:: 00:48 - Location Location: [facility] Discovered by:: RN Primary Physician:: Hardy Mcneal - SUSTAINABLE COMMUNITIES DESIGNER Team SUSTAINABLE COMMUNITIES DESIGNER Leader:: Rocco Nunez Resident:: Tony Odonnell - Vital Signs at Initial Assessment O2 Sat by Pulse Oximetry:: 85 - Acute Change in Patient Acute Change in Patient: (Select all that apply): Acute change in SBP below 90mmHg Summary - Summary of Event Summary of Event: SUSTAINABLE COMMUNITIES DESIGNER called for Hypoxemia (O2 sat < 90) Patient was seen and examined at bedside. Patient is a 86 year old male with medical history of COPD admitted for pneumonia. Patient had been complaining of shortness of breath with O2 sats in the low 80s. Patient denies chest pain, abdominal pain, or pain at all. Patient is a poor historian. O: Vitals stable besides O2 sat Gen: Respiratory distress Neuro: Awake and alert Lungs: Decreased breath sounds diffuse though no wheezing/rales appreciated Heart: S1/S2 present, no m/r/g Abdomen: Soft, non-distended, BS present Ext: No edema or calf tenderness A/P: 86 year old male with medical history of COPD admitted for pneumonia with hypoxemia -Bipap 100% O2, improved symptoms, O2 sat 88-90% -CXR stat -ABG in 30 mins -Adjust accordingly as patient is likely a CO2 retainer -Will continue to monitor closely <Rocco Nunez - Last Filed: 03/09/17 11:56> Outcomes - SUSTAINABLE COMMUNITIES DESIGNER Outcomes SUSTAINABLE COMMUNITIES DESIGNER Outcomes: I saw and examined the patient shoulder to shoulder with Dr Odonnell. The assessment and plan above represent my direct input. SUSTAINABLE COMMUNITIES DESIGNER called because the patient desaturated and complained of SOB on the high flow Oxygen. He was changed to BIPAP but SpO2 was only between 81 and 87% on I/E of 09/23 and FiO2 of 50%. Diagnoses was #COPD with Hypoxia. Treatment was- Increasing the FiO2 to 100% and maintain the Bipap; the saturation improved. ABG in one Hour was PCO2 43 and PO2 of 75. CXR showed no change with a fibrotic type picture and worse infiltrate on right side to left side. Rocco Nunez MD Hospitalist Critical care time 25minutes.
--- NOTE | 2017-03-09 01:27 | CARD ---
APPROVED REPORT EKG Measurement Heart [id number] <Conclusion> Sinus tachycardia Possible Left atrial enlargement Right bundle branch block Abnormal ECG
[2017-03-09 01:36] LABS: ABG ALLEN TEST YES; ABG MECHANICAL RATE 14; ARTERIAL BLOOD GAS HCO3 25.4 mmol/L (21-28); ARTERIAL BLOOD GAS MODE BiPAP; ARTERIAL BLOOD GAS O2 CAPACITY 19.8 mL/dL (16-24); ARTERIAL BLOOD GAS O2 CONTENT 19.3 ML/dL (15-23); ARTERIAL BLOOD GAS PH 7.39 (7.35-7.45); ARTERIAL BLOOD GAS PO2 75 mm/Hg (80-100); ARTERIAL BLOOD HGB O2 SAT 93.9 % (95.0-98.0); CARBOXYHEMOGLOBIN 2.1 % (0.5-1.5); HHB 2.4 % (0.0-5.0); METHEMOGLOBIN 1.6 % (0.0-3.0)
[2017-03-09] MEDS: Albuterol 0.042% Inhal Sol (1.25 mg/3 mL) UD INH SCH ×3 (05:15→11:41)
[2017-03-09] MEDS: Ipratropium 0.02% Inhal Soln (0.5 mg/2.5 ml) UD IH SCH ×5 (05:15→20:30)
[2017-03-09 06:30] LABS: HEMATOCRIT 44.5 % (35.0-51.0); MEAN CORPUSCULAR HEMOGLOBIN 30.1 pg (27.0-31.0); MEAN CORPUSCULAR HGB CONC 32.4 g/dL (33.0-37.0); RED CELL DISTRIBUTION WIDTH 15.2 % (11.5-14.5); WHITE BLOOD COUNT 4.5 K/uL (4.8-10.8)
[2017-03-09 06:31] LABS: ABG ALLEN TEST YES; ABG MECHANICAL RATE 14; ARTERIAL BLOOD GAS HCO3 24.7 mmol/L (21-28); ARTERIAL BLOOD GAS MODE BiPAP; ARTERIAL BLOOD GAS O2 CONTENT 17.7 ML/dL (15-23); ARTERIAL BLOOD GAS PH 7.35 (7.35-7.45); ARTERIAL BLOOD GAS PO2 52 mm/Hg (80-100); ARTERIAL BLOOD HGB O2 SAT 85.6 % (95.0-98.0); HHB 10.9 % (0.0-5.0); METHEMOGLOBIN 1.6 % (0.0-3.0)
[2017-03-09 06:38] LABS: BLOOD UREA NITROGEN 63 mg/dl (9-20); CALCIUM 8.3 mg/dL (8.4-10.2); CARBON DIOXIDE 22 mmol/L (22-30); CHLORIDE 107 mmol/L (98-107); GFR AFRICAN-AMERICAN > 60; GLUCOSE,RANDOM 84 mg/dL (75-110); SODIUM 138 mmol/l (132-148)
[2017-03-09 06:42] LABS: POTASSIUM 5.9 MMOL/L (3.6-5.0)
[2017-03-09] MEDS: Insulin Regular 100 units/ml SC SCH ×4 (07:53→22:00)
[2017-03-09 08:26] LABS: ALKALINE PHOSPHATASE 63 U/L (38-126); ALT/SGPT 51 U/L (21-72); AST/SGOT 27 U/L (17-59); BILIRUBIN,TOTAL 0.6 mg/dl (0.2-1.3); BLOOD UREA NITROGEN 62 mg/dl (9-20); CALCIUM 8.7 mg/dL (8.4-10.2); CARBON DIOXIDE 24 mmol/L (22-30); CHLORIDE 106 mmol/L (98-107); GFR AFRICAN-AMERICAN > 60; GLUCOSE,RANDOM 83 mg/dL (75-110); SODIUM 140 mmol/l (132-148); TOTAL PROTEIN 6.6 G/DL (6.3-8.2)
[2017-03-09] MEDS: Ammonium Lactate 12% Cream (140 g) TOP SCH ×2 (08:50→16:20)
[2017-03-09] MEDS: Tiotropium 18 mcg Cap For Inhalation IH SCH (08:50)
[2017-03-09] MEDS: Pantoprazole 40 mg EC Tab PO SCH (08:50)
[2017-03-09] MEDS: Vitamin A/D oint 60G TP SCH ×2 (08:51→16:20)
[2017-03-09] MEDS: methylPREDNISolone 20 MG in Sodium Chloride 0.9% 50 ML IVPB SCH (08:52)
--- NOTE | 2017-03-09 08:52 | RAD ---
HISTORY: O2 desaturation. Portable study completed 01:15. COMPARISON: 02/19/2017 and 03/07/2017. CT thorax 03/07/2017. FINDINGS: LUNGS: Stable consolidative changes right lower lobe, right middle lobe. Stable scarring, apical findings bilaterally PLEURA: No significant pleural effusion identified, no pneumothorax apparent. CARDIOVASCULAR: Normal. OSSEOUS STRUCTURES: No significant abnormalities. VISUALIZED UPPER ABDOMEN: Normal. OTHER FINDINGS: None. IMPRESSION: No significant interval change compared to the prior examination(s). Right middle lobe right lower lobe findings better appreciated on recent CT scan but essentially unchanged compared to prior chest radiograph 03/07/2017.
[2017-03-09] MEDS: Acetylcysteine 10% 4 ML IH SCH ×2 (08:54→17:30)
[2017-03-09] MEDS: Budesonide 0.25 mg/2 ml Inhal Susp UD INH SCH ×2 (08:55→17:30)
[2017-03-09] MEDS ORDERED: Levalbuterol 1.25 MG/3 ML Inhal Soln UD INH PRN (11:49)
--- NOTE | 2017-03-09 15:31 | CP.PCM.PN ---
Subjective - Date & Time of Evaluation Date of Evaluation: 03/09/17 Time of Evaluation: 11:30 - Subjective Subjective: F/U PNA Pt breathing better, on BIPAP, no A/D. Objective - Vital Signs/Intake and Output Vital Signs (last 24 hours): Temp Pulse Resp BP Pulse Ox 97.4 F L 130 H 20 106/55 L 98 03/09/17 12:00 03/09/17 12:00 03/09/17 12:00 03/09/17 12:00 03/09/17 12:00 - Medications Medications: Current Medications Acetaminophen (Tylenol 325mg Tab) 650 mg PO Q6 PRN PRN Reason: Pain, Mild (1-3) Last Admin: 03/09/17 04:27 Dose: 650 mg Acetaminophen (Tylenol 325mg Tab) 650 mg PO Q6 PRN PRN Reason: Fever >100.4 F Acetylcysteine (Mucomyst 10% 4ml) 2 ml IH Q8H [facility] Last Admin: 03/09/17 08:54 Dose: 2 ml Al Hydrox/Mg Hydrox/Simethicone (Maalox Plus 30 Ml) 30 ml PO Q4 PRN PRN Reason: Indigestion / Heartburn Alprazolam (Xanax) 0.25 mg PO Q12 PRN PRN Reason: Anxiety Stop: 03/15/17 00:32 Last Admin: 03/09/17 08:36 Dose: 0.25 mg Budesonide (Pulmicort Respules) 0.25 mg INH BID [facility] Last Admin: 03/09/17 08:55 Dose: 0.25 mg Diltiazem HCl (Cardizem) 30 mg PO QID [facility] Last Admin: 03/09/17 08:51 Dose: 30 mg Clindamycin Phosphate 600 mg/ (Sodium Chloride) 104 mls @ 104 mls/hr IVPB Q8H [facility] Last Admin: 03/09/17 08:53 Dose: 104 mls/hr Methylprednisolone 20 mg/ (Sodium Chloride) 50 mls @ 100 mls/hr IVPB DAILY [facility] Last Admin: 03/09/17 08:52 Dose: 100 mls/hr Tigecycline 25 mg/ Sodium (Chloride) 100 mls @ 100 mls/hr IVPB Q12 [facility] Last Admin: 03/08/17 22:24 Dose: Not Given Insulin Human Regular (Humulin R) 0 units SC ACHS ADAN PRN Reason: Protocol Last Admin: 03/09/17 07:53 Dose: Not Given Ipratropium [place] (Atrovent) 0.5 mg IH RQ4 [facility] Last Admin: 03/09/17 11:41 Dose: 0.5 mg Lactic Acid (Lac-Hydrin 12% Cream (140 G)) 1 ea TOP BID [facility] Last Admin: 03/09/17 08:50 Dose: 1 applic Lactulose (Enulose) 20 gm PO DAILY PRN PRN Reason: Constipation Last Admin: 03/08/17 07:07 Dose: 20 gm Levalbuterol HCl (Xopenex) 1.25 mg INH RQ8 PRN PRN Reason: Shortness of Breath Levalbuterol HCl (Xopenex) 1.25 mg INH RQ8 [facility] Oxycodone/Acetaminophen (Percocet 5/325 Mg Tab) 1 tab PO DAILY [facility] Stop: 03/11/17 09:01 Pantoprazole Sodium (Protonix Ec Tab) 40 mg PO DAILY [facility] Last Admin: 03/09/17 08:50 Dose: 40 mg Promethazine HCl/Dextromethorphan (Phenergan Dm Syrup) 5 ml PO Q6 PRN PRN Reason: Cough Simethicone (Mylicon Chew Tab) 80 mg PO Q4 PRN PRN Reason: Flatulence Sitagliptin Phosphate (Januvia) 50 mg PO DAILY [facility] Last Admin: 03/09/17 08:54 Dose: 50 mg Sodium Chloride ([place] Nasal [place]) 1 sprays IMELDA Q4 PRN PRN Reason: Nasal Congestion Tiotropium [place] (Spiriva) 18 mcg IH DAILY [facility] Last Admin: 03/09/17 08:50 Dose: 18 mcg Vitamin A (Vitamin A&D) 1 applic TP BID [facility] Last Admin: 03/09/17 08:51 Dose: 1 applic - Labs Labs: 03/09/17 05:30 03/09/17 07:30 - Constitutional Appears: No Acute Distress - Head Exam Head Exam: NORMAL INSPECTION - Eye Exam Eye Exam: PERRL - ENT Exam ENT Exam: Normal Oropharynx - Neck Exam Neck Exam: Normal Inspection - Respiratory Exam Respiratory Exam: Decreased Breath Sounds, Rhonchi (scattered) - Cardiovascular Exam Cardiovascular Exam: REGULAR RHYTHM - GI/Abdominal Exam GI & Abdominal Exam: Soft, Tenderness (epigastric and mild R inguinal area), Normal Bowel Sounds - Extremities Exam Additional comments: Chronic venous stasis skin changes R-L legs - Back Exam Back Exam: NORMAL INSPECTION - Neurological Exam Neurological Exam: Alert, Oriented x3. absent: Motor Sensory Deficit - Psychiatric Exam Psychiatric exam: Anxious - Skin Skin Exam: Warm Assessment and Plan (1) Unresolved pneumonia Status: Acute (2) Respiratory failure Status: Acute (3) COPD exacerbation Status: Acute (4) Right inguinal pain Status: Chronic (5) Venous insufficiency of both lower extremities Status: Chronic (6) DMII (diabetes mellitus, type 2) Status: Chronic (7) HTN (hypertension) Status: Chronic - Assessment and Plan (Free Text) Plan: Continue on BIPAP, Clinda, Tigecycline, Solumedrol and rest of Tx.
[2017-03-09] MEDS: TIGECYCLINE IVPB SCH ×2 (16:19→21:17)
[2017-03-09] MEDS: SODIUM CHLORIDE 0.9% IVPB SCH ×2 (16:19→21:17)
[2017-03-09] MEDS: Levalbuterol 1.25 MG/3 ML Inhal Soln UD INH SCH (17:30)
[2017-03-10] MEDS: Acetylcysteine 10% 4 ML IH SCH ×3 (00:09→16:00)
[2017-03-10] MEDS: Levalbuterol 1.25 MG/3 ML Inhal Soln UD INH SCH ×4 (00:09→20:21)
[2017-03-10] MEDS: Ipratropium 0.02% Inhal Soln (0.5 mg/2.5 ml) UD IH SCH ×6 (00:10→20:16)
[2017-03-10] MEDS: Clindamycin 600 MG in Sodium Chloride 0.9% 100 ML IVPB SCH ×3 (00:17→16:44)
[2017-03-10] MEDS: Insulin Regular 100 units/ml SC SCH ×4 (06:53→22:00)
[2017-03-10] MEDS: Budesonide 0.25 mg/2 ml Inhal Susp UD INH SCH ×3 (07:33→20:14)
--- NOTE | 2017-03-10 08:53 | PQF PNEUMO ---
This form is a permanent part of the medical record 03/10/17 Dr. Mcneal, Would you please clarify the possible TYPE of PNEUMONIA if known. Currently being treated for pneumonia in TCU. Developed labored breathing and low saturations despite high flow O2. CT chest with continued RML pneumonia and new RLL infiltrate. Treated with Bipap, Clindamycin, Tygacil, Solumedrol and nebulizers . Clarification of your documentation is requested to better reflect the severity of illness and intensity of treatment of your patient. Indicators present [x] Documented diagnosis of pneumonia [x] X-ray findings: [] Positive Sputum cultures [] Cough w/ fever [x] Abnormal lungs sounds [] Poor gag reflex [] Speech consults/swallow evaluation [] Vent dependence [] Other: [] Location in the medical record that reflects the above clinical findings: [x] H& P Treatment Provided: [x] Dual IVAB PHYSICIAN'S RESPONSE Based on your medical judgment of the clinical indicators outlined above, are you treating this patient for a known or suspected: [] Aspiration pneumonia [] Ventilator associated pneumonia [] Viral pneumonia [] Bacterial pneumonia Please specify organism: [] [] Other, please indicate [] If Unable to Determine, please check the box, sign and date. Note: CAP, HAP, and HCAP indicate where the pneumonia was acquired, not a specific type. Present On Admission (POA) Indicator: [] Present at the time of admission [] Not present at the time of admission [] Clinically Undetermined In responding to this query, please exercise your independent professional judgment. The fact that a question is asked does not imply that any particular answer is desired or expected. Thank you for your clarification on this documentation. If you have any questions please call:[phone] Medical Records Dept * Thank you, Graciela Castillo RN CDMP MTDD
[2017-03-10] MEDS: Pantoprazole 40 mg EC Tab PO SCH (09:00)
[2017-03-10] MEDS: Tiotropium 18 mcg Cap For Inhalation IH SCH (09:00)
[2017-03-10] MEDS: Ammonium Lactate 12% Cream (140 g) TOP SCH ×2 (09:01→16:37)
[2017-03-10] MEDS: Vitamin A/D oint 60G TP SCH ×2 (09:01→16:37)
[2017-03-10] MEDS: methylPREDNISolone 20 MG in Sodium Chloride 0.9% 50 ML IVPB SCH (09:04)
[2017-03-10] MEDS: TIGECYCLINE IVPB SCH ×2 (09:14→21:24)
[2017-03-10] MEDS: SODIUM CHLORIDE 0.9% IVPB SCH ×2 (09:14→21:24)
[2017-03-10] MEDS: Oxycodone/Acetaminophen 5/325 mg Tab PO PRN ×2 (12:44→16:34)
--- NOTE | 2017-03-10 15:22 | CP.PCM.PN ---
Subjective - Date & Time of Evaluation Date of Evaluation: 03/10/17 Time of Evaluation: 20:00 - Subjective Subjective: F/U Unresolved PNA. Marked O2 desaturation off BIPAP , Patient states He is breathing well on BIPAP Objective - Vital Signs/Intake and Output Vital Signs (last 24 hours): Temp Pulse Resp BP Pulse Ox 98.2 F 102 H 18 106/64 88 L 03/10/17 13:06 03/10/17 13:06 03/10/17 13:52 03/10/17 13:06 03/10/17 13:06 Intake and Output: 03/10/17 03/10/17 06:59 18:59 Intake Total 400 Output Total 500 Balance -100 - Medications Medications: Current Medications Acetaminophen (Tylenol 325mg Tab) 650 mg PO Q6 PRN PRN Reason: Pain, Mild (1-3) Last Admin: 03/09/17 04:27 Dose: 650 mg Acetaminophen (Tylenol 325mg Tab) 650 mg PO Q6 PRN PRN Reason: Fever >100.4 F Acetylcysteine (Mucomyst 10% 4ml) 2 ml IH Q8H [facility] Last Admin: 03/10/17 07:34 Dose: 2 ml Al Hydrox/Mg Hydrox/Simethicone (Maalox Plus 30 Ml) 30 ml PO Q4 PRN PRN Reason: Indigestion / Heartburn Alprazolam (Xanax) 0.25 mg PO Q12 PRN PRN Reason: Anxiety Stop: 03/15/17 00:32 Last Admin: 03/09/17 08:36 Dose: 0.25 mg Budesonide (Pulmicort Respules) 0.25 mg INH BID [facility] Last Admin: 03/10/17 07:33 Dose: 0.25 mg Diltiazem HCl (Cardizem) 30 mg PO QID [facility] Last Admin: 03/10/17 12:45 Dose: 30 mg Clindamycin Phosphate 600 mg/ (Sodium Chloride) 104 mls @ 104 mls/hr IVPB Q8H [facility] Last Admin: 03/10/17 09:04 Dose: 104 mls/hr Methylprednisolone 20 mg/ (Sodium Chloride) 50 mls @ 100 mls/hr IVPB DAILY [facility] Last Admin: 03/10/17 09:04 Dose: 100 mls/hr Tigecycline 25 mg/ Sodium (Chloride) 100 mls @ 100 mls/hr IVPB Q12 [facility] Last Admin: 03/10/17 09:14 Dose: 100 mls/hr Insulin Human Regular (Humulin R) 0 units SC ACHS ADAN PRN Reason: Protocol Last Admin: 03/10/17 12:50 Dose: Not Given Ipratropium [place] (Atrovent) 0.5 mg IH RQ4 [facility] Last Admin: 03/10/17 11:19 Dose: 0.5 mg Lactic Acid (Lac-Hydrin 12% Cream (140 G)) 1 ea TOP BID [facility] Last Admin: 03/10/17 09:01 Dose: 1 applic Lactulose (Enulose) 20 gm PO DAILY PRN PRN Reason: Constipation Last Admin: 03/08/17 07:07 Dose: 20 gm Levalbuterol HCl (Xopenex) 1.25 mg INH RQ8 PRN PRN Reason: Shortness of Breath Last Admin: 03/10/17 12:46 Dose: 1.25 mg Levalbuterol HCl (Xopenex) 1.25 mg INH RQ8 [facility] Last Admin: 03/10/17 07:33 Dose: 1.25 mg Oxycodone/Acetaminophen (Percocet 5/325 Mg Tab) 1 tab PO DAILY PRN PRN Reason: Pain, severe (8-10) Stop: 03/11/17 09:01 Last Admin: 03/10/17 12:44 Dose: 1 tab Pantoprazole Sodium (Protonix Ec Tab) 40 mg PO DAILY [facility] Last Admin: 03/10/17 09:00 Dose: 40 mg Promethazine HCl/Dextromethorphan (Phenergan Dm Syrup) 5 ml PO Q6 PRN PRN Reason: Cough Simethicone (Mylicon Chew Tab) 80 mg PO Q4 PRN PRN Reason: Flatulence Sitagliptin Phosphate (Januvia) 50 mg PO DAILY [facility] Last Admin: 03/10/17 08:59 Dose: 50 mg Sodium Chloride ([place] Nasal [place]) 1 sprays IMELDA Q4 PRN PRN Reason: Nasal Congestion Tiotropium [place] (Spiriva) 18 mcg IH DAILY [facility] Last Admin: 03/10/17 09:00 Dose: 18 mcg Vitamin A (Vitamin A&D) 1 applic TP BID [facility] Last Admin: 03/10/17 09:01 Dose: 1 applic - Labs Labs: 03/09/17 05:30 03/09/17 07:30 - Constitutional Appears: No Acute Distress - Head Exam Head Exam: NORMAL INSPECTION - Eye Exam Eye Exam: PERRL - ENT Exam ENT Exam: Normal Oropharynx - Neck Exam Neck Exam: Normal Inspection - Respiratory Exam Respiratory Exam: Decreased Breath Sounds (at bases), Rhonchi (scattered) - Cardiovascular Exam Cardiovascular Exam: REGULAR RHYTHM - GI/Abdominal Exam GI & Abdominal Exam: Soft, Tenderness (mild epigastric and R inguinal area), Normal Bowel Sounds - Extremities Exam Additional comments: Chronic venous stasis skin changes L/E. - Back Exam Back Exam: NORMAL INSPECTION - Neurological Exam Neurological Exam: Alert, Oriented x3. absent: Motor Sensory Deficit - Psychiatric Exam Psychiatric exam: Anxious - Skin Skin Exam: Warm Assessment and Plan (1) Unresolved pneumonia Status: Acute (2) Respiratory failure Status: Acute (3) COPD exacerbation Status: Acute (4) Right inguinal pain Status: Chronic (5) Venous insufficiency of both lower extremities Status: Chronic (6) DMII (diabetes mellitus, type 2) Status: Chronic (7) HTN (hypertension) Status: Chronic (8) Hyperkalemia Status: Acute - Assessment and Plan (Free Text) Plan: Continue Clinda , Tygacil , Solu Medrol , Xopenex , Albuterol , Mucomyst , and rest of treatment
[2017-03-11] MEDS: Acetylcysteine 10% 4 ML IH SCH ×4 (00:18→23:36)
[2017-03-11] MEDS: Levalbuterol 1.25 MG/3 ML Inhal Soln UD INH SCH ×4 (00:19→23:35)
[2017-03-11] MEDS: Ipratropium 0.02% Inhal Soln (0.5 mg/2.5 ml) UD IH SCH ×7 (00:19→23:35)
[2017-03-11] MEDS: Oxycodone/Acetaminophen 5/325 mg Tab PO PRN (00:37)
[2017-03-11] MEDS: Clindamycin 600 MG in Sodium Chloride 0.9% 100 ML IVPB SCH ×3 (00:38→16:22)
[2017-03-11] MEDS: Insulin Regular 100 units/ml SC SCH ×4 (06:35→22:04)
[2017-03-11 06:52] LABS: HEMATOCRIT 40.9 % (35.0-51.0); MEAN CELL VOLUME 92.8 fl (80.0-94.0); MEAN CORPUSCULAR HEMOGLOBIN 30.1 pg (27.0-31.0); MEAN CORPUSCULAR HGB CONC 32.5 g/dL (33.0-37.0); RED CELL DISTRIBUTION WIDTH 15.2 % (11.5-14.5)
[2017-03-11 07:09] LABS: BLOOD UREA NITROGEN 72 mg/dl (9-20); CALCIUM 8.9 mg/dL (8.4-10.2); CARBON DIOXIDE 23 mmol/L (22-30); CHLORIDE 107 mmol/L (98-107); GFR AFRICAN-AMERICAN > 60; GLUCOSE,RANDOM 95 mg/dL (75-110); SODIUM 138 mmol/l (132-148)
[2017-03-11 07:15] LABS: POTASSIUM 5.5 MMOL/L (3.6-5.0)
[2017-03-11] MEDS: Budesonide 0.25 mg/2 ml Inhal Susp UD INH SCH ×2 (08:11→19:13)
[2017-03-11] MEDS: methylPREDNISolone 20 MG in Sodium Chloride 0.9% 50 ML IVPB SCH (08:43)
[2017-03-11] MEDS: Ammonium Lactate 12% Cream (140 g) TOP SCH ×2 (08:45→16:21)
[2017-03-11] MEDS: Pantoprazole 40 mg EC Tab PO SCH (08:46)
[2017-03-11] MEDS: Tiotropium 18 mcg Cap For Inhalation IH SCH (08:46)
[2017-03-11] MEDS: SODIUM CHLORIDE 0.9% IVPB SCH ×2 (09:46→22:01)
[2017-03-11] MEDS: TIGECYCLINE IVPB SCH ×2 (09:46→22:01)
[2017-03-11] MEDS: Vitamin A/D oint 60G TP SCH ×2 (09:47→16:20)
[2017-03-11] MEDS ORDERED: Sod Polystyrene Sulf 15 gm/60 ml Oral Susp PO ONE (14:36)
--- NOTE | 2017-03-11 14:57 | CP.PCM.PN ---
Subjective - Date & Time of Evaluation Date of Evaluation: 03/11/17 Time of Evaluation: 11:20 - Subjective Subjective: F/U PNA On BIPAP , O2 desaturation with High Flow O2 , Patient is hungry , but He can not eat with off BIPAP Objective - Vital Signs/Intake and Output Vital Signs (last 24 hours): Temp Pulse Resp BP Pulse Ox 97.9 F 88 18 111/65 98 03/11/17 12:28 03/11/17 12:28 03/11/17 12:28 03/11/17 12:28 03/11/17 12:28 - Medications Medications: Current Medications Acetaminophen (Tylenol 325mg Tab) 650 mg PO Q6 PRN PRN Reason: Pain, Mild (1-3) Last Admin: 03/09/17 04:27 Dose: 650 mg Acetaminophen (Tylenol 325mg Tab) 650 mg PO Q6 PRN PRN Reason: Fever >100.4 F Acetylcysteine (Mucomyst 10% 4ml) 2 ml IH Q8H [facility] Last Admin: 03/11/17 08:10 Dose: 2 ml Al Hydrox/Mg Hydrox/Simethicone (Maalox Plus 30 Ml) 30 ml PO Q4 PRN PRN Reason: Indigestion / Heartburn Alprazolam (Xanax) 0.25 mg PO Q12 PRN PRN Reason: Anxiety Stop: 03/15/17 00:32 Last Admin: 03/11/17 10:55 Dose: 0.25 mg Budesonide (Pulmicort Respules) 0.25 mg INH BID [facility] Last Admin: 03/11/17 08:11 Dose: 0.25 mg Diltiazem HCl (Cardizem) 30 mg PO QID [facility] Last Admin: 03/11/17 12:05 Dose: 30 mg Clindamycin Phosphate 600 mg/ (Sodium Chloride) 104 mls @ 104 mls/hr IVPB Q8H [facility] Last Admin: 03/11/17 08:43 Dose: 104 mls/hr Tigecycline 25 mg/ Sodium (Chloride) 100 mls @ 100 mls/hr IVPB Q12 [facility] Last Admin: 03/11/17 09:46 Dose: 100 mls/hr Methylprednisolone 30 mg/ (Sodium Chloride) 50 mls @ 100 mls/hr IVPB Q8 [facility] Insulin Human Regular (Humulin R) 0 units SC ACHS ADAN PRN Reason: Protocol Last Admin: 03/11/17 11:58 Dose: Not Given Ipratropium [place] (Atrovent) 0.5 mg IH RQ4 [facility] Last Admin: 03/11/17 11:44 Dose: 0.5 mg Lactic Acid (Lac-Hydrin 12% Cream (140 G)) 1 ea TOP BID [facility] Last Admin: 03/11/17 08:45 Dose: 1 applic Lactulose (Enulose) 20 gm PO DAILY PRN PRN Reason: Constipation Last Admin: 03/10/17 16:38 Dose: 20 gm Levalbuterol HCl (Xopenex) 1.25 mg INH RQ8 PRN PRN Reason: Shortness of Breath Last Admin: 03/10/17 12:46 Dose: 1.25 mg Levalbuterol HCl (Xopenex) 1.25 mg INH RQ8 [facility] Last Admin: 03/11/17 08:11 Dose: 1.25 mg Pantoprazole Sodium (Protonix Ec Tab) 40 mg PO DAILY [facility] Last Admin: 03/11/17 08:46 Dose: 40 mg Promethazine HCl/Dextromethorphan (Phenergan Dm Syrup) 5 ml PO Q6 PRN PRN Reason: Cough Simethicone (Mylicon Chew Tab) 80 mg PO Q4 PRN PRN Reason: Flatulence Last Admin: 03/10/17 16:36 Dose: 80 mg Sitagliptin Phosphate (Januvia) 50 mg PO DAILY [facility] Last Admin: 03/11/17 08:44 Dose: 50 mg Sodium Chloride ([place] Nasal [place]) 1 sprays IMELDA Q4 PRN PRN Reason: Nasal Congestion Tiotropium [place] (Spiriva) 18 mcg IH DAILY [facility] Last Admin: 03/11/17 08:46 Dose: 18 mcg Vitamin A (Vitamin A&D) 1 applic TP BID [facility] Last Admin: 03/11/17 09:47 Dose: 1 applic - Labs Labs: 03/11/17 05:40 03/11/17 10:00 - Constitutional Appears: No Acute Distress, Chronically Ill - Head Exam Head Exam: NORMAL INSPECTION - Eye Exam Eye Exam: PERRL - ENT Exam ENT Exam: Normal Exam - Neck Exam Neck Exam: Normal Inspection - Respiratory Exam Respiratory Exam: Decreased Breath Sounds (at bases), Rhonchi (scattered) - Cardiovascular Exam Cardiovascular Exam: REGULAR RHYTHM - GI/Abdominal Exam GI & Abdominal Exam: Soft, Tenderness (mild epigastric and R inguinal.), Normal Bowel Sounds - Extremities Exam Additional comments: Chronic venous stasis skin changes L/E - Back Exam Additional comments: Sacral area redness - Neurological Exam Neurological Exam: Alert, Oriented x3. absent: Motor Sensory Deficit - Psychiatric Exam Psychiatric exam: Normal Mood - Skin Skin Exam: Warm Assessment and Plan (1) Unresolved pneumonia Status: Acute (2) Respiratory failure Status: Acute (3) COPD exacerbation Status: Acute (4) Right inguinal pain Status: Chronic (5) Venous insufficiency of both lower extremities Status: Chronic (6) DMII (diabetes mellitus, type 2) Status: Chronic (7) HTN (hypertension) Status: Chronic (8) Hyperkalemia Status: Acute - Assessment and Plan (Free Text) Plan: Continue Xopenex , Atrovent , Mucomyst , Solu Medrol ,Tygacil, and rest of treatment add IVF
[2017-03-11] MEDS: methylPREDNISolone 30 MG in Sodium Chloride 0.9% 50 ML IVPB SCH (16:22)
[2017-03-11] MEDS: Dextrose 5%/0.45% NS 1,000 ML IV SCH (18:36)
[2017-03-12] MEDS: Clindamycin 600 MG in Sodium Chloride 0.9% 100 ML IVPB SCH ×3 (00:05→18:28)
[2017-03-12] MEDS: methylPREDNISolone 30 MG in Sodium Chloride 0.9% 50 ML IVPB SCH ×3 (01:30→18:27)
[2017-03-12] MEDS: Ipratropium 0.02% Inhal Soln (0.5 mg/2.5 ml) UD IH SCH ×6 (05:15→23:46)
[2017-03-12] MEDS: Insulin Regular 100 units/ml SC SCH ×4 (06:36→22:53)
[2017-03-12] MEDS: Acetylcysteine 10% 4 ML IH SCH ×5 (07:35→23:46)
[2017-03-12] MEDS: Budesonide 0.25 mg/2 ml Inhal Susp UD INH SCH ×2 (07:36→16:30)
[2017-03-12] MEDS: Levalbuterol 1.25 MG/3 ML Inhal Soln UD INH SCH ×3 (07:37→23:46)
[2017-03-12] MEDS: SODIUM CHLORIDE 0.9% IVPB SCH ×2 (08:49→22:54)
[2017-03-12] MEDS: TIGECYCLINE IVPB SCH ×2 (08:49→22:54)
[2017-03-12] MEDS: Ammonium Lactate 12% Cream (140 g) TOP SCH ×2 (08:50→17:36)
[2017-03-12] MEDS: Pantoprazole 40 mg EC Tab PO SCH (08:51)
[2017-03-12] MEDS: Tiotropium 18 mcg Cap For Inhalation IH SCH (08:52)
[2017-03-12] MEDS: Vitamin A/D oint 60G TP SCH ×2 (09:00→17:33)
[2017-03-12] MEDS: Dextrose 5%/0.45% NS 1,000 ML IV SCH (11:00)
--- NOTE | 2017-03-12 15:14 | RAD ---
PROCEDURE: CHEST RADIOGRAPH, 1 VIEW HISTORY: pneumonia COMPARISON: Comparison chest dated 03/12/2017. FINDINGS: LUNGS: Patchy opacities again seen in the right mid to lower lung field as well as left lung base. The at interstitial markings are slightly increased and coarsened possibly due to low poor inspiration with low lung volumes and mild crowded bronchovascular markings however developing mild pulmonary venous congestion to be excluded. Questionable small right-sided effusion. Left CP angle has been excluded from the radiograph PLEURA: No evidence of pneumothorax CARDIOVASCULAR: Cardiomegaly. OSSEOUS STRUCTURES: No significant abnormalities. VISUALIZED UPPER ABDOMEN: Normal. OTHER FINDINGS: None. IMPRESSION: Patchy opacities again seen in the right mid to lower lung field as well as left lung base. The at interstitial markings are slightly increased and coarsened possibly due to low poor inspiration with low lung volumes and mild crowded bronchovascular markings however developing mild pulmonary venous congestion to be excluded. Questionable small right-sided effusion. Left CP angle has been excluded from the radiograph
[2017-03-12 18:38] LABS: BLOOD UREA NITROGEN 53 mg/dl (9-20); CALCIUM 8.7 mg/dL (8.4-10.2); CARBON DIOXIDE 22 mmol/L (22-30); CHLORIDE 107 mmol/L (98-107); GFR AFRICAN-AMERICAN > 60; GLUCOSE,RANDOM 108 mg/dL (75-110); SODIUM 138 mmol/l (132-148)
[2017-03-12 18:45] LABS: POTASSIUM 6.2 MMOL/L (3.6-5.0)
--- NOTE | 2017-03-12 18:57 | CP.PCM.PN ---
Subjective - Date & Time of Evaluation Date of Evaluation: 03/12/17 Time of Evaluation: 10:50 - Subjective Subjective: F/U PNA. Pt breathing well with BIPAP, not eating, Pt with low POx with high flow O2. Objective - Vital Signs/Intake and Output Vital Signs (last 24 hours): Temp Pulse Resp BP Pulse Ox 98 F 122 H 22 132/64 96 03/12/17 16:21 03/12/17 17:33 03/12/17 16:21 03/12/17 17:33 03/12/17 16:21 - Medications Medications: Current Medications Acetaminophen (Tylenol 325mg Tab) 650 mg PO Q6 PRN PRN Reason: Pain, Mild (1-3) Last Admin: 03/09/17 04:27 Dose: 650 mg Acetaminophen (Tylenol 325mg Tab) 650 mg PO Q6 PRN PRN Reason: Fever >100.4 F Acetylcysteine (Mucomyst 10% 4ml) 2 ml IH Q8H [facility] Last Admin: 03/12/17 07:36 Dose: 2 ml Al Hydrox/Mg Hydrox/Simethicone (Maalox Plus 30 Ml) 30 ml PO Q4 PRN PRN Reason: Indigestion / Heartburn Alprazolam (Xanax) 0.25 mg PO Q6 PRN PRN Reason: Anxiety Stop: 03/19/17 16:01 Last Admin: 03/12/17 17:36 Dose: 0.25 mg Budesonide (Pulmicort Respules) 0.25 mg INH BID [facility] Last Admin: 03/12/17 07:36 Dose: 0.25 mg Diltiazem HCl (Cardizem) 30 mg PO QID [facility] Last Admin: 03/12/17 17:33 Dose: 30 mg Clindamycin Phosphate 600 mg/ (Sodium Chloride) 104 mls @ 104 mls/hr IVPB Q8H [facility] Last Admin: 03/12/17 18:28 Dose: 104 mls/hr Tigecycline 25 mg/ Sodium (Chloride) 100 mls @ 100 mls/hr IVPB Q12 [facility] Last Admin: 03/12/17 08:49 Dose: 100 mls/hr Methylprednisolone 30 mg/ (Sodium Chloride) 50 mls @ 100 mls/hr IVPB Q8 [facility] Last Admin: 03/12/17 18:27 Dose: 100 mls/hr Insulin Human Regular (Humulin R) 0 units SC ACHS ADAN PRN Reason: Protocol Last Admin: 03/12/17 17:19 Dose: Not Given Ipratropium [place] (Atrovent) 0.5 mg IH RQ4 [facility] Last Admin: 03/12/17 12:00 Dose: 0.5 mg Lactic Acid (Lac-Hydrin 12% Cream (140 G)) 1 ea TOP BID [facility] Last Admin: 03/12/17 17:36 Dose: 1 applic Lactulose (Enulose) 20 gm PO DAILY PRN PRN Reason: Constipation Last Admin: 03/10/17 16:38 Dose: 20 gm Levalbuterol HCl (Xopenex) 1.25 mg INH RQ8 PRN PRN Reason: Shortness of Breath Last Admin: 03/10/17 12:46 Dose: 1.25 mg Levalbuterol HCl (Xopenex) 1.25 mg INH RQ8 [facility] Last Admin: 03/12/17 07:37 Dose: 1.25 mg Pantoprazole Sodium (Protonix Ec Tab) 40 mg PO DAILY [facility] Last Admin: 03/12/17 08:51 Dose: 40 mg Promethazine HCl/Dextromethorphan (Phenergan Dm Syrup) 5 ml PO Q6 PRN PRN Reason: Cough Simethicone (Mylicon Chew Tab) 80 mg PO Q4 PRN PRN Reason: Flatulence Last Admin: 03/10/17 16:36 Dose: 80 mg Sitagliptin Phosphate (Januvia) 50 mg PO DAILY [facility] Last Admin: 03/12/17 08:51 Dose: 50 mg Sodium Chloride ([place] Nasal [place]) 1 sprays IMELDA Q4 PRN PRN Reason: Nasal Congestion Tiotropium [place] (Spiriva) 18 mcg IH DAILY [facility] Last Admin: 03/12/17 08:52 Dose: 18 mcg Vitamin A (Vitamin A&D) 1 applic TP BID [facility] Last Admin: 03/12/17 17:33 Dose: 1 applic - Labs Labs: 03/11/17 05:40 03/12/17 17:00 - Constitutional Appears: No Acute Distress - Head Exam Head Exam: NORMAL INSPECTION - Eye Exam Eye Exam: PERRL - ENT Exam ENT Exam: Normal Oropharynx - Neck Exam Neck Exam: Normal Inspection - Respiratory Exam Respiratory Exam: Decreased Breath Sounds, Rhonchi (scattered) - Cardiovascular Exam Cardiovascular Exam: REGULAR RHYTHM - GI/Abdominal Exam GI & Abdominal Exam: Soft, Normal Bowel Sounds - Extremities Exam Additional comments: Chronic venous stasis skin changes L/E - Back Exam Back Exam: NORMAL INSPECTION - Neurological Exam Neurological Exam: Alert, Oriented x3. absent: Motor Sensory Deficit - Psychiatric Exam Psychiatric exam: Anxious - Skin Skin Exam: Warm Assessment and Plan (1) Unresolved pneumonia Status: Acute (2) Respiratory failure Status: Acute (3) COPD exacerbation Status: Acute (4) Right inguinal pain Status: Chronic (5) Venous insufficiency of both lower extremities Status: Chronic (6) DMII (diabetes mellitus, type 2) Status: Chronic (7) HTN (hypertension) Status: Chronic (8) Hyperkalemia Status: Acute - Assessment and Plan (Free Text) Plan: Continue Tx, to be transferred to [facility]
[2017-03-12 19:54] LABS: BLOOD UREA NITROGEN 52 mg/dl (9-20); CALCIUM 8.9 mg/dL (8.4-10.2); CARBON DIOXIDE 28 mmol/L (22-30); CHLORIDE 104 mmol/L (98-107); GFR AFRICAN-AMERICAN > 60; GLUCOSE,RANDOM 126 mg/dL (75-110); SODIUM 140 mmol/l (132-148)
[2017-03-12 20:00] LABS: POTASSIUM 5.1 MMOL/L (3.6-5.0)
[2017-03-13] MEDS: methylPREDNISolone 30 MG in Sodium Chloride 0.9% 50 ML IVPB SCH ×2 (01:21→09:26)
[2017-03-13] MEDS: Clindamycin 600 MG in Sodium Chloride 0.9% 100 ML IVPB SCH ×2 (01:22→09:26)
[2017-03-13] MEDS: Ipratropium 0.02% Inhal Soln (0.5 mg/2.5 ml) UD IH SCH ×3 (04:30→11:34)
[2017-03-13 06:36] LABS: HEMATOCRIT 40.1 % (35.0-51.0); MEAN CELL VOLUME 92.7 fl (80.0-94.0); MEAN CORPUSCULAR HEMOGLOBIN 30.1 pg (27.0-31.0); MEAN CORPUSCULAR HGB CONC 32.5 g/dL (33.0-37.0); RED CELL DISTRIBUTION WIDTH 15.1 % (11.5-14.5); WHITE BLOOD COUNT 4.7 K/uL (4.8-10.8)
[2017-03-13 06:45] LABS: ALB/GLOB RATIO 0.8 (1.0-2.1); ALKALINE PHOSPHATASE 93 U/L (38-126); ALT/SGPT 39 U/L (21-72); AST/SGOT 34 U/L (17-59); BILIRUBIN,TOTAL 0.7 mg/dl (0.2-1.3); BLOOD UREA NITROGEN 52 mg/dl (9-20); CALCIUM 8.9 mg/dL (8.4-10.2); CARBON DIOXIDE 25 mmol/L (22-30); CHLORIDE 108 mmol/L (98-107); GFR AFRICAN-AMERICAN > 60; GLUCOSE,RANDOM 152 mg/dL (75-110); POTASSIUM 4.7 MMOL/L (3.6-5.0); SODIUM 141 mmol/l (132-148)
[2017-03-13] MEDS: Insulin Regular 100 units/ml SC SCH ×2 (07:04→12:50)
[2017-03-13] MEDS: Budesonide 0.25 mg/2 ml Inhal Susp UD INH SCH (07:52)
[2017-03-13] MEDS: Acetylcysteine 10% 4 ML IH SCH (07:52)
[2017-03-13] MEDS: Levalbuterol 1.25 MG/3 ML Inhal Soln UD INH SCH (07:53)
[2017-03-13 08:02] VITALS: RESP 18; TEMP 97
[2017-03-13] MEDS: Ammonium Lactate 12% Cream (140 g) TOP SCH (09:26)
[2017-03-13] MEDS: Tiotropium 18 mcg Cap For Inhalation IH SCH (09:28)
[2017-03-13] MEDS: Vitamin A/D oint 60G TP SCH (09:28)
[2017-03-13] MEDS: Pantoprazole 40 mg EC Tab PO SCH ×2 (09:28→09:53)
[2017-03-13] MEDS: SODIUM CHLORIDE 0.9% IVPB SCH (09:36)
[2017-03-13] MEDS: TIGECYCLINE IVPB SCH (09:36)
[2017-03-13 10:36] LABS: ABG ALLEN TEST YES; ABG MECHANICAL RATE 14; ARTERIAL BLOOD GAS HCO3 25.5 mmol/L (21-28); ARTERIAL BLOOD GAS MODE BiPAP; ARTERIAL BLOOD GAS O2 CONTENT 17.5 ML/dL (15-23); ARTERIAL BLOOD GAS PO2 81 mm/Hg (80-100); ARTERIAL BLOOD HGB O2 SAT 93.9 % (95.0-98.0); CARBOXYHEMOGLOBIN 1.5 % (0.5-1.5); HHB 2.7 % (0.0-5.0); METHEMOGLOBIN 1.8 % (0.0-3.0)
[2017-03-13 12:38] VITALS: BP 123/58; O2SAT 95
[2017-03-13 14:13] VITALS: PULSE 106
--- NOTE | 2017-03-13 18:06 | CP.PCM.PN ---
Subjective - Date & Time of Evaluation Date of Evaluation: 03/13/17 Time of Evaluation: 11:00 - Subjective Subjective: F/U PNA Pt stated he is hungry but can not DC BIPAP even with high flow O2 Pt has marked O2 desaturation. Objective - Vital Signs/Intake and Output Vital Signs (last 24 hours): Temp Pulse Resp BP Pulse Ox 97.0 F L 106 H 18 123/58 L 95 03/13/17 12:38 03/13/17 14:12 03/13/17 12:38 03/13/17 12:38 03/13/17 12:38 Intake and Output: 03/13/17 03/13/17 06:59 18:59 Intake Total 620 Balance 620 - Labs Labs: 03/13/17 05:25 03/13/17 05:25 - Constitutional Appears: No Acute Distress - Head Exam Head Exam: NORMAL INSPECTION - Eye Exam Eye Exam: PERRL - ENT Exam ENT Exam: Normal Oropharynx - Neck Exam Neck Exam: Normal Inspection - Respiratory Exam Respiratory Exam: Decreased Breath Sounds - Cardiovascular Exam Cardiovascular Exam: REGULAR RHYTHM - GI/Abdominal Exam GI & Abdominal Exam: Soft, Normal Bowel Sounds - Extremities Exam Additional comments: Chronic venous stasis skin changes L/E - Back Exam Back Exam: NORMAL INSPECTION - Neurological Exam Neurological Exam: Alert, Oriented x3. absent: Motor Sensory Deficit - Psychiatric Exam Psychiatric exam: Anxious - Skin Skin Exam: Warm Assessment and Plan (1) Unresolved pneumonia Status: Acute (2) Respiratory failure Status: Acute (3) COPD exacerbation Status: Acute (4) Right inguinal pain Status: Chronic (5) Venous insufficiency of both lower extremities Status: Chronic (6) DMII (diabetes mellitus, type 2) Status: Chronic (7) HTN (hypertension) Status: Chronic (8) Hyperkalemia Status: Acute - Assessment and Plan (Free Text) Plan: To be transferred to [facility] today.
--- NOTE | 2017-03-13 18:43 | CARD ---
APPROVED REPORT EKG Measurement Heart [id number] <Conclusion> Sinus tachycardia Possible Left atrial enlargement Right bundle branch block Left anterior fascicular block Bifascicular block Abnormal ECG
== END 2017-03-13 14:50 | DRG 189 ==
LOC: H.ER 15:30 → H.ERHOLD 18:36 → H.TEL 22:41
PROVIDERS: ADMIT Internal Medicine Pulmonary Disease; ATTEND Internal Medicine Pulmonary Disease
DX: J96.91 Respiratory failure, unspecified with hypoxia (principal); J18.9 Pneumonia, unspecified organism; J44.0 Chronic obstructive pulmonary disease with (acute) lower respiratory infection; E87.5 Hyperkalemia; J44.1 Chronic obstructive pulmonary disease with (acute) exacerbation; E11.9 Type 2 diabetes mellitus without complications; I10 Essential (primary) hypertension; I87.2 Venous insufficiency (chronic) (peripheral); R10.31 Right lower quadrant pain